=== PATIENT | male | born 1930 | race Caucasian/White ===

== ENCOUNTER 2016-03-13 02:52 | Inpatient (IN) | payer MEDICARE, OTHER ==
[~2016-03-13] VITALS: Ht 165.1 cm; Wt 54.0 kg
[2016-03-13] VITALS (7 sets, daily range): BP systolic 111–129; BP diastolic 59–76
[~2016-03-13 02:52] MED LIST: /CELE20CA; /LANS30GR; /PANT40TA PO; /TAMS4CA; /TAMS4CA PO; /THIA10TA; ACET500T2 OR; ACET65TA; AGGRCAP; ASPI1TAB PO; ASPI81TA83 OR; ATEN25TA; ATEN25TA PO; BABY81CH; BACT800T OR; CALCCHW12; CALCIUM/VITAMIN D PO; CLOP75TA2 PO; FEROUS SULFATE PO; FERR325T; FLOM5CAP PO; GLUC500T PO; LANS30CA PO; LIPI10TA; LIPI10TA PO; LISI10TA4 OR; LISI2.5T3 PO; MAGN400T5 PO; METAPKT PO; METF1000 PO; METF750T; MULTIVIT PO; PLAV75TA38 PO; PREV15CA PO; PRIN10TA; THERGRAN; TYLE325T5 PO; VITA500C24 PO; VITAMIN B COMPLEX WI; [UNRECOGNIZED DRUG - REMARK]; [UNRECOGNIZED DRUG - REMARK]
[2016-03-13 04:29] LABS: BASO % 0.2 % (0.0-1.0); EOS # 0.3 K/mm3 (0.0-0.50); EOS % 5.9 % (0.0-3.0); LARGE UNSTAINED CELL # 0.1 K/mm3 (0.0-0.4); LARGE UNSTAINED CELL % 1.4 % (0.0-4.0); LYMPH # 0.7 K/mm3 (1.5-4.5); LYMPH % 11.5 % (24.0-44.0); MEAN CORPUSCULAR HGB CONC 31.6 g/dl (32.0-36.5); MEAN CORPUSCULAR VOLUME 82.6 fl (80.0-96.0); MONO # 0.3 K/mm3 (0.0-0.8); MONO % 5.2 % (0.0-5.0); NEUTROPHILS # 4.4 K/mm3 (1.8-7.7); NEUTROPHILS % 75.9 % (36.0-66.0); PLATELET COUNT, AUTOMATED 224 k/mm3 (150-450); RED CELL DISTRIBUTION WIDTH 18.2 % (11.5-14.5); WHITE BLOOD COUNT 5.8 K/mm3 (4.0-10.0)
[2016-03-13 04:30] LABS: INR 0.99
[2016-03-13 04:41] LABS: ALBUMIN 3.8 GM/DL (3.2-5.2); ALBUMIN/GLOBULIN RATIO 1.31 (1.00-1.93); ALKALINE PHOSPHATASE 62 U/L (45-117); ALT/SGPT 15 U/L (12-78); AMYLASE 21 U/L (25-115); ANION GAP 8 MEQ/L (8-16); AST/SGOT 11 U/L (15-37); BILIRUBIN,DIRECT 0.2 MG/DL (0.0-0.2); BILIRUBIN,TOTAL 0.5 MG/DL (0.2-1.0); BLOOD UREA NITROGEN 13 MG/DL (7-18); CALCIUM LEVEL 8.7 MG/DL (8.8-10.2); CARBON DIOXIDE LEVEL 29 MEQ/L (21-32); CHLORIDE LEVEL 103 MEQ/L (98-107); CREATININE FOR GFR 0.62 MG/DL (0.70-1.30); GLOMERULAR FILTRATION RATE > 60.0 (>35); GLUCOSE, FASTING 127 MG/DL (83-110); POTASSIUM SERUM 4.2 MEQ/L (3.5-5.1); SODIUM LEVEL 140 MEQ/L (136-145); TOTAL PROTEIN 6.7 GM/DL (6.4-8.2)
[2016-03-13] MEDS ORDERED: GASTROGRAFIN SOLUTION 30ML (Q9963) As Ordered ONE (04:44)
[2016-03-13] MEDS ORDERED: ASPI81TA85 PO (06:11)
[2016-03-13] MEDS ORDERED: LISI2.5T3 PO (06:12)
[2016-03-13] MEDS ORDERED: ATEN25TA PO (06:12)
[2016-03-13] MEDS ORDERED: METF500T4 PO (06:12)
[2016-03-13] MEDS ORDERED: ONDANSETRON 4MG/2ML VIAL (J2405) IV PRN (06:30)
[2016-03-13] MEDS ORDERED: DEXTROSE 50% 50 ML SYRINGE IV PRN (07:00)
[2016-03-13] MEDS ORDERED: GLUCOSE 4 GM CHEW TABLET PO PRN (07:00)
[2016-03-13] MEDS ORDERED: GLUCAGON FOR INJ 1 MG VIAL (J1610) SC PRN (07:00)
--- NOTE | 2016-03-13 07:30 | REPUSA ---
CLINICAL HISTORY: Abdominal pain. TECHNIQUE: Multiple axial, sagittal and coronal CT images were obtained through the abdomen and pelvi s without administration of oral or IV contrast material. COMMENTS: Comparison is made to prior exam performed on 09/24/2015. No change in diffuse colonic diverticulosis. Interval appearance of mild diffuse multifocal thickening of the sigmoid colon. Significantly distended bladder. The liver is of uniform attenuation without mass or defect. There is no intra or extrahepatic biliary ductal dilatation. The spleen is normal. The gallbladder contains a gallstone. The pancreas is of no rmal contour and attenuation characteristics. There is no evidence of adrenal mass. The kidneys are normal in size, shape and configuration. No renal or ureteral calculi are identified. There is no hydroureter or hydronephrosis. There is no evidence for appendicitis. No evidence for small or large bowel obstruction. There is no evidence of abdominal ascites or lymphadenopathy. There is no evidence of intrinsic or extrinsic bladder mass. There is no pelvic ascites or lymphadeno pavan. Images of the lung bases show no evidence of pleural or parenchymal mass. There are no pleural effusi ons. The bony structures are free of lytic or blastic lesions. Multilevel degenerative changes are seen in volving the thoracolumbar spine. Scattered calcifications are seen involving the aorta and major branches compatible with atherosclero sis. IMPRESSION: Multifocal thickening of the sigmoid colon. Under distention versus mild colitis. This was not presen t on prior exam. No change in diffuse colonic diverticulosis. Significantly distended bladder. No change in gallstone. Thank you for your kind referral of this patient.
[2016-03-13] MEDS: HumaLOG INSULIN (NovoLOG) PER UNIT SC SCH ×3 (09:40→17:19)
[2016-03-13] MEDS: NS 1,000 ML IV SCH ×2 (09:40→16:04)
[2016-03-13] MEDS ORDERED: TAMSULOSIN 0.4 MG CAP As Ordered ONE (09:43)
[2016-03-13] MEDS ORDERED: PANTOPRAZOLE 40MG TAB (PROTONIX) As Ordered ONE (09:44)
[2016-03-13] MEDS: PANTOPRAZOLE 40MG TAB (PROTONIX) PO SCH (09:45)
[2016-03-13] MEDS: TAMSULOSIN 0.4 MG CAP PO SCH (09:45)
--- NOTE | 2016-03-13 13:18 | IPNPDOC ---
Assessment/Plan Date Seen The patient was seen on 03/13/16. Problems Problems: (1) Acute blood loss anemia Status: Acute Problem Text: Check H/H Q6H - slightly decreased from 9.3 on admission to 8.6. Patient currently asymptomatic with no cardiac disease - will transfuse if < 8. Informed consent for blood transfusion obtained today. (2) GI bleeding Onset Date: 08/18/2013 Status: Acute Problem Text: Likely diverticulosis as patient has history of diverticulosis of entire colon seen on colonoscopy 06/2013. He has been admitted for diverticular bleeds in the past. He also had 1 adenomatous polyp removed during colonoscopy 06/2013. No anticoagulation at baseline. - D/w Gen Surgery - recommended repeat colonoscopy in the next 1-3 months as an outpatient; no need for intervention as inpatient unless he requires > 4U pRBCs. (3) Hypertension Status: Chronic Problem Text: BP currently controlled; continue to monitor. (4) Hypercholesteremia Status: Acute Problem Text: Hold lipitor (5) Diabetes Status: Acute Problem Text: Hold metformin; continue SSI. (6) Acid reflux Status: Acute Problem Text: Continue protonix (7) Benign prostatic hyperplasia Status: Acute Problem Text: Continue tamsulosin. Plan / VTE VTE Prophylaxis Ordered?: Yes Subjective Review of Systems CC/HPI The patient is a 85-year-old male admitted with a reason for visit of Lower Gastrointestinal Bleeding. Events since last encounter Patient states he has had multiple episodes of BRBPR since admission this morning; bleeding is not associated with any bowel movements. General: Denies: Chills, Fatigue, Malaise Constitutional: Denies: Fever, Weakness ENT: Denies: Head Aches Pulmonary: Denies: Dyspnea Cardiovascular: Denies: Chest Pain, Lt Headedness, Palpitations Gastrointestinal: Denies: Abdominal Pain, Diarrhea, Nausea, Vomiting Genitourinary: Denies: Dysuria Musculoskeletal: Denies: Back Pain, Neck Pain Neurological: Denies: Weakness Psych: Reports: Mood Normal Objective Physical Examination General Exam: Positive: Alert, Cooperative, No Acute Distress Eye Exam: Positive: PERRLA ENT Exam: Positive: Atraumatic, Mucous membr. moist/pink Neck Exam: Positive: Supple Chest Exam: Positive: Clear to auscultation, Normal air movement Heart Exam: Positive: Normal S1, Normal S2, Rate Normal, Regular Rhythm, Negative: Murmurs Abdomen Exam: Positive: BS Hyperactive, Soft, Negative: Hepatospenomegaly, Mass, Tenderness Extremity Exam: Negative: Edema Skin Exam: Positive: Nl turgor and temperature, Negative: Rash Neuro Exam: Positive: Cranial Nerves 3-12 NL, Normal Speech Psych Exam: Positive: Mental status NL, Mood NL, Oriented x 3 Laboratory Data Labs 24H Laboratory Tests 2 03/13/16 04:11: Aspartate Amino Transf (AST/SGOT) 11L, Alanine Aminotransferase (ALT/SGPT) 15, Alkaline Phosphatase 62, Total Bilirubin 0.5, Direct Bilirubin 0.2, Albumin 3.8 , Albumin/Globulin Ratio 1.31, Amylase Level 21L, Anion Gap 8, Calcium Level 8.7L, Glomerular Filtration Rate > 60.0, Lipase 69L, Prothromb Time International Ratio 0.99, Prothrombin Time 13.2, Total Protein 6.7 03/13/16 04:13: White Blood Count 5.8, Red Blood Count 3.59L, Hemoglobin 9.3L, Hematocrit 29.6L , Mean Corpuscular Volume 82.6, Mean Corpuscular Hemoglobin 26.0L, Mean Corpuscular Hemoglobin Concent 31.6L, Red Cell Distribution Width 18.2H, Platelet Count 224, Neutrophils (%) (Auto) 75.9H, Lymphocytes (%) (Auto) 11.5L, Monocytes (%) (Auto) 5.2H, Eosinophils (%) (Auto) 5.9H, Basophils (%) (Auto) 0.2 , Neutrophils # (Auto) 4.4, Lymphocytes # (Auto) 0.7L, Monocytes # (Auto) 0.3, Eosinophils # (Auto) 0.3, Basophils # (Auto) 0.0, Large Unclassified Cells # 0.1 , Large Unclassified Cells % 1.4 03/13/16 11:52: Bedside Glucose (Misc Panel) 122H CBC/BMP Laboratory Tests 03/13/16 04:11 03/13/16 04:13 Red Blood Count 3.59 L, Mean Corpuscular Volume 82.6, Mean Corpuscular Hemoglobin 26.0 L, Mean Corpuscular Hemoglobin Concent 31.6 L, Red Cell Distribution Width 18.2 H, Neutrophils (%) (Auto) 75.9 H, Lymphocytes (%) (Auto ) 11.5 L, Monocytes (%) (Auto) 5.2 H, Eosinophils (%) (Auto) 5.9 H, Basophils (% ) (Auto) 0.2, Neutrophils # (Auto) 4.4, Lymphocytes # (Auto) 0.7 L, Monocytes # (Auto) 0.3, Eosinophils # (Auto) 0.3, Basophils # (Auto) 0.0 03/13/16 09:58 FSBS Laboratory Tests Test 03/13/16 11:52 Range/Units Bedside Glucose (Misc Panel) 122 83-110 MG/DL KAMAR GABRIEL MD Mar 13, 2016 13:18
--- NOTE | 2016-03-13 15:56 | EDDOCDS ---
Physician Documentation [facility] Name: Mich Franklin Age: 85 yrs Sex: Male : 1930 Arrival Date: 03/13/2016 Time: 02:52 Bed Admit Hold Private MD: Nahun Emmanuel M.D. Disposition: 03/13/16 05:56 Hospitalization ordered by Jose Manuel Christensen for Inpatient Admission. Preliminary diagnosis are Gastrointestinal hemorrhage, unspecified, Anemia, unspecified. - Bed requested for Admit. - Status is Inpatient Admission. kc3 - Condition is Stable. - Problem is an ongoing problem. - Symptoms are unchanged. Historical: - Allergies: Codeine Sulfate; SULFA (SULFONAMIDES); - Home Meds: 1. aspirin 81 mg Oral TbEC once weekly (Last dose: 03/12/2016) 2. atenolol 25 mg Oral tab 1 tab once daily (Last dose: 03/12/2016) 3. Flomax 0.4 mg Oral cp24 1 cap once daily (Last dose: 03/12/2016) 4. lisinopril 2.5 mg Oral tab 1 tab once daily (Last dose: 03/12/2016) 5. lansoprazole 30 mg oral cpDR 1 cap once daily (Last dose: 03/12/2016) 6. magnesium oxide 250 mg Oral tab twice weekly 7. metformin 500 mg Oral tab 2 tabs 2 times per day (Last dose: 03/12/2016) - PMHx: BPH; CVA; Diabetes - NIDDM: controlled; Diverticulosis; High Cholesterol; Hypertension; Recurrent Lower GI Bleeds; TIA; - PSHx: Hernia repair; Knee surgery- Left; Knee surgery- Right; Hip Arthroplasty, Right; - Social history: Smoking status: Patient states was never smoker of tobacco. No barriers to communication noted, The patient speaks fluent Sami, Speaks appropriately for age. - Family history: Not pertinent. - : The pt / caregiver states he / she is not on anticoagulants. Home medication list is obtained from the patient. - Exposure Risk Screening:: None identified. Vital Signs: 03/13 03:10 BP 138 / 71; Pulse 70; Resp 18; Temp 98.7; Pulse Ox 93% on R/A; Weight 67.13 kg / 148 ko2 lbs; Height 65 in. (165.10 cm); Pain 0/10; 03:38 BP 151 / 69 (auto/); jp6 03:38 Pulse 68 MON; Pulse Ox 94% ; jp6 03:48 BP 148 / 70 (auto/); jp6 03:49 Pulse 68 MON; Pulse Ox 95% ; jp6 04:15 BP 151 / 73 (auto/); jp6 04:15 Pulse 62 MON; Pulse Ox 95% ; jp6 04:30 BP 140 / 64 (auto/); jp6 04:30 Pulse 66 MON; Pulse Ox 96% ; jp6 04:45 BP 141 / 73 (auto/); jp6 04:45 Pulse 64 MON; Pulse Ox 93% ; jp6 05:00 BP 151 / 78 (auto/); jp6 05:00 Pulse 64 MON; Pulse Ox 93% ; jp6 05:15 BP 147 / 68 (auto/); jp6 05:15 Pulse 70 MON; Pulse Ox 95% ; jp6 05:30 BP 150 / 78; Pulse 70; Resp 18; Pain 0/10; jp6 06:00 BP 148 / 76; Pulse 71; Resp 16; Pulse Ox 95% on R/A; Pain 0/10; jp6 06:15 BP 145 / 89 (auto/); js13 06:15 Pulse 70 MON; Resp 16; Pulse Ox 95% on R/A; js13 07:04 BP 129 / 74 (auto/); js13 07:04 Pulse 68 MON; Resp 16; Pulse Ox 96% on R/A; js13 08:00 BP 138 / 86 (auto/); js13 08:00 Pulse 72 MON; Resp 16; Pulse Ox 94% on R/A; js13 09:13 BP 128 / 76; Pulse 66; Resp 16; Pulse Ox 97% on R/A; js13 09:40 BP 145 / 65 (auto/); js13 09:40 Pulse 68 MON; Resp 16; Pulse Ox 96% on R/A; js13 12:40 BP 111 / 60 (auto/); js13 12:40 Pulse 74 MON; Resp 16; Pulse Ox 94% on R/A; js13 03:10 Body Mass Index 24.63 (67.13 kg, 165.10 cm) ko2 MDM: 03:24 Undress patient appropriately for examination ordered. feb 03:24 IV Saline Lock ordered. feb 03:25 Type & Screen Ordered. EDMS 03:25 NOTHING BY MOUTH+DIET ordered. EDMS 03:26 Amylase Ordered. EDMS 03:26 Basic Metabolic Profile Ordered. EDMS 03:26 CBC with Diff Ordered. EDMS 03:26 Lipase Ordered. EDMS 03:26 Liver Profile Ordered. EDMS 03:26 Prothrombin Time Profile\E\INR Ordered. EDMS 04:30 CT ABD & PELVIS: Oral Contrast Only Ordered. EDMS 04:38 Financial registration complete. [facility] 04:43 [facility] Payment Agreement was scanned into [email or web address] and attached to record. [facility] 04:49 Diatrizoate Meglumine & Sodium Liquid 10 ml PO once; mix in 290cc of water ordered. slm 05:26 Diatrizoate Meglumine & Sodium Liquid 10 ml PO once; mix in 290cc of water ordered. jp6 05:48 Amylase Reviewed. cs11 05:48 Basic Metabolic Profile Reviewed. cs11 05:48 CBC with Diff Reviewed. cs11 05:48 Lipase Reviewed. cs11 05:48 Liver Profile Reviewed. cs11 05:48 Prothrombin Time Profile\E\INR Reviewed. cs11 05:48 Type & Screen Reviewed. cs11 05:53 BED REQUEST+ADM ordered. EDMS 06:26 Admission / Observation Status ordered. EDMS 06:27 NPO DIET ordered. EDMS 06:27 HEMOGLOBIN & HEMATOCRIT Ordered. EDMS 06:27 HEMOGLOBIN & HEMATOCRIT Ordered. EDMS 06:27 HEMOGLOBIN & HEMATOCRIT Ordered. EDMS 09:09 NS 0.9% 1000 ml IV at 80 mL/hr continuous ordered. js13 12:18 Fingerstick Blood Sugar Ordered. EDMS 14:35 T-Sheet-- Draft Copy was scanned into [email or web address] and attached to record. gb Administered Medications: 04:54 Drug: Diatrizoate Meglumine & Sodium 10 ml [diatrizoate meglumine and diat.sodium 66 slm %-10 % oral solution (10 mL)] Route: PO; 05:26 Drug: Diatrizoate Meglumine & Sodium 10 ml [diatrizoate meglumine and diat.sodium 66 jp6 %-10 % oral solution (10 mL)] Route: PO; 08:55 Drug: NS 0.9% 1000 ml [sodium chloride 0.9 % intravenous solution] Route: IV; Rate: 80 js13 mL/hr; Site: left antecubital; Signatures: Dispatcher [employer] EDErica Davison RN RN Natasha Garcia, Reg Reg Katie Miller,RN RN [id number] Efrain Chacon DO DO cs11 Lazara Paredes,AERONAUTICAL RESEARCH ENGINEER AERONAUTICAL RESEARCH ENGINEER Gabrielle ClaytonRN RN [email or web address] Mary Mccormick [facility] Rachel Sosa RN RN kc3 Christy PatelRN RN jp6 The chart was reviewed and I authenticate all verbal orders and agree with the evaluation and treatment provided.Attachments: 04:43 [facility] Payment Agreement [facility] 14:35 T-Sheet-- Draft Copy gb MTDD
--- NOTE | 2016-03-13 15:57 | EDDOCDS ---
Nurse's Notes [facility] Name: Mich Franklin Age: 85 yrs Sex: Male : 1930 Arrival Date: 03/13/2016 Time: 02:52 Bed Admit Hold Private MD: Nahun Emmanuel M.D. Diagnosis: Gastrointestinal hemorrhage, unspecified;Anemia, unspecified Presentation: 03/13 03:07 Presenting complaint: states: lower GI bleed. He has had 3 bloody stools this ko2 evening. Pt has a history of lower GI bleed and was hospitalized in september. Suicide/Homicide risk assessment- the patient denies having any suicidal and/or homicidal ideations and does not present with any other emotional, behavioral or mental health complaints. 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 Transition of care: patient was not received from another setting of care. 03:07 Acuity: [place]AL[place] Level 3 ko2 03:07 Method Of Arrival: Walkin/Carried/Asstd ko2 04:19 Adult Sepsis Screening: The patient does not have new or worsening altered mentation. jp6 Patient's respiratory rate is less than 22. Systolic blood pressure is greater than 100. Patient has a qSOFA score of 0- Negative Sepsis Screen. Triage Assessment: 03:16 General: Appears in no apparent distress, Behavior is appropriate for age, cooperative. ko2 Pain: Denies pain. Neurological: Level of Consciousness is awake, alert, Oriented to person, place, time. GI: Reports bloody stools. Derm: Skin is normal. Historical: - Allergies: Codeine Sulfate; SULFA (SULFONAMIDES); - Home Meds: 1. aspirin 81 mg Oral TbEC once weekly (Last dose: 03/12/2016) 2. atenolol 25 mg Oral tab 1 tab once daily (Last dose: 03/12/2016) 3. Flomax 0.4 mg Oral cp24 1 cap once daily (Last dose: 03/12/2016) 4. lisinopril 2.5 mg Oral tab 1 tab once daily (Last dose: 03/12/2016) 5. lansoprazole 30 mg oral cpDR 1 cap once daily (Last dose: 03/12/2016) 6. magnesium oxide 250 mg Oral tab twice weekly 7. metformin 500 mg Oral tab 2 tabs 2 times per day (Last dose: 03/12/2016) - PMHx: BPH; CVA; Diabetes - NIDDM: controlled; Diverticulosis; High Cholesterol; Hypertension; Recurrent Lower GI Bleeds; TIA; - PSHx: Hernia repair; Knee surgery- Left; Knee surgery- Right; Hip Arthroplasty, Right; - Social history: Smoking status: Patient states was never smoker of tobacco. No barriers to communication noted, The patient speaks fluent [place], Speaks appropriately for age. - Family history: Not pertinent. - : The pt / caregiver states he / she is not on anticoagulants. Home medication list is obtained from the patient. - Exposure Risk Screening:: None identified. Screenin:17 Screening information is obtained from the patient. Fall risk: At risk due to age, ko2 prior history of falls. Assistance ADL's: requires no assistance with activities of daily living. Abuse/DV Screen: The patient / caregiver reports he/she is: not in a situation that causes fear, pain or injury. Nutritional screening: No deficits noted. Advance Directives: Currently, there is a health care proxy, Britta Franklin - . There is an active DNR order but there is no copy available at this time. There is a living will, but a copy is not available at this time. There is an active Power of Chair Pad Maker, Britta Franklin - . home support is adequate. Assessment: 04:20 General: Appears in no apparent distress, comfortable, slender, well developed, well jp6 nourished, Behavior is appropriate for age, cooperative, pleasant, quiet. Pain: Denies pain. Neurological: Level of Consciousness is awake, alert, Oriented to person, place, time. EENT: No deficits noted. Cardiovascular: Capillary refill < 3 seconds Heart tones S1 S2 present Rhythm is sinus rhythm No ectopy. Respiratory: Airway is patent Respiratory effort is even, unlabored, Respiratory pattern is regular, symmetrical, Breath sounds are clear bilaterally. GI: Abdomen is flat, non- distended Bowel sounds present X 4 quads. : No deficits noted. Derm: Skin is pink, warm & dry. Musculoskeletal: No deficits noted. 05:29 Reassessment: Patient appears in no apparent distress at this time. Pain: Denies pain. jp6 Cardiovascular: Rhythm is sinus rhythm No ectopy. Respiratory: Airway is patent Respiratory effort is even, unlabored, Respiratory pattern is regular, symmetrical. Derm: Skin is pink, warm & dry. 06:14 Reassessment: Patient appears in no apparent distress at this time. Pain: Denies pain. jp6 Cardiovascular: Rhythm is sinus rhythm No ectopy. Respiratory: Airway is patent Respiratory effort is even, unlabored, Respiratory pattern is regular, symmetrical. Derm: Skin is pink, warm & dry. 06:30 General: Two episodes of bloody stools each approx 700ml.. jp6 07:25 General: Appears in no apparent distress, comfortable, Behavior is appropriate for age, js13 cooperative. Pain: Denies pain. Neurological: Level of Consciousness is awake, alert. Cardiovascular: Rhythm is sinus rhythm Chest pain is denied. Respiratory: Airway is patent Respiratory effort is even, unlabored, Respiratory pattern is regular, symmetrical. GI: Abdomen is non- distended Bowel sounds present X 4 quads. Abd is soft and non tender. Derm: Skin is pink, warm & dry. 07:25 Adult Sepsis Screening: The patient does not have new or worsening altered mentation. js13 Patient's respiratory rate is less than 22. Systolic blood pressure is greater than 100. Patient has a qSOFA score of 0- Negative Sepsis Screen. 09:10 General: Appears in no apparent distress, comfortable, Behavior is appropriate for age, js13 cooperative. General: Patient had approx 800 cc of blood when he went to [facility]. . Pain: Denies pain. Neurological: Level of Consciousness is awake, alert. Cardiovascular: Rhythm is sinus rhythm Chest pain is denied. Respiratory: Airway is patent Respiratory effort is even, unlabored, Respiratory pattern is regular, symmetrical. GI: Abdomen is non- distended Bowel sounds present X 4 quads. Abd is soft and non tender. Derm: Skin is pink, warm & dry. 09:21 General: Report given to Lavonne Gordon RN. js13 Vital Signs: 03:10 BP 138 / 71; Pulse 70; Resp 18; Temp 98.7; Pulse Ox 93% on R/A; Weight 67.13 kg; Height ko2 65 in. (165.10 cm); Pain 0/10; 03:38 BP 151 / 69 (auto/); jp6 03:38 Pulse 68 MON; Pulse Ox 94% ; jp6 03:48 BP 148 / 70 (auto/); jp6 03:49 Pulse 68 MON; Pulse Ox 95% ; jp6 04:15 BP 151 / 73 (auto/); jp6 04:15 Pulse 62 MON; Pulse Ox 95% ; jp6 04:30 BP 140 / 64 (auto/); jp6 04:30 Pulse 66 MON; Pulse Ox 96% ; jp6 04:45 BP 141 / 73 (auto/); jp6 04:45 Pulse 64 MON; Pulse Ox 93% ; jp6 05:00 BP 151 / 78 (auto/); jp6 05:00 Pulse 64 MON; Pulse Ox 93% ; jp6 05:15 BP 147 / 68 (auto/); jp6 05:15 Pulse 70 MON; Pulse Ox 95% ; jp6 05:30 BP 150 / 78; Pulse 70; Resp 18; Pain 0/10; jp6 06:00 BP 148 / 76; Pulse 71; Resp 16; Pulse Ox 95% on R/A; Pain 0/10; jp6 06:15 BP 145 / 89 (auto/); js13 06:15 Pulse 70 MON; Resp 16; Pulse Ox 95% on R/A; js13 07:04 BP 129 / 74 (auto/); js13 07:04 Pulse 68 MON; Resp 16; Pulse Ox 96% on R/A; js13 08:00 BP 138 / 86 (auto/); js13 08:00 Pulse 72 MON; Resp 16; Pulse Ox 94% on R/A; js13 09:13 BP 128 / 76; Pulse 66; Resp 16; Pulse Ox 97% on R/A; js13 09:40 BP 145 / 65 (auto/); js13 09:40 Pulse 68 MON; Resp 16; Pulse Ox 96% on R/A; js13 12:40 BP 111 / 60 (auto/); js13 12:40 Pulse 74 MON; Resp 16; Pulse Ox 94% on R/A; js13 03:10 Body Mass Index 24.63 (67.13 kg, 165.10 cm) ko2 ED Course: 02:53 Patient visited by Derek Holly Reg. pm4 02:53 Nahun Emmanuel is Private Physician. pm4 02:53 Patient moved to Waiting pm4 03:07 Patient moved to Triage 1 ko2 03:10 Triage Initiated ko2 03:18 Patient moved to 15 ko2 03:49 cardiac monitor on. Pulse ox on. NIBP on. jp6 03:49 Inserted peripheral IV: 18gauge IV in left antecubital area and blood collected. jp6 Patient tolerated the procedure well. Labs drawn. (by ED staff). Sent per order to lab. 03:51 Efrain Chacon DO is Attending Physician. cs11 03:51 Patient visited by Efrain Chacon DO. cs11 03:57 Christy Patel,RN is Primary Nurse. jp6 04:43 [facility] Payment Agreement was scanned into [employer] and attached to record. [facility] 05:10 Patient visited by Christy Patel,ANDREW. jp6 05:15 The patient / caregiver is instructed regarding the plan of care and ED course. jp6 05:15 No procedures done that require assistance. jp6 05:55 Jose Manuel Christensen MD is Hospitalizing Provider. cs11 06:52 Patient moved to Admit Hold feb 07:26 Patient visited by Katie Roberson,ANDREW. js13 07:56 CT ABD & PELVIS: Oral Contrast Only Returned. EDMS 08:00 Assisted to bedside commode. jlf 08:36 Patient visited by Martha Simon PCA. jlf 09:02 Patient moved to I kcs 09:21 Patient visited by Katie Roberson,ANDREW. js13 14:14 Patient visited by Katie Roberson,ANDREW. js13 14:35 T-Sheet-- Draft Copy was scanned into [employer] and attached to record. gb 15:17 Patient moved to Admit Hold js13 Administered Medications: 04:54 Drug: Diatrizoate Meglumine & Sodium 10 ml [diatrizoate meglumine and diat.sodium 66 slm %-10 % oral solution (10 mL)] Route: PO; 05:26 Drug: Diatrizoate Meglumine & Sodium 10 ml [diatrizoate meglumine and diat.sodium 66 jp6 %-10 % oral solution (10 mL)] Route: PO; 08:55 Drug: NS 0.9% 1000 ml [sodium chloride 0.9 % intravenous solution] Route: IV; Rate: 80 js13 mL/hr; Site: left antecubital; Order Results: Lab Order: Amylase; SPEC'M 03/13/16 04:11 Test: AMYLASE; Value: 21; Range: 25-115; Abnormal: Below low normal; Units: U/L; Status: F Lab Order: Basic Metabolic Profile; SPEC'M 03/13/16 04:11 Test: GLUCOSE, FASTING; Value: 127; Range: 83-110; Abnormal: Above high normal; Units: MG/DL; Status: F Test: BLOOD UREA NITROGEN; Value: 13; Range: 7-18; Units: MG/DL; Status: F Test: CREATININE FOR GFR; Value: 0.62; Range: 0.70-1.30; Abnormal: Below low normal; Units: MG/DL; Status: F Test: GLOMERULAR FILTRATION RATE; Value: > 60.0; Range: >35; Status: F Test: SODIUM LEVEL; Value: 140; Range: 136-145; Units: MEQ/L; Status: F Test: POTASSIUM SERUM; Value: 4.2; Range: 3.5-5.1; Units: MEQ/L; Status: F Test: CHLORIDE LEVEL; Value: 103; Range: 98-107; Units: MEQ/L; Status: F Test: CARBON DIOXIDE LEVEL; Value: 29; Range: 21-32; Units: MEQ/L; Status: F Test: ANION GAP; Value: 8; Range: 8-16; Units: MEQ/L; Status: F Test: CALCIUM LEVEL; Value: 8.7; Range: 8.8-10.2; Abnormal: Below low normal; Units: MG/DL; Status: F Test Note: ; Units are mL/min/1.73 m2 Chronic Kidney Disease Staging per NKF: Stage I & II GFR >=60 Normal to Mildly Decreased Stage III GFR 30-59 Moderately Decreased Stage IV GFR 15-29 Severely Decreased Stage V GFR <15 Very Little GFR Left ESRD GFR <15 on [employer] Lab Order: CBC with Diff; SPEC'M 03/13/16 04:13 Test: WHITE BLOOD COUNT; Value: 5.8; Range: 4.0-10.0; Units: K/mm3; Status: F Test: RED BLOOD COUNT; Value: 3.59; Range: 4.30-6.10; Abnormal: Below low normal; Units: M/mm3; Status: F Test: HEMOGLOBIN; Value: 9.3; Range: 14.0-18.0; Abnormal: Below low normal; Units: g/dl; Status: F Test: HEMATOCRIT; Value: 29.6; Range: 42.0-52.0; Abnormal: Below low normal; Units: %; Status: F Test: MEAN CORPUSCULAR VOLUME; Value: 82.6; Range: 80.0-96.0; Units: fl; Status: F Test: MEAN CORPUSCULAR HEMOGLOBIN; Value: 26.0; Range: 27.0-33.0; Abnormal: Below low normal; Units: pg; Status: F Test: MEAN CORPUSCULAR HGB CONC; Value: 31.6; Range: 32.0-36.5; Abnormal: Below low normal; Units: g/dl; Status: F Test: RED CELL DISTRIBUTION WIDTH; Value: 18.2; Range: 11.5-14.5; Abnormal: Above high normal; Units: %; Status: F Test: PLATELET COUNT, AUTOMATED; Value: 224; Range: 150-450; Units: k/mm3; Status: F Test: NEUTROPHILS %; Value: 75.9; Range: 36.0-66.0; Abnormal: Above high normal; Units: %; Status: F Test: LYMPH %; Value: 11.5; Range: 24.0-44.0; Abnormal: Below low normal; Units: %; Status: F Test: MONO %; Value: 5.2; Range: 0.0-5.0; Abnormal: Above high normal; Units: %; Status: F Test: EOS %; Value: 5.9; Range: 0.0-3.0; Abnormal: Above high normal; Units: %; Status: F Test: BASO %; Value: 0.2; Range: 0.0-1.0; Units: %; Status: F Test: LARGE UNSTAINED CELL %; Value: 1.4; Range: 0.0-4.0; Units: %; Status: F Test: NEUTROPHILS #; Value: 4.4; Range: 1.8-7.7; Units: K/mm3; Status: F Test: LYMPH #; Value: 0.7; Range: 1.5-4.5; Abnormal: Below low normal; Units: K/mm3; Status: F Test: MONO #; Value: 0.3; Range: 0.0-0.8; Units: K/mm3; Status: F Test: EOS #; Value: 0.3; Range: 0.0-0.50; Units: K/mm3; Status: F Test: BASO #; Value: 0.0; Range: 0.0-0.2; Units: K/mm3; Status: F Test: LARGE UNSTAINED CELL #; Value: 0.1; Range: 0.0-0.4; Units: K/mm3; Status: F Lab Order: Lipase; SPEC' 03/13/16 04:11 Test: LIPASE; Value: 69; Range: 73-393; Abnormal: Below low normal; Units: U/L; Status: F Lab Order: Liver Profile; SPEC 03/13/16 04:11 Test: AST/SGOT; Value: 11; Range: 15-37; Abnormal: Below low normal; Units: U/L; Status: F Test: ALT/SGPT; Value: 15; Range: 12-78; Units: U/L; Status: F Test: ALKALINE PHOSPHATASE; Value: 62; Range: 45-117; Units: U/L; Status: F Test: BILIRUBIN,TOTAL; Value: 0.5; Range: 0.2-1.0; Units: MG/DL; Status: F Test: BILIRUBIN,DIRECT; Value: 0.2; Range: 0.0-0.2; Units: MG/DL; Status: F Test: TOTAL PROTEIN; Value: 6.7; Range: 6.4-8.2; Units: GM/DL; Status: F Test: ALBUMIN; Value: 3.8; Range: 3.2-5.2; Units: GM/DL; Status: F Test: ALBUMIN/GLOBULIN RATIO; Value: 1.31; Range: 1.00-1.93; Status: F Lab Order: Prothrombin Time Profile\E\INR; SPEC03/13/16 04:11 Test: PROTHROMBIN TIME; Value: 13.2; Range: 12.3-14.5; Units: SECONDS; Status: F Test: INR; Value: 0.99; Status: F Test Note: ; THERAPUTIC HUMAN INR VALUES INDICATIONS NORMAL RANGES PROPHYLAXIS/TREATMENT OF: VENOUS THROMBOSIS 2.0-3.0 PULMONARY EMBOLISM 2.0-3.0 PREVENTION OF SYSTEMIC EMBOLISM FROM: TISSUE HEART VALVES 2.0-3.0 ACUTE MYOCARDIAL INFARCTION 2.0-3.0 VALVULAR HEART DISEASE 2.0-3.0 ATRIAL FIBRILLATION 2.0-3.0 MECHANICAL VALVES(HIGH RISK) 2.5-3.5 RECURRENT MYOCARDIAL INFARCTION 2.5-3.5 Lab Order: Type & Screen; [facility] 03/13/16 04:13 Test: BLOOD TYPE; Value: A POS; Status: F Test: AB SCREEN (INDIRECT ORALIA)GEL; Value: NEGATIVE; Status: F Lab Order: HEMOGLOBIN & HEMATOCRIT; [facility] 03/13/16 09:58 Test: HEMOGLOBIN; Value: 8.6; Range: 14.0-18.0; Abnormal: Below low normal; Units: g/dl; Status: F Test: HEMATOCRIT; Value: 27.6; Range: 42.0-52.0; Abnormal: Below low normal; Units: %; Status: F Lab Order: Fingerstick Blood Sugar; [facility] 03/13/16 11:52 Test: BEDSIDE GLUCOSE; Value: 122; Range: 83-110; Abnormal: Above high normal; Units: MG/DL; Status: F Radiology Order: CT ABD & PELVIS: Oral Contrast Only Test: CT ABD & PELVIS: Oral Contrast Only REASON FOR EXAMINATION: Diverticulitis; ; CLINICAL HISTORY: Abdominal pain.; TECHNIQUE: Multiple axial, sagittal and coronal CT images were obtained through the abdomen and pelvi; s without administration of oral or IV contrast material.; COMMENTS:; Comparison is made to prior exam performed on 09/24/2015.; No change in diffuse colonic diverticulosis.; Interval appearance of mild diffuse multifocal thickening of the sigmoid colon.; Significantly distended bladder.; The liver is of uniform attenuation without mass or defect. There is no intra or extrahepatic biliary; ductal dilatation. The spleen is normal. The gallbladder contains a gallstone. The pancreas is of no; rmal contour and attenuation characteristics. There is no evidence of adrenal mass.; The kidneys are normal in size, shape and configuration. No renal or ureteral calculi are identified.; There is no hydroureter or hydronephrosis.; There is no evidence for appendicitis. No evidence for small or large bowel obstruction. There is no; evidence of abdominal ascites or lymphadenopathy.; There is no evidence of intrinsic or extrinsic bladder mass. There is no pelvic ascites or lymphadeno; pavan.; Images of the lung bases show no evidence of pleural or parenchymal mass. There are no pleural effusi; ons.; The bony structures are free of lytic or blastic lesions. Multilevel degenerative changes are seen in; volving the thoracolumbar spine.; Scattered calcifications are seen involving the aorta and major branches compatible with atherosclero; sis.; IMPRESSION:; Multifocal thickening of the sigmoid colon. Under distention versus mild colitis. This was not presen; t on prior exam.; No change in diffuse colonic diverticulosis.; Significantly distended bladder.; No change in gallstone.; Thank you for your kind referral of this patient.; ; Outcome: 05:56 Decision to Hospitalize by Provider. cs11 15:56 Patient left the ED. kc3 Signatures: Dispatcher [employer] EDMS Irene Paulino, RN RN Erica Dsouza, RN Natasha Quevedo, Reg Reg gb Katie RobersonRN RN js13 Efrain Chacon, DO DO cs11 Lazara Paredes,OPHTHALMIC PATHOLOGIST OPHTHALMIC PATHOLOGIST slm Martha Simon, TRAIN STARTER TRAIN STARTER jlf Gabrielle Powell,RN RN Mary Gómez KelsiRN RN kc3 Christy Patel,RN RN jp6 Derek Holly, Reg Reg pm4 MTDD
[2016-03-13] MEDS ORDERED: FUROSEMIDE 20 MG/2 ML VIAL (J1940) IV ONE (19:00)
--- NOTE | 2016-03-13 21:12 | HPE ---
DATE OF ADMISSION: 03/13/2016 This is a patient of Dr. Emmanuel. CHIEF COMPLAINT: Rectal bleeding. This gentleman is an 85-year-old with a past medical history of recurrent rectal bleeding who was awoken from sleep at 01:30 this morning about the time he usually gets up to urinate. He went to the bathroom and passed a liquid blood bowel movement that was bright red. He has had around five bright red bowel movement this morning. He is not experiencing any chest pain or lightheadedness with position changes. He previously had a colonoscopy done by Dr. Noriega that was in 2013. He was found to have diverticulosis in the entire colon, one small polyp in the descending colon, nonbleeding internal hemorrhoids. He did not have any abdominal pain and has been in his normal state of health. PAST MEDICAL HISTORY: 1. Type 2 diabetes. 2. History of a cerebral vascular accident (CVA) in 2005 for which he takes aspirin once weekly. 3. Transient ischemic attack (TIA). 4. Hyperlipidemia. 5. Hypertension. 6. Benign prostatic hypertrophy (BPH). 7. Diverticulosis. 8. Colonic polyp. 9. Cervical spondylosis. 10. Lower gastrointestinal (GI) bleeds previously for which he has received a total of 11 units of packed red blood cells. PAST SURGICAL HISTORY: 1. Colonoscopy 2013. 2. Right hip replacement. 3. Bilateral knee replacement. 4. Tonsillectomy. 5. Hernia repair. ALLERGIES: CODEINE, PROPOXYPHENE, BACTRIM and TRAMADOL. HOME MEDICATIONS: - aspirin 81 mg once weekly - atenolol 25 mg daily - Lisinopril 2.5 mg nightly - Metformin 500 mg twice a day - Prevacid daily - magnesium oxide - Flomax. He also has a past history of urinary retention. SOCIAL HISTORY: The patient is a nonsmoker. Lives with his , lives in [place]. He used to enjoy fishing for [employer] while his read the newspaper. FAMILY HISTORY: Father from heart attack, mother with congestive heart failure, asthma and kidney disease. REVIEW OF SYSTEMS: No headache, no visual changes, no runny nose, no sore throat, no neck pain, no cough, not shortness of breath, walks with a cane, no abdominal pain. He does have nocturia; otherwise unremarkable. PHYSICAL EXAMINATION: VITAL SIGNS: Blood pressure 147/68, pulse 70, respiratory rate 18, temperature 98.7, pulse oximetry 95% on room air. Body maximum index 24.6. GENERAL: He is awake, alert, pleasant, easily conversant. He is able to walk a few steps it takes from the toilet to the gurney without difficulty. HEENT/NECK: Normocephalic. Moist mucous membranes. Neck is supple. Pupils equal, round, reactive. Anicteric. Arcus senilis. LUNGS: Symmetrical. I:E ratio is 1:3. No wheezes, rales or rhonchi. No costophrenic angle (CVA) tenderness. No sacral edema. HEART: Regular rate and rhythm, not tachycardic. Normal S1, S2. ABDOMEN: Soft, doughy, nontender. Hypoactive bowel sounds. EXTREMITIES: No lower extremity edema. He is moving all four extremities. NEUROLOGY: Cranial nerves II-XII grossly intact. He has normal mood and affect and makes some jokes during the exam. LABORATORY DATA: White cell count 5.8, hemoglobin 9.3, platelets 224, INR 0.99, BUN 13, creatinine 0.62. CT of the abdomen and pelvis was done in the emergency department and is pending. ASSESSMENT: This is an 85-year-old with recurrent lower gastrointestinal (GI) bleed. The patient will require a two midnight hospital stay. 1. For hematochezia. The patient has a history of diverticular bleed in the past. This is most likely a recurrent diverticular bleed. He has received by mouth contrast in the emergency department. Angiography suite would be out of the question until he passes that contrast. He has been scoped by Dr. Noriega in the past. It is unclear to me that he needs a GI consult but will defer to the primary team. Will clearly hold his aspirin and keep him nothing by mouth (NPO) with intravenous (IV) fluids and repeat his hemoglobin and hematocrit, transfuse as needed. He has already consented for the transfusion. The paper work has yet to be filled out. 2. Patient has history of cerebral vascular accident (CVA). He is on aspirin for prophylaxis. It looks as though he was previously on a statin drug which does not appear to be on his list at this point. 3. The patient has diabetes. He is taking Metformin. We can check fingersticks and do a sliding scale as needed. 4. Gastroesophageal reflux disease (GERD). The patient is on a proton pump inhibitor (PPI). Will continue his PPI during this stay. 5. The patient has benign prostatic hypertrophy and known urinary retention. He has been seen by urology and thought not to need a Avina catheter. Continue his alpha manuel with hold parameters. 6. Deep venous thrombosis (DVT) prophylaxis. Mechanical.
[2016-03-14 04:00] VITALS: BP 129/66
[2016-03-14] MEDS: NS 1,000 ML IV SCH ×2 (06:42→18:43)
[2016-03-14 07:00] VITALS: BP_SYST 130; BP_SYST 133; BP_SYST 136; BP_DIAS 70; BP_DIAS 71; BP_DIAS 76
[2016-03-14 08:00] VITALS: BP 133/71
[2016-03-14] MEDS: PANTOPRAZOLE 40MG TAB (PROTONIX) PO SCH (08:29)
[2016-03-14] MEDS: TAMSULOSIN 0.4 MG CAP PO SCH (08:29)
--- NOTE | 2016-03-14 10:00 | IPNPDOC ---
Assessment/Plan Date Seen The patient was seen on 03/14/16. Problems Problems: (1) Acute blood loss anemia Status: Acute Problem Text: 03/13 CT AP mild sigmoid mural thickening-robin, WBC, afebrile, NT 03/13 - Check H/H Q6H - slightly decreased from 9.3 on admission to 8.6. Patient currently asymptomatic with no cardiac disease - will transfuse if <8. Informed consent for blood transfusion obtained today. 03/14- received 2 units PRBCs yesterday, cont to monitor hgb, if stable advance to clears in AM, dropped IVF to 40 cc given JVD 4 cm (2) GI bleeding Onset Date: 08/18/2013 Status: Acute Problem Text: 03/13 - Likely diverticulosis as patient has history of diverticulosis of entire colon seen on colonoscopy 06/2013. He has been admitted for diverticular bleeds in the past. He also had 1 adenomatous polyp removed during colonoscopy 06/2013. No anticoagulation at baseline. - D/w Gen Surgery - recommended repeat colonoscopy in the next 1-3 months as an outpatient; no need for intervention as inpatient unless he requires > 4U pRBCs. (3) Hypertension Status: Chronic Problem Text: BP currently controlled; continue to monitor. (4) Hypercholesteremia Status: Chronic Problem Text: Hold lipitor (5) Diabetes Status: Chronic Problem Text: Hold metformin; continue SSI. (6) Acid reflux Status: Chronic Problem Text: Continue protonix (7) Benign prostatic hyperplasia Status: Chronic Problem Text: Continue tamsulosin. Plan / VTE VTE Prophylaxis Ordered?: Yes Subjective Review of Systems CC/HPI Pt without new concerns. BM about 3 this morning, he isn't sure if this was bloody or not. Not documented in EMR that I can find. General: Denies: Fatigue Constitutional: Denies: Chills, Fever ENT: Denies: Head Aches Pulmonary: Denies: Cough, Dyspnea Cardiovascular: Denies: Chest Pain, Palpitations Gastrointestinal: Denies: Diarrhea, Nausea, Vomiting Musculoskeletal: Denies: Neck Pain Neurological: Denies: Weakness Psych: Reports: Mood Normal Objective Physical Examination General Exam: Positive: Alert, Cooperative, No Acute Distress Eye Exam: Positive: PERRLA ENT Exam: Positive: Atraumatic, Mucous membr. moist/pink Neck Exam: Positive: Supple Chest Exam: Positive: Clear to auscultation, Normal air movement Heart Exam: Positive: Normal S1, Normal S2, Rate Normal, Regular Rhythm, Negative: Murmurs Abdomen Exam: Positive: BS Hyperactive, Normal bowel sounds, Soft, Negative: Hepatospenomegaly, Mass, Tenderness Extremity Exam: Negative: Edema Skin Exam: Positive: Nl turgor and temperature, Negative: Rash Neuro Exam: Positive: Cranial Nerves 3-12 NL, Normal Speech Psych Exam: Positive: Mental status NL, Mood NL, Oriented x 3 Vital Signs/I&O Vital Signs Date Time Temp Pulse Resp B/P Pulse Ox O2 Delivery O2 Flow Rate FiO2 03/14/16 08:00 97.7 70 18 133/71 93 Room Air I&O- Last 24 Hours up to 6 AM 03/14/16 06:00 Intake Total 1120 ml Output Total 1525 ml Balance -405 ml Laboratory Data Labs 24H Laboratory Tests 2 03/13/16 11:52: Bedside Glucose (Misc Panel) 122H 03/13/16 16:59: Bedside Glucose (Misc Panel) 125H 03/13/16 23:29: Bedside Glucose (Misc Panel) 134H 03/14/16 06:41: Bedside Glucose (Misc Panel) 106 CBC/BMP Laboratory Tests 03/13/16 09:58 03/13/16 16:30 03/14/16 02:03 03/14/16 07:56 FSBS Laboratory Tests Test 03/13/16 11:52 03/13/16 16:59 03/13/16 23:29 03/14/16 06:41 Range/Units Bedside Glucose (Misc Panel) 122 125 134 106 83-110 MG/DL EVERETTE MONET PA-C Mar 14, 2016 10:00 Jude Sanderson M.D. Mar 14, 2016 11:28
[2016-03-14 16:00] VITALS: BP 130/70
[2016-03-14 17:49] VITALS: BP 168/92
[2016-03-14 22:00] VITALS: BP 152/80
[2016-03-15 06:00] VITALS: BP 134/79
[2016-03-15] MEDS: NS 1,000 ML IV SCH ×2 (06:15→18:56)
[2016-03-15 06:30] VITALS: BP_SYST 134; BP_SYST 139; BP_SYST 149; BP_DIAS 75; BP_DIAS 76; BP_DIAS 79
[2016-03-15 07:37] LABS: MEAN CORPUSCULAR HEMOGLOBIN 26.7 pg (27.0-33.0); MEAN CORPUSCULAR HGB CONC 32.6 g/dl (32.0-36.5); MEAN CORPUSCULAR VOLUME 81.8 fl (80.0-96.0); RED CELL DISTRIBUTION WIDTH 17.2 % (11.5-14.5); WHITE BLOOD COUNT 4.8 K/mm3 (4.0-10.0)
[2016-03-15 08:01] LABS: ALBUMIN 3.3 GM/DL (3.2-5.2); ALBUMIN/GLOBULIN RATIO 1.27 (1.00-1.93); ALKALINE PHOSPHATASE 58 U/L (45-117); ALT/SGPT 12 U/L (12-78); ANION GAP 12 MEQ/L (8-16); AST/SGOT 12 U/L (15-37); BILIRUBIN,TOTAL 0.7 MG/DL (0.2-1.0); BLOOD UREA NITROGEN 12 MG/DL (7-18); CALCIUM LEVEL 7.9 MG/DL (8.8-10.2); CARBON DIOXIDE LEVEL 23 MEQ/L (21-32); CHLORIDE LEVEL 108 MEQ/L (98-107); CREATININE FOR GFR 0.41 MG/DL (0.70-1.30); GLOMERULAR FILTRATION RATE > 60.0 (>35); GLUCOSE, FASTING 73 MG/DL (83-110); POTASSIUM SERUM 3.3 MEQ/L (3.5-5.1); SODIUM LEVEL 143 MEQ/L (136-145); TOTAL PROTEIN 5.9 GM/DL (6.4-8.2)
[2016-03-15] MEDS: PANTOPRAZOLE 40MG TAB (PROTONIX) PO SCH (09:42)
[2016-03-15] MEDS: TAMSULOSIN 0.4 MG CAP PO SCH (09:42)
[2016-03-15] MEDS: MAGNESIUM OXIDE 400 MG TAB (MAG-OX) PO SCH (09:43)
[2016-03-15] MEDS ORDERED: POTASSIUM CHLORIDE 10% LIQ 20 MEQ/15 ML UDC PO ONE (15:15)
--- NOTE | 2016-03-15 16:57 | EDDOCDS ---
Physician Documentation [facility] Name: Mich Franklin Age: 85 yrs Sex: Male : 1930 Arrival Date: 03/13/2016 Time: 02:52 Bed Admit Hold Private MD: Nahun Emmanuel M.D. Disposition: 03/13/16 05:56 Hospitalization ordered by Jose Manuel Christensen for Inpatient Admission. Preliminary diagnosis are Gastrointestinal hemorrhage, unspecified, Anemia, unspecified. - Bed requested for Admit. - Status is Inpatient Admission. kc3 - Condition is Stable. - Problem is an ongoing problem. - Symptoms are unchanged. Historical: - Allergies: Codeine Sulfate; SULFA (SULFONAMIDES); - Home Meds: 1. aspirin 81 mg Oral TbEC once weekly (Last dose: 03/12/2016) 2. atenolol 25 mg Oral tab 1 tab once daily (Last dose: 03/12/2016) 3. Flomax 0.4 mg Oral cp24 1 cap once daily (Last dose: 03/12/2016) 4. lisinopril 2.5 mg Oral tab 1 tab once daily (Last dose: 03/12/2016) 5. lansoprazole 30 mg oral cpDR 1 cap once daily (Last dose: 03/12/2016) 6. magnesium oxide 250 mg Oral tab twice weekly 7. metformin 500 mg Oral tab 2 tabs 2 times per day (Last dose: 03/12/2016) - PMHx: BPH; CVA; Diabetes - NIDDM: controlled; Diverticulosis; High Cholesterol; Hypertension; Recurrent Lower GI Bleeds; TIA; - PSHx: Hernia repair; Knee surgery- Left; Knee surgery- Right; Hip Arthroplasty, Right; - Social history: Smoking status: Patient states was never smoker of tobacco. No barriers to communication noted, The patient speaks fluent Bulgarian, Speaks appropriately for age. - Family history: Not pertinent. - : The pt / caregiver states he / she is not on anticoagulants. Home medication list is obtained from the patient. - Exposure Risk Screening:: None identified. Vital Signs: 03/13 03:10 BP 138 / 71; Pulse 70; Resp 18; Temp 98.7; Pulse Ox 93% on R/A; Weight 67.13 kg / 148 ko2 lbs; Height 65 in. (165.10 cm); Pain 0/10; 03:38 BP 151 / 69 (auto/); jp6 03:38 Pulse 68 MON; Pulse Ox 94% ; jp6 03:48 BP 148 / 70 (auto/); jp6 03:49 Pulse 68 MON; Pulse Ox 95% ; jp6 04:15 BP 151 / 73 (auto/); jp6 04:15 Pulse 62 MON; Pulse Ox 95% ; jp6 04:30 BP 140 / 64 (auto/); jp6 04:30 Pulse 66 MON; Pulse Ox 96% ; jp6 04:45 BP 141 / 73 (auto/); jp6 04:45 Pulse 64 MON; Pulse Ox 93% ; jp6 05:00 BP 151 / 78 (auto/); jp6 05:00 Pulse 64 MON; Pulse Ox 93% ; jp6 05:15 BP 147 / 68 (auto/); jp6 05:15 Pulse 70 MON; Pulse Ox 95% ; jp6 05:30 BP 150 / 78; Pulse 70; Resp 18; Pain 0/10; jp6 06:00 BP 148 / 76; Pulse 71; Resp 16; Pulse Ox 95% on R/A; Pain 0/10; jp6 06:15 BP 145 / 89 (auto/); js13 06:15 Pulse 70 MON; Resp 16; Pulse Ox 95% on R/A; js13 07:04 BP 129 / 74 (auto/); js13 07:04 Pulse 68 MON; Resp 16; Pulse Ox 96% on R/A; js13 08:00 BP 138 / 86 (auto/); js13 08:00 Pulse 72 MON; Resp 16; Pulse Ox 94% on R/A; js13 09:13 BP 128 / 76; Pulse 66; Resp 16; Pulse Ox 97% on R/A; js13 09:40 BP 145 / 65 (auto/); js13 09:40 Pulse 68 MON; Resp 16; Pulse Ox 96% on R/A; js13 12:40 BP 111 / 60 (auto/); js13 12:40 Pulse 74 MON; Resp 16; Pulse Ox 94% on R/A; js13 03:10 Body Mass Index 24.63 (67.13 kg, 165.10 cm) ko2 MDM: 03:24 Undress patient appropriately for examination ordered. feb 03:24 IV Saline Lock ordered. feb 03:25 Type & Screen Ordered. EDMS 03:25 NOTHING BY MOUTH+DIET ordered. EDMS 03:26 Amylase Ordered. EDMS 03:26 Basic Metabolic Profile Ordered. EDMS 03:26 CBC with Diff Ordered. EDMS 03:26 Lipase Ordered. EDMS 03:26 Liver Profile Ordered. EDMS 03:26 Prothrombin Time Profile\E\INR Ordered. EDMS 04:30 CT ABD & PELVIS: Oral Contrast Only Ordered. EDMS 04:38 Financial registration complete. [facility] 04:43 [facility] Payment Agreement was scanned into [employer] and attached to record. [facility] 04:49 Diatrizoate Meglumine & Sodium Liquid 10 ml PO once; mix in 290cc of water ordered. slm 05:26 Diatrizoate Meglumine & Sodium Liquid 10 ml PO once; mix in 290cc of water ordered. jp6 05:48 Amylase Reviewed. cs11 05:48 Basic Metabolic Profile Reviewed. cs11 05:48 CBC with Diff Reviewed. cs11 05:48 Lipase Reviewed. cs11 05:48 Liver Profile Reviewed. cs11 05:48 Prothrombin Time Profile\E\INR Reviewed. cs11 05:48 Type & Screen Reviewed. cs11 05:53 BED REQUEST+ADM ordered. EDMS 06:26 Admission / Observation Status ordered. EDMS 06:27 NPO DIET ordered. EDMS 06:27 HEMOGLOBIN & HEMATOCRIT Ordered. EDMS 06:27 HEMOGLOBIN & HEMATOCRIT Ordered. EDMS 06:27 HEMOGLOBIN & HEMATOCRIT Ordered. EDMS 09:09 NS 0.9% 1000 ml IV at 80 mL/hr continuous ordered. js13 12:18 Fingerstick Blood Sugar Ordered. EDMS 14:35 T-Sheet-- Draft Copy was scanned into [employer] and attached to record. gb Administered Medications: 04:54 Drug: Diatrizoate Meglumine & Sodium 10 ml [diatrizoate meglumine and diat.sodium 66 slm %-10 % oral solution (10 mL)] Route: PO; 05:26 Drug: Diatrizoate Meglumine & Sodium 10 ml [diatrizoate meglumine and diat.sodium 66 jp6 %-10 % oral solution (10 mL)] Route: PO; 08:55 Drug: NS 0.9% 1000 ml [sodium chloride 0.9 % intravenous solution] Route: IV; Rate: 80 js13 mL/hr; Site: left antecubital; Signatures: Dispatcher [employer] EDrEica Davison, RN RN Natasha Garcia, Reg Reg Katie Miller,RN RN js13 Efrain Chacon DO DO cs11 Lazara Paredes,TRAINING PROJECT MANAGER TRAINING PROJECT MANAGER Gabrielle ClaytonRN RN damian2 Mary Mccormick [facility] Rachel Sosa RN RN kc3 Christy Patel,RN RN jp6 The chart was reviewed and I authenticate all verbal orders and agree with the evaluation and treatment provided.Attachments: 04:43 [facility] Payment Agreement [facility] 14:35 T-Sheet-- Draft Copy gb Chart Complete MTDD
--- NOTE | 2016-03-15 16:57 | EDDOCDS ---
Physician Documentation [facility] Name: Mich Franklin Age: 85 yrs Sex: Male : 1930 Arrival Date: 03/13/2016 Time: 02:52 Bed Admit Hold Private MD: Nahun Emmanuel M.D. Disposition: 03/13/16 05:56 Hospitalization ordered by Jose Manuel Christensen for Inpatient Admission. Preliminary diagnosis are Gastrointestinal hemorrhage, unspecified, Anemia, unspecified. - Bed requested for Admit. - Status is Inpatient Admission. kc3 - Condition is Stable. - Problem is an ongoing problem. - Symptoms are unchanged. Historical: - Allergies: Codeine Sulfate; SULFA (SULFONAMIDES); - Home Meds: 1. aspirin 81 mg Oral TbEC once weekly (Last dose: 03/12/2016) 2. atenolol 25 mg Oral tab 1 tab once daily (Last dose: 03/12/2016) 3. Flomax 0.4 mg Oral cp24 1 cap once daily (Last dose: 03/12/2016) 4. lisinopril 2.5 mg Oral tab 1 tab once daily (Last dose: 03/12/2016) 5. lansoprazole 30 mg oral cpDR 1 cap once daily (Last dose: 03/12/2016) 6. magnesium oxide 250 mg Oral tab twice weekly 7. metformin 500 mg Oral tab 2 tabs 2 times per day (Last dose: 03/12/2016) - PMHx: BPH; CVA; Diabetes - NIDDM: controlled; Diverticulosis; High Cholesterol; Hypertension; Recurrent Lower GI Bleeds; TIA; - PSHx: Hernia repair; Knee surgery- Left; Knee surgery- Right; Hip Arthroplasty, Right; - Social history: Smoking status: Patient states was never smoker of tobacco. No barriers to communication noted, The patient speaks fluent Syriac, Speaks appropriately for age. - Family history: Not pertinent. - : The pt / caregiver states he / she is not on anticoagulants. Home medication list is obtained from the patient. - Exposure Risk Screening:: None identified. Vital Signs: 03/13 03:10 BP 138 / 71; Pulse 70; Resp 18; Temp 98.7; Pulse Ox 93% on R/A; Weight 67.13 kg / 148 ko2 lbs; Height 65 in. (165.10 cm); Pain 0/10; 03:38 BP 151 / 69 (auto/); jp6 03:38 Pulse 68 MON; Pulse Ox 94% ; jp6 03:48 BP 148 / 70 (auto/); jp6 03:49 Pulse 68 MON; Pulse Ox 95% ; jp6 04:15 BP 151 / 73 (auto/); jp6 04:15 Pulse 62 MON; Pulse Ox 95% ; jp6 04:30 BP 140 / 64 (auto/); jp6 04:30 Pulse 66 MON; Pulse Ox 96% ; jp6 04:45 BP 141 / 73 (auto/); jp6 04:45 Pulse 64 MON; Pulse Ox 93% ; jp6 05:00 BP 151 / 78 (auto/); jp6 05:00 Pulse 64 MON; Pulse Ox 93% ; jp6 05:15 BP 147 / 68 (auto/); jp6 05:15 Pulse 70 MON; Pulse Ox 95% ; jp6 05:30 BP 150 / 78; Pulse 70; Resp 18; Pain 0/10; jp6 06:00 BP 148 / 76; Pulse 71; Resp 16; Pulse Ox 95% on R/A; Pain 0/10; jp6 06:15 BP 145 / 89 (auto/); js13 06:15 Pulse 70 MON; Resp 16; Pulse Ox 95% on R/A; js13 07:04 BP 129 / 74 (auto/); js13 07:04 Pulse 68 MON; Resp 16; Pulse Ox 96% on R/A; js13 08:00 BP 138 / 86 (auto/); js13 08:00 Pulse 72 MON; Resp 16; Pulse Ox 94% on R/A; js13 09:13 BP 128 / 76; Pulse 66; Resp 16; Pulse Ox 97% on R/A; js13 09:40 BP 145 / 65 (auto/); js13 09:40 Pulse 68 MON; Resp 16; Pulse Ox 96% on R/A; js13 12:40 BP 111 / 60 (auto/); js13 12:40 Pulse 74 MON; Resp 16; Pulse Ox 94% on R/A; js13 03:10 Body Mass Index 24.63 (67.13 kg, 165.10 cm) ko2 MDM: 03:24 Undress patient appropriately for examination ordered. feb 03:24 IV Saline Lock ordered. feb 03:25 Type & Screen Ordered. EDMS 03:25 NOTHING BY MOUTH+DIET ordered. EDMS 03:26 Amylase Ordered. EDMS 03:26 Basic Metabolic Profile Ordered. EDMS 03:26 CBC with Diff Ordered. EDMS 03:26 Lipase Ordered. EDMS 03:26 Liver Profile Ordered. EDMS 03:26 Prothrombin Time Profile\E\INR Ordered. EDMS 04:30 CT ABD & PELVIS: Oral Contrast Only Ordered. EDMS 04:38 Financial registration complete. [facility] 04:43 [facility] Payment Agreement was scanned into [employer] and attached to record. [facility] 04:49 Diatrizoate Meglumine & Sodium Liquid 10 ml PO once; mix in 290cc of water ordered. slm 05:26 Diatrizoate Meglumine & Sodium Liquid 10 ml PO once; mix in 290cc of water ordered. jp6 05:48 Amylase Reviewed. cs11 05:48 Basic Metabolic Profile Reviewed. cs11 05:48 CBC with Diff Reviewed. cs11 05:48 Lipase Reviewed. cs11 05:48 Liver Profile Reviewed. cs11 05:48 Prothrombin Time Profile\E\INR Reviewed. cs11 05:48 Type & Screen Reviewed. cs11 05:53 BED REQUEST+ADM ordered. EDMS 06:26 Admission / Observation Status ordered. EDMS 06:27 NPO DIET ordered. EDMS 06:27 HEMOGLOBIN & HEMATOCRIT Ordered. EDMS 06:27 HEMOGLOBIN & HEMATOCRIT Ordered. EDMS 06:27 HEMOGLOBIN & HEMATOCRIT Ordered. EDMS 09:09 NS 0.9% 1000 ml IV at 80 mL/hr continuous ordered. js13 12:18 Fingerstick Blood Sugar Ordered. EDMS 14:35 T-Sheet-- Draft Copy was scanned into [employer] and attached to record. gb Administered Medications: 04:54 Drug: Diatrizoate Meglumine & Sodium 10 ml [diatrizoate meglumine and diat.sodium 66 slm %-10 % oral solution (10 mL)] Route: PO; 05:26 Drug: Diatrizoate Meglumine & Sodium 10 ml [diatrizoate meglumine and diat.sodium 66 jp6 %-10 % oral solution (10 mL)] Route: PO; 08:55 Drug: NS 0.9% 1000 ml [sodium chloride 0.9 % intravenous solution] Route: IV; Rate: 80 js13 mL/hr; Site: left antecubital; Signatures: Dispatcher [employer] EDErica Davison, RN RN Natasha Garcia, Reg Reg Katie Miller,RN RN js13 Efrain Chacon DO DO cs11 Lazara Paredes,LOG CUT OFF SAWYER LOG CUT OFF SAWYER Gabrielle ClaytonRN RN damian2 Mary Mccormick [facility] Rachel Sosa RN RN kc3 Christy Patel,RN RN jp6 The chart was reviewed and I authenticate all verbal orders and agree with the evaluation and treatment provided.Attachments: 04:43 [facility] Payment Agreement [facility] 14:35 T-Sheet-- Draft Copy gb Chart Complete MTDD
--- NOTE | 2016-03-15 16:57 | EDDOCDS ---
Nurse's Notes [facility] Name: Mich Franklin Age: 85 yrs Sex: Male : 1930 Arrival Date: 03/13/2016 Time: 02:52 Bed Admit Hold Private MD: Nahun Emmanuel M.D. Diagnosis: Gastrointestinal hemorrhage, unspecified;Anemia, unspecified Presentation: 03/13 03:07 Presenting complaint: states: lower GI bleed. He has had 3 bloody stools this ko2 evening. Pt has a history of lower GI bleed and was hospitalized in september. Suicide/Homicide risk assessment- the patient denies having any suicidal and/or homicidal ideations and does not present with any other emotional, behavioral or mental health complaints. Status: Patient is not a construction services technician or dependent. Transition of care: patient was not received from another setting of care. 03:07 Acuity: DALTON Level 3 ko2 03:07 Method Of Arrival: Walkin/Carried/Asstd ko2 04:19 Adult Sepsis Screening: The patient does not have new or worsening altered mentation. jp6 Patient's respiratory rate is less than 22. Systolic blood pressure is greater than 100. Patient has a qSOFA score of 0- Negative Sepsis Screen. Triage Assessment: 03:16 General: Appears in no apparent distress, Behavior is appropriate for age, cooperative. ko2 Pain: Denies pain. Neurological: Level of Consciousness is awake, alert, Oriented to person, place, time. GI: Reports bloody stools. Derm: Skin is normal. Historical: - Allergies: Codeine Sulfate; SULFA (SULFONAMIDES); - Home Meds: 1. aspirin 81 mg Oral TbEC once weekly (Last dose: 03/12/2016) 2. atenolol 25 mg Oral tab 1 tab once daily (Last dose: 03/12/2016) 3. Flomax 0.4 mg Oral cp24 1 cap once daily (Last dose: 03/12/2016) 4. lisinopril 2.5 mg Oral tab 1 tab once daily (Last dose: 03/12/2016) 5. lansoprazole 30 mg oral cpDR 1 cap once daily (Last dose: 03/12/2016) 6. magnesium oxide 250 mg Oral tab twice weekly 7. metformin 500 mg Oral tab 2 tabs 2 times per day (Last dose: 03/12/2016) - PMHx: BPH; CVA; Diabetes - NIDDM: controlled; Diverticulosis; High Cholesterol; Hypertension; Recurrent Lower GI Bleeds; TIA; - PSHx: Hernia repair; Knee surgery- Left; Knee surgery- Right; Hip Arthroplasty, Right; - Social history: Smoking status: Patient states was never smoker of tobacco. No barriers to communication noted, The patient speaks fluent Guatemalan, Speaks appropriately for age. - Family history: Not pertinent. - : The pt / caregiver states he / she is not on anticoagulants. Home medication list is obtained from the patient. - Exposure Risk Screening:: None identified. Screenin:17 Screening information is obtained from the patient. Fall risk: At risk due to age, ko2 prior history of falls. Assistance ADL's: requires no assistance with activities of daily living. Abuse/DV Screen: The patient / caregiver reports he/she is: not in a situation that causes fear, pain or injury. Nutritional screening: No deficits noted. Advance Directives: Currently, there is a health care proxy, Britta Franklin - . There is an active DNR order but there is no copy available at this time. There is a living will, but a copy is not available at this time. There is an active Power of Leak Detector, Britta Franklin - . home support is adequate. Assessment: 04:20 General: Appears in no apparent distress, comfortable, slender, well developed, well jp6 nourished, Behavior is appropriate for age, cooperative, pleasant, quiet. Pain: Denies pain. Neurological: Level of Consciousness is awake, alert, Oriented to person, place, time. EENT: No deficits noted. Cardiovascular: Capillary refill < 3 seconds Heart tones S1 S2 present Rhythm is sinus rhythm No ectopy. Respiratory: Airway is patent Respiratory effort is even, unlabored, Respiratory pattern is regular, symmetrical, Breath sounds are clear bilaterally. GI: Abdomen is flat, non- distended Bowel sounds present X 4 quads. : No deficits noted. Derm: Skin is pink, warm & dry. Musculoskeletal: No deficits noted. 05:29 Reassessment: Patient appears in no apparent distress at this time. Pain: Denies pain. jp6 Cardiovascular: Rhythm is sinus rhythm No ectopy. Respiratory: Airway is patent Respiratory effort is even, unlabored, Respiratory pattern is regular, symmetrical. Derm: Skin is pink, warm & dry. 06:14 Reassessment: Patient appears in no apparent distress at this time. Pain: Denies pain. jp6 Cardiovascular: Rhythm is sinus rhythm No ectopy. Respiratory: Airway is patent Respiratory effort is even, unlabored, Respiratory pattern is regular, symmetrical. Derm: Skin is pink, warm & dry. 06:30 General: Two episodes of bloody stools each approx 700ml.. jp6 07:25 General: Appears in no apparent distress, comfortable, Behavior is appropriate for age, js13 cooperative. Pain: Denies pain. Neurological: Level of Consciousness is awake, alert. Cardiovascular: Rhythm is sinus rhythm Chest pain is denied. Respiratory: Airway is patent Respiratory effort is even, unlabored, Respiratory pattern is regular, symmetrical. GI: Abdomen is non- distended Bowel sounds present X 4 quads. Abd is soft and non tender. Derm: Skin is pink, warm & dry. 07:25 Adult Sepsis Screening: The patient does not have new or worsening altered mentation. js13 Patient's respiratory rate is less than 22. Systolic blood pressure is greater than 100. Patient has a qSOFA score of 0- Negative Sepsis Screen. 09:10 General: Appears in no apparent distress, comfortable, Behavior is appropriate for age, js13 cooperative. General: Patient had approx 800 cc of blood when he went to [facility]. . Pain: Denies pain. Neurological: Level of Consciousness is awake, alert. Cardiovascular: Rhythm is sinus rhythm Chest pain is denied. Respiratory: Airway is patent Respiratory effort is even, unlabored, Respiratory pattern is regular, symmetrical. GI: Abdomen is non- distended Bowel sounds present X 4 quads. Abd is soft and non tender. Derm: Skin is pink, warm & dry. 09:21 General: Report given to Lavonne Gordon RN. js13 Vital Signs: 03:10 BP 138 / 71; Pulse 70; Resp 18; Temp 98.7; Pulse Ox 93% on R/A; Weight 67.13 kg; Height ko2 65 in. (165.10 cm); Pain 0/10; 03:38 BP 151 / 69 (auto/); jp6 03:38 Pulse 68 MON; Pulse Ox 94% ; jp6 03:48 BP 148 / 70 (auto/); jp6 03:49 Pulse 68 MON; Pulse Ox 95% ; jp6 04:15 BP 151 / 73 (auto/); jp6 04:15 Pulse 62 MON; Pulse Ox 95% ; jp6 04:30 BP 140 / 64 (auto/); jp6 04:30 Pulse 66 MON; Pulse Ox 96% ; jp6 04:45 BP 141 / 73 (auto/); jp6 04:45 Pulse 64 MON; Pulse Ox 93% ; jp6 05:00 BP 151 / 78 (auto/); jp6 05:00 Pulse 64 MON; Pulse Ox 93% ; jp6 05:15 BP 147 / 68 (auto/); jp6 05:15 Pulse 70 MON; Pulse Ox 95% ; jp6 05:30 BP 150 / 78; Pulse 70; Resp 18; Pain 0/10; jp6 06:00 BP 148 / 76; Pulse 71; Resp 16; Pulse Ox 95% on R/A; Pain 0/10; jp6 06:15 BP 145 / 89 (auto/); js13 06:15 Pulse 70 MON; Resp 16; Pulse Ox 95% on R/A; js13 07:04 BP 129 / 74 (auto/); js13 07:04 Pulse 68 MON; Resp 16; Pulse Ox 96% on R/A; js13 08:00 BP 138 / 86 (auto/); js13 08:00 Pulse 72 MON; Resp 16; Pulse Ox 94% on R/A; js13 09:13 BP 128 / 76; Pulse 66; Resp 16; Pulse Ox 97% on R/A; js13 09:40 BP 145 / 65 (auto/); js13 09:40 Pulse 68 MON; Resp 16; Pulse Ox 96% on R/A; js13 12:40 BP 111 / 60 (auto/); js13 12:40 Pulse 74 MON; Resp 16; Pulse Ox 94% on R/A; js13 03:10 Body Mass Index 24.63 (67.13 kg, 165.10 cm) ko2 ED Course: 02:53 Patient visited by Derek Holly Reg. pm4 02:53 Nahun Emmanuel is Private Physician. pm4 02:53 Patient moved to Waiting pm4 03:07 Patient moved to Triage 1 ko2 03:10 Triage Initiated ko2 03:18 Patient moved to 15 ko2 03:49 compliance monitor on. Pulse ox on. NIBP on. jp6 03:49 Inserted peripheral IV: 18gauge IV in left antecubital area and blood collected. jp6 Patient tolerated the procedure well. Labs drawn. (by ED staff). Sent per order to lab. 03:51 Efrain Chacon DO is Attending Physician. cs11 03:51 Patient visited by Efrain Chacon DO. cs11 03:57 Christy Patel,RN is Primary Nurse. jp6 04:43 [facility] Payment Agreement was scanned into DataProm and attached to record. [facility] 05:10 Patient visited by Christy Patel,ANDREW. jp6 05:15 The patient / caregiver is instructed regarding the plan of care and ED course. jp6 05:15 No procedures done that require assistance. jp6 05:55 Jose Manuel Christensen MD is Hospitalizing Provider. cs11 06:52 Patient moved to Admit Hold feb 07:26 Patient visited by Katie Roberson,ANDREW. js13 07:56 CT ABD & PELVIS: Oral Contrast Only Returned. EDMS 08:00 Assisted to bedside commode. jlf 08:36 Patient visited by Martha Simon PCA. jlf 09:02 Patient moved to I kcs 09:21 Patient visited by Katie Roberson,ANDREW. js13 14:14 Patient visited by Katie Roberson,ANDREW. js13 14:35 T-Sheet-- Draft Copy was scanned into DataProm and attached to record. gb 15:17 Patient moved to Admit Hold js13 Administered Medications: 04:54 Drug: Diatrizoate Meglumine & Sodium 10 ml [diatrizoate meglumine and diat.sodium 66 slm %-10 % oral solution (10 mL)] Route: PO; 05:26 Drug: Diatrizoate Meglumine & Sodium 10 ml [diatrizoate meglumine and diat.sodium 66 jp6 %-10 % oral solution (10 mL)] Route: PO; 08:55 Drug: NS 0.9% 1000 ml [sodium chloride 0.9 % intravenous solution] Route: IV; Rate: 80 js13 mL/hr; Site: left antecubital; Order Results: Lab Order: Amylase; SPEC'M 03/13/16 04:11 Test: AMYLASE; Value: 21; Range: 25-115; Abnormal: Below low normal; Units: U/L; Status: F Lab Order: Basic Metabolic Profile; SPEC'M 03/13/16 04:11 Test: GLUCOSE, FASTING; Value: 127; Range: 83-110; Abnormal: Above high normal; Units: MG/DL; Status: F Test: BLOOD UREA NITROGEN; Value: 13; Range: 7-18; Units: MG/DL; Status: F Test: CREATININE FOR GFR; Value: 0.62; Range: 0.70-1.30; Abnormal: Below low normal; Units: MG/DL; Status: F Test: GLOMERULAR FILTRATION RATE; Value: > 60.0; Range: >35; Status: F Test: SODIUM LEVEL; Value: 140; Range: 136-145; Units: MEQ/L; Status: F Test: POTASSIUM SERUM; Value: 4.2; Range: 3.5-5.1; Units: MEQ/L; Status: F Test: CHLORIDE LEVEL; Value: 103; Range: 98-107; Units: MEQ/L; Status: F Test: CARBON DIOXIDE LEVEL; Value: 29; Range: 21-32; Units: MEQ/L; Status: F Test: ANION GAP; Value: 8; Range: 8-16; Units: MEQ/L; Status: F Test: CALCIUM LEVEL; Value: 8.7; Range: 8.8-10.2; Abnormal: Below low normal; Units: MG/DL; Status: F Test Note: ; Units are mL/min/1.73 m2 Chronic Kidney Disease Staging per NKF: Stage I & II GFR >=60 Normal to Mildly Decreased Stage III GFR 30-59 Moderately Decreased Stage IV GFR 15-29 Severely Decreased Stage V GFR <15 Very Little GFR Left ESRD GFR <15 on [place] [facility] Lab Order: CBC with Diff; SPEC'M 03/13/16 04:13 Test: WHITE BLOOD COUNT; Value: 5.8; Range: 4.0-10.0; Units: K/mm3; Status: F Test: RED BLOOD COUNT; Value: 3.59; Range: 4.30-6.10; Abnormal: Below low normal; Units: M/mm3; Status: F Test: HEMOGLOBIN; Value: 9.3; Range: 14.0-18.0; Abnormal: Below low normal; Units: g/dl; Status: F Test: HEMATOCRIT; Value: 29.6; Range: 42.0-52.0; Abnormal: Below low normal; Units: %; Status: F Test: MEAN CORPUSCULAR VOLUME; Value: 82.6; Range: 80.0-96.0; Units: fl; Status: F Test: MEAN CORPUSCULAR HEMOGLOBIN; Value: 26.0; Range: 27.0-33.0; Abnormal: Below low normal; Units: pg; Status: F Test: MEAN CORPUSCULAR HGB CONC; Value: 31.6; Range: 32.0-36.5; Abnormal: Below low normal; Units: g/dl; Status: F Test: RED CELL DISTRIBUTION WIDTH; Value: 18.2; Range: 11.5-14.5; Abnormal: Above high normal; Units: %; Status: F Test: PLATELET COUNT, AUTOMATED; Value: 224; Range: 150-450; Units: k/mm3; Status: F Test: NEUTROPHILS %; Value: 75.9; Range: 36.0-66.0; Abnormal: Above high normal; Units: %; Status: F Test: LYMPH %; Value: 11.5; Range: 24.0-44.0; Abnormal: Below low normal; Units: %; Status: F Test: MONO %; Value: 5.2; Range: 0.0-5.0; Abnormal: Above high normal; Units: %; Status: F Test: EOS %; Value: 5.9; Range: 0.0-3.0; Abnormal: Above high normal; Units: %; Status: F Test: BASO %; Value: 0.2; Range: 0.0-1.0; Units: %; Status: F Test: LARGE UNSTAINED CELL %; Value: 1.4; Range: 0.0-4.0; Units: %; Status: F Test: NEUTROPHILS #; Value: 4.4; Range: 1.8-7.7; Units: K/mm3; Status: F Test: LYMPH #; Value: 0.7; Range: 1.5-4.5; Abnormal: Below low normal; Units: K/mm3; Status: F Test: MONO #; Value: 0.3; Range: 0.0-0.8; Units: K/mm3; Status: F Test: EOS #; Value: 0.3; Range: 0.0-0.50; Units: K/mm3; Status: F Test: BASO #; Value: 0.0; Range: 0.0-0.2; Units: K/mm3; Status: F Test: LARGE UNSTAINED CELL #; Value: 0.1; Range: 0.0-0.4; Units: K/mm3; Status: F Lab Order: Lipase; SPEC' 03/13/16 04:11 Test: LIPASE; Value: 69; Range: 73-393; Abnormal: Below low normal; Units: U/L; Status: F Lab Order: Liver Profile; SPEC 03/13/16 04:11 Test: AST/SGOT; Value: 11; Range: 15-37; Abnormal: Below low normal; Units: U/L; Status: F Test: ALT/SGPT; Value: 15; Range: 12-78; Units: U/L; Status: F Test: ALKALINE PHOSPHATASE; Value: 62; Range: 45-117; Units: U/L; Status: F Test: BILIRUBIN,TOTAL; Value: 0.5; Range: 0.2-1.0; Units: MG/DL; Status: F Test: BILIRUBIN,DIRECT; Value: 0.2; Range: 0.0-0.2; Units: MG/DL; Status: F Test: TOTAL PROTEIN; Value: 6.7; Range: 6.4-8.2; Units: GM/DL; Status: F Test: ALBUMIN; Value: 3.8; Range: 3.2-5.2; Units: GM/DL; Status: F Test: ALBUMIN/GLOBULIN RATIO; Value: 1.31; Range: 1.00-1.93; Status: F Lab Order: Prothrombin Time Profile\E\INR; SPEC03/13/16 04:11 Test: PROTHROMBIN TIME; Value: 13.2; Range: 12.3-14.5; Units: SECONDS; Status: F Test: INR; Value: 0.99; Status: F Test Note: ; THERAPUTIC HUMAN INR VALUES INDICATIONS NORMAL RANGES PROPHYLAXIS/TREATMENT OF: VENOUS THROMBOSIS 2.0-3.0 PULMONARY EMBOLISM 2.0-3.0 PREVENTION OF SYSTEMIC EMBOLISM FROM: TISSUE HEART VALVES 2.0-3.0 ACUTE MYOCARDIAL INFARCTION 2.0-3.0 VALVULAR HEART DISEASE 2.0-3.0 ATRIAL FIBRILLATION 2.0-3.0 MECHANICAL VALVES(HIGH RISK) 2.5-3.5 RECURRENT MYOCARDIAL INFARCTION 2.5-3.5 Lab Order: Type & Screen; [facility] 03/13/16 04:13 Test: BLOOD TYPE; Value: A POS; Status: F Test: AB SCREEN (INDIRECT ORALIA)GEL; Value: NEGATIVE; Status: F Lab Order: HEMOGLOBIN & HEMATOCRIT; [facility] 03/13/16 09:58 Test: HEMOGLOBIN; Value: 8.6; Range: 14.0-18.0; Abnormal: Below low normal; Units: g/dl; Status: F Test: HEMATOCRIT; Value: 27.6; Range: 42.0-52.0; Abnormal: Below low normal; Units: %; Status: F Lab Order: Fingerstick Blood Sugar; [facility] 03/13/16 11:52 Test: BEDSIDE GLUCOSE; Value: 122; Range: 83-110; Abnormal: Above high normal; Units: MG/DL; Status: F Radiology Order: CT ABD & PELVIS: Oral Contrast Only Test: CT ABD & PELVIS: Oral Contrast Only REASON FOR EXAMINATION: Diverticulitis; ; CLINICAL HISTORY: Abdominal pain.; TECHNIQUE: Multiple axial, sagittal and coronal CT images were obtained through the abdomen and pelvi; s without administration of oral or IV contrast material.; COMMENTS:; Comparison is made to prior exam performed on 09/24/2015.; No change in diffuse colonic diverticulosis.; Interval appearance of mild diffuse multifocal thickening of the sigmoid colon.; Significantly distended bladder.; The liver is of uniform attenuation without mass or defect. There is no intra or extrahepatic biliary; ductal dilatation. The spleen is normal. The gallbladder contains a gallstone. The pancreas is of no; rmal contour and attenuation characteristics. There is no evidence of adrenal mass.; The kidneys are normal in size, shape and configuration. No renal or ureteral calculi are identified.; There is no hydroureter or hydronephrosis.; There is no evidence for appendicitis. No evidence for small or large bowel obstruction. There is no; evidence of abdominal ascites or lymphadenopathy.; There is no evidence of intrinsic or extrinsic bladder mass. There is no pelvic ascites or lymphadeno; pavan.; Images of the lung bases show no evidence of pleural or parenchymal mass. There are no pleural effusi; ons.; The bony structures are free of lytic or blastic lesions. Multilevel degenerative changes are seen in; volving the thoracolumbar spine.; Scattered calcifications are seen involving the aorta and major branches compatible with atherosclero; sis.; IMPRESSION:; Multifocal thickening of the sigmoid colon. Under distention versus mild colitis. This was not presen; t on prior exam.; No change in diffuse colonic diverticulosis.; Significantly distended bladder.; No change in gallstone.; Thank you for your kind referral of this patient.; ; Outcome: 05:56 Decision to Hospitalize by Provider. cs11 15:56 Patient left the ED. kc3 Signatures: Dispatcher [employer] EDMS Irene Paulino, RN RN Erica Dsouza, RN Natasha Quevedo, Reg Reg gb Katie RobersonRN RN js13 Efrain Chacon, DO DO cs11 Lazara Paredes,EMR IMPLEMENTATION SPECIALIST EMR IMPLEMENTATION SPECIALIST slm Martha Simon, CONICAL MIXER CONICAL MIXER jlf Gabrielle Powell,RN Mary Martinez KelsiRN RN kc3 Christy Patel,RN RN jp6 Derek Holly, Reg Reg pm4 Chart Complete MTDD
[2016-03-15 20:00] VITALS: BP 146/80
[2016-03-15] MEDS: ACETAMINOPHEN TAB 650MG DOSE (2X325MG) PO PRN (22:03)
--- NOTE | 2016-03-16 01:25 | IPNPDOC ---
Assessment/Plan Date Seen The patient was seen on 03/15/16. Problems Problems: (1) Acute blood loss anemia Status: Acute Problem Text: 03/13 CT AP mild sigmoid mural thickening-robin, WBC, afebrile, NT 03/13 - Check H/H Q6H - slightly decreased from 9.3 on admission to 8.6. Patient currently asymptomatic with no cardiac disease - will transfuse if <8. Informed consent for blood transfusion obtained today. 03/14- received 2 units PRBCs yesterday, cont to monitor hgb, if stable advance to clears in AM, dropped IVF to 40 cc given JVD 4 cm 03/15 -- diet advanced today, will continue to monitor hemoglobin (2) GI bleeding Onset Date: 08/18/2013 Status: Acute Response to Treatment: Improving Problem Text: 03/13 - Likely diverticulosis as patient has history of diverticulosis of entire colon seen on colonoscopy 06/2013. He has been admitted for diverticular bleeds in the past. He also had 1 adenomatous polyp removed during colonoscopy 06/2013. No anticoagulation at baseline. - D/w Gen Surgery - recommended repeat colonoscopy in the next 1-3 months as an outpatient; no need for intervention as inpatient unless he requires > 4U pRBCs. (3) Hypertension Status: Chronic Problem Text: BP currently controlled; continue to monitor. (4) Hypercholesteremia Status: Chronic Problem Text: Hold lipitor (5) Diabetes Status: Chronic Problem Text: Hold metformin; continue SSI. (6) Acid reflux Status: Chronic Problem Text: Continue protonix (7) Benign prostatic hyperplasia Status: Chronic Problem Text: Continue tamsulosin. Plan / VTE VTE Prophylaxis Ordered?: Yes Subjective Review of Systems CC/HPI The patient is a 85-year-old male admitted with a reason for visit of Lower Gastrointestinal Bleeding. Events since last encounter Patient states that he is feeling better, is interested in advancing his diet. Denies further GI bleeding. States he has continued to be free of belly pain, only rectal bleeding. It is frustrating to him that this bleeding seems to come out of the blue when he is otherwise feeling well. Constitutional: Denies: Chills, Fever Pulmonary: Denies: Cough, Dyspnea Cardiovascular: Denies: Chest Pain Gastrointestinal: Reports: Hematochezia, Denies: Abdominal Pain, Nausea, Vomiting Objective Physical Examination General Exam: Positive: Alert, Cooperative, No Acute Distress Eye Exam: Positive: PERRLA ENT Exam: Positive: Atraumatic, Mucous membr. moist/pink Neck Exam: Positive: Supple Chest Exam: Positive: Clear to auscultation, Normal air movement Heart Exam: Positive: Normal S1, Normal S2, Rate Normal, Regular Rhythm, Negative: Murmurs Abdomen Exam: Positive: BS Hyperactive, Normal bowel sounds, Soft, Negative: Hepatospenomegaly, Mass, Tenderness Extremity Exam: Negative: Edema Skin Exam: Positive: Nl turgor and temperature, Negative: Rash Neuro Exam: Positive: Cranial Nerves 3-12 NL, Normal Speech Psych Exam: Positive: Mental status NL, Mood NL, Oriented x 3 Vital Signs/I&O Vital Signs Date Time Temp Pulse Resp B/P Pulse Ox O2 Delivery O2 Flow Rate FiO2 03/15/16 20:00 97.8 85 18 146/80 97 Room Air I&O- Last 24 Hours up to 6 AM 03/16/16 05:59 Intake Total 3054 ml Output Total 1650 ml Balance 1404 ml Laboratory Data Labs 24H Laboratory Tests 2 03/15/16 06:17: Bedside Glucose (Misc Panel) 73L 03/15/16 07:09: Blood Urea Nitrogen 12, Creatinine 0.41L, Sodium Level 143, Potassium Level 3.3# L, Chloride Level 108H, Carbon Dioxide Level 23, Calcium Level 7.9L, Aspartate Amino Transf (AST/SGOT) 12L, Alanine Aminotransferase (ALT/SGPT) 12, Alkaline Phosphatase 58, Total Bilirubin 0.7, Total Protein 5.9L, Albumin 3.3, Albumin/ Globulin Ratio 1.27, Anion Gap 12, Glomerular Filtration Rate > 60.0 03/15/16 11:38: Bedside Glucose (Misc Panel) 73L 03/15/16 16:48: Bedside Glucose (Misc Panel) 153H 03/16/16 00:15: Bedside Glucose (Misc Panel) 126H CBC/BMP Laboratory Tests 03/15/16 07:09 Calcium Level 7.9 L, Aspartate Amino Transf (AST/SGOT) 12 L, Alanine Aminotransferase (ALT/SGPT) 12, Alkaline Phosphatase 58, Total Bilirubin 0.7, Total Protein 5.9 L, Albumin 3.3, Red Blood Count 3.43 L, Mean Corpuscular Volume 81.8, Mean Corpuscular Hemoglobin 26.7 L, Mean Corpuscular Hemoglobin Concent 32.6, Red Cell Distribution Width 17.2 H FSBS Laboratory Tests Test 03/15/16 06:17 03/15/16 11:38 03/15/16 16:48 03/16/16 00:15 Range/Units Bedside Glucose (Misc Panel) 73 73 153 126 83-110 MG/DL BARNEY JETER DO Mar 16, 2016 01:25
[2016-03-16 06:00] VITALS: BP 158/87
[2016-03-16] MEDS: NS 1,000 ML IV SCH (06:07)
[2016-03-16] MEDS: ACETAMINOPHEN TAB 650MG DOSE (2X325MG) PO PRN ×2 (06:08→15:12)
--- NOTE | 2016-03-16 08:22 | IPNPDOC ---
Assessment/Plan Date Seen The patient was seen on 03/16/16. Problems Problems: (1) Acute blood loss anemia Status: Acute Problem Text: 03/13 CT AP mild sigmoid mural thickening-robin, WBC, afebrile, NT 03/13 - Check H/H Q6H - slightly decreased from 9.3 on admission to 8.6. Patient currently asymptomatic with no cardiac disease - will transfuse if <8. Informed consent for blood transfusion obtained today. 03/14- received 2 units PRBCs yesterday, cont to monitor hgb, if stable advance to clears in AM, dropped IVF to 40 cc given JVD 4 cm 03/15 -- diet advanced today, will continue to monitor hemoglobin 03/16-hgb stable at 9.9, but small amount BRB c 2 soft BMs. He is tolerating a full liquid diet, will advance further. Monitor Hgb, PT ordered. Hope for home tomorrow, pt is aware. (2) GI bleeding Onset Date: 08/18/2013 Status: Acute Response to Treatment: Improving Problem Text: 03/13 - Likely diverticulosis as patient has history of diverticulosis of entire colon seen on colonoscopy 06/2013. He has been admitted for diverticular bleeds in the past. He also had 1 adenomatous polyp removed during colonoscopy 06/2013. No anticoagulation at baseline. - D/w Gen Surgery - recommended repeat colonoscopy in the next 1-3 months as an outpatient; no need for intervention as inpatient unless he requires > 4U pRBCs. (3) Hypertension Status: Chronic Problem Text: BP currently controlled; continue to monitor. (4) Hypercholesteremia Status: Chronic Problem Text: Hold lipitor (5) Diabetes Status: Chronic Problem Text: Hold metformin; continue SSI. (6) Acid reflux Status: Chronic Problem Text: Continue protonix (7) Benign prostatic hyperplasia Status: Chronic Problem Text: Continue tamsulosin. Plan / VTE VTE Prophylaxis Ordered?: Yes Subjective Review of Systems CC/HPI Pt is anxious to get home and is very concerned about the weather and his needing to drive to get him. He really would like to know exactly when he will be going home. He denies any blood in his stools in the last day. General: Denies: Fatigue Constitutional: Denies: Chills, Fever Pulmonary: Denies: Cough, Dyspnea Cardiovascular: Denies: Chest Pain, Palpitations Gastrointestinal: Denies: Diarrhea, Nausea, Vomiting Neurological: Denies: Weakness Psych: Reports: Mood Normal Objective Physical Examination General Exam: Positive: Alert, Cooperative, No Acute Distress Eye Exam: Positive: PERRLA Neck Exam: Positive: Supple Chest Exam: Positive: Clear to auscultation, Normal air movement Heart Exam: Positive: Normal S1, Normal S2, Rate Normal, Regular Rhythm, Negative: Murmurs Abdomen Exam: Positive: BS Hyperactive, Normal bowel sounds, Soft, Negative: Hepatospenomegaly, Mass, Tenderness Extremity Exam: Negative: Edema Skin Exam: Positive: Nl turgor and temperature, Negative: Rash Neuro Exam: Positive: Cranial Nerves 3-12 NL, Normal Speech Psych Exam: Positive: Mental status NL, Mood NL, Oriented x 3 Vital Signs/I&O Vital Signs Date Time Temp Pulse Resp B/P Pulse Ox O2 Delivery O2 Flow Rate FiO2 03/16/16 06:00 98.2 67 18 158/87 98 Room Air I&O- Last 24 Hours up to 6 AM 03/16/16 06:00 Intake Total 3294 ml Output Total 2050 ml Balance 1244 ml Laboratory Data Labs 24H Laboratory Tests 2 03/15/16 11:38: Bedside Glucose (Misc Panel) 73L 03/15/16 16:48: Bedside Glucose (Misc Panel) 153H 03/16/16 00:15: Bedside Glucose (Misc Panel) 126H 03/16/16 06:02: Bedside Glucose (Misc Panel) 117H FSBS Laboratory Tests Test 03/15/16 11:38 03/15/16 16:48 03/16/16 00:15 03/16/16 06:02 Range/Units Bedside Glucose (Misc Panel) 73 153 126 117 83-110 MG/DL EVERETTE MONET PA-C Mar 16, 2016 08:21 Jude Sanderson M.D. Mar 16, 2016 16:39
[2016-03-16] MEDS: TAMSULOSIN 0.4 MG CAP PO SCH (08:35)
[2016-03-16] MEDS: PANTOPRAZOLE 40MG TAB (PROTONIX) PO SCH (08:35)
[2016-03-16 08:44] LABS: MEAN CORPUSCULAR HEMOGLOBIN 25.8 pg (27.0-33.0); MEAN CORPUSCULAR VOLUME 83.2 fl (80.0-96.0); RED CELL DISTRIBUTION WIDTH 18.5 % (11.5-14.5); WHITE BLOOD COUNT 4.7 K/mm3 (4.0-10.0)
[2016-03-16 09:02] LABS: ANION GAP 9 MEQ/L (8-16); BLOOD UREA NITROGEN 5 MG/DL (7-18); CALCIUM LEVEL 8.5 MG/DL (8.8-10.2); CARBON DIOXIDE LEVEL 23 MEQ/L (21-32); CHLORIDE LEVEL 111 MEQ/L (98-107); CREATININE FOR GFR 0.53 MG/DL (0.70-1.30); GLOMERULAR FILTRATION RATE > 60.0 (>35); GLUCOSE, FASTING 145 MG/DL (83-110); POTASSIUM SERUM 3.7 MEQ/L (3.5-5.1); SODIUM LEVEL 143 MEQ/L (136-145)
[2016-03-16 14:00] VITALS: BP 148/83
[2016-03-16 22:00] VITALS: BP_SYST 162; BP_SYST 165; BP_SYST 181; BP_DIAS 107; BP_DIAS 81; BP_DIAS 86
[2016-03-17 02:19] VITALS: BP 161/77
[2016-03-17 02:30] VITALS: BP 158/64
[2016-03-17 06:00] VITALS: BP_SYST 156; BP_SYST 164; BP_SYST 170; BP_DIAS 78; BP_DIAS 82; BP_DIAS 84
[2016-03-17 07:05] LABS: MEAN CORPUSCULAR HEMOGLOBIN 26.3 pg (27.0-33.0); MEAN CORPUSCULAR HGB CONC 32.5 g/dl (32.0-36.5); MEAN CORPUSCULAR VOLUME 80.9 fl (80.0-96.0); RED CELL DISTRIBUTION WIDTH 18.6 % (11.5-14.5); WHITE BLOOD COUNT 4.5 K/mm3 (4.0-10.0)
[2016-03-17 07:24] LABS: ANION GAP 9 MEQ/L (8-16); BLOOD UREA NITROGEN 7 MG/DL (7-18); CALCIUM LEVEL 8.6 MG/DL (8.8-10.2); CARBON DIOXIDE LEVEL 28 MEQ/L (21-32); CHLORIDE LEVEL 106 MEQ/L (98-107); CREATININE FOR GFR 0.57 MG/DL (0.70-1.30); GLOMERULAR FILTRATION RATE > 60.0 (>35); GLUCOSE, FASTING 145 MG/DL (83-110); SODIUM LEVEL 143 MEQ/L (136-145)
--- NOTE | 2016-03-17 08:48 | IPNPDOC ---
Assessment/Plan Date Seen The patient was seen on 03/17/16. Problems Problems: (1) Acute blood loss anemia Status: Acute Problem Text: 03/13 CT AP mild sigmoid mural thickening-robin, WBC, afebrile, NT 03/13 - Check H/H Q6H - slightly decreased from 9.3 on admission to 8.6. Patient currently asymptomatic with no cardiac disease - will transfuse if <8. Informed consent for blood transfusion obtained today. 03/14- received 2 units PRBCs yesterday, cont to monitor hgb, if stable advance to clears in AM, dropped IVF to 40 cc given JVD 4 cm 03/15 -- diet advanced today, will continue to monitor hemoglobin 03/16-hgb stable at 9.9, but small amount BRB c 2 soft BMs. He is tolerating a full liquid diet, will advance further. Monitor Hgb, PT ordered. Hope for home tomorrow, pt is aware. 03/17 - Hgb down from 9.9 to 9.1, He had three stools yesterday, two with obvious BRB. Safe per PT. Will d/c when Hgb remains stable. (2) GI bleeding Onset Date: 08/18/2013 Status: Acute Response to Treatment: Improving Problem Text: 03/13 - Likely diverticulosis as patient has history of diverticulosis of entire colon seen on colonoscopy 06/2013. He has been admitted for diverticular bleeds in the past. He also had 1 adenomatous polyp removed during colonoscopy 06/2013. No anticoagulation at baseline. - D/w Gen Surgery - recommended repeat colonoscopy in the next 1-3 months as an outpatient; no need for intervention as inpatient unless he requires > 4U pRBCs. (3) Hypertension Status: Chronic Problem Text: BP currently controlled; continue to monitor. (4) Hypercholesteremia Status: Chronic Problem Text: Hold lipitor (5) Diabetes Status: Chronic Problem Text: Hold metformin; continue SSI. (6) Acid reflux Status: Chronic Problem Text: Continue protonix (7) Benign prostatic hyperplasia Status: Chronic Problem Text: Continue tamsulosin. Plan / VTE VTE Prophylaxis Ordered?: Yes Subjective Review of Systems CC/HPI Pt this morning tells me that the nurses don't know what they are looking at, they don't know what blood looks like in the stool. He tells me his stools yesterday looked like chicken liver. General: Denies: Fatigue Constitutional: Denies: Chills, Fever Pulmonary: Denies: Cough, Dyspnea Cardiovascular: Denies: Chest Pain, Palpitations Gastrointestinal: Denies: Abdominal Pain, Nausea, Vomiting Psych: Denies: Mood Normal Objective Physical Examination General Exam: Positive: Alert, Cooperative, No Acute Distress Eye Exam: Positive: PERRLA Neck Exam: Positive: Supple Chest Exam: Positive: Clear to auscultation, Normal air movement Heart Exam: Positive: Normal S1, Normal S2, Rate Normal, Regular Rhythm, Negative: Murmurs Abdomen Exam: Positive: Normal bowel sounds, Soft, Negative: Hepatospenomegaly, Mass, Tenderness Extremity Exam: Negative: Edema Skin Exam: Positive: Nl turgor and temperature, Negative: Rash Neuro Exam: Positive: Cranial Nerves 3-12 NL, Normal Speech Psych Exam: Positive: Mental status NL, Mood NL, Oriented x 3 Vital Signs/I&O Vital Signs Date Time Temp Pulse Resp B/P Pulse Ox O2 Delivery O2 Flow Rate FiO2 03/17/16 06:00 72 156/78 88 164/82 90 170/84 03/17/16 06:00 98.3 18 96 Room Air I&O- Last 24 Hours up to 6 AM 03/17/16 06:00 Intake Total 2160 ml Output Total 2750 ml Balance -590 ml Laboratory Data Labs 24H Laboratory Tests 2 03/17/16 06:38: Anion Gap 9, Blood Urea Nitrogen 7, Creatinine 0.57L, Sodium Level 143, Potassium Level 4.0, Chloride Level 106, Carbon Dioxide Level 28, Calcium Level 8.6L, Glomerular Filtration Rate > 60.0 CBC/BMP Laboratory Tests 03/17/16 06:38 Calcium Level 8.6 L, Red Blood Count 3.46 L, Mean Corpuscular Volume 80.9, Mean Corpuscular Hemoglobin 26.3 L, Mean Corpuscular Hemoglobin Concent 32.5, Red Cell Distribution Width 18.6 H EVERETTE MONET PA-C Mar 17, 2016 08:48
[2016-03-17] MEDS: PANTOPRAZOLE 40MG TAB (PROTONIX) PO SCH (08:59)
[2016-03-17] MEDS: TAMSULOSIN 0.4 MG CAP PO SCH (08:59)
[2016-03-17] MEDS: ACETAMINOPHEN TAB 650MG DOSE (2X325MG) PO PRN ×2 (12:24→20:07)
[2016-03-17 14:00] VITALS: BP 124/71
[2016-03-17 15:50] VITALS: BP 128/67
[2016-03-17 22:00] VITALS: BP 162/80
[2016-03-18] MEDS: ACETAMINOPHEN TAB 650MG DOSE (2X325MG) PO PRN ×4 (02:53→21:52)
[2016-03-18 05:52] LABS: MEAN CORPUSCULAR HGB CONC 31.7 g/dl (32.0-36.5); RED CELL DISTRIBUTION WIDTH 18.8 % (11.5-14.5); WHITE BLOOD COUNT 4.1 K/mm3 (4.0-10.0)
[2016-03-18 06:00] VITALS: BP_SYST 145; BP_SYST 147; BP_SYST 154; BP_DIAS 75; BP_DIAS 84; BP_DIAS 90
[2016-03-18] MEDS: MAGNESIUM OXIDE 400 MG TAB (MAG-OX) PO SCH (08:12)
[2016-03-18] MEDS: TAMSULOSIN 0.4 MG CAP PO SCH (08:12)
[2016-03-18] MEDS: PANTOPRAZOLE 40MG TAB (PROTONIX) PO SCH (08:12)
--- NOTE | 2016-03-18 10:31 | IPNPDOC ---
Assessment/Plan Date Seen The patient was seen on 03/18/16. Family Medicine Attending Note: I saw and examined Mr. Franklin, discussed with ABBY Al. Agree with their note as documented. Mr. Franklin reports to me that he has not had significantly bloody stools since this morning. We are waiting to see if we can stabilize him from his presumed diverticular bleed. His hip x-ray is still pending at this point in time. 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 Patient currently asymptomatic with no cardiac disease - will transfuse if <8. Informed consent for blood transfusion obtained today. 03/14- received 2 units PRBCs yesterday, cont to monitor hgb, if stable advance to clears in AM, dropped IVF to 40 cc given JVD 4 cm 03/15 -- diet advanced today, will continue to monitor hemoglobin 03/16-hgb stable at 9.9, but small amount BRB c 2 soft BMs. He is tolerating a full liquid diet, will advance further. Monitor Hgb, PT ordered. Hope for home tomorrow, pt is aware. 03/17 - Hgb down from 9.9 to 9.1, He had three stools yesterday, two with obvious BRB. Safe per PT. Will d/c when Hgb remains stable. 03/18 Hgb continues to trend down although less significantly. He has gone from 9.1 to 8.9, cont to have blood in his stools. (2) GI bleeding Onset Date: 08/18/2013 Status: Acute Response to Treatment: Improving Problem Text: 03/13 - Likely diverticulosis as patient has history of diverticulosis of entire colon seen on colonoscopy 06/2013. He has been admitted for diverticular bleeds in the past. He also had 1 adenomatous polyp removed during colonoscopy 06/2013. No anticoagulation at baseline. - D/w Gen Surgery - recommended repeat colonoscopy in the next 1-3 months as an outpatient; no need for intervention as inpatient unless he requires > 4U pRBCs. (3) Left hip pain Status: Chronic Problem Text: Will obtain L hip films, he was supposed to see Ortho in the office this week, but due to his hospitalization missed this appt. Will obtain L hip films to be sure there is not acute issue, he states pain progressively worsening since 11/04. (4) Hypertension Status: Chronic Problem Text: BP currently controlled; continue to monitor. (5) Hypercholesteremia Status: Chronic Problem Text: Hold lipitor (6) Diabetes Status: Chronic Problem Text: Hold metformin; continue SSI. (7) Acid reflux Status: Chronic Problem Text: Continue protonix (8) Benign prostatic hyperplasia Status: Chronic Problem Text: Continue tamsulosin. Plan / VTE VTE Prophylaxis Ordered?: Yes Subjective Review of Systems CC/HPI Pt's at bedside. She is upset this morning that Ortho has not come to see him for his L hip pain. I advised her that the pt never made me aware of any pain in his L hip. He had 3 stools yesterday, two were noted to have obvious blood although in small amounts. General: Denies: Fatigue Constitutional: Denies: Fever Pulmonary: Denies: Cough, Dyspnea Cardiovascular: Denies: Chest Pain, Palpitations Gastrointestinal: Denies: Diarrhea, Nausea, Vomiting Neurological: Denies: Weakness Psych: Reports: Mood Normal Objective Physical Examination General Exam: Positive: Alert, Cooperative, No Acute Distress Eye Exam: Positive: PERRLA Neck Exam: Positive: Supple Chest Exam: Positive: Clear to auscultation, Normal air movement Heart Exam: Positive: Normal S1, Normal S2, Rate Normal, Regular Rhythm, Negative: Murmurs Abdomen Exam: Positive: Normal bowel sounds, Soft, Negative: Hepatospenomegaly, Mass, Tenderness Extremity Exam: Negative: Edema Skin Exam: Positive: Nl turgor and temperature, Negative: Rash Neuro Exam: Positive: Cranial Nerves 3-12 NL, Normal Speech Psych Exam: Positive: Mental status NL, Mood NL, Oriented x 3 Vital Signs/I&O Vital Signs Date Time Temp Pulse Resp B/P Pulse Ox O2 Delivery O2 Flow Rate FiO2 03/18/16 06:00 84 154/90 83 145/75 94 147/84 03/18/16 06:00 98.2 03/17/16 22:00 18 95 Room Air I&O- Last 24 Hours up to 6 AM 03/18/16 06:00 Intake Total 1700 ml Output Total 400 ml Balance 1300 ml Laboratory Data CBC/BMP Laboratory Tests 03/18/16 05:29 Red Blood Count 3.43 L, Mean Corpuscular Volume 82.0, Mean Corpuscular Hemoglobin 26.0 L, Mean Corpuscular Hemoglobin Concent 31.7 L, Red Cell Distribution Width 18.8 H EVERETTE MONET PA-C Mar 18, 2016 10:31 Gabino Patel MD Mar 18, 2016 22:47
[2016-03-18 14:00] VITALS: BP 147/73
[2016-03-18 22:00] VITALS: BP 130/73
[2016-03-19 06:00] VITALS: BP_SYST 128; BP_SYST 150; BP_SYST 159; BP_SYST 177; BP_DIAS 71; BP_DIAS 82; BP_DIAS 85; BP_DIAS 88
[2016-03-19 06:16] LABS: MEAN CORPUSCULAR HEMOGLOBIN 26.2 pg (27.0-33.0); MEAN CORPUSCULAR HGB CONC 32.1 g/dl (32.0-36.5); MEAN CORPUSCULAR VOLUME 81.6 fl (80.0-96.0); WHITE BLOOD COUNT 4.7 K/mm3 (4.0-10.0)
[2016-03-19] MEDS: TAMSULOSIN 0.4 MG CAP PO SCH (09:00)
[2016-03-19] MEDS: PANTOPRAZOLE 40MG TAB (PROTONIX) PO SCH (09:00)
[2016-03-19] MEDS: ACETAMINOPHEN TAB 650MG DOSE (2X325MG) PO PRN (11:37)
[2016-03-19 14:00] VITALS: BP 135/79
--- NOTE | 2016-03-20 08:30 | REP ---
Left hip two views: Comparison 07/21/2013. Mineralization is normal. There is no fracture or dislocation. Joint space narrowing and cortical eburnation compatible with early osteoarthritic change. There are is calcified vascular atheroma in the femoral arteries and within the scrotum. Impression: Osteoarthritis. No fracture or dislocation. Signed by Mich Little MD 03/18/2016 11:08 A
--- NOTE | 2016-03-20 08:32 | DSES ---
DATE OF ADMISSION: 03/13/2016 DATE OF DISCHARGE: PRIMARY CARE PHYSICIAN: Dr. Nahun Emmanuel. ATTENDING TODAY: Dr. Gabino Patel. HISTORY OF PRESENT ILLNESS: This is an 85-year-old male patient with past medical history of recurrent gastrointestinal (GI) bleeding who awoke the morning of presentation to urinate and also passed a liquid blood bowel movement. He subsequently had about five additional bowel movements that were similar and therefore presented to the emergency room. He has a history of diverticulosis as confirmed by his last colonoscopy done in [address] Noriega. Denied any shortness of breath, chest pain, abdominal pain. He has been in his normal state of health up until this event. During his hospitalization, he did remain medically stable. He did require packed red blood cell transfusion as his hemoglobin dropped to 8.2. Day of discharge, he is 9.3. He has not had any bloody bowel movements in the last 24 hours. He has complained of some left hip pain that is chronic in nature during his hospitalization. I did obtain an x-ray. There is no report available although there does not appear to be any fractures. He was supposed to have an appointment with the orthopedic group although was hospitalized at the time of the appointment, and therefore his will be rescheduling this. DISCHARGE DIAGNOSES: Acute anemia secondary to gastroesophageal (GI) bleed. Left hip pain. Hypertension. Hypercholesterolemia. Diabetes. Benign prostatic hypertrophy (BPH). DISCHARGE MEDICATIONS: - aspirin 81 mg once weekly - atenolol 25 mg daily - Prevacid 30 mg daily - lisinopril 2.5 mg daily - magnesium oxide 400 mg by mouth twice weekly - metformin 1000 mg by mouth twice daily - Flomax 0.4 mg by mouth daily Diet should be no added salt, consistent carbohydrate. Activity should be as tolerated. He should followup with Dr. Emmanuel in 1 week. He should have followup CBC at that time.
== END 2016-03-19 16:40 | disposition home or self-care (01) | DRG 811 ==
LOC: M ED 02:52 → M ED INP 06:21 → M PCU 15:58 → M ALC 03-14 17:50 → M MSPAV 03-17 16:12
PROVIDERS: ADMIT Internal Medicine; ATTEND Family Medicine
PROC: 30253N1 (ICD-10-PCS; principal; 2016-03-13)
DX: D62 Acute posthemorrhagic anemia (principal); K57.91 Diverticulosis of intestine, part unspecified, without perforation or abscess with bleeding; E11.9 Type 2 diabetes mellitus without complications; E78.5 Hyperlipidemia, unspecified; I10 Essential (primary) hypertension; K21.9 Gastro-esophageal reflux disease without esophagitis; N40.1 Benign prostatic hyperplasia with lower urinary tract symptoms; R33.9 Retention of urine, unspecified; M43.12 Spondylolisthesis, cervical region; Z96.641 Presence of right artificial hip joint; Z86.73 Personal history of transient ischemic attack (TIA), and cerebral infarction without residual deficits; Z96.653 Presence of artificial knee joint, bilateral; Z79.82 Long term (current) use of aspirin; Z79.84 Long term (current) use of oral hypoglycemic drugs; Z79.899 Other long term (current) drug therapy; M25.552 Pain in left hip

== ENCOUNTER → 2016-03-22 | Outpatient (REF) | payer MEDICARE, OTHER ==
[~2016-03-22] MED LIST changes: +ASPI81TA85 PO; +METF500T4 PO
[2016-03-22 17:58] LABS: MEAN CORPUSCULAR HEMOGLOBIN 26.3 pg (27.0-33.0); MEAN CORPUSCULAR HGB CONC 31.2 g/dl (32.0-36.5); MEAN CORPUSCULAR VOLUME 84.3 fl (80.0-96.0); RED CELL DISTRIBUTION WIDTH 17.4 % (11.5-14.5); WHITE BLOOD COUNT 5.2 K/mm3 (4.0-10.0)
== END ==
LOC: M SFHCCLAY 11:23
PROVIDERS: ATTEND Family Medicine
DX: D62 Acute posthemorrhagic anemia (principal)
CPT/HCPCS: 36415; 85027; G0463

== ENCOUNTER → 2016-08-11 | Outpatient (REF) | payer MEDICARE, OTHER ==
[2016-08-11 11:35] LABS: MEAN CORPUSCULAR HEMOGLOBIN 24.2 pg (27.0-33.0); MEAN CORPUSCULAR HGB CONC 30.8 g/dl (32.0-36.5); MEAN CORPUSCULAR VOLUME 78.7 fl (80.0-96.0); RED CELL DISTRIBUTION WIDTH 19.2 % (11.5-14.5); WHITE BLOOD COUNT 4.4 K/mm3 (4.0-10.0)
[2016-08-11 11:59] LABS: ANION GAP 6 MEQ/L (8-16); BLOOD UREA NITROGEN 9 MG/DL (7-18); CALCIUM LEVEL 8.9 MG/DL (8.8-10.2); CARBON DIOXIDE LEVEL 29 MEQ/L (21-32); CHLORIDE LEVEL 102 MEQ/L (98-107); CREATININE FOR GFR 0.57 MG/DL (0.70-1.30); GLOMERULAR FILTRATION RATE > 60.0 (>35); GLUCOSE, FASTING 131 MG/DL (83-110); POTASSIUM SERUM 4.4 MEQ/L (3.5-5.1); SODIUM LEVEL 137 MEQ/L (136-145)
== END ==
LOC: M SFHCCLAY 08:42
PROVIDERS: ATTEND Nurse Practitioner Women's Health
DX: N40.3 Nodular prostate with lower urinary tract symptoms (principal); E11.9 Type 2 diabetes mellitus without complications

== ENCOUNTER → 2016-11-29 | Outpatient (REF) | payer MEDICARE, OTHER ==
[~2016-11-29] MED LIST changes: -METF1000 PO; +METF10004 PO; +PLAV1TAB2 PO; -PLAV75TA38 PO
[2016-11-29 13:13] LABS: BASO % 0.5 % (0.0-1.0); EOS # 0.3 10^3/uL (0.0-0.50); EOS % 6.5 % (0.0-3.0); IMMATURE GRANULOCYTE % 0.2 % (0-0); LYMPH # 0.9 10^3/uL (1.5-4.5); LYMPH % 19.9 % (24.0-44.0); MEAN CORPUSCULAR HEMOGLOBIN 25.7 pg (27.0-33.0); MEAN CORPUSCULAR HGB CONC 31.3 g/dl (32.0-36.5); MEAN CORPUSCULAR VOLUME 82.2 fl (80.0-96.0); MONO # 0.4 10^3/uL (0.0-0.8); MONO % 8.6 % (0.0-5.0); NEUTROPHILS # 2.8 10^3/uL (1.8-7.7); NEUTROPHILS % 64.3 % (36.0-66.0); PLATELET COUNT, AUTOMATED 231 10^3/uL (150-450); WHITE BLOOD COUNT 4.3 10^3/uL (4.0-10.0)
[2016-11-29 13:18] LABS: RED CELL DISTRIBUTION WIDTH 21.1 % (11.5-14.5)
[2016-11-29 13:24] LABS: ADD MORPHOLOGY? YES
[2016-11-29 13:29] LABS: ALBUMIN 4.1 GM/DL (3.2-5.2); ALBUMIN/GLOBULIN RATIO 1.37 (1.00-1.93); ALKALINE PHOSPHATASE 69 U/L (45-117); ALT/SGPT 19 U/L (12-78); ANION GAP 8 MEQ/L (8-16); AST/SGOT 13 U/L (15-37); BILIRUBIN,TOTAL 0.6 MG/DL (0.2-1.0); BLOOD UREA NITROGEN 10 MG/DL (7-18); CALCIUM LEVEL 9.6 MG/DL (8.8-10.2); CARBON DIOXIDE LEVEL 29 MEQ/L (21-32); CHLORIDE LEVEL 101 MEQ/L (98-107); CREATININE FOR GFR 0.48 MG/DL (0.70-1.30); GLOMERULAR FILTRATION RATE > 60.0 (>35); GLUCOSE, FASTING 120 MG/DL (83-110); POTASSIUM SERUM 4.6 MEQ/L (3.5-5.1); SODIUM LEVEL 138 MEQ/L (136-145); TOTAL PROTEIN 7.1 GM/DL (6.4-8.2)
[2016-11-29 13:56] LABS: ANISOCYTOSIS 1+; HYPOCHROMASIA 1+; MICROCYTOSIS 1+
== END ==
LOC: M SFHCCLAY 09:08
PROVIDERS: ATTEND Family Medicine
DX: I10 Essential (primary) hypertension (principal); E11.9 Type 2 diabetes mellitus without complications

== ENCOUNTER → 2017-01-31 | Outpatient (REF) | payer MEDICARE, OTHER ==
[2017-02-01 11:54] LABS: BASO % 0.4 % (0.0-1.0); EOS # 0.2 10^3/uL (0.0-0.50); EOS % 3.1 % (0.0-3.0); IMMATURE GRANULOCYTE % 0.4 % (0-0); LYMPH # 0.8 10^3/uL (1.5-4.5); LYMPH % 15.9 % (24.0-44.0); MEAN CORPUSCULAR HEMOGLOBIN 27.2 pg (27.0-33.0); MEAN CORPUSCULAR HGB CONC 32.2 g/dl (32.0-36.5); MEAN CORPUSCULAR VOLUME 84.5 fl (80.0-96.0); MONO # 0.4 10^3/uL (0.0-0.8); NEUTROPHILS # 3.8 10^3/uL (1.8-7.7); NEUTROPHILS % 72.2 % (36.0-66.0); PLATELET COUNT, AUTOMATED 306 10^3/uL (150-450); RED CELL DISTRIBUTION WIDTH 18.3 % (11.5-14.5); WHITE BLOOD COUNT 5.2 10^3/uL (4.0-10.0)
[2017-02-01 12:17] LABS: ANION GAP 5 MEQ/L (8-16); BLOOD UREA NITROGEN 10 MG/DL (7-18); CALCIUM LEVEL 8.9 MG/DL (8.8-10.2); CARBON DIOXIDE LEVEL 32 MEQ/L (21-32); CHLORIDE LEVEL 98 MEQ/L (98-107); CREATININE FOR GFR 0.57 MG/DL (0.70-1.30); GLOMERULAR FILTRATION RATE > 60.0 (>35); GLUCOSE, FASTING 132 MG/DL (83-110); POTASSIUM SERUM 4.9 MEQ/L (3.5-5.1); SODIUM LEVEL 135 MEQ/L (136-145)
== END ==
LOC: M SFHCCLAY 15:58
PROVIDERS: ATTEND Family Medicine
DX: E83.42 Hypomagnesemia (principal); D64.9 Anemia, unspecified; E11.9 Type 2 diabetes mellitus without complications

== ENCOUNTER → 2017-03-06 | Outpatient (REF) | payer MEDICARE, OTHER ==
[2017-03-06 17:13] LABS: ANION GAP 8 MEQ/L (8-16); BLOOD UREA NITROGEN 9 MG/DL (7-18); CALCIUM LEVEL 8.8 MG/DL (8.8-10.2); CARBON DIOXIDE LEVEL 28 MEQ/L (21-32); CHLORIDE LEVEL 98 MEQ/L (98-107); CREATININE FOR GFR 0.69 MG/DL (0.70-1.30); GLOMERULAR FILTRATION RATE > 60.0 (>35); GLUCOSE, FASTING 181 MG/DL (83-110); IRON (FE) 43 UG/DL (65-175); PERCENT SATURATION 10.3 % (19.7-50.0); POTASSIUM SERUM 4.6 MEQ/L (3.5-5.1); SODIUM LEVEL 134 MEQ/L (136-145); TOTAL IRON BINDING CAPACITY 419 UG/DL (250-450)
[2017-03-06 17:36] LABS: ESTIMATED AVERAGE GLUCOSE 140 MG/DL (60-110); HEMOGLOBIN A1c 6.5 %
[2017-03-06 18:59] LABS: APPEARANCE, URINE CLEAR (CLEAR); BACTERIA, URINE AUTO NEGATIVE (NEGATIVE); BILIRUBIN, URINE AUTO NEGATIVE (NEGATIVE); BLOOD, URINE BLOOD NEGATIVE (NEGATIVE); COLOR, URINE YELLOW (YELLOW); GLUCOSE, URINE (UA) AUTO NEGATIVE (NEGATIVE); KETONE, URINE AUTO NEGATIVE (NEGATIVE); LEUKOCYTE ESTERASE, URINE AUTO NEGATIVE (NEGATIVE); NITRITE, URINE AUTO NEGATIVE (NEGATIVE); PROTEIN, URINE AUTO NEGATIVE (NEGATIVE); RBC, URINE AUTO 1 /HPF (0-3); SPECIFIC GRAVITY URINE AUTO 1.009 (1.002-1.035); SQUAMOUS EPITHELIAL CELL UR AU 0 /HPF (0-6); UROBILINOGEN, URINE AUTO 0.2 mg/dL (0.0-2.0); WBC, URINE AUTO 0 /HPF (0-3)
[2017-03-06 19:03] LABS: BASO % 0.5 % (0.0-1.0); EOS # 0.2 10^3/uL (0.0-0.50); EOS % 3.9 % (0.0-3.0); HEMOGLOBIN 10.6 g/dl (14.0-18.0); IMMATURE GRANULOCYTE % 0.2 % (0-0); LYMPH # 0.7 10^3/uL (1.5-4.5); MEAN CORPUSCULAR HEMOGLOBIN 26.9 pg (27.0-33.0); MEAN CORPUSCULAR HGB CONC 32.1 g/dl (32.0-36.5); MEAN CORPUSCULAR VOLUME 83.8 fl (80.0-96.0); MONO # 0.4 10^3/uL (0.0-0.8); MONO % 8.5 % (0.0-5.0); NEUTROPHILS # 2.9 10^3/uL (1.8-7.7); NEUTROPHILS % 69.9 % (36.0-66.0); PLATELET COUNT, AUTOMATED 296 10^3/uL (150-450); RED BLOOD COUNT 3.94 10^6/uL (4.30-6.10); RED CELL DISTRIBUTION WIDTH 18.1 % (11.5-14.5); WHITE BLOOD COUNT 4.1 10^3/uL (4.0-10.0)
== END ==
LOC: M SFHCCLAY 10:00
DX: D62 Acute posthemorrhagic anemia (principal); E11.9 Type 2 diabetes mellitus without complications; N40.3 Nodular prostate with lower urinary tract symptoms
CPT/HCPCS: 83550

== ENCOUNTER 2017-09-12 15:00 | Inpatient (IN) | payer MEDICARE, OTHER ==
[~2017-09-12 15:00] MED LIST changes: -/CELE20CA; -/LANS30GR; -/PANT40TA PO; -/TAMS4CA; -/TAMS4CA PO; -/THIA10TA; -ACET500T2 OR; -ACET65TA; -AGGRCAP; -ASPI1TAB PO; -ASPI81TA83 OR; -ASPI81TA85 PO; -ATEN25TA; -ATEN25TA PO; -BABY81CH; -BACT800T OR; +BISACODYL 10 MG SUPP PR; +BISACODYL 5 MG TAB PO; -CALCCHW12; -CALCIUM/VITAMIN D PO; -CLOP75TA2 PO; +DEXTROSE 50% 50 ML SYRINGE IV; -FEROUS SULFATE PO; -FERR325T; +FLEET ENEMA PR; -FLOM5CAP PO; -GLUC500T PO; +GLUCAGON FOR INJ 1 MG VIAL (J1610) SC; +GLUCOSE 4 GM CHEW TABLET PO; +IPRATROPIUM 0.5MG/ALBUTEROL 2.5MG INH SOL UD 3ML (DUONEB)(J7620) NEB; -LANS30CA PO; -LIPI10TA; -LIPI10TA PO; -LISI10TA4 OR; -LISI2.5T3 PO; -MAGN400T5 PO; -METAPKT PO; -METF10004 PO; -METF500T4 PO; -METF750T; +MIRALAX *UNIT DOSE* 17GM PACKET PO; +MOM 30ML SUSPENSION UDC PO; -MULTIVIT PO; +ONDANSETRON 4 MG TAB (S0181) PO; +ONDANSETRON 4MG/2ML VIAL (J2405) IM; -PLAV1TAB2 PO; -PREV15CA PO; -PRIN10TA; -THERGRAN; -TYLE325T5 PO; -VITA500C24 PO; -VITAMIN B COMPLEX WI; -[UNRECOGNIZED DRUG - REMARK]; -[UNRECOGNIZED DRUG - REMARK]
[2017-09-12 17:00] LABS: BEDSIDE GLUCOSE 162 MG/DL (83-110)
[2017-09-12] MEDS: HumaLOG INSULIN (NovoLOG) PER UNIT SC ×2 (17:18→21:00)
[2017-09-12 20:27] LABS: BEDSIDE GLUCOSE 125 MG/DL (83-110)
[2017-09-12] MEDS: ATORVASTATIN 10 MG TAB PO (21:09)
[2017-09-12] MEDS: FAMOTIDINE 20 MG TAB PO (21:09)
[2017-09-12] MEDS: metFORMIN XR 500MG TAB *GLUCOPHAGE XR PO (21:09)
[2017-09-12] MEDS: SENNA 8.6 MG TAB (SENOKOT) PO (21:10)
[2017-09-13 06:36] LABS: BEDSIDE GLUCOSE 104 MG/DL (83-110)
[2017-09-13 07:10] LABS: BASO % 0.2 % (0.0-1.0); EOS # 0.2 10^3/uL (0.0-0.50); EOS % 3.2 % (0.0-3.0); HEMATOCRIT 28.4 % (42.0-52.0); HEMOGLOBIN 9.3 g/dl (13.5-17.5); IMMATURE GRANULOCYTE % 0.6 % (0-3.0); LYMPH # 0.7 10^3/uL (1.5-4.5); LYMPH % 12.3 % (24.0-44.0); MEAN CORPUSCULAR HEMOGLOBIN 26.6 pg (27.0-33.0); MEAN CORPUSCULAR HGB CONC 32.7 g/dl (32.0-36.5); MEAN CORPUSCULAR VOLUME 81.4 fl (80.0-96.0); MONO # 0.4 10^3/uL (0.0-0.8); MONO % 7.6 % (0.0-5.0); NEUTROPHILS # 4.1 10^3/uL (1.8-7.7); NEUTROPHILS % 76.1 % (36.0-66.0); PLATELET COUNT, AUTOMATED 203 10^3/uL (150-450); RED BLOOD COUNT 3.49 10^6/uL (4.30-6.10); RED CELL DISTRIBUTION WIDTH 18.5 % (11.5-14.5); WHITE BLOOD COUNT 5.4 10^3/uL (4.0-10.0)
[2017-09-13 07:28] LABS: ALBUMIN 3.1 GM/DL (3.2-5.2); ALBUMIN/GLOBULIN RATIO 1.07 (1.00-1.93); ALKALINE PHOSPHATASE 61 U/L (45-117); ALT/SGPT 23 U/L (12-78); ANION GAP 6 MEQ/L (8-16); AST/SGOT 16 U/L (7-37); BILIRUBIN,TOTAL 0.4 MG/DL (0.2-1.0); BLOOD UREA NITROGEN 7 MG/DL (7-18); CALCIUM LEVEL 8.3 MG/DL (8.8-10.2); CARBON DIOXIDE LEVEL 32 MEQ/L (21-32); CHLORIDE LEVEL 103 MEQ/L (98-107); CREATININE FOR GFR 0.51 MG/DL (0.70-1.30); GLOMERULAR FILTRATION RATE > 60.0 (>35); GLUCOSE, FASTING 107 MG/DL (70-100); POTASSIUM SERUM 3.4 MEQ/L (3.5-5.1); SODIUM LEVEL 141 MEQ/L (136-145)
[2017-09-13] MEDS: ENOXAPARIN 40 MG/0.4 ML SYRINGE (J1650) SC (09:32)
[2017-09-13] MEDS: FAMOTIDINE 20 MG TAB PO ×2 (09:32→20:28)
[2017-09-13] MEDS: HumaLOG INSULIN (NovoLOG) PER UNIT SC ×4 (09:32→21:00)
[2017-09-13] MEDS: METAMUCIL (PSYLLIUM) PACKET PO (09:32)
[2017-09-13] MEDS: MULTIVITAMINS/MINERALS THERAP 1 TAB PO (09:33)
[2017-09-13] MEDS: MAGNESIUM OXIDE 400 MG TAB (MAG-OX) PO (09:33)
[2017-09-13] MEDS: FERROUS SULFATE 325MG TAB PO (09:33)
[2017-09-13] MEDS: TAMSULOSIN 0.4 MG CAP PO (09:33)
[2017-09-13] MEDS: CYANOCOBALAMIN 500 MCG TAB PO (09:34)
[2017-09-13] MEDS: metFORMIN XR 500MG TAB *GLUCOPHAGE XR PO (09:34)
[2017-09-13] MEDS: LISINOPRIL *2.5 MG* TAB PO ×2 (09:37→09:59)
[2017-09-13 11:56] LABS: BEDSIDE GLUCOSE 139 MG/DL (83-110)
[2017-09-13] MEDS: DOCUSATE SODIUM 100 MG CAP PO (12:55)
[2017-09-13 17:14] LABS: BEDSIDE GLUCOSE 124 MG/DL (83-110)
[2017-09-13] MEDS: metFORMIN (GLUCOPHAGE) 1000 MG TABLET PO (17:35)
[2017-09-13 20:28] LABS: BEDSIDE GLUCOSE 137 MG/DL (83-110)
[2017-09-13] MEDS: SENNA 8.6 MG TAB (SENOKOT) PO (20:28)
[2017-09-13] MEDS: ATORVASTATIN 10 MG TAB PO (20:28)
[2017-09-13] MEDS: ACETAMINOPHEN TAB 650MG DOSE (2X325MG) PO (20:29)
[2017-09-14 06:42] LABS: BEDSIDE GLUCOSE 117 MG/DL (83-110)
[2017-09-14] MEDS: MIRALAX *UNIT DOSE* 17GM PACKET PO (09:00)
[2017-09-14] MEDS: TAMSULOSIN 0.4 MG CAP PO (09:49)
[2017-09-14] MEDS: DOCUSATE SODIUM 100 MG CAP PO (09:49)
[2017-09-14] MEDS: FAMOTIDINE 20 MG TAB PO ×2 (09:49→20:58)
[2017-09-14] MEDS: metFORMIN (GLUCOPHAGE) 1000 MG TABLET PO ×2 (09:49→17:01)
[2017-09-14] MEDS: METAMUCIL (PSYLLIUM) PACKET PO (09:50)
[2017-09-14] MEDS: FERROUS SULFATE 325MG TAB PO (09:50)
[2017-09-14] MEDS: MAGNESIUM OXIDE 400 MG TAB (MAG-OX) PO (09:50)
[2017-09-14] MEDS: CYANOCOBALAMIN 500 MCG TAB PO (09:50)
[2017-09-14] MEDS: MULTIVITAMINS/MINERALS THERAP 1 TAB PO (09:50)
[2017-09-14] MEDS: ENOXAPARIN 40 MG/0.4 ML SYRINGE (J1650) SC (09:50)
[2017-09-14] MEDS: LISINOPRIL *2.5 MG* TAB PO (09:50)
[2017-09-14] MEDS: HumaLOG INSULIN (NovoLOG) PER UNIT SC ×4 (09:51→21:00)
[2017-09-14 12:01] LABS: BEDSIDE GLUCOSE 102 MG/DL (83-110)
[2017-09-14 16:24] LABS: BEDSIDE GLUCOSE 112 MG/DL (83-110)
[2017-09-14 19:47] LABS: BEDSIDE GLUCOSE 186 MG/DL (83-110)
[2017-09-14] MEDS: ATORVASTATIN 10 MG TAB PO (20:58)
[2017-09-14] MEDS: SENNA 8.6 MG TAB (SENOKOT) PO (20:58)
[2017-09-15 05:39] LABS: BEDSIDE GLUCOSE 119 MG/DL (83-110)
[2017-09-15 06:43] LABS: HEMATOCRIT 29.5 % (42.0-52.0); HEMOGLOBIN 9.8 g/dl (13.5-17.5); MEAN CORPUSCULAR HEMOGLOBIN 27.4 pg (27.0-33.0); MEAN CORPUSCULAR HGB CONC 33.2 g/dl (32.0-36.5); MEAN CORPUSCULAR VOLUME 82.4 fl (80.0-96.0); PLATELET COUNT, AUTOMATED 238 10^3/uL (150-450); RED BLOOD COUNT 3.58 10^6/uL (4.30-6.10); RED CELL DISTRIBUTION WIDTH 18.4 % (11.5-14.5); WHITE BLOOD COUNT 7.4 10^3/uL (4.0-10.0)
[2017-09-15] MEDS: HumaLOG INSULIN (NovoLOG) PER UNIT SC ×4 (08:37→21:00)
[2017-09-15] MEDS: CYANOCOBALAMIN 500 MCG TAB PO (08:38)
[2017-09-15] MEDS: MULTIVITAMINS/MINERALS THERAP 1 TAB PO (08:38)
[2017-09-15] MEDS: FAMOTIDINE 20 MG TAB PO ×2 (08:38→21:10)
[2017-09-15] MEDS: ASPIRIN 81 MG ENTERIC TAB PO (08:38)
[2017-09-15] MEDS: ENOXAPARIN 40 MG/0.4 ML SYRINGE (J1650) SC (08:38)
[2017-09-15] MEDS: TAMSULOSIN 0.4 MG CAP PO (08:38)
[2017-09-15] MEDS: metFORMIN (GLUCOPHAGE) 1000 MG TABLET PO ×2 (08:38→17:45)
[2017-09-15] MEDS: FERROUS SULFATE 325MG TAB PO (08:38)
[2017-09-15] MEDS: DOCUSATE SODIUM 100 MG CAP PO (08:39)
[2017-09-15] MEDS: MAGNESIUM OXIDE 400 MG TAB (MAG-OX) PO (08:40)
[2017-09-15] MEDS: MIRALAX *UNIT DOSE* 17GM PACKET PO (08:40)
[2017-09-15] MEDS: LISINOPRIL *2.5 MG* TAB PO (09:56)
[2017-09-15 11:32] LABS: BEDSIDE GLUCOSE 165 MG/DL (83-110)
[2017-09-15 16:59] LABS: BEDSIDE GLUCOSE 121 MG/DL (83-110)
[2017-09-15 20:50] LABS: BEDSIDE GLUCOSE 169 MG/DL (83-110)
[2017-09-15] MEDS ORDERED: MIRALAX *UNIT DOSE* 17GM PACKET PO (21:00)
[2017-09-15] MEDS: SENNA 8.6 MG TAB (SENOKOT) PO (21:10)
[2017-09-15] MEDS: METAMUCIL (PSYLLIUM) PACKET PO (21:10)
[2017-09-15] MEDS: ATORVASTATIN 10 MG TAB PO (21:10)
[2017-09-16 06:13] LABS: BEDSIDE GLUCOSE 124 MG/DL (83-110)
[2017-09-16] MEDS: HumaLOG INSULIN (NovoLOG) PER UNIT SC ×4 (07:56→21:00)
[2017-09-16] MEDS: FERROUS SULFATE 325MG TAB PO (07:57)
[2017-09-16] MEDS: TAMSULOSIN 0.4 MG CAP PO (07:57)
[2017-09-16] MEDS: metFORMIN (GLUCOPHAGE) 1000 MG TABLET PO ×2 (07:57→17:43)
[2017-09-16] MEDS: LISINOPRIL *2.5 MG* TAB PO (07:57)
[2017-09-16] MEDS: MULTIVITAMINS/MINERALS THERAP 1 TAB PO (07:58)
[2017-09-16] MEDS: ENOXAPARIN 40 MG/0.4 ML SYRINGE (J1650) SC (07:58)
[2017-09-16] MEDS: CYANOCOBALAMIN 500 MCG TAB PO (07:58)
[2017-09-16] MEDS: MAGNESIUM OXIDE 400 MG TAB (MAG-OX) PO (07:58)
[2017-09-16] MEDS: FAMOTIDINE 20 MG TAB PO ×2 (07:58→22:01)
[2017-09-16] MEDS: MIRALAX *UNIT DOSE* 17GM PACKET PO (07:59)
[2017-09-16] MEDS: DOCUSATE SODIUM 100 MG CAP PO (07:59)
[2017-09-16 11:58] LABS: BEDSIDE GLUCOSE 108 MG/DL (83-110)
[2017-09-16 16:56] LABS: BEDSIDE GLUCOSE 195 MG/DL (83-110)
[2017-09-16 20:04] LABS: BEDSIDE GLUCOSE 119 MG/DL (83-110)
[2017-09-16] MEDS: SENNA 8.6 MG TAB (SENOKOT) PO (21:00)
[2017-09-16] MEDS: METAMUCIL (PSYLLIUM) PACKET PO (21:00)
[2017-09-16] MEDS: ATORVASTATIN 10 MG TAB PO (22:01)
[2017-09-17 06:20] LABS: BEDSIDE GLUCOSE 115 MG/DL (83-110)
[2017-09-17] MEDS: DOCUSATE SODIUM 100 MG CAP PO (09:00)
[2017-09-17] MEDS: HumaLOG INSULIN (NovoLOG) PER UNIT SC (09:00)
[2017-09-17] MEDS: FERROUS SULFATE 325MG TAB PO (09:00)
[2017-09-17] MEDS: ENOXAPARIN 40 MG/0.4 ML SYRINGE (J1650) SC (09:00)
[2017-09-17] MEDS: FAMOTIDINE 20 MG TAB PO ×2 (09:00→20:48)
[2017-09-17] MEDS: MIRALAX *UNIT DOSE* 17GM PACKET PO (09:00)
[2017-09-17] MEDS: TAMSULOSIN 0.4 MG CAP PO (09:01)
[2017-09-17] MEDS: MAGNESIUM OXIDE 400 MG TAB (MAG-OX) PO (09:01)
[2017-09-17] MEDS: CYANOCOBALAMIN 500 MCG TAB PO (09:01)
[2017-09-17] MEDS: metFORMIN (GLUCOPHAGE) 1000 MG TABLET PO ×2 (09:01→17:38)
[2017-09-17] MEDS: LISINOPRIL *2.5 MG* TAB PO (09:01)
[2017-09-17] MEDS: MULTIVITAMINS/MINERALS THERAP 1 TAB PO (09:01)
[2017-09-17 11:38] LABS: BEDSIDE GLUCOSE 144 MG/DL (83-110)
[2017-09-17] MEDS: glipiZIDE *2.5MG* 1/2 TABLET PO (13:00)
[2017-09-17 16:44] LABS: BEDSIDE GLUCOSE 158 MG/DL (83-110)
[2017-09-17 20:21] LABS: BEDSIDE GLUCOSE 60 MG/DL (83-110)
[2017-09-17] MEDS: SENNA 8.6 MG TAB (SENOKOT) PO (20:48)
[2017-09-17] MEDS: METAMUCIL (PSYLLIUM) PACKET PO (20:48)
[2017-09-17] MEDS: ATORVASTATIN 10 MG TAB PO (20:48)
[2017-09-17 23:04] LABS: BEDSIDE GLUCOSE 104 MG/DL (83-110)
[2017-09-18 06:47] LABS: BASO % 0.3 % (0.0-1.0); EOS # 0.3 10^3/uL (0.0-0.50); EOS % 3.2 % (0.0-3.0); HEMATOCRIT 29.4 % (42.0-52.0); HEMOGLOBIN 9.7 g/dl (13.5-17.5); IMMATURE GRANULOCYTE % 2.1 % (0-3.0); LYMPH # 0.8 10^3/uL (1.5-4.5); LYMPH % 8.9 % (24.0-44.0); MEAN CORPUSCULAR HEMOGLOBIN 27.2 pg (27.0-33.0); MEAN CORPUSCULAR VOLUME 82.6 fl (80.0-96.0); MONO # 0.8 10^3/uL (0.0-0.8); MONO % 9.2 % (0.0-5.0); NEUTROPHILS # 6.6 10^3/uL (1.8-7.7); NEUTROPHILS % 76.3 % (36.0-66.0); PLATELET COUNT, AUTOMATED 262 10^3/uL (150-450); RED BLOOD COUNT 3.56 10^6/uL (4.30-6.10); RED CELL DISTRIBUTION WIDTH 18.6 % (11.5-14.5); WHITE BLOOD COUNT 8.7 10^3/uL (4.0-10.0)
[2017-09-18 07:12] LABS: ANION GAP 7 MEQ/L (8-16); BLOOD UREA NITROGEN 6 MG/DL (7-18); CALCIUM LEVEL 8.6 MG/DL (8.8-10.2); CARBON DIOXIDE LEVEL 28 MEQ/L (21-32); CHLORIDE LEVEL 103 MEQ/L (98-107); CREATININE FOR GFR 0.49 MG/DL (0.70-1.30); GLOMERULAR FILTRATION RATE > 60.0 (>35); GLUCOSE, FASTING 120 MG/DL (70-100); POTASSIUM SERUM 4.3 MEQ/L (3.5-5.1); SODIUM LEVEL 138 MEQ/L (136-145)
[2017-09-18] MEDS: DOCUSATE SODIUM 100 MG CAP PO (08:39)
[2017-09-18] MEDS: MIRALAX *UNIT DOSE* 17GM PACKET PO (08:39)
[2017-09-18] MEDS: FERROUS SULFATE 325MG TAB PO (09:19)
[2017-09-18] MEDS: metFORMIN (GLUCOPHAGE) 1000 MG TABLET PO ×2 (09:19→17:32)
[2017-09-18] MEDS: FAMOTIDINE 20 MG TAB PO ×2 (09:19→20:48)
[2017-09-18] MEDS: MULTIVITAMINS/MINERALS THERAP 1 TAB PO (09:19)
[2017-09-18] MEDS: glipiZIDE *2.5MG* 1/2 TABLET PO (09:20)
[2017-09-18] MEDS: MAGNESIUM OXIDE 400 MG TAB (MAG-OX) PO (09:20)
[2017-09-18] MEDS: TAMSULOSIN 0.4 MG CAP PO (09:20)
[2017-09-18] MEDS: LISINOPRIL *2.5 MG* TAB PO (09:20)
[2017-09-18] MEDS: CYANOCOBALAMIN 500 MCG TAB PO (09:20)
[2017-09-18] MEDS: ENOXAPARIN 40 MG/0.4 ML SYRINGE (J1650) SC (09:21)
[2017-09-18 11:59] LABS: BEDSIDE GLUCOSE 67 MG/DL (83-110)
[2017-09-18 16:49] LABS: BEDSIDE GLUCOSE 91 MG/DL (83-110)
[2017-09-18 20:30] LABS: BEDSIDE GLUCOSE 152 MG/DL (83-110)
[2017-09-18] MEDS: ATORVASTATIN 10 MG TAB PO (20:48)
[2017-09-18] MEDS: METAMUCIL (PSYLLIUM) PACKET PO (20:48)
[2017-09-18] MEDS ORDERED: SENNA 8.6 MG TAB (SENOKOT) PO (21:00)
[2017-09-19 05:56] LABS: BEDSIDE GLUCOSE 126 MG/DL (83-110)
[2017-09-19] MEDS: TAMSULOSIN 0.4 MG CAP PO (10:15)
[2017-09-19] MEDS: metFORMIN (GLUCOPHAGE) 1000 MG TABLET PO ×2 (10:15→18:00)
[2017-09-19] MEDS: MAGNESIUM OXIDE 400 MG TAB (MAG-OX) PO (10:15)
[2017-09-19] MEDS: FERROUS SULFATE 325MG TAB PO (10:15)
[2017-09-19] MEDS: LISINOPRIL *2.5 MG* TAB PO (10:16)
[2017-09-19] MEDS: CYANOCOBALAMIN 500 MCG TAB PO (10:16)
[2017-09-19] MEDS: ASPIRIN 81 MG ENTERIC TAB PO (10:16)
[2017-09-19] MEDS: MULTIVITAMINS/MINERALS THERAP 1 TAB PO (10:16)
[2017-09-19] MEDS: ENOXAPARIN 40 MG/0.4 ML SYRINGE (J1650) SC (10:17)
[2017-09-19] MEDS: FAMOTIDINE 20 MG TAB PO ×2 (10:17→20:17)
[2017-09-19 11:53] LABS: BEDSIDE GLUCOSE 186 MG/DL (83-110)
[2017-09-19] MEDS: ACETAMINOPHEN TAB 650MG DOSE (2X325MG) PO (15:20)
[2017-09-19 16:55] LABS: BEDSIDE GLUCOSE 103 MG/DL (83-110)
[2017-09-19 19:54] LABS: BEDSIDE GLUCOSE 158 MG/DL (83-110)
[2017-09-19] MEDS: ATORVASTATIN 10 MG TAB PO (20:16)
[2017-09-19] MEDS: METAMUCIL (PSYLLIUM) PACKET PO ×2 (20:17→21:00)
[2017-09-20 05:31] LABS: BEDSIDE GLUCOSE 140 MG/DL (83-110)
[2017-09-20] MEDS: MAGNESIUM OXIDE 400 MG TAB (MAG-OX) PO (08:30)
[2017-09-20] MEDS: MULTIVITAMINS/MINERALS THERAP 1 TAB PO (08:30)
[2017-09-20] MEDS: FERROUS SULFATE 325MG TAB PO (08:30)
[2017-09-20] MEDS: CYANOCOBALAMIN 500 MCG TAB PO (08:30)
[2017-09-20] MEDS: TAMSULOSIN 0.4 MG CAP PO (08:30)
[2017-09-20] MEDS: FAMOTIDINE 20 MG TAB PO ×2 (08:30→20:19)
[2017-09-20] MEDS: metFORMIN (GLUCOPHAGE) 1000 MG TABLET PO ×2 (08:30→17:32)
[2017-09-20] MEDS: LISINOPRIL *2.5 MG* TAB PO (08:31)
[2017-09-20] MEDS: ENOXAPARIN 40 MG/0.4 ML SYRINGE (J1650) SC (08:31)
[2017-09-20 11:25] LABS: KETONE, URINE AUTO RFX NEGATIVE (NEGATIVE); NITRITE, URINE AUTO RFX NEGATIVE (NEGATIVE); RBC, URINE AUTO RFX 2 /HPF (0-3); SPECIFIC GRAVITY UR AUTO RFX 1.005 (1.002-1.035); SQUAM EPITHELIAL CELL UR AURFX 0 /HPF (0-6)
[2017-09-20 11:27] LABS: LEUKOCYTE ESTERASE UR AUTO RFX 3+ (NEGATIVE); WBC, URINE AUTO RFX 58 /HPF (0-3)
[2017-09-20 11:30] LABS: BEDSIDE GLUCOSE 108 MG/DL (83-110)
[2017-09-20 16:46] LABS: BEDSIDE GLUCOSE 114 MG/DL (83-110)
[2017-09-20 20:06] LABS: BEDSIDE GLUCOSE 163 MG/DL (83-110)
[2017-09-20] MEDS: ATORVASTATIN 10 MG TAB PO (20:19)
[2017-09-20] MEDS: METAMUCIL (PSYLLIUM) PACKET PO (20:20)
[2017-09-21 06:38] LABS: HEMATOCRIT 29.8 % (42.0-52.0); HEMOGLOBIN 9.7 g/dl (13.5-17.5); MEAN CORPUSCULAR HEMOGLOBIN 26.9 pg (27.0-33.0); MEAN CORPUSCULAR HGB CONC 32.6 g/dl (32.0-36.5); MEAN CORPUSCULAR VOLUME 82.8 fl (80.0-96.0); PLATELET COUNT, AUTOMATED 305 10^3/uL (150-450); RED CELL DISTRIBUTION WIDTH 18.4 % (11.5-14.5)
[2017-09-21 06:49] LABS: BEDSIDE GLUCOSE 106 MG/DL (83-110)
[2017-09-21] MEDS: CYANOCOBALAMIN 500 MCG TAB PO (08:03)
[2017-09-21] MEDS: MAGNESIUM OXIDE 400 MG TAB (MAG-OX) PO (08:04)
[2017-09-21] MEDS: TAMSULOSIN 0.4 MG CAP PO (08:04)
[2017-09-21] MEDS: LISINOPRIL *2.5 MG* TAB PO (08:04)
[2017-09-21] MEDS: FAMOTIDINE 20 MG TAB PO (08:04)
[2017-09-21] MEDS: metFORMIN (GLUCOPHAGE) 1000 MG TABLET PO (08:04)
[2017-09-21] MEDS: MULTIVITAMINS/MINERALS THERAP 1 TAB PO (08:04)
[2017-09-21] MEDS: FERROUS SULFATE 325MG TAB PO (08:04)
[2017-09-21] MEDS: ENOXAPARIN 40 MG/0.4 ML SYRINGE (J1650) SC (08:05)
[2017-09-21 11:48] LABS: BEDSIDE GLUCOSE 128 MG/DL (83-110)
== END 2017-09-21 14:33 | disposition home or self-care (01) | DRG 57 ==
LOC: M PM&R 15:00
PROVIDERS: Physical Medicine & Rehabilitation
DX: I69.354 Hemiplegia and hemiparesis following cerebral infarction affecting left non-dominant side (principal); N39.0 Urinary tract infection, site not specified; I10 Essential (primary) hypertension; E78.5 Hyperlipidemia, unspecified; E11.9 Type 2 diabetes mellitus without complications; N40.1 Benign prostatic hyperplasia with lower urinary tract symptoms; I48.0 Paroxysmal atrial fibrillation; M19.90 Unspecified osteoarthritis, unspecified site; E53.8 Deficiency of other specified B group vitamins; Z66 Do not resuscitate; D41.00 Neoplasm of uncertain behavior of unspecified kidney; I69.391 Dysphagia following cerebral infarction; K59.00 Constipation, unspecified; R13.13 Dysphagia, pharyngeal phase; B95.2 Enterococcus as the cause of diseases classified elsewhere; I69.320 Aphasia following cerebral infarction; E83.42 Hypomagnesemia; N28.89 Other specified disorders of kidney and ureter; R11.2 Nausea with vomiting, unspecified; R33.9 Retention of urine, unspecified; Z79.82 Long term (current) use of aspirin; Z96.653 Presence of artificial knee joint, bilateral; Z96.641 Presence of right artificial hip joint; Z79.01 Long term (current) use of anticoagulants; Z79.84 Long term (current) use of oral hypoglycemic drugs; Z79.899 Other long term (current) drug therapy; Z88.2 Allergy status to sulfonamides; Z88.5 Allergy status to narcotic agent

== ENCOUNTER 2017-10-01 09:56 | Inpatient (IN) | payer MEDICARE, OTHER ==
[2017-10-01 11:35] LABS: BASO % 0.2 % (0.0-1.0); EOS # 0.1 10^3/uL (0.0-0.50); EOS % 0.6 % (0.0-3.0); HEMATOCRIT 29.6 % (42.0-52.0); HEMOGLOBIN 9.7 g/dl (13.5-17.5); IMMATURE GRANULOCYTE % 0.5 % (0-3.0); LYMPH # 0.6 10^3/uL (1.5-4.5); LYMPH % 4.7 % (24.0-44.0); MEAN CORPUSCULAR HEMOGLOBIN 27.5 pg (27.0-33.0); MEAN CORPUSCULAR HGB CONC 32.8 g/dl (32.0-36.5); MEAN CORPUSCULAR VOLUME 83.9 fl (80.0-96.0); MONO # 0.7 10^3/uL (0.0-0.8); MONO % 5.6 % (0.0-5.0); NEUTROPHILS # 11.2 10^3/uL (1.8-7.7); NEUTROPHILS % 88.4 % (36.0-66.0); PLATELET COUNT, AUTOMATED 237 10^3/uL (150-450); RED BLOOD COUNT 3.53 10^6/uL (4.30-6.10); RED CELL DISTRIBUTION WIDTH 18.7 % (11.5-14.5); WHITE BLOOD COUNT 12.7 10^3/uL (4.0-10.0)
[2017-10-01 11:52] LABS: KETONE, URINE AUTO RFX 1+ mg/dL (NEGATIVE); MUCUS, URINE RFX SMALL (NEGATIVE); RBC, URINE AUTO RFX 40 /HPF (0-3); SPECIFIC GRAVITY UR AUTO RFX 1.016 (1.002-1.035); SQUAM EPITHELIAL CELL UR AURFX 0 /HPF (0-6)
[2017-10-01 11:53] LABS: LEUKOCYTE ESTERASE UR AUTO RFX 3+ (NEGATIVE); NITRITE, URINE AUTO RFX POSITIVE (NEGATIVE); WBC, URINE AUTO RFX TNTC /HPF (0-3)
[2017-10-01 11:55] LABS: ANION GAP 7 MEQ/L (8-16); BLOOD UREA NITROGEN 8 MG/DL (7-18); CALCIUM LEVEL 8.4 MG/DL (8.8-10.2); CARBON DIOXIDE LEVEL 28 MEQ/L (21-32); CHLORIDE LEVEL 96 MEQ/L (98-107); CK-MB VALUE MASS 1.5 NG/ML (<3.6); CPK CREATINE PHOSPHOKINASE 124 U/L (39-308); CREATININE FOR GFR 0.53 MG/DL (0.70-1.30); GLOMERULAR FILTRATION RATE > 60.0 (>35); GLUCOSE, FASTING 123 MG/DL (70-100); SODIUM LEVEL 131 MEQ/L (136-145); TROPONIN I < 0.02 NG/ML (< 0.10)
[2017-10-01 12:01] LABS: POTASSIUM SERUM 5.3 MEQ/L (3.5-5.1)
[2017-10-01 17:05] LABS: VITAMIN B12 LEVEL 648 PG/ML (247-911)
[2017-10-01 17:06] LABS: FOLATE > 24.0 NG/ML (>5.4)
[2017-10-01 17:11] LABS: FERRITIN 43 NG/ML (26-388); IRON (FE) 24 UG/DL (65-175); PERCENT SATURATION 7.7 % (19.7-50.0); TOTAL IRON BINDING CAPACITY 312 UG/DL (250-450)
[2017-10-01] MEDS: CYANOCOBALAMIN 500 MCG TAB PO (17:48)
[2017-10-01] MEDS: MULTIVITAMINS/MINERALS THERAP 1 TAB PO (17:50)
[2017-10-01] MEDS: FAMOTIDINE 20 MG TAB PO (17:51)
[2017-10-01] MEDS: ENOXAPARIN 40 MG/0.4 ML SYRINGE (J1650) SC (17:52)
[2017-10-01 18:29] LABS: REASON FOR REVIEW RBC MORPHOLOGY; SLIDE REVIEW Report; SOURCE PERIPHERAL SMEAR
[2017-10-01 18:31] LABS: RETICULOCYTE # 35.2 10^9/L (17-77); RETICULOCYTE % 1.1 % (0.5-1.5)
[2017-10-01 18:34] LABS: CHOLESTEROL LEVEL 108 MG/DL (<200); CHOLESTEROL RISK RATIO 1.894 (<5); HDL CHOLESTEROL 57 MG/DL (>40); NON-HDL-C 51 MG/DL; TRIGLYCERIDES LEVEL 65 MG/DL (<150)
[2017-10-01] MEDS: ASPIRIN 325 MG TAB PO (18:51)
[2017-10-01 20:15] LABS: OSMOLALITY SERUM 270 MOSM/KG (280-301)
[2017-10-01] MEDS: TAMSULOSIN 0.4 MG CAP PO (20:56)
[2017-10-01] MEDS: LISINOPRIL *2.5 MG* TAB PO (20:57)
[2017-10-01] MEDS: ASPIRIN 81 MG ENTERIC TAB PO (20:57)
[2017-10-01] MEDS: METAMUCIL (PSYLLIUM) PACKET PO (20:57)
[2017-10-01] MEDS: MAGNESIUM OXIDE 400 MG TAB (MAG-OX) PO (20:58)
[2017-10-01] MEDS: FERROUS SULFATE 325MG TAB PO (20:58)
[2017-10-01] MEDS: ATORVASTATIN 20 MG TAB PO (20:58)
[2017-10-01] MEDS ORDERED: ATORVASTATIN 10 MG TAB PO (21:00)
[2017-10-01 22:34] LABS: OSMOLALITY URINE 79 MOSM/KG (500-800)
[2017-10-01 22:52] LABS: SODIUM,RANDOM URINE 16 MEQ/L
[2017-10-02 06:19] LABS: HEMATOCRIT 29.1 % (42.0-52.0); HEMOGLOBIN 9.6 g/dl (13.5-17.5); MEAN CORPUSCULAR HEMOGLOBIN 26.7 pg (27.0-33.0); MEAN CORPUSCULAR VOLUME 80.8 fl (80.0-96.0); PLATELET COUNT, AUTOMATED 238 10^3/uL (150-450); RED CELL DISTRIBUTION WIDTH 18.7 % (11.5-14.5)
[2017-10-02 06:33] LABS: ANION GAP 7 MEQ/L (8-16); BLOOD UREA NITROGEN 6 MG/DL (7-18); CALCIUM LEVEL 8.3 MG/DL (8.8-10.2); CARBON DIOXIDE LEVEL 25 MEQ/L (21-32); CHLORIDE LEVEL 98 MEQ/L (98-107); CREATININE FOR GFR 0.45 MG/DL (0.70-1.30); GLOMERULAR FILTRATION RATE > 60.0 (>35); GLUCOSE, FASTING 114 MG/DL (70-100); POTASSIUM SERUM 4.1 MEQ/L (3.5-5.1); SODIUM LEVEL 130 MEQ/L (136-145)
[2017-10-02] MEDS: CYANOCOBALAMIN 500 MCG TAB PO (09:42)
[2017-10-02] MEDS: ENOXAPARIN 40 MG/0.4 ML SYRINGE (J1650) SC (09:42)
[2017-10-02] MEDS: MULTIVITAMINS/MINERALS THERAP 1 TAB PO (09:42)
[2017-10-02] MEDS: FAMOTIDINE 20 MG TAB PO (09:42)
[2017-10-02] MEDS: METAMUCIL (PSYLLIUM) PACKET PO (21:01)
[2017-10-02] MEDS: FERROUS SULFATE 325MG TAB PO (21:02)
[2017-10-02] MEDS: LISINOPRIL *2.5 MG* TAB PO (21:02)
[2017-10-02] MEDS: ASPIRIN 81 MG ENTERIC TAB PO (21:02)
[2017-10-02] MEDS: TAMSULOSIN 0.4 MG CAP PO (21:02)
[2017-10-02] MEDS: ATORVASTATIN 20 MG TAB PO (21:02)
[2017-10-02] MEDS: MAGNESIUM OXIDE 400 MG TAB (MAG-OX) PO (21:02)
[2017-10-03 06:00] LABS: HEMATOCRIT 28.6 % (42.0-52.0); HEMOGLOBIN 9.8 g/dl (13.5-17.5); MEAN CORPUSCULAR HEMOGLOBIN 27.6 pg (27.0-33.0); MEAN CORPUSCULAR HGB CONC 34.3 g/dl (32.0-36.5); MEAN CORPUSCULAR VOLUME 80.6 fl (80.0-96.0); PLATELET COUNT, AUTOMATED 227 10^3/uL (150-450); RED BLOOD COUNT 3.55 10^6/uL (4.30-6.10); RED CELL DISTRIBUTION WIDTH 18.9 % (11.5-14.5); WHITE BLOOD COUNT 5.9 10^3/uL (4.0-10.0)
[2017-10-03 06:20] LABS: ANION GAP 6 MEQ/L (8-16); BLOOD UREA NITROGEN 8 MG/DL (7-18); CALCIUM LEVEL 8.5 MG/DL (8.8-10.2); CARBON DIOXIDE LEVEL 28 MEQ/L (21-32); CHLORIDE LEVEL 99 MEQ/L (98-107); CREATININE FOR GFR 0.49 MG/DL (0.70-1.30); GLOMERULAR FILTRATION RATE > 60.0 (>35); GLUCOSE, FASTING 140 MG/DL (70-100); SODIUM LEVEL 133 MEQ/L (136-145)
[2017-10-03] MEDS: CEPHALEXIN 500 MG CAP PO ×2 (09:00→20:53)
[2017-10-03] MEDS: FAMOTIDINE 20 MG TAB PO (10:00)
[2017-10-03] MEDS: CYANOCOBALAMIN 500 MCG TAB PO (10:01)
[2017-10-03] MEDS: ENOXAPARIN 40 MG/0.4 ML SYRINGE (J1650) SC (10:01)
[2017-10-03] MEDS: MULTIVITAMINS/MINERALS THERAP 1 TAB PO (10:01)
[2017-10-03] MEDS: METAMUCIL (PSYLLIUM) PACKET PO (20:52)
[2017-10-03] MEDS: TAMSULOSIN 0.4 MG CAP PO (20:53)
[2017-10-03] MEDS: ATORVASTATIN 20 MG TAB PO (20:53)
[2017-10-03] MEDS: MAGNESIUM OXIDE 400 MG TAB (MAG-OX) PO (20:53)
[2017-10-03] MEDS: FERROUS SULFATE 325MG TAB PO (20:53)
[2017-10-03] MEDS: ASPIRIN 81 MG ENTERIC TAB PO (20:53)
[2017-10-03] MEDS: LISINOPRIL *2.5 MG* TAB PO (20:53)
[2017-10-04 06:25] LABS: HEMATOCRIT 30.1 % (42.0-52.0); HEMOGLOBIN 9.8 g/dl (13.5-17.5); MEAN CORPUSCULAR HEMOGLOBIN 26.5 pg (27.0-33.0); MEAN CORPUSCULAR HGB CONC 32.6 g/dl (32.0-36.5); MEAN CORPUSCULAR VOLUME 81.4 fl (80.0-96.0); PLATELET COUNT, AUTOMATED 256 10^3/uL (150-450); RED CELL DISTRIBUTION WIDTH 19.1 % (11.5-14.5); WHITE BLOOD COUNT 4.1 10^3/uL (4.0-10.0)
[2017-10-04 06:36] LABS: ANION GAP 6 MEQ/L (8-16); BLOOD UREA NITROGEN 8 MG/DL (7-18); CALCIUM LEVEL 8.7 MG/DL (8.8-10.2); CARBON DIOXIDE LEVEL 29 MEQ/L (21-32); CHLORIDE LEVEL 101 MEQ/L (98-107); CREATININE FOR GFR 0.48 MG/DL (0.70-1.30); GLOMERULAR FILTRATION RATE > 60.0 (>35); GLUCOSE, FASTING 148 MG/DL (70-100); POTASSIUM SERUM 4.4 MEQ/L (3.5-5.1); SODIUM LEVEL 136 MEQ/L (136-145)
[2017-10-04] MEDS: CEPHALEXIN 500 MG CAP PO ×2 (08:27→20:07)
[2017-10-04] MEDS: CYANOCOBALAMIN 500 MCG TAB PO (08:27)
[2017-10-04] MEDS: MULTIVITAMINS/MINERALS THERAP 1 TAB PO (08:27)
[2017-10-04] MEDS: ENOXAPARIN 40 MG/0.4 ML SYRINGE (J1650) SC (08:27)
[2017-10-04] MEDS: FAMOTIDINE 20 MG TAB PO (08:27)
[2017-10-04] MEDS: ASPIRIN 81 MG ENTERIC TAB PO (20:07)
[2017-10-04] MEDS: TAMSULOSIN 0.4 MG CAP PO (20:07)
[2017-10-04] MEDS: LISINOPRIL *2.5 MG* TAB PO (20:08)
[2017-10-04] MEDS: ATORVASTATIN 20 MG TAB PO (20:08)
[2017-10-04] MEDS: FERROUS SULFATE 325MG TAB PO (20:08)
[2017-10-04] MEDS: METAMUCIL (PSYLLIUM) PACKET PO (20:08)
[2017-10-04] MEDS: MAGNESIUM OXIDE 400 MG TAB (MAG-OX) PO (20:08)
[2017-10-05 06:39] LABS: HEMATOCRIT 28.7 % (42.0-52.0); HEMOGLOBIN 9.5 g/dl (13.5-17.5); MEAN CORPUSCULAR HEMOGLOBIN 27.5 pg (27.0-33.0); MEAN CORPUSCULAR HGB CONC 33.1 g/dl (32.0-36.5); MEAN CORPUSCULAR VOLUME 82.9 fl (80.0-96.0); PLATELET COUNT, AUTOMATED 275 10^3/uL (150-450); RED BLOOD COUNT 3.46 10^6/uL (4.30-6.10); RED CELL DISTRIBUTION WIDTH 19.4 % (11.5-14.5); WHITE BLOOD COUNT 4.4 10^3/uL (4.0-10.0)
[2017-10-05 07:04] LABS: ANION GAP 7 MEQ/L (8-16); BLOOD UREA NITROGEN 12 MG/DL (7-18); CALCIUM LEVEL 8.6 MG/DL (8.8-10.2); CARBON DIOXIDE LEVEL 29 MEQ/L (21-32); CHLORIDE LEVEL 102 MEQ/L (98-107); CREATININE FOR GFR 0.46 MG/DL (0.70-1.30); GLOMERULAR FILTRATION RATE > 60.0 (>35); GLUCOSE, FASTING 119 MG/DL (70-100); POTASSIUM SERUM 4.1 MEQ/L (3.5-5.1); SODIUM LEVEL 138 MEQ/L (136-145)
[2017-10-05] MEDS: FAMOTIDINE 20 MG TAB PO (07:53)
[2017-10-05] MEDS: CYANOCOBALAMIN 500 MCG TAB PO (07:53)
[2017-10-05] MEDS: MULTIVITAMINS/MINERALS THERAP 1 TAB PO (07:53)
[2017-10-05] MEDS: ENOXAPARIN 40 MG/0.4 ML SYRINGE (J1650) SC (07:54)
[2017-10-05] MEDS: CEPHALEXIN 500 MG CAP PO (07:54)
== END 2017-10-05 15:13 | disposition home health service (06) | DRG 69 ==
LOC: M ED 09:56 → M ED INP 16:17 → M MSPAV 17:07
DX: G45.9 Transient cerebral ischemic attack, unspecified (principal); N39.0 Urinary tract infection, site not specified; I50.30 Unspecified diastolic (congestive) heart failure; E87.1 Hypo-osmolality and hyponatremia; I11.0 Hypertensive heart disease with heart failure; E78.5 Hyperlipidemia, unspecified; D50.9 Iron deficiency anemia, unspecified; E87.5 Hyperkalemia; B96.1 Klebsiella pneumoniae [K. pneumoniae] as the cause of diseases classified elsewhere; R53.1 Weakness; E11.9 Type 2 diabetes mellitus without complications; I48.0 Paroxysmal atrial fibrillation; K21.9 Gastro-esophageal reflux disease without esophagitis; I25.10 Atherosclerotic heart disease of native coronary artery without angina pectoris; M19.90 Unspecified osteoarthritis, unspecified site; N40.0 Benign prostatic hyperplasia without lower urinary tract symptoms; Z79.82 Long term (current) use of aspirin; Z79.84 Long term (current) use of oral hypoglycemic drugs; Z79.899 Other long term (current) drug therapy; Z88.2 Allergy status to sulfonamides; Z88.5 Allergy status to narcotic agent; Z86.73 Personal history of transient ischemic attack (TIA), and cerebral infarction without residual deficits; Z98.49 Cataract extraction status, unspecified eye; Z85.828 Personal history of other malignant neoplasm of skin; Z96.0 Presence of urogenital implants

== ENCOUNTER → 2017-11-09 | Outpatient (REF) | payer MEDICARE, OTHER ==
[2017-11-09 17:13] LABS: BASO % 0.3 % (0.0-1.0); EOS # 0.3 10^3/uL (0.0-0.50); EOS % 3.8 % (0.0-3.0); HEMATOCRIT 33.8 % (42.0-52.0); HEMOGLOBIN 11.1 g/dl (13.5-17.5); IMMATURE GRANULOCYTE % 0.6 % (0-3.0); LYMPH # 0.4 10^3/uL (1.5-4.5); LYMPH % 6.2 % (24.0-44.0); MEAN CORPUSCULAR HEMOGLOBIN 27.8 pg (27.0-33.0); MEAN CORPUSCULAR HGB CONC 32.8 g/dl (32.0-36.5); MEAN CORPUSCULAR VOLUME 84.5 fl (80.0-96.0); MONO # 0.6 10^3/uL (0.0-0.8); MONO % 7.8 % (0.0-5.0); NEUTROPHILS # 5.7 10^3/uL (1.8-7.7); NEUTROPHILS % 81.3 % (36.0-66.0); PLATELET COUNT, AUTOMATED 298 10^3/uL (150-450); RED CELL DISTRIBUTION WIDTH 19.8 % (11.5-14.5); WHITE BLOOD COUNT 7.1 10^3/uL (4.0-10.0)
[2017-11-09 17:14] LABS: FERRITIN 22 NG/ML (26-388); IRON (FE) 40 UG/DL (65-175); PERCENT SATURATION 11.8 % (19.7-50.0); TOTAL IRON BINDING CAPACITY 338 UG/DL (250-450)
== END ==
LOC: M SFHCCLAY 11:43
DX: D64.9 Anemia, unspecified (principal); E11.9 Type 2 diabetes mellitus without complications
CPT/HCPCS: 83550

== ENCOUNTER 2018-01-22 16:03 | Inpatient (IN) | payer MEDICARE, OTHER ==
[2018-01-22 17:06] LABS: KETONE, URINE AUTO RFX NEGATIVE (NEGATIVE); MUCUS, URINE RFX SMALL (NEGATIVE); RBC, URINE AUTO RFX 40 /HPF (0-3); SPECIFIC GRAVITY UR AUTO RFX 1.015 (1.002-1.035); SQUAM EPITHELIAL CELL UR AURFX 0 /HPF (0-6)
[2018-01-22 17:07] LABS: LEUKOCYTE ESTERASE UR AUTO RFX 3+ (NEGATIVE); NITRITE, URINE AUTO RFX POSITIVE (NEGATIVE); WBC, URINE AUTO RFX TNTC /HPF (0-3)
[2018-01-22 17:32] LABS: ALBUMIN 3.6 GM/DL (3.2-5.2); ALBUMIN/GLOBULIN RATIO 1.24 (1.00-1.93); ALKALINE PHOSPHATASE 80 U/L (45-117); ALT/SGPT 17 U/L (12-78); AMYLASE 28 U/L (25-115); ANION GAP 9 MEQ/L (8-16); AST/SGOT 10 U/L (7-37); BASO % 0.3 % (0.0-1.0); BILIRUBIN,DIRECT 0.1 MG/DL (0.0-0.2); BILIRUBIN,TOTAL 0.3 MG/DL (0.2-1.0); BLOOD UREA NITROGEN 17 MG/DL (7-18); CALCIUM LEVEL 8.4 MG/DL (8.8-10.2); CARBON DIOXIDE LEVEL 27 MEQ/L (21-32); CHLORIDE LEVEL 97 MEQ/L (98-107); CPK CREATINE PHOSPHOKINASE 56 U/L (39-308); CREATININE FOR GFR 0.56 MG/DL (0.70-1.30); EOS # 0.2 10^3/uL (0.0-0.50); EOS % 2.3 % (0.0-3.0); GLOMERULAR FILTRATION RATE > 60.0 (>35); GLUCOSE, FASTING 99 MG/DL (70-100); HEMATOCRIT 31.8 % (42.0-52.0); HEMOGLOBIN 10.2 g/dl (13.5-17.5); IMMATURE GRANULOCYTE % 0.7 % (0-3.0); LIPASE 90 U/L (73-393); LYMPH # 0.7 10^3/uL (1.5-4.5); LYMPH % 9.8 % (24.0-44.0); MB/CK RELATIVE INDEX 3.21 (< OR =4); MEAN CORPUSCULAR HEMOGLOBIN 28.7 pg (27.0-33.0); MEAN CORPUSCULAR HGB CONC 32.1 g/dl (32.0-36.5); MEAN CORPUSCULAR VOLUME 89.3 fl (80.0-96.0); MONO # 0.5 10^3/uL (0.0-0.8); MONO % 6.8 % (0.0-5.0); NEUTROPHILS # 5.8 10^3/uL (1.8-7.7); NEUTROPHILS % 80.1 % (36.0-66.0); PLATELET COUNT, AUTOMATED 247 10^3/uL (150-450); POTASSIUM SERUM 4.7 MEQ/L (3.5-5.1); RED BLOOD COUNT 3.56 10^6/uL (4.30-6.10); RED CELL DISTRIBUTION WIDTH 18.4 % (11.5-14.5); SODIUM LEVEL 133 MEQ/L (136-145); TOTAL PROTEIN 6.5 GM/DL (6.4-8.2); TROPONIN I < 0.02 NG/ML (< 0.10); WHITE BLOOD COUNT 7.2 10^3/uL (4.0-10.0)
[2018-01-22 17:33] LABS: LACTIC ACID SEPSIS PROTOCOL 3.7 MMOL/L (0.4-2.0)
[2018-01-22] MEDS: NS 500 ML IV ×2 (17:41)
[2018-01-22 17:50] LABS: INR 1.02; PROTHROMBIN TIME 13.5 SECONDS (12.1-14.4)
[2018-01-22 17:51] LABS: PARTIAL THROMBOPLASTIN TIME 32.5 SECONDS (25.4-37.6)
[2018-01-22] MEDS: CIPROFLOXACIN 400 MG in APPROPRIATE DILUENT 1 EA IV (18:29)
[2018-01-22] MEDS: NS 1,000 ML IV (18:29)
[2018-01-22] MEDS ORDERED: GLUCOSE 4 GM CHEW TABLET PO (21:15)
[2018-01-22] MEDS ORDERED: GLUCAGON FOR INJ 1 MG VIAL (J1610) SC (21:15)
[2018-01-22] MEDS ORDERED: DEXTROSE 50% 50 ML SYRINGE IV (21:15)
[2018-01-22 21:46] LABS: APPEARANCE, URINE HAZY (CLEAR); BACTERIA, URINE AUTO 1+ (NEGATIVE); BILIRUBIN, URINE AUTO NEGATIVE (NEGATIVE); BLOOD, URINE BLOOD 1+ (NEGATIVE); COLOR, URINE YELLOW (YELLOW); GLUCOSE, URINE (UA) AUTO NEGATIVE (NEGATIVE); KETONE, URINE AUTO NEGATIVE (NEGATIVE); LEUKOCYTE ESTERASE, URINE AUTO 3+ (NEGATIVE); MUCUS, URINE SMALL (NEGATIVE); NITRITE, URINE AUTO POSITIVE (NEGATIVE); PROTEIN, URINE AUTO NEGATIVE (NEGATIVE); RBC, URINE AUTO 8 /HPF (0-3); SQUAMOUS EPITHELIAL CELL UR AU 0 /HPF (0-6); UROBILINOGEN, URINE AUTO 0.2 mg/dL (0.0-2.0); WBC, URINE AUTO 96 /HPF (0-3)
[2018-01-22] MEDS: FERROUS SULFATE 325MG TAB PO (22:48)
[2018-01-22] MEDS: D5W/0.45% SODIUM CHLORIDE 1,000 ML IV (22:49)
[2018-01-22] MEDS: ATORVASTATIN 10 MG TAB PO (22:49)
[2018-01-22] MEDS: cefTRIAXone SOD 1 GM in D5W MINI-BAG PLUS 50 ML IV (22:49)
[2018-01-22 23:57] LABS: BEDSIDE GLUCOSE 121 MG/DL (83-110)
[2018-01-23 05:49] LABS: HEMOGLOBIN 9.3 g/dl (13.5-17.5); MEAN CORPUSCULAR HEMOGLOBIN 28.9 pg (27.0-33.0); MEAN CORPUSCULAR HGB CONC 33.2 g/dl (32.0-36.5); PLATELET COUNT, AUTOMATED 222 10^3/uL (150-450); RED BLOOD COUNT 3.22 10^6/uL (4.30-6.10); RED CELL DISTRIBUTION WIDTH 18.1 % (11.5-14.5); WHITE BLOOD COUNT 6.8 10^3/uL (4.0-10.0)
[2018-01-23 06:17] LABS: ANION GAP 7 MEQ/L (8-16); BLOOD UREA NITROGEN 14 MG/DL (7-18); CALCIUM LEVEL 8.2 MG/DL (8.8-10.2); CARBON DIOXIDE LEVEL 28 MEQ/L (21-32); CHLORIDE LEVEL 101 MEQ/L (98-107); CREATININE FOR GFR 0.45 MG/DL (0.70-1.30); GLOMERULAR FILTRATION RATE > 60.0 (>35); GLUCOSE, FASTING 119 MG/DL (70-100); SODIUM LEVEL 136 MEQ/L (136-145)
[2018-01-23] MEDS: HumaLOG INSULIN (NovoLOG) PER UNIT SC ×3 (07:24→16:44)
[2018-01-23] MEDS: MULTIVITAMINS/MINERALS THERAP 1 TAB PO (08:27)
[2018-01-23] MEDS: PANTOPRAZOLE 40MG INJ (PROTONIX) (C9113) IV ×2 (08:27→21:20)
[2018-01-23 12:37] LABS: BEDSIDE GLUCOSE 131 MG/DL (83-110)
[2018-01-23] MEDS: MIRALAX *UNIT DOSE* 17GM PACKET PO (14:47)
[2018-01-23 15:04] LABS: HEMOGLOBIN 9.5 g/dl (13.5-17.5)
[2018-01-23 16:42] LABS: BEDSIDE GLUCOSE 216 MG/DL (83-110)
[2018-01-23] MEDS: D5W/0.45% SODIUM CHLORIDE 1,000 ML IV (16:44)
[2018-01-23] MEDS: ATORVASTATIN 10 MG TAB PO (21:20)
[2018-01-23] MEDS: FERROUS SULFATE 325MG TAB PO (21:20)
[2018-01-23] MEDS: cefTRIAXone SOD 1 GM in D5W MINI-BAG PLUS 50 ML IV (21:20)
[2018-01-23 23:11] LABS: BEDSIDE GLUCOSE 113 MG/DL (83-110)
[2018-01-24] MEDS: MIRALAX *UNIT DOSE* 17GM PACKET PO (05:24)
[2018-01-24 05:44] LABS: HEMATOCRIT 27.9 % (42.0-52.0); HEMOGLOBIN 9.3 g/dl (13.5-17.5); MEAN CORPUSCULAR HEMOGLOBIN 29.2 pg (27.0-33.0); MEAN CORPUSCULAR HGB CONC 33.3 g/dl (32.0-36.5); MEAN CORPUSCULAR VOLUME 87.5 fl (80.0-96.0); PLATELET COUNT, AUTOMATED 229 10^3/uL (150-450); RED BLOOD COUNT 3.19 10^6/uL (4.30-6.10); RED CELL DISTRIBUTION WIDTH 18.1 % (11.5-14.5); WHITE BLOOD COUNT 5.7 10^3/uL (4.0-10.0)
[2018-01-24 06:22] LABS: ANION GAP 7 MEQ/L (8-16); BLOOD UREA NITROGEN 6 MG/DL (7-18); CALCIUM LEVEL 8.4 MG/DL (8.8-10.2); CARBON DIOXIDE LEVEL 28 MEQ/L (21-32); CHLORIDE LEVEL 100 MEQ/L (98-107); CREATININE FOR GFR 0.44 MG/DL (0.70-1.30); GLOMERULAR FILTRATION RATE > 60.0 (>35); GLUCOSE, FASTING 158 MG/DL (70-100); POTASSIUM SERUM 3.8 MEQ/L (3.5-5.1); SODIUM LEVEL 135 MEQ/L (136-145)
[2018-01-24] MEDS: HumaLOG INSULIN (NovoLOG) PER UNIT SC ×3 (07:30→17:23)
[2018-01-24] MEDS: MULTIVITAMINS/MINERALS THERAP 1 TAB PO (08:32)
[2018-01-24] MEDS: PANTOPRAZOLE 40MG INJ (PROTONIX) (C9113) IV ×2 (08:32→21:27)
[2018-01-24] MEDS: D5W/0.45% SODIUM CHLORIDE 1,000 ML IV (08:32)
[2018-01-24 12:06] LABS: BEDSIDE GLUCOSE 133 MG/DL (83-110)
[2018-01-24] MEDS ORDERED: PROPOFOL 200 MG/20 ML VIAL As Ordered ×2 (13:30→13:57)
[2018-01-24] MEDS ORDERED: PHENYLephrine HCL 500 MCG/5 ML (100MCG/ML) SYRINGE (J2370) As Ordered (13:40)
[2018-01-24 17:05] LABS: BEDSIDE GLUCOSE 107 MG/DL (83-110)
[2018-01-24] MEDS: ATORVASTATIN 10 MG TAB PO (21:27)
[2018-01-24] MEDS: FERROUS SULFATE 325MG TAB PO (21:28)
[2018-01-24] MEDS: cefTRIAXone SOD 1 GM in D5W MINI-BAG PLUS 50 ML IV (21:28)
[2018-01-25 01:24] LABS: BEDSIDE GLUCOSE 159 MG/DL (83-110)
[2018-01-25 06:43] LABS: HEMATOCRIT 26.1 % (42.0-52.0); HEMOGLOBIN 8.7 g/dl (13.5-17.5); MEAN CORPUSCULAR HEMOGLOBIN 28.9 pg (27.0-33.0); MEAN CORPUSCULAR HGB CONC 33.3 g/dl (32.0-36.5); MEAN CORPUSCULAR VOLUME 86.7 fl (80.0-96.0); PLATELET COUNT, AUTOMATED 240 10^3/uL (150-450); RED BLOOD COUNT 3.01 10^6/uL (4.30-6.10); RED CELL DISTRIBUTION WIDTH 18.2 % (11.5-14.5); WHITE BLOOD COUNT 6.1 10^3/uL (4.0-10.0)
[2018-01-25 07:01] LABS: ANION GAP 6 MEQ/L (8-16); BLOOD UREA NITROGEN 3 MG/DL (7-18); CALCIUM LEVEL 8.4 MG/DL (8.8-10.2); CARBON DIOXIDE LEVEL 28 MEQ/L (21-32); CHLORIDE LEVEL 101 MEQ/L (98-107); CREATININE FOR GFR 0.52 MG/DL (0.70-1.30); GLOMERULAR FILTRATION RATE > 60.0 (>35); GLUCOSE, FASTING 157 MG/DL (70-100); POTASSIUM SERUM 3.8 MEQ/L (3.5-5.1); SODIUM LEVEL 135 MEQ/L (136-145)
[2018-01-25] MEDS: MULTIVITAMINS/MINERALS THERAP 1 TAB PO (07:31)
[2018-01-25] MEDS: HumaLOG INSULIN (NovoLOG) PER UNIT SC ×3 (07:32→17:08)
[2018-01-25] MEDS: PANTOPRAZOLE 40MG TAB (PROTONIX) PO (07:34)
[2018-01-25 11:38] LABS: BEDSIDE GLUCOSE 180 MG/DL (83-110)
[2018-01-25 16:46] LABS: BEDSIDE GLUCOSE 151 MG/DL (83-110)
[2018-01-25] MEDS: ASPIRIN 81 MG ENTERIC TAB PO (17:07)
[2018-01-25] MEDS: ATORVASTATIN 10 MG TAB PO (20:19)
[2018-01-25] MEDS: FERROUS SULFATE 325MG TAB PO (20:19)
[2018-01-25 20:26] LABS: BEDSIDE GLUCOSE 146 MG/DL (83-110)
[2018-01-26 06:46] LABS: HEMOGLOBIN 9.1 g/dl (13.5-17.5); MEAN CORPUSCULAR HEMOGLOBIN 29.4 pg (27.0-33.0); MEAN CORPUSCULAR HGB CONC 33.7 g/dl (32.0-36.5); MEAN CORPUSCULAR VOLUME 87.4 fl (80.0-96.0); PLATELET COUNT, AUTOMATED 226 10^3/uL (150-450); RED BLOOD COUNT 3.09 10^6/uL (4.30-6.10); RED CELL DISTRIBUTION WIDTH 18.1 % (11.5-14.5); WHITE BLOOD COUNT 6.2 10^3/uL (4.0-10.0)
[2018-01-26 07:15] LABS: ANION GAP 9 MEQ/L (8-16); BLOOD UREA NITROGEN 7 MG/DL (7-18); CARBON DIOXIDE LEVEL 28 MEQ/L (21-32); CHLORIDE LEVEL 99 MEQ/L (98-107); CREATININE FOR GFR 0.45 MG/DL (0.70-1.30); GLOMERULAR FILTRATION RATE > 60.0 (>35); GLUCOSE, FASTING 129 MG/DL (70-100); POTASSIUM SERUM 3.9 MEQ/L (3.5-5.1); SODIUM LEVEL 136 MEQ/L (136-145)
[2018-01-26] MEDS: PANTOPRAZOLE 40MG TAB (PROTONIX) PO (08:16)
[2018-01-26] MEDS: HumaLOG INSULIN (NovoLOG) PER UNIT SC ×2 (08:16→12:23)
[2018-01-26] MEDS: MULTIVITAMINS/MINERALS THERAP 1 TAB PO (08:16)
[2018-01-26 11:37] LABS: BEDSIDE GLUCOSE 224 MG/DL (83-110)
== END 2018-01-26 14:11 | disposition home or self-care (01) | DRG 378 ==
LOC: M MS4PR 01-23 11:30 → M ED 16:03 → M ED INP 21:12
PROC: 0DJD8ZZ Inspection of Lower Intestinal Tract, Via Natural or Artificial Opening Endoscopic (ICD-10-PCS; principal; 2018-01-24 13:15)
DX: K92.2 Gastrointestinal hemorrhage, unspecified (principal); D62 Acute posthemorrhagic anemia; N39.0 Urinary tract infection, site not specified; I10 Essential (primary) hypertension; E78.5 Hyperlipidemia, unspecified; E11.9 Type 2 diabetes mellitus without complications; N40.0 Benign prostatic hyperplasia without lower urinary tract symptoms; I48.91 Unspecified atrial fibrillation; M19.90 Unspecified osteoarthritis, unspecified site; K57.30 Diverticulosis of large intestine without perforation or abscess without bleeding; I25.10 Atherosclerotic heart disease of native coronary artery without angina pectoris; B96.1 Klebsiella pneumoniae [K. pneumoniae] as the cause of diseases classified elsewhere; Z79.82 Long term (current) use of aspirin; Z79.84 Long term (current) use of oral hypoglycemic drugs; Z79.899 Other long term (current) drug therapy; Z88.5 Allergy status to narcotic agent; Z88.8 Allergy status to other drugs, medicaments and biological substances; Z88.2 Allergy status to sulfonamides; Z86.74 Personal history of sudden cardiac arrest

== ENCOUNTER 2018-04-18 09:40 | Inpatient (IN) | payer MEDICARE, OTHER ==
[~2018-04-18] VITALS: Ht 162.6 cm; Wt 62.7 kg
[~2018-04-18 09:40] MED LIST changes: +/CELE20CA; +/LANS30GR; +/PANT40TA PO; +/TAMS4CA; +/TAMS4CA PO; +/THIA10TA; +ACET500T2 OR; +ACET65TA; +AGGRCAP; +ASPI1TAB PO; +ASPI81TA83 OR; +ASPI81TA85 PO; +ASPI81TAEC PO; +ATEN25TA; +ATEN25TA PO; +ATOR1TAB19 PO; +Acetaminophen Tab PO; +BABY81CH; +BACT800T OR; -BISACODYL 10 MG SUPP PR; -BISACODYL 5 MG TAB PO; +CALCCHW12; +CALCIUM/VITAMIN D PO; +CEPH500C PO; +CLOP75TA2 PO; -DEXTROSE 50% 50 ML SYRINGE IV; +FAMO1TAB11 PO; +FAMO20TA PO; +FAMO40TA3 PO; +FEROUS SULFATE PO; +FERR1TAB8 PO; +FERR240T PO; +FERR325T; -FLEET ENEMA PR; +FLOM0.4C39 PO; +GLUC500T PO; -GLUCAGON FOR INJ 1 MG VIAL (J1610) SC; -GLUCOSE 4 GM CHEW TABLET PO; -IPRATROPIUM 0.5MG/ALBUTEROL 2.5MG INH SOL UD 3ML (DUONEB)(J7620) NEB; +LANS30CA PO; +LIPI10TA; +LIPI10TA PO; +LISI10TA4 OR; +LISI2.5T5 PO; +LOVE1INJ SC; +MAGN400T2 PO; +MAGN400T5 PO; +META48.54 PO; +META58.612 PO; +METAPKT PO; +METF10004 PO; +METF500T4 PO; +METF750T; -MIRALAX *UNIT DOSE* 17GM PACKET PO; -MOM 30ML SUSPENSION UDC PO; +MULTIVIT PO; +NITR100C2 PO; -ONDANSETRON 4 MG TAB (S0181) PO; -ONDANSETRON 4MG/2ML VIAL (J2405) IM; +PLAV1TAB2 PO; +PREV15CA PO; +PRIN10TA; +THERGRAN; +TYLE325T5 PO; +VITA-193 PO; +VITA500C24 PO; +VITA500T3 PO; +VITAMIN B COMPLEX WI; +VITMTA PO; +[UNRECOGNIZED DRUG - REMARK]; +[UNRECOGNIZED DRUG - REMARK]
[2018-04-18 10:37] LABS: BASO % 0.1 % (0.0-1.0); HEMATOCRIT 31.6 % (42.0-52.0); HEMOGLOBIN 10.3 g/dl (13.5-17.5); LYMPH # 0.5 10^3/uL (1.5-4.5); LYMPH % 4.2 % (24.0-44.0); MEAN CORPUSCULAR HEMOGLOBIN 27.1 pg (27.0-33.0); MEAN CORPUSCULAR HGB CONC 32.6 g/dl (32.0-36.5); MEAN CORPUSCULAR VOLUME 83.2 fl (80.0-96.0); MONO # 0.9 10^3/uL (0.0-0.8); MONO % 8.4 % (0.0-5.0); NEUTROPHILS # 9.7 10^3/uL (1.8-7.7); NEUTROPHILS % 86.9 % (36.0-66.0); PLATELET COUNT, AUTOMATED 223 10^3/uL (150-450); WHITE BLOOD COUNT 11.2 10^3/uL (4.0-10.0)
[2018-04-18 10:57] LABS: ALBUMIN 3.9 GM/DL (3.2-5.2); ALT/SGPT 19 U/L (12-78); BILIRUBIN,DIRECT 0.2 MG/DL (0.0-0.2); BILIRUBIN,TOTAL 0.8 MG/DL (0.2-1.0); BLOOD UREA NITROGEN 11 MG/DL (7-18); CALCIUM LEVEL 8.4 MG/DL (8.8-10.2); CARBON DIOXIDE LEVEL 22 MEQ/L (21-32); CHLORIDE LEVEL 92 MEQ/L (98-107); CPK CREATINE PHOSPHOKINASE 266 U/L (39-308); CREATININE FOR GFR 0.53 MG/DL (0.70-1.30); GLOMERULAR FILTRATION RATE > 60.0 (>35); GLUCOSE, FASTING 138 MG/DL (70-100); MB/CK RELATIVE INDEX 0.94 (< OR =4); POTASSIUM SERUM 5.1 MEQ/L (3.5-5.1); SODIUM LEVEL 125 MEQ/L (136-145); TOTAL PROTEIN 7.3 GM/DL (6.4-8.2); TROPONIN I < 0.02 NG/ML (< 0.10)
--- NOTE | 2018-04-18 11:22 | REP ---
Clinical: Transient ischemic attack. Comparison: 10/01/2017 . Findings: Age-related atrophy with periventricular leukomalacia and microvascular ischemic changes are appreciated. 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 The ventricles are relatively symmetric. Briceño-white differentiation is maintained. There is no evidence for acute intracranial hemorrhage, mass/mass effect, pathology or infarction. No extra-axial fluid collection. Calvarium is intact. Paranasal sinuses and mastoid air cells are clear. Extensive atherosclerotic changes to the visualized intracranial vasculature noted. Impression: Age related atrophy and microvascular ischemic changes. Chronic changes. No acute intracranial hemorrhage, infarction, or mass/mass effect. Electronically Signed by Haile Son MD 04/18/2018 11:14 A
[2018-04-18] MEDS ORDERED: LIDOCAINE 2% 5ML JELLY UROJET TOP ONE (11:30)
[2018-04-18] MEDS ORDERED: META58.612 PO (12:27)
--- NOTE | 2018-04-18 12:35 | REP ---
Clinical: Weakness . Comparison: 01/22/2018 . Findings: The mediastinum and cardiac silhouette are stable and within normal limits for portable technique. The lung germain demonstrate chronic COPD/emphysematous changes and left basilar scarring without acute consolidation, effusion, or pneumothorax. Skeletal structures are intact. Impression: No definite acute cardiopulmonary process appreciated. Electronically Signed by Haile Son MD 04/18/2018 12:26 P
[2018-04-18] MEDS: FAMOTIDINE 20 MG TAB PO SCH (13:09)
[2018-04-18] MEDS: MULTIVITAMINS/MINERALS THERAP 1 TAB PO SCH (14:41)
--- NOTE | 2018-04-18 15:32 | REP ---
MR BRAIN WITHOUT CONTRAST: HISTORY: TIAs. COMPARISON: MR 01/07/[address] 04/18/2018. An area of increased signal intensity on T2-weighted images is present in the right temporal and parietal lobes. There is dilatation of the overlying cortical sulci. This represents and old infarction. Areas of increased signal intensity on T2-weighted images are present in the basal ganglia and thalami. These represent old lacunar infarctions. Areas of increased signal intensity on T2-weighted images are present in the periventricular and subcortical white matter and gage. This represents small vessel ischemic disease. There is no intraparenchymal hemorrhage, acute infarct, mass or midline shift. The ventricular system and cortical sulci as well as subarachnoid space in the posterior fossa are dilated consistent with moderate volume loss. There is no extracerebral collection. The visualized sinuses are clear. IMPRESSION: 1. 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 2. 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 3. Small vessel ischemic disease. 4. Moderate volume loss. Electronically Signed by Juventino Chapa MD 04/18/2018 03:58 P
[2018-04-18 17:00] VITALS: BP 102/58
[2018-04-18] MEDS: LISINOPRIL *2.5 MG* TAB PO SCH (18:31)
[2018-04-18] MEDS: metFORMIN XR 500MG TAB *GLUCOPHAGE XR PO SCH (18:31)
[2018-04-18] MEDS: ATORVASTATIN 10 MG TAB PO SCH (18:31)
[2018-04-18] MEDS: MAGNESIUM OXIDE 400 MG TAB (MAG-OX) PO SCH (18:31)
[2018-04-18 20:00] VITALS: BP 130/60
[2018-04-18] MEDS: HEPARIN SOD (PORCINE) 5000 UNITS/ML VIAL SQ SCH (21:42)
[2018-04-18 23:59] VITALS: BP 141/71
[2018-04-19 04:00] VITALS: BP 107/56
[2018-04-19 04:44] LABS: HEMATOCRIT 29.2 % (42.0-52.0); HEMOGLOBIN 9.8 g/dl (13.5-17.5); MEAN CORPUSCULAR HEMOGLOBIN 27.1 pg (27.0-33.0); MEAN CORPUSCULAR HGB CONC 33.6 g/dl (32.0-36.5); MEAN CORPUSCULAR VOLUME 80.9 fl (80.0-96.0); PLATELET COUNT, AUTOMATED 236 10^3/uL (150-450); RED BLOOD COUNT 3.61 10^6/uL (4.30-6.10); WHITE BLOOD COUNT 7.9 10^3/uL (4.0-10.0)
[2018-04-19 05:02] LABS: BLOOD UREA NITROGEN 10 MG/DL (7-18); CALCIUM LEVEL 8.7 MG/DL (8.8-10.2); CARBON DIOXIDE LEVEL 26 MEQ/L (21-32); CHLORIDE LEVEL 97 MEQ/L (98-107); CREATININE FOR GFR 0.54 MG/DL (0.70-1.30); GLOMERULAR FILTRATION RATE > 60.0 (>35); GLUCOSE, FASTING 117 MG/DL (70-100); POTASSIUM SERUM 4.1 MEQ/L (3.5-5.1); SODIUM LEVEL 131 MEQ/L (136-145)
[2018-04-19 08:00] VITALS: BP 119/64
[2018-04-19] MEDS: metFORMIN XR 500MG TAB *GLUCOPHAGE XR PO SCH ×2 (08:08→17:59)
[2018-04-19] MEDS: MULTIVITAMINS/MINERALS THERAP 1 TAB PO SCH (08:08)
[2018-04-19] MEDS: FAMOTIDINE 20 MG TAB PO SCH (08:08)
[2018-04-19] MEDS: HEPARIN SOD (PORCINE) 5000 UNITS/ML VIAL SQ SCH ×2 (08:08→20:40)
--- NOTE | 2018-04-19 11:42 | DSES ---
DATE OF ADMISSION: 04/18/2018 DATE OF DISCHARGE: PRINCIPAL DIAGNOSIS: Transient ischemic attack (TIA). SECONDARY DIAGNOSIS: Hyponatremia probably secondary to TIA. HISTORY: Mich Franklin was admitted after he was confused and not verbalizing. The day before admission, his left side was transiently weak. The next day, because he was still confused and not verbalizing well. He was brought to the emergency room. He was admitted for presumptive TIA and he was mildly hyponatremic on admission. HOSPITAL COURSE: Patient was admitted to [facility]. He had no arrhythmias during the course of hospitalization. MRI scans shows no acute infarct, just previous strokes but nothing acute. His hyponatremia was worked up and proved to be secondary to syndrome of inappropriate antidiuretic hormone secretion (SIADH) with elevated urine osmolarity and reduced serum osmolarity. Etiology is probably related to central nervous system disease. His paroxysmal atrial fibrillation showed good rate control. He is not anticoagulated for reasons documented as an outpatient. On the day of discharge, he is alert, conversant. He is much more bright than he was yesterday. We had a good conversation. He is following commands. His blood pressure is 119/64, pulse 70, respiratory rate 19, 95% oxygen saturation. Lungs are clear. Heart regular rate and rhythm. Abdomen soft. Nontender. No peripheral edema. Moves arms and legs with equal strength. LABS: CBC and BMP was unremarkable today. Sodium went from 125 to 131 on a modest fluid restriction. Serum osmolarity low at 260. Urine osmolarity elevated at 595. DISPOSITION: Patient is discharged home improved and in stable condition. He will followup with Dr. Emmanuel in a week. His activity is as tolerated. He is on a regular diet. No concentration sweets with fluid restriction of 1800 mL per day for the SIADH. His medications on discharge are unchanged from admission. - aspirin 81 mg daily - atorvastatin 10 mg daily - famotidine 40 mg daily - ferrous gluconate 240 mg at dinnertime - lisinopril 2.5 mg daily - MagOx 400 mg daily - metformin ER 1000 mg twice a day - multivitamin He will need followup lab work at his office appointment.
[2018-04-19 12:00] VITALS: BP 109/62
[2018-04-19 16:00] VITALS: BP 127/64
[2018-04-19] MEDS: LISINOPRIL *2.5 MG* TAB PO SCH (17:58)
[2018-04-19] MEDS: MAGNESIUM OXIDE 400 MG TAB (MAG-OX) PO SCH (17:58)
[2018-04-19] MEDS: ATORVASTATIN 10 MG TAB PO SCH (17:58)
[2018-04-19 20:34] VITALS: BP 133/63
[2018-04-19] MEDS: ASPIRIN 81 MG ENTERIC TAB PO SCH (20:40)
[2018-04-19 23:59] VITALS: BP 121/69
[2018-04-20 04:45] VITALS: BP 120/66
[2018-04-20 05:50] LABS: HEMATOCRIT 28.8 % (42.0-52.0); HEMOGLOBIN 9.5 g/dl (13.5-17.5); MEAN CORPUSCULAR HEMOGLOBIN 26.8 pg (27.0-33.0); MEAN CORPUSCULAR VOLUME 81.1 fl (80.0-96.0); PLATELET COUNT, AUTOMATED 239 10^3/uL (150-450); RED BLOOD COUNT 3.55 10^6/uL (4.30-6.10); WHITE BLOOD COUNT 4.2 10^3/uL (4.0-10.0)
[2018-04-20 06:23] LABS: BLOOD UREA NITROGEN 13 MG/DL (7-18); CALCIUM LEVEL 8.2 MG/DL (8.8-10.2); CARBON DIOXIDE LEVEL 24 MEQ/L (21-32); CHLORIDE LEVEL 98 MEQ/L (98-107); CREATININE FOR GFR 0.46 MG/DL (0.70-1.30); GLOMERULAR FILTRATION RATE > 60.0 (>35); GLUCOSE, FASTING 111 MG/DL (70-100); POTASSIUM SERUM 4.4 MEQ/L (3.5-5.1); SODIUM LEVEL 130 MEQ/L (136-145)
--- NOTE | 2018-04-20 06:42 | ECGEPIP ---
Stationary ECG Study [facility] - ED Test Date: 2018-04-18 Pat Name: KENIA MONDRAGON Department: Room: [place] [address] Gender: M Frame Bander: PITA : [id number] Requested By: Chris Coleman Order Number: [id number] Reading MD: Elma Cerrato Measurements Intervals [place] Rate: 83 P: 78 [place]: 226 QRS: 61 QRSD: 94 T: 30 QT: 358 QTc: 421 Interpretive Statements SINUS RHYTHM WITH FIRST DEGREE AV BLOCK PROBABLE INFERIOR MYOCARDIAL INFARCTION, PROBABLY OLD NONSPECIFIC ST T WAVE CHANGES DELAYED R WAVE PROGRESSION CW 01/19/[address] T WAVE CHANGES Electronically Signed On 04-20-2018 6:42:34 EST by Elma Cerrato
[2018-04-20 08:04] VITALS: BP 125/68
[2018-04-20] MEDS: MULTIVITAMINS/MINERALS THERAP 1 TAB PO SCH (08:50)
[2018-04-20] MEDS: FAMOTIDINE 20 MG TAB PO SCH (08:51)
[2018-04-20] MEDS: metFORMIN XR 500MG TAB *GLUCOPHAGE XR PO SCH ×2 (08:51→18:30)
[2018-04-20] MEDS: HEPARIN SOD (PORCINE) 5000 UNITS/ML VIAL SQ SCH ×2 (08:51→19:38)
[2018-04-20 12:00] VITALS: BP 124/74
[2018-04-20 16:00] VITALS: BP 111/59
[2018-04-20] MEDS: MAGNESIUM OXIDE 400 MG TAB (MAG-OX) PO SCH (18:29)
[2018-04-20] MEDS: LISINOPRIL *2.5 MG* TAB PO SCH (18:30)
[2018-04-20] MEDS: ATORVASTATIN 10 MG TAB PO SCH (18:31)
[2018-04-20 20:00] VITALS: BP 126/66
[2018-04-21 04:00] VITALS: BP 135/81
[2018-04-21 05:51] LABS: HEMATOCRIT 29.7 % (42.0-52.0); HEMOGLOBIN 9.7 g/dl (13.5-17.5); MEAN CORPUSCULAR HEMOGLOBIN 26.9 pg (27.0-33.0); MEAN CORPUSCULAR HGB CONC 32.7 g/dl (32.0-36.5); MEAN CORPUSCULAR VOLUME 82.3 fl (80.0-96.0); PLATELET COUNT, AUTOMATED 273 10^3/uL (150-450); RED BLOOD COUNT 3.61 10^6/uL (4.30-6.10); WHITE BLOOD COUNT 4.9 10^3/uL (4.0-10.0)
[2018-04-21 06:15] LABS: BLOOD UREA NITROGEN 10 MG/DL (7-18); CALCIUM LEVEL 8.2 MG/DL (8.8-10.2); CARBON DIOXIDE LEVEL 27 MEQ/L (21-32); CHLORIDE LEVEL 98 MEQ/L (98-107); CREATININE FOR GFR 0.47 MG/DL (0.70-1.30); GLOMERULAR FILTRATION RATE > 60.0 (>35); GLUCOSE, FASTING 109 MG/DL (70-100); POTASSIUM SERUM 4.4 MEQ/L (3.5-5.1); SODIUM LEVEL 132 MEQ/L (136-145)
[2018-04-21 08:00] VITALS: BP 105/59
[2018-04-21] MEDS: FAMOTIDINE 20 MG TAB PO SCH (08:16)
[2018-04-21] MEDS: metFORMIN XR 500MG TAB *GLUCOPHAGE XR PO SCH ×2 (08:16→18:24)
[2018-04-21] MEDS: HEPARIN SOD (PORCINE) 5000 UNITS/ML VIAL SQ SCH ×2 (08:16→20:57)
[2018-04-21] MEDS: MULTIVITAMINS/MINERALS THERAP 1 TAB PO SCH (08:16)
[2018-04-21 16:00] VITALS: BP 109/58
[2018-04-21 16:42] VITALS: BP 132/73
[2018-04-21] MEDS: LISINOPRIL *2.5 MG* TAB PO SCH (18:24)
[2018-04-21] MEDS: ATORVASTATIN 10 MG TAB PO SCH (18:24)
[2018-04-21] MEDS: MAGNESIUM OXIDE 400 MG TAB (MAG-OX) PO SCH (18:24)
[2018-04-21] MEDS: ASPIRIN 81 MG ENTERIC TAB PO SCH (20:57)
[2018-04-21 22:00] VITALS: BP 128/78
[2018-04-22 06:00] VITALS: BP 139/77
[2018-04-22 06:46] LABS: HEMATOCRIT 32.6 % (42.0-52.0); HEMOGLOBIN 10.5 g/dl (13.5-17.5); MEAN CORPUSCULAR HEMOGLOBIN 26.9 pg (27.0-33.0); MEAN CORPUSCULAR HGB CONC 32.2 g/dl (32.0-36.5); MEAN CORPUSCULAR VOLUME 83.4 fl (80.0-96.0); PLATELET COUNT, AUTOMATED 331 10^3/uL (150-450); RED BLOOD COUNT 3.91 10^6/uL (4.30-6.10); WHITE BLOOD COUNT 4.8 10^3/uL (4.0-10.0)
[2018-04-22 07:03] LABS: BLOOD UREA NITROGEN 12 MG/DL (7-18); CALCIUM LEVEL 8.5 MG/DL (8.8-10.2); CARBON DIOXIDE LEVEL 28 MEQ/L (21-32); CHLORIDE LEVEL 97 MEQ/L (98-107); CREATININE FOR GFR 0.48 MG/DL (0.70-1.30); GLOMERULAR FILTRATION RATE > 60.0 (>35); GLUCOSE, FASTING 95 MG/DL (70-100); POTASSIUM SERUM 4.1 MEQ/L (3.5-5.1); SODIUM LEVEL 132 MEQ/L (136-145)
[2018-04-22] MEDS: MULTIVITAMINS/MINERALS THERAP 1 TAB PO SCH (09:07)
[2018-04-22] MEDS: FAMOTIDINE 20 MG TAB PO SCH (09:07)
[2018-04-22] MEDS: metFORMIN XR 500MG TAB *GLUCOPHAGE XR PO SCH ×2 (09:07→17:27)
[2018-04-22] MEDS: HEPARIN SOD (PORCINE) 5000 UNITS/ML VIAL SQ SCH ×2 (09:08→21:34)
[2018-04-22 14:00] VITALS: BP 153/87
[2018-04-22] MEDS: LISINOPRIL *2.5 MG* TAB PO SCH (17:27)
[2018-04-22] MEDS: ATORVASTATIN 10 MG TAB PO SCH (17:28)
[2018-04-22] MEDS: MAGNESIUM OXIDE 400 MG TAB (MAG-OX) PO SCH (17:28)
[2018-04-22 22:00] VITALS: BP 124/68
[2018-04-23 06:00] VITALS: BP 118/58
[2018-04-23] MEDS: metFORMIN XR 500MG TAB *GLUCOPHAGE XR PO SCH ×2 (09:51→17:28)
[2018-04-23] MEDS: FAMOTIDINE 20 MG TAB PO SCH (09:52)
[2018-04-23] MEDS: HEPARIN SOD (PORCINE) 5000 UNITS/ML VIAL SQ SCH ×2 (09:52→21:18)
[2018-04-23] MEDS: MULTIVITAMINS/MINERALS THERAP 1 TAB PO SCH (09:52)
[2018-04-23 14:00] VITALS: BP 117/56
[2018-04-23 17:29] VITALS: BP 120/60
[2018-04-23] MEDS: ATORVASTATIN 10 MG TAB PO SCH (17:29)
[2018-04-23] MEDS: MAGNESIUM OXIDE 400 MG TAB (MAG-OX) PO SCH (17:29)
[2018-04-23] MEDS: LISINOPRIL *2.5 MG* TAB PO SCH (17:29)
[2018-04-23] MEDS: ASPIRIN 81 MG ENTERIC TAB PO SCH (21:18)
[2018-04-23 22:00] VITALS: BP 130/63
[2018-04-24 06:00] VITALS: BP 123/70
[2018-04-24] MEDS: HEPARIN SOD (PORCINE) 5000 UNITS/ML VIAL SQ SCH (08:18)
[2018-04-24] MEDS: metFORMIN XR 500MG TAB *GLUCOPHAGE XR PO SCH (08:19)
[2018-04-24] MEDS: MULTIVITAMINS/MINERALS THERAP 1 TAB PO SCH (08:20)
[2018-04-24] MEDS: FAMOTIDINE 20 MG TAB PO SCH (08:20)
== END 2018-04-24 13:25 | disposition home health service (06) | DRG 69 ==
LOC: EDBD 09:40 → M ED 09:40 → M MSPAV 12:55 → M ED INP 12:55 → M PCU 17:06 → M MSPAV 04-21 16:40
PROVIDERS: ADMIT Family Medicine; ATTEND Family Medicine
DX: G45.9 Transient cerebral ischemic attack, unspecified (principal); E22.2 Syndrome of inappropriate secretion of antidiuretic hormone; I48.0 Paroxysmal atrial fibrillation; I11.9 Hypertensive heart disease without heart failure; E11.9 Type 2 diabetes mellitus without complications; R33.9 Retention of urine, unspecified; E78.00 Pure hypercholesterolemia, unspecified; M47.892 Other spondylosis, cervical region; K21.9 Gastro-esophageal reflux disease without esophagitis; Z98.49 Cataract extraction status, unspecified eye; Z79.82 Long term (current) use of aspirin; Z79.899 Other long term (current) drug therapy; Z79.84 Long term (current) use of oral hypoglycemic drugs; Z88.5 Allergy status to narcotic agent; Z88.2 Allergy status to sulfonamides

== ENCOUNTER → 2018-04-29 | Outpatient (REF) | payer MEDICARE, OTHER ==
[~2018-04-29] MED LIST changes: -/CELE20CA; -/PANT40TA PO; -/TAMS4CA; -/TAMS4CA PO; +AGGR1CAP; -AGGRCAP; +CELE1CAP4; +FLOM0.4C39; +KONS100P4 PO; +LISI-1046 PO; -LISI2.5T5 PO; -METAPKT PO; +PROT1TAB2 PO
[2018-04-29 16:32] LABS: BLOOD UREA NITROGEN 9 MG/DL (7-18); CARBON DIOXIDE LEVEL 30 MEQ/L (21-32); CHLORIDE LEVEL 96 MEQ/L (98-107); CREATININE FOR GFR 0.57 MG/DL (0.70-1.30); GLOMERULAR FILTRATION RATE > 60.0 (>35); GLUCOSE, FASTING 126 MG/DL (70-100); POTASSIUM SERUM 4.9 MEQ/L (3.5-5.1); SODIUM LEVEL 133 MEQ/L (136-145)
== END ==
LOC: M SFHCCLAY 10:41
PROVIDERS: ATTEND Family Medicine
DX: E87.1 Hypo-osmolality and hyponatremia (principal)

== ENCOUNTER → 2018-05-31 | Outpatient (REF) | payer MEDICARE, OTHER ==
[~2018-05-31] MED LIST changes: -ASPI1TAB PO; +ASPI81TA26 PO
[2018-05-31 18:15] LABS: BASO % 0.3 % (0.0-1.0); EOS # 0.1 10^3/uL (0.0-0.50); EOS % 2.2 % (0.0-3.0); HEMATOCRIT 32.9 % (42.0-52.0); HEMOGLOBIN 10.4 g/dl (13.5-17.5); LYMPH # 0.7 10^3/uL (1.5-4.5); LYMPH % 11.8 % (24.0-44.0); MEAN CORPUSCULAR HEMOGLOBIN 27.4 pg (27.0-33.0); MEAN CORPUSCULAR HGB CONC 31.6 g/dl (32.0-36.5); MEAN CORPUSCULAR VOLUME 86.6 fl (80.0-96.0); MONO # 0.5 10^3/uL (0.0-0.8); MONO % 8.6 % (0.0-5.0); NEUTROPHILS # 4.5 10^3/uL (1.8-7.7); NEUTROPHILS % 76.6 % (36.0-66.0); PLATELET COUNT, AUTOMATED 248 10^3/uL (150-450); WHITE BLOOD COUNT 5.9 10^3/uL (4.0-10.0)
[2018-05-31 18:27] LABS: BLOOD UREA NITROGEN 11 MG/DL (7-18); CALCIUM LEVEL 8.8 MG/DL (8.8-10.2); CARBON DIOXIDE LEVEL 29 MEQ/L (21-32); CHLORIDE LEVEL 100 MEQ/L (98-107); CREATININE FOR GFR 0.53 MG/DL (0.70-1.30); GLOMERULAR FILTRATION RATE > 60.0 (>35); GLUCOSE, FASTING 99 MG/DL (70-100); POTASSIUM SERUM 4.6 MEQ/L (3.5-5.1); SODIUM LEVEL 136 MEQ/L (136-145)
== END ==
LOC: M SFHCCLAY 11:15
PROVIDERS: ATTEND Family Medicine
DX: E87.1 Hypo-osmolality and hyponatremia (principal); D64.9 Anemia, unspecified
CPT/HCPCS: 36415; 80048; 85025; G0463

== ENCOUNTER 2019-02-22 08:58 | Inpatient (IN) | payer MEDICARE, OTHER ==
[~2019-02-22] VITALS: Ht 172.7 cm; Wt 60.0 kg
[~2019-02-22 08:58] MED LIST changes: +CYAN500T8 PO; +CYAN500T9 PO; +METF-791 PO; -METF500T4 PO; -VITA-193 PO; -VITA500T3 PO
[2019-02-22] MEDS ORDERED: RANI1TAB38 PO (09:26)
[2019-02-22 09:49] LABS: BASO % 0.4 % (0.0-1.0); EOS # 0.2 10^3/uL (0.0-0.5); EOS % 3.8 % (0.0-3.0); HEMATOCRIT 35.7 % (42.0-52.0); HEMOGLOBIN 11.8 g/dl (13.5-17.5); LYMPH # 0.6 10^3/uL (1.5-5.0); LYMPH % 13.2 % (24.0-44.0); MEAN CORPUSCULAR HEMOGLOBIN 33.1 pg (27.0-33.0); MEAN CORPUSCULAR HGB CONC 33.1 g/dl (32.0-36.5); MEAN CORPUSCULAR VOLUME 100.3 fl (80.0-96.0); MONO # 0.3 10^3/uL (0.0-0.8); MONO % 7.1 % (0.0-5.0); NEUTROPHILS # 3.6 10^3/uL (1.5-8.5); NEUTROPHILS % 75.1 % (36.0-66.0); PLATELET COUNT, AUTOMATED 204 10^3/uL (150-450); RED BLOOD COUNT 3.56 10^6/uL (4.30-6.10); WHITE BLOOD COUNT 4.8 10^3/uL (4.0-10.0)
[2019-02-22 09:59] LABS: INR 1.1
[2019-02-22 10:00] LABS: PARTIAL THROMBOPLASTIN TIME 31.1 SECONDS (25.0-38.4)
--- NOTE | 2019-02-22 10:01 | REP ---
Portable chest x-ray: Single view. History: CVA. Comparison study: April 18, 2018. Findings: EKG electrodes are seen. The lungs are clear. There is some linear fibrosis in the left base unchanged. Pleural angles are sharp. Heart is not enlarged. The aorta somewhat tortuous. Impression: No acute disease. Electronically Signed by Roscoe Mcdonald MD 02/22/2019 09:53 A
[2019-02-22 10:07] LABS: ALBUMIN 3.9 GM/DL (3.2-5.2); ALT/SGPT 23 U/L (12-78); BILIRUBIN,DIRECT 0.2 MG/DL (0.0-0.2); BILIRUBIN,TOTAL 0.7 MG/DL (0.2-1.0); BLOOD UREA NITROGEN 10 MG/DL (7-18); CALCIUM LEVEL 8.9 MG/DL (8.8-10.2); CARBON DIOXIDE LEVEL 27 MEQ/L (21-32); CHLORIDE LEVEL 103 MEQ/L (98-107); CK-MB VALUE MASS 2.9 NG/ML (<3.6); CPK CREATINE PHOSPHOKINASE 65 U/L (39-308); GLOMERULAR FILTRATION RATE > 60.0 (>35); GLUCOSE, FASTING 100 MG/DL (70-100); MB/CK RELATIVE INDEX 4.46 (< OR =4); POTASSIUM SERUM 4.5 MEQ/L (3.5-5.1); SODIUM LEVEL 138 MEQ/L (136-145); TROPONIN I < 0.02 NG/ML (< 0.10)
--- NOTE | 2019-02-22 10:12 | REP ---
CT BRAIN WITHOUT CONTRAST: HISTORY: Rule out CVA. Right-sided weakness. Aphasia. Comparison CT study April 18, 2018. Comparison MRI study April 18, 2018. FINDINGS: Bony calvarium remains intact. Marked vascular calcification is again noted. Visualized paranasal sinuses are clear. No intraorbital abnormality is seen. There is moderate degree of generalized volume loss again noted. An old right temporoparietal infarct is again noted. There is no evidence of intracranial hemorrhage. There is an old subdural hygroma on the right unchanged. No new infarction is appreciated. No mass or midline shift is observed. IMPRESSION: Diffuse atrophy and vascular calcification and old right temporoparietal infarct. There is an old lacunar infarct in the right basal ganglia as well. 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 No acute intracranial abnormality. Electronically Signed by Roscoe Mcdonald MD 02/22/2019 11:02 A
[2019-02-22] MEDS ORDERED: FERR325T18 PO (12:05)
[2019-02-22] MEDS ORDERED: DEXTROSE 50% 50 ML SYRINGE IV PRN (12:45)
[2019-02-22] MEDS ORDERED: GLUCAGON FOR INJ 1 MG VIAL (J1610) SC PRN (12:45)
[2019-02-22] MEDS ORDERED: GLUCOSE 4 GM CHEW TABLET PO PRN (12:45)
[2019-02-22] MEDS: MULTIVITAMINS/MINERALS THERAP 1 TAB PO SCH (13:53)
[2019-02-22] MEDS: FAMOTIDINE 20 MG TAB PO SCH (13:54)
--- NOTE | 2019-02-22 13:54 | HPEPDOC ---
General Date of Admission Feb 22, 2019 at 12:34 Date of Service: Feb 22, 2019 Chief Complaint The patient is a 88-year-old male admitted with a reason for visit of TIA. Source: Family Exam Limitations: Clinical conditions Timing/Duration: 4-6 hours Severity: Mild History of Present Illness Patient is a 88 years old male with past medical history of CVA, history of gastrointestinal (GI) bleed, diverticulosis, hypertension, hyperlipidemia, diabetes, BPH with chronic indwelling Avina catheter, atrial fibrillation - not on anticoagulation due to history of GI bleed, osteoarthritis (OA), gastroesophageal reflux disease (GERD) presented to the hospital with right arm weakness and confusion. Patient's stated that 8:00 in the morning patient developed right upper extremity weakness associated with difficulties in speech, patient couldn't find the right words and seemed to be confused. For past 2 days patient developed painless bloody bowel movement, stool was covered with bright red blood. Of note patient has diverticulosis. In emergency room NIH score was 3 due to the right arm weakness. CT head was done and it was negative for acute bleeding. I talked with neurologist Dr Charles, he recommended brain MRI /MRA and carotid ultrasound. When I saw patient in ER, right arm weakness resolved. P atient was mildly confused, not oriented in time Home Medications Scheduled Aspirin (Aspirin EC) 81 Mg Tabec, 81 MG PO 3XW, (Reported) MON, WED, FRI; TAKES AT DINNER Atorvastatin Calcium (Atorvastatin Calcium) 10 Mg Tab, 10 MG PO QPM, (Reported) TAKES AT DINNER Famotidine (Famotidine) 40 Mg Tab, 40 MG PO DAILY, (Reported) Ferrous Sulfate (Ferrous Sulfate) 325 Mg Tablet, 325 MG PO QPM, (Reported) TAKES AT DINNER Lisinopril (Lisinopril) 2.5 Mg Tab, 2.5 MG PO QPM, (Reported) TAKES AT DINNERTIME Magnesium Oxide (Magnesium Oxide) 400 Mg Tab, 400 MG PO QPM, (Reported) TAKES AT DINNERTIME Metformin HCl (Metformin HCl ER) 500 Mg Tab, 1,000 MG PO BID, (Reported) TAKES AM/DINNERTIME Multivitamins (Thera M Plus Tablet) 1 Tab Tab, 1 TAB PO DAILY, (Reported) Allergies Coded Allergies: codeine (Verified Allergy, Unknown, 02/22/19) propoxyphene (Verified Allergy, Unknown, 02/22/19) sulfamethoxazole (Verified Allergy, Unknown, 02/22/19) tramadol (Verified Allergy, Unknown, 02/22/19) trimethoprim (Verified Allergy, Unknown, 02/22/19) Past Medical History Medical History CVA, history of gastrointestinal (GI) bleed, believed to be diverticular in origin, hypertension, hyperlipidemia, diabetes, BPH with chronic indwelling Avina catheter, atrial fibrillation - not on anticoagulation due to history of GI bleed, osteoarthritis (OA), gastroesophageal reflux disease (GERD), questionable coronary artery disease Surgical History hernia repair and hemorrhoidectomy Family History I personally reviewed his family history and found not pertinent Social History * Smoker: Denies Alcohol: Denies Drugs: denies A-FIB/CHADSVASC A-FIB History Current/History of A-Fib/PAF?: Yes Current PO Anticoag Therapy: No Treatment Reason Anticoagulant not given: Current bleeding Review of Systems Constitutional: Denies: Chills, Fever Eyes: Denies: Pain ENT: Denies: Head Aches Skin: Denies: Rash, Lesions Pulmonary: Denies: Dyspnea, Cough Cardiovascular: Denies: Chest Pain, Palpitations Gastrointestinal: Denies: Nausea, Vomiting Genitourinary: Denies: Dysuria, Frequency Hematologic: Denies: Bleeding Excessively Endocrine: Denies: Polydipsia, Polyphagia Musculoskeletal: Denies: Neck Pain, Back Pain Neurological: Reports: Weakness (right arm), Change in speech (difficulties in finding right words) Psych: Reports: Mood Normal Physical Examination General Exam: Positive: Alert, Cooperative Eye Exam: Positive: PERRLA ENT Exam: Positive: Atraumatic Neck Exam: Positive: Supple; Negative: JVD Chest Exam: Positive: Clear to auscultation Heart Exam: Positive: Irregular Rhythm; Negative: Rate Normal Telemetry: Positive: Atrial fibrillation; Negative: No significant arrhythmia Abdomen Exam: Positive: Normal bowel sounds Extremity Exam: Negative: Clubbing, Cyanosis Skin Exam: Positive: Nl turgor and temperature Neuro Exam: Positive: Strength at 5/5 X4 ext, Cranial Nerves 3-12 NL Psych Exam: Positive: Other (patient was not oriented in time) Vital Signs Vital Signs Date Time Temp Pulse Resp B/P (MAP) Pulse Ox O2 Delivery O2 Flow Rate FiO2 02/22/19 12:30 69 115/70 (85) 97 02/22/19 11:30 16 02/22/19 09:18 96.9 Room Air Laboratory Data Labs 24H Laboratory Tests 2 02/22/19 09:31: Immature Granulocyte % (Auto) 0.4, Neutrophils (%) (Auto) 75.1H, Lymphocytes (%) (Auto) 13.2L, Monocytes (%) (Auto) 7.1H, Eosinophils (%) (Auto) 3.8H, Basophils (%) (Auto) 0.4, Neutrophils # (Auto) 3.6, Lymphocytes # (Auto) 0.6L, Monocytes # (Auto) 0.3, Eosinophils # (Auto) 0.2, Basophils # (Auto) 0.0, Nucleated Red Blood Cells % (auto) 0.0, Prothrombin Time 14.0, Prothromb Time International Ratio 1.10, Activated Partial Thromboplast Time 31.1, Anion Gap 8, Glomerular Filtration Rate > 60.0, Calcium Level 8.9, Total Bilirubin 0.7, Direct Bilirubin 0.2, Aspartate Amino Transf (AST/SGOT) 23, Alanine Aminotransferase (ALT/SGPT) 23, Alkaline Phosphatase 96, Total Creatine Kinase 65, Creatine Kinase MB 2.9, Creatine Kinase MB Relative Index 4.46H, Troponin I < 0.02, Total Protein 7.0, Albumin 3.9, Albumin/Globulin Ratio 1.26 CBC/BMP Laboratory Tests 02/22/19 09:31 Assessment/Plan Patient is a 88 years old male with past medical history of CVA, history of gastrointestinal (GI) bleed, diverticulosis, hypertension, hyperlipidemia, diabetes, BPH with chronic indwelling Avina catheter, atrial fibrillation - not on anticoagulation due to history of GI bleed, osteoarthritis (OA), gastroesophageal reflux disease (GERD) presented to the hospital with right arm weakness and confusion. Patient's stated that 8:00 in the morning patient developed right upper extremity weakness associated with difficulties in speech, patient couldn't find the right words and seemed to be confused. Problems (1) Ischemic cerebrovascular accident (CVA) Status: Acute Problem Text: Speech evaluation MRI, MRA, carotid ultrasound Nothing by mouth until speech evaluation Aspirin is contraindicated due to ongoing GI bleed Appreciate/agree with neurologist consult Continue statin Echo PT/OT (2) Atrial fibrillation Status: Chronic Problem Text: Heart rate is under control Patient is not candidate for targeted oral anticoagulation due to chronic GI bleed secondary to diverticulosis (3) Lower gastrointestinal bleeding Status: Acute Problem Text: Most likely secondary to diverticulosis H&H every 6 IV fluid Appreciate/agree with GI consult (4) Diabetes Status: Chronic Problem Text: Diabetes diet Insulin sliding-scale Plan / VTE VTE Prophylaxis Ordered?: No VTE Exclusion Pharmacological: Active Bleeding JADYN ABREU DO Feb 22, 2019 13:53
[2019-02-22] MEDS: NS 1,000 ML IV SCH (14:15)
[2019-02-22 15:17] VITALS: BP 123/69
[2019-02-22] MEDS: HumaLOG INSULIN (NovoLOG) PER UNIT SC SCH ×2 (17:08→21:00)
[2019-02-22] MEDS: MAGNESIUM OXIDE 400 MG TAB (MAG-OX) PO SCH (18:19)
[2019-02-22] MEDS: LISINOPRIL *2.5 MG* TAB PO SCH (18:20)
[2019-02-22] MEDS: FERROUS SULFATE 325MG TAB PO SCH (18:20)
[2019-02-22] MEDS: ATORVASTATIN 10 MG TAB PO SCH (18:20)
[2019-02-22 22:00] VITALS: BP 127/74
[2019-02-23] MEDS: NS 1,000 ML IV SCH ×2 (00:02→08:01)
--- NOTE | 2019-02-23 05:47 | ECGEPIP ---
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
[2019-02-23 06:00] VITALS: BP 101/53
[2019-02-23 06:25] LABS: HEMATOCRIT 29.7 % (42.0-52.0); HEMOGLOBIN 10.2 g/dl (13.5-17.5); MEAN CORPUSCULAR HEMOGLOBIN 33.7 pg (27.0-33.0); MEAN CORPUSCULAR HGB CONC 34.3 g/dl (32.0-36.5); PLATELET COUNT, AUTOMATED 194 10^3/uL (150-450); RED BLOOD COUNT 3.03 10^6/uL (4.30-6.10); WHITE BLOOD COUNT 4.5 10^3/uL (4.0-10.0)
[2019-02-23 06:44] LABS: BLOOD UREA NITROGEN 10 MG/DL (7-18); CALCIUM LEVEL 8.6 MG/DL (8.8-10.2); CARBON DIOXIDE LEVEL 25 MEQ/L (21-32); CHLORIDE LEVEL 105 MEQ/L (98-107); CREATININE FOR GFR 0.42 MG/DL (0.70-1.30); GLOMERULAR FILTRATION RATE > 60.0 (>35); GLUCOSE, FASTING 112 MG/DL (70-100); MAGNESIUM LEVEL 1.9 MG/DL (1.8-2.4); POTASSIUM SERUM 3.9 MEQ/L (3.5-5.1); SODIUM LEVEL 137 MEQ/L (136-145)
--- NOTE | 2019-02-23 07:23 | REP ---
DUPLEX CAROTID SONOGRAPHY: HISTORY: CVA. FINDINGS: Antegrade flow is seen in both vertebral arteries. RIGHT CAROTID: There is diffuse intimal thickening in the right CCA. There is moderate mixed plaquing in the bulb proximal ICA and proximal ECA on two-dimensional scanning. Color flow and spectral Doppler interrogation are unremarkable. Velocity Chart Right Carotid: PSV EDV Right CCA 73 cm/s Right ICA 83 cm/s 22 cm/s Right ECA 99 cm/s Right ICA/CCA ratio normal 1.1. IMPRESSION: Less than 50% category narrowing in the right ICA. Moderate mixed plaquing. LEFT CAROTID: There is diffuse intimal thickening in the left CCA on two-dimensional scanning. Moderate mixed plaquing is seen in the bulb and proximal ICA and proximal ECA on two-dimensional scanning. Color flow and spectral Doppler interrogation are unremarkable on the left. Velocity Chart Left Carotid: PSV EDV Left CCA 97 cm/s Left ICA 72 cm/s 18 cm/s Left ECA 52 cm/s Left ICA/CCA ratio normal 0.7. IMPRESSION: Less than 50% category narrowing in the left ICA. Electronically Signed by Roscoe Mcdonald MD 02/23/2019 09:11 A
[2019-02-23] MEDS: HumaLOG INSULIN (NovoLOG) PER UNIT SC SCH ×4 (07:30→20:31)
[2019-02-23] MEDS ORDERED: BISACODYL 5 MG TAB PO PRN (08:00)
[2019-02-23] MEDS: MULTIVITAMINS/MINERALS THERAP 1 TAB PO SCH (08:00)
[2019-02-23] MEDS: FAMOTIDINE 20 MG TAB PO SCH (08:00)
--- NOTE | 2019-02-23 11:18 | IPNPDOC ---
Text Note Date of Service The patient was seen on 02/23/19. NOTE Subjective: No any acute events overnight, patient had 2 bowel movements with red blood per rectum. Patient denies fever, chills, nausea, vomiting, or dysuria Objective: VITAL SIGNS: Please see below. GENERAL APPEARANCE: not in apparent distress HEENT: Normocephalic, atraumatic. Mucous members moist and pink CARDIOVASCULAR: No murmurs, rubs or gallops. Radial pulses are intact. There is no lower extremity edema LUNGS: Diminished lung sounds, ABDOMEN: Abdomen is soft and nontender. MUSCULOSKELETAL: Range of motion is intact in all 4 extremities NEUROLOGICAL: Cranial nerves II-12 are grossly intact. Speech is not dysarthric. Patient alert, awake. Upper and lower extremity strength 5 out of 10 DUPLEX CAROTID SONOGRAPHY: HISTORY: CVA. FINDINGS: Antegrade flow is seen in both vertebral arteries. RIGHT CAROTID: There is diffuse intimal thickening in the right CCA. There is moderate mixed plaquing in the bulb proximal ICA and proximal ECA on two-dimensional scanning. Color flow and spectral Doppler interrogation are unremarkable. Velocity Chart Right Carotid: PSV EDV Right CCA 73 cm/s Right ICA 83 cm/s 22 cm/s Right ECA 99 cm/s Right ICA/CCA ratio normal 1.1. IMPRESSION: Less than 50% category narrowing in the right ICA. Moderate mixed plaquing. LEFT CAROTID: There is diffuse intimal thickening in the left CCA on two-dimensional scanning. Moderate mixed plaquing is seen in the bulb and proximal ICA and proximal ECA on two-dimensional scanning. Color flow and spectral Doppler interrogation are unremarkable on the left. Velocity Chart Left Carotid: PSV EDV Left CCA 97 cm/s Left ICA 72 cm/s 18 cm/s Left ECA 52 cm/s Left ICA/CCA ratio normal 0.7. IMPRESSION: Less than 50% category narrowing in the left ICA. Assessment/Plan Patient is a 88 years old male with past medical history of CVA, history of gastrointestinal (GI) bleed, diverticulosis, hypertension, hyperlipidemia, diabetes, BPH with chronic indwelling Avina catheter, atrial fibrillation - not on anticoagulation due to history of GI bleed, osteoarthritis (OA), gastro esophageal reflux disease (GERD) presented to the hospital with right arm weakness and confusion. Patient's stated that 8:00 in the morning patient developed right upper extremity weakness associated with difficulties in speech, patient couldn't find the right words and seemed to be confused. Problems (1) Ischemic cerebrovascular accident (CVA) Speech evaluation MRI, MRA pending Carotid ultrasound showed Less than 50% category narrowing in the right ICA. Moderate mixed plaquing. Less than 50% category narrowing in the left ICA Nothing by mouth until speech evaluation Aspirin is contraindicated due to ongoing GI bleed Appreciate/agree with neurologist consult Continue statin Echo PT/OT (2) Atrial fibrillation Heart rate is under control Patient is not candidate for targeted oral anticoagulation due to chronic GI bleed secondary to diverticulosis (3) Lower gastrointestinal bleeding Most likely secondary to diverticulosis H&H every 6 IV fluid Appreciate/agree with GI consult (4) Diabetes Diabetes diet Insulin sliding scale VS,Fishbone, I+O VS, Fishbone, I+O Laboratory Tests 02/23/19 05:48 Vital Signs Date Time Temp Pulse Resp B/P (MAP) Pulse Ox O2 Delivery O2 Flow Rate FiO2 02/23/19 06:00 96.9 68 16 101/53 (69) 95 Room Air I&O- Last 24 Hours up to 6 AM 02/23/19 06:00 Intake Total 1816 ml Output Total 1700 ml Balance 116 ml JADYN ABREU DO Feb 23, 2019 11:18
--- NOTE | 2019-02-23 11:51 | REP ---
MRI BRAIN WITHOUT CONTRAST: HISTORY: Rule out CVA. Right-sided weakness. Aphasia. Comparison is made with head -CT brain study from February 22, 2019. Comparison MRI study April 18, 2018. TECHNIQUE: Axial and sagittal imaging planes are utilized for T1- and T2-weighted scans. Sequences include spin-echo, fast spin echo, FLAIR, and diffusion weighted sequences. 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 This is unchanged from CT study dating back to 2012. No other bony calvarial lesion is seen. Craniocervical junction and upper cervical cord are normal in appearance. There is moderate generalized atrophy. A small to moderate right-sided subdural hygroma is appreciated as on CT study. There is old cortical infarct in the right temporoparietal lobe. There is no evidence of intracranial hemorrhage. No mass or midline shift is seen. Diffusion weighted scans show multiple foci of restricted diffusion in a multifocal gyral pattern involving the left parietal and posterior frontal lobes. These foci are consistent with acute ischemia. There are extensive small vessel changes. No other acute ischemia is seen. IMPRESSION: There are multiple punctate foci of restricted diffusion consistent with acute ischemia in a gyral pattern in the left parietal and posterior frontal lobes. Chronic changes otherwise stable. Right subdural hygroma slightly increased from the April 18, 2018 prior study. Electronically Signed by Roscoe Mcdonald MD 02/23/2019 12:17 P
--- NOTE | 2019-02-23 11:53 | REP ---
MR ANGIOGRAPHY OF THE BRAIN WITHOUT CONTRAST: HISTORY: Rule out CVA. Comparison MR angiography is from January 07, 2013. TECHNIQUE: 3D [id number] MR angiography of the brain is acquired and maximal intensity projection images are generated and reviewed in addition to source images. MR ANGIOGRAPHIC FINDINGS: Diffuse ectasia of the distal vertebral and distal internal carotid arteries is again seen unchanged. Basilar artery is somewhat ectatic as well as before. Posterior cerebral and superior cerebellar arteries are present. There is no evidence of distal internal carotid artery stenosis. The left A1 segment is a little smaller than the right similar to the prior study. No aneurysm or arteriovenous malformation is seen. No vessel cutoff is identified. IMPRESSION: No acute abnormality. 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 Electronically Signed by Roscoe Mcdonald MD 02/23/2019 12:17 P
[2019-02-23 14:00] VITALS: BP 108/54
[2019-02-23] MEDS: MAGNESIUM OXIDE 400 MG TAB (MAG-OX) PO SCH (17:34)
[2019-02-23] MEDS: ATORVASTATIN 10 MG TAB PO SCH (17:34)
[2019-02-23] MEDS: FERROUS SULFATE 325MG TAB PO SCH (17:34)
[2019-02-23] MEDS: LISINOPRIL *2.5 MG* TAB PO SCH (17:34)
[2019-02-23 22:00] VITALS: BP 110/58
[2019-02-24] MEDS: RAMELTEON 8 MG TAB (ROZEREM) PO SCH ×2 (02:40→21:34)
[2019-02-24 06:00] VITALS: BP 130/61
[2019-02-24] MEDS: FAMOTIDINE 20 MG TAB PO SCH (08:21)
[2019-02-24] MEDS: MULTIVITAMINS/MINERALS THERAP 1 TAB PO SCH (08:21)
[2019-02-24] MEDS: HumaLOG INSULIN (NovoLOG) PER UNIT SC SCH ×4 (08:22→20:35)
[2019-02-24 08:40] LABS: HEMATOCRIT 36.2 % (42.0-52.0); MEAN CORPUSCULAR HEMOGLOBIN 32.9 pg (27.0-33.0); MEAN CORPUSCULAR HGB CONC 33.1 g/dl (32.0-36.5); MEAN CORPUSCULAR VOLUME 99.2 fl (80.0-96.0); PLATELET COUNT, AUTOMATED 220 10^3/uL (150-450); RED BLOOD COUNT 3.65 10^6/uL (4.30-6.10); WHITE BLOOD COUNT 6.9 10^3/uL (4.0-10.0)
[2019-02-24 09:06] LABS: BLOOD UREA NITROGEN 7 MG/DL (7-18); CARBON DIOXIDE LEVEL 25 MEQ/L (21-32); CHLORIDE LEVEL 100 MEQ/L (98-107); CREATININE FOR GFR 0.68 MG/DL (0.70-1.30); GLOMERULAR FILTRATION RATE > 60.0 (>35); GLUCOSE, FASTING 211 MG/DL (70-100); SODIUM LEVEL 136 MEQ/L (136-145)
--- NOTE | 2019-02-24 12:34 | IPNPDOC ---
Text Note Date of Service The patient was seen on 02/24/19. NOTE Subjective: No any acute events overnight. Patient denies fever, chills, nausea, vomiting, or dysuria Objective: VITAL SIGNS: Please see below. GENERAL APPEARANCE: not in apparent distress HEENT: Normocephalic, atraumatic. Mucous members moist and pink CARDIOVASCULAR: No murmurs, rubs or gallops. Radial pulses are intact. There is no lower extremity edema LUNGS: Diminished lung sounds, ABDOMEN: Abdomen is soft and nontender. MUSCULOSKELETAL: Range of motion is intact in all 4 extremities NEUROLOGICAL: Cranial nerves II-12 are grossly intact. Speech is not dysarthric. Patient alert, awake. Upper and lower extremity strength 5 out of 10 MRI BRAIN WITHOUT CONTRAST: HISTORY: Rule out CVA. Right-sided weakness. Aphasia. Comparison is made with head -CT brain study from February 22, 2019. Comparison MRI study April 18, 2018. TECHNIQUE: Axial and sagittal imaging planes are utilized for T1- and T2-weighted scans. Sequences include spin-echo, fast spin echo, FLAIR, and diffusion weighted sequences. 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 This is unchanged from CT study dating back to 2013. No other bony calvarial lesion is seen. Craniocervical junction and upper cervical cord are normal in appearance. There is moderate generalized atrophy. A small to moderate right-sided subdural hygroma is appreciated as on CT study. There is old cortical infarct in the right temporoparietal lobe. There is no evidence of intracranial hemorrhage. No mass or midline shift is seen. Diffusion weighted scans show multiple foci of restricted diffusion in a multifocal gyral pattern involving the left parietal and posterior frontal lobes. These foci are consistent with acute ischemia. There are extensive small vessel changes. No other acute ischemia is seen. IMPRESSION: There are multiple punctate foci of restricted diffusion consistent with acute ischemia in a gyral pattern in the left parietal and posterior frontal lobes. Chronic changes otherwise stable. Right subdural hygroma slightly increased from the April 18, 2018 prior study. Assessment/Plan Patient is a 88 years old male with past medical history of CVA, history of gastrointestinal (GI) bleed, diverticulosis, hypertension, hyperlipidemia, diabetes, BPH with chronic indwelling Avina catheter, atrial fibrillation - not on anticoagulation due to history of GI bleed, osteoarthritis (OA), gastroesophageal reflux disease (GERD) presented to the hospital with right arm weakness and confusion. Patient's stated that 8:00 in the morning patient developed right upper extremity weakness associated with difficulties in speech, patient couldn't find the right words and seemed to be confused. Problems (1) Ischemic cerebrovascular accident (CVA) Speech evaluation rec regular diabetes diet MRI showed multiple punctate foci of restricted diffusion consistent with acute ischemia in a gyral pattern in the left parietal and posterior frontal lobes Carotid ultrasound showed Less than 50% category narrowing in the right ICA. Moderate mixed plaquing. Less than 50% category narrowing in the left ICA Aspirin is contraindicated due to ongoing GI bleed Appreciate/agree with neurologist consult Continue statin Echo PT/OT (2) Atrial fibrillation Heart rate is under control Patient is not candidate for targeted oral anticoagulation due to chronic GI bleed secondary to diverticulosis (3) Lower gastrointestinal bleeding Most likely secondary to diverticulosis Hemoglobin has been stable H&H every 6 IV fluid Appreciate/agree with GI consult (4) Diabetes Glucose levels under control Diabetes diet Insulin sliding scale VS,Camp[place], I+O VS, Fishbone, I+O Laboratory Tests 02/24/19 08:11 Vital Signs Date Time Temp Pulse Resp B/P (MAP) Pulse Ox O2 Delivery O2 Flow Rate FiO2 02/24/19 06:00 97.8 76 17 130/61 (84) 98 Room Air I&O- Last 24 Hours up to 6 AM 02/24/19 06:00 Intake Total 1692 ml Output Total 3400 ml Balance -1708 ml JADYN ABREU DO Feb 24, 2019 12:34
[2019-02-24 14:00] VITALS: BP 130/70
[2019-02-24] MEDS: MAGNESIUM OXIDE 400 MG TAB (MAG-OX) PO SCH (18:10)
[2019-02-24] MEDS: ATORVASTATIN 20 MG TAB PO SCH (18:10)
[2019-02-24] MEDS: LISINOPRIL *2.5 MG* TAB PO SCH (18:11)
[2019-02-24] MEDS: FERROUS SULFATE 325MG TAB PO SCH (18:11)
--- NOTE | 2019-02-24 18:32 | CR ---
DATE OF CONSULTATION: 02/22/2019 HISTORY OF PRESENT ILLNESS: Mich Franklin is an 88-year-old male with history of past stroke and history of gastrointestinal (GI) bleed in the past with most recent GI bleed occurring within the last two weeks as reported by emergency room (ER) staff. The patient is currently on aspirin 81 mg every other day as a result and cannot be anticoagulated for his atrial fibrillation due to the history of GI bleeding. He presented at around 08:00 in the morning with symptoms of right upper extremity weakness associated with difficulties with speech. The patient could not figure out which words to use. The patient's National Institutes of Health (NIH) Stroke Scale was 3. Head CT was negative for any acute bleed. The patient was scheduled for a carotid ultrasound which showed less than 50% narrowing of the left internal carotid artery (ICA) artery and showed moderate plaquing of the right ICA and less than 50% narrowing. The patient did have an MRI of the brain completed as well as MR angiography of the brain. The MR angiography showed diffuse ectatic vertebral vascular and distal internal carotid arteries. MRI of the brain, however, was abnormal showing multiple foci of punctate restricted diffusion consistent with acute ischemia in a gyral pattern in the left parietal and posterior frontal lobes along with other chronic changes including right subdural hygroma which was slightly increased in size compared to 04/10/2018. The patient at the present time states his language is back to normal. His right arm function is back to normal. He denies any headache. He denies any dysarthria or dysphagia. He is having his evening meal. REVIEW OF SYSTEMS: 14-point review of systems obtained and is negative except as per history of present illness (HPI). HOME MEDICATIONS: - aspirin 81 mg three days a week - atorvastatin 10 mg by mouth at bedtime - famotidine 40 mg by mouth daily - ferrous sulfate 325 mg by mouth at bedtime - lisinopril 2.5 mg by mouth at bedtime - magnesium oxide 400 mg by mouth at bedtime - metformin HCl ER 500 mg two tablets by mouth twice a day - multivitamin by mouth daily ALLERGIES: CODEINE, PROPOXYPHENE, SULFAMETHOXAZOLE, TRAMADOL, TRIMETHOPRIM. PAST MEDICAL HISTORY: 1. Prior history of stroke. 2. History of gastrointestinal bleed. 3. Hypertension. 4. Hyperlipidemia. 5. Diabetes. 6. History of diverticulosis. 7. Benign prostatic hypertrophy (BPH). 8. Chronic indwelling Avina catheter. 9. Atrial fibrillation, on aspirin therapy due to history of gastrointestinal (GI) bleed, not on anticoagulation. 10. Osteoarthritis. 11. Gastroesophageal reflux disease. 12. Possible coronary artery disease. PAST SURGICAL HISTORY: 1. Hernia repair. 2. Hemorrhoidectomy. FAMILY HISTORY: Noncontributory. SOCIAL HISTORY: The patient denies use of alcohol, tobacco or illicit drugs. PHYSICAL EXAMINATION: Blood pressure is 115/70, pulse rate is 69, respiratory rate is 16, oxygenation 97% on room air, temperature is 96.9 degrees Fahrenheit. The patient is awake, alert, oriented to person, place and time. Speech, language, comprehension and repetition are intact. Pupils are 1-1/2 mm both postsurgical. Extraocular movements are intact in all directions without nystagmus. Sensation of V1, V2 an V3 is intact to light touch. No facial asymmetry to activation. Palate elevates symmetrically. Tongue is midline. No weakness of sternocleidomastoids bilaterally. Hearing is subjectively equal to finger rub. There is no pronator drift. The patient has significant osteoarthritis. Strength testing reveals reasonable 5/5 strength in bilateral upper extremities in the deltoids, biceps, handgrips are both 4+. The patient has bilateral iliopsoas weakness of grade 4+, quadriceps are 5/5, tibialis anterior 5/5. Sensory is intact to light touch in all four extremities without any tactile sensory loss. Deep tendon reflexes are decreased distally, 2s in the upper extremities. [id number] does not reveal any gross ataxia or dysmetria. Gait deferred. ASSESSMENT: An 88-year-old male with sudden onset right upper extremity weakness with aphasia with MRI findings of bilateral frontal lobe and left parietal lobe ischemic stroke, likely secondary to cardioembolic source from atrial fibrillation. Due to gastrointestinal (GI) bleed, the patient is not a candidate for full anticoagulation. The patient is currently on aspirin 81 mg three days a week due to recent GI bleed. The patient is in agreement to continue with aspirin. He understands the risks of increased chances of having ischemic strokes with severe disability. Continue statin therapy. Optimize hypertension. Physical therapy (PT)/occupational therapy (OT) evaluation recommended. Continue telemetry monitoring.
[2019-02-24 22:00] VITALS: BP 141/72
[2019-02-25 06:00] VITALS: BP 109/65
[2019-02-25 06:02] LABS: HEMATOCRIT 33.1 % (42.0-52.0); MEAN CORPUSCULAR HEMOGLOBIN 32.6 pg (27.0-33.0); MEAN CORPUSCULAR HGB CONC 33.2 g/dl (32.0-36.5); MEAN CORPUSCULAR VOLUME 98.2 fl (80.0-96.0); PLATELET COUNT, AUTOMATED 206 10^3/uL (150-450); RED BLOOD COUNT 3.37 10^6/uL (4.30-6.10); WHITE BLOOD COUNT 4.7 10^3/uL (4.0-10.0)
[2019-02-25 06:23] LABS: BLOOD UREA NITROGEN 8 MG/DL (7-18); CALCIUM LEVEL 8.9 MG/DL (8.8-10.2); CARBON DIOXIDE LEVEL 28 MEQ/L (21-32); CHLORIDE LEVEL 100 MEQ/L (98-107); CREATININE FOR GFR 0.49 MG/DL (0.70-1.30); GLOMERULAR FILTRATION RATE > 60.0 (>35); GLUCOSE, FASTING 119 MG/DL (70-100); MAGNESIUM LEVEL 2.2 MG/DL (1.8-2.4); SODIUM LEVEL 135 MEQ/L (136-145)
[2019-02-25] MEDS: HumaLOG INSULIN (NovoLOG) PER UNIT SC SCH ×4 (07:39→21:00)
[2019-02-25] MEDS: MULTIVITAMINS/MINERALS THERAP 1 TAB PO SCH (08:13)
[2019-02-25] MEDS: FAMOTIDINE 20 MG TAB PO SCH (08:13)
--- NOTE | 2019-02-25 12:03 | IPNPDOC ---
Text Note Date of Service The patient was seen on 02/25/19. NOTE Subjective: No any acute events overnight. Patient does not have any chest pain or palpitation. Patient denies fever, chills, nausea, vomiting, diarrhea or dysuria Objective: VITAL SIGNS: Please see below. GENERAL APPEARANCE: not in apparent distress HEENT: Normocephalic, atraumatic. Mucous members moist and pink CARDIOVASCULAR: No murmurs, rubs or gallops. Radial pulses are intact. There is no lower extremity edema LUNGS: Diminished lung sounds, ABDOMEN: Abdomen is soft and nontender. MUSCULOSKELETAL: Range of motion is intact in all 4 extremities NEUROLOGICAL: Cranial nerves II-12 are grossly intact. Speech is not dysarthric. Patient alert, awake. Upper and lower extremity strength 5 out of 10 Assessment/Plan Patient is a 88 years old male with past medical history of CVA, history of gastrointestinal (GI) bleed, diverticulosis, hypertension, hyperlipidemia, diabetes, BPH with chronic indwelling Avina catheter, atrial fibrillation - not on anticoagulation due to history of GI bleed, osteoarthritis (OA), gastroesophageal reflux disease (GERD) presented to the hospital with right arm weakness and confusion. Patient's stated that 8:00 in the morning patient developed right upper extremity weakness associated with difficulties in speech, patient couldn't find the right words and seemed to be confused. Problems (1) Ischemic cerebrovascular accident (CVA) Speech evaluation rec regular diabetes diet MRI showed multiple punctate foci of restricted diffusion consistent with acute ischemia in a gyral pattern in the left parietal and posterior frontal lobes Carotid ultrasound showed Less than 50% category narrowing in the right ICA. Moderate mixed plaquing. Less than 50% category narrowing in the left ICA Most likely patient developed ischemic stroke secondary to atrial fibrillation, cardioembolic etiology Dr. EVANS follows him The patient is currently on aspirin 81 mg three days a week due to recent GI bleed. The patient is in agreement to continue with aspirin. He understands the risks of increased chances of having ischemic strokes with severe disability Continue statin PT/OT (2) Atrial fibrillation Heart rate is under control Patient is not candidate for targeted oral anticoagulation due to chronic GI bleed secondary to diverticulosis (3) Lower gastrointestinal bleeding Most likely secondary to diverticulosis Hemoglobin has been stable Dr. Noriega recommended conservative treatment (4) Diabetes Glucose levels under control Diabetes diet Insulin sliding scale VS,Fishbone, I+O VS, Fishbone, I+O Laboratory Tests 02/25/19 05:42 Vital Signs Date Time Temp Pulse Resp B/P (MAP) Pulse Ox O2 Delivery O2 Flow Rate FiO2 02/25/19 06:00 96.7 71 20 109/65 (80) 95 02/24/19 22:00 Room Air I&O- Last 24 Hours up to 6 AM 02/25/19 06:00 Intake Total 1560 ml Output Total 2350 ml Balance -790 ml JADYN ABREU DO Feb 25, 2019 12:03
[2019-02-25 14:00] VITALS: BP 119/65
[2019-02-25] MEDS: ATORVASTATIN 20 MG TAB PO SCH (17:36)
[2019-02-25] MEDS: MAGNESIUM OXIDE 400 MG TAB (MAG-OX) PO SCH (17:36)
[2019-02-25] MEDS: FERROUS SULFATE 325MG TAB PO SCH (17:37)
[2019-02-25] MEDS: CIPROFLOXACIN 250 MG TAB PO SCH (17:37)
[2019-02-25 17:41] VITALS: BP 114/63
[2019-02-25] MEDS: LISINOPRIL *2.5 MG* TAB PO SCH (17:41)
--- NOTE | 2019-02-25 21:27 | CR ---
DATE OF CONSULTATION: 02/24/2019 This is an 88-year-old white male who was being seen by GI for evaluation of anemia and apparent rectal bleeding. The patient has a past medical history of multiple problems including CVA, history of a lower gastrointestinal (GI) bleed, diverticulosis, hypertension, hyperlipidemia, diabetes, BPH with chronic Avina catheter, atrial fibrillation - not on anticoagulation due to a history of bleeding, osteoarthritis and reflux disease. The patient again presented to the hospital with right arm weakness and confusion. The patient had some difficulty in speech. The patient had apparently complained of painless bloody bowel movements intermittently for 2 weeks. Apparently his stool was covered with bright red blood. He has had a previous colonoscopy in 2018, by Dr. Downing, which did not show anything except for hemorrhoids and diverticulosis. The CT of the head in the emergency room was negative for any acute bleed. MEDICATIONS AT HOME: Include baby aspirin, atorvastatin, famotidine, ferrous sulfate, lisinopril, mag oxide, metformin and multivitamins. ALLERGIES: The patient is allergic to CODEINE, BACTRIM, TRAMADOL, and TRIMETHOPRIM. PAST MEDICAL HISTORY: As above. SURGICAL HISTORY: Status post hernia repair and hemorrhoidectomy. SOCIAL HISTORY: The patient denies cigarettes or alcohol. 12-point review of systems is noncontributory except significant for history of present illness. PHYSICAL EXAMINATION: General: He is a thin 88-year-old white male in no acute distress, but does have some difficulty in hearing. Chest was clear. Abdomen: Soft, nontender. No masses, guarding, or rebound. No hepatosplenomegaly. Bowel sounds positive. Extremities: No cyanosis, 1+ edema. Laboratory studies on admission shows a hemoglobin of 11.0 and 33.1, down from 11.8 and 35.7 on admission. The patient has not required any blood during this hospitalization. Imaging studies on admission: There were no apparent GI studies performed. ANALYSIS: 1. Anemia and intermittent lower GI bleeding. At the present time, plan will be to treat this patient conservatively in light of his history of his advanced age and multiple medical problems. In addition, he has had a colonoscopy in 2018, which only showed some hemorrhoids and diverticulosis. PLAN: 1. Plan will be to recommend the patient to be maintained on a high-fiber diet. 2. Canasa suppositories could be used at bedtime every other day in an attempt to control hemorrhoidal bleeding. 3. Supportive care would be recommended at this time due to the patient's advanced age.
[2019-02-25 22:00] VITALS: BP 113/63
[2019-02-25] MEDS: RAMELTEON 8 MG TAB (ROZEREM) PO SCH (22:09)
[2019-02-26] MEDS: CIPROFLOXACIN 250 MG TAB PO SCH (05:25)
[2019-02-26 06:00] VITALS: BP 112/63
[2019-02-26 06:04] LABS: HEMATOCRIT 33.1 % (42.0-52.0); HEMOGLOBIN 11.4 g/dl (13.5-17.5); MEAN CORPUSCULAR HEMOGLOBIN 33.6 pg (27.0-33.0); MEAN CORPUSCULAR HGB CONC 34.4 g/dl (32.0-36.5); MEAN CORPUSCULAR VOLUME 97.6 fl (80.0-96.0); PLATELET COUNT, AUTOMATED 216 10^3/uL (150-450); RED BLOOD COUNT 3.39 10^6/uL (4.30-6.10)
[2019-02-26 06:28] LABS: BLOOD UREA NITROGEN 11 MG/DL (7-18); CALCIUM LEVEL 8.7 MG/DL (8.8-10.2); CARBON DIOXIDE LEVEL 25 MEQ/L (21-32); CHLORIDE LEVEL 101 MEQ/L (98-107); CREATININE FOR GFR 0.55 MG/DL (0.70-1.30); GLOMERULAR FILTRATION RATE > 60.0 (>35); GLUCOSE, FASTING 119 MG/DL (70-100); POTASSIUM SERUM 4.3 MEQ/L (3.5-5.1); SODIUM LEVEL 133 MEQ/L (136-145)
[2019-02-26] MEDS: FAMOTIDINE 20 MG TAB PO SCH (07:51)
[2019-02-26] MEDS: HumaLOG INSULIN (NovoLOG) PER UNIT SC SCH ×2 (07:51→12:00)
[2019-02-26] MEDS: MULTIVITAMINS/MINERALS THERAP 1 TAB PO SCH (07:51)
[2019-02-26] MEDS ORDERED: ASPIRIN 81 MG ENTERIC TAB PO SCH (09:00)
[2019-02-26] MEDS ORDERED: CIPR-250 PO (12:07)
[2019-02-26] MEDS ORDERED: RAME8TAB2 PO (12:07)
[2019-02-26] MEDS ORDERED: ATOR1TAB21 PO (12:07)
--- NOTE | 2019-02-26 14:03 | DS.PDOC ---
Discharge Summary General Date of Admission Feb 22, 2019 at 12:34 Date of Discharge 02/26/19 Discharge Summary PROCEDURES PERFORMED DURING STAY: None ADMITTING DIAGNOSES: Ischemic cerebrovascular accident (CVA) Atrial fibrillation Lower gastrointestinal bleeding Diabetes DISCHARGE DIAGNOSES: Ischemic cerebrovascular accident (CVA) Atrial fibrillation Lower gastrointestinal bleeding Diabetes COMPLICATIONS/CHIEF COMPLAINT: TIA. HISTORY OF PRESENT ILLNESS: Patient is a 88 years old male with past medical history of CVA, history of gastrointestinal (GI) bleed, diverticulosis, hypertension, hyperlipidemia, diabetes, BPH with chronic indwelling Avina catheter, atrial fibrillation - not on anticoagulation due to history of GI bleed, osteoarthritis (OA), gastroesophageal reflux disease (GERD) presented to the hospital with right arm weakness and confusion. Patient's stated that 8:00 in the morning patient developed right upper extremity weakness associated with difficulties in speech, patient couldn't find the right words and seemed to be confused. For past 2 days patient developed painless bloody bowel movement, stool was covered with bright red blood. Of note patient has diverticulosis. In emergency room NIH score was 3 due to the right arm weakness. CT head was done and it was negative for acute bleeding. I talked with neurologist Dr Charles, he recommended brain MRI /MRA and carotid ultrasound. When I saw patient in ER, right arm weakness resolved. Patient was mildly confused, not oriented in time HOSPITAL COURSE: During hospital stay following issue addressed Ischemic cerebrovascular accident (CVA) Speech evaluation rec regular diabetes diet, no oropharyngeal dysfunction MRI showed multiple punctate foci of restricted diffusion consistent with acute ischemia in a gyral pattern in the left parietal and posterior frontal lobes Carotid ultrasound showed Less than 50% category narrowing in the right ICA. Moderate mixed plaquing. Less than 50% category narrowing in the left ICA Most likely patient developed ischemic stroke secondary to atrial fibrillation, cardioembolic etiology Neurologist Dr. EVANS follows him The patient is currently on aspirin 81 mg three days a week due to recent GI bleed. The patient is in agreement to continue with aspirin. He understands the risks of increased chances of having ischemic strokes with severe disability Continue statin PT/OT (2) Atrial fibrillation Heart rate is under control Patient is not candidate for targeted oral anticoagulation due to chronic GI bleed secondary to diverticulosis (3) Lower gastrointestinal bleeding Most likely secondary to diverticulosis Hemoglobin has been stable Dr. Noriega recommended conservative treatment (4) Diabetes Glucose levels under control Diabetes diet Insulin sliding scale DISCHARGE MEDICATIONS: Please see below. ALLERGIES: Please see below. PHYSICAL EXAMINATION ON DISCHARGE: VITAL SIGNS: Please see below. GENERAL APPEARANCE: not in apparent distress HEENT: Normocephalic, atraumatic. Mucous members moist and pink CARDIOVASCULAR: No murmurs, rubs or gallops. Radial pulses are intact. There is no lower extremity edema LUNGS: Diminished lung sounds, ABDOMEN: Abdomen is soft and nontender. MUSCULOSKELETAL: Range of motion is intact in all 4 extremities NEUROLOGICAL: Cranial nerves II-12 are grossly intact. Speech is not dysarthric. Patient alert, awake. Upper and lower extremity strength 5 out of 10 LABORATORY DATA: Please see below. IMAGING: MRI BRAIN WITHOUT CONTRAST: HISTORY: Rule out CVA. Right-sided weakness. Aphasia. Comparison is made with head -CT brain study from February 22, 2019. Comparison MRI study April 18, 2018. TECHNIQUE: Axial and sagittal imaging planes are utilized for T1- and T2-weighted scans. Sequences include spin-echo, fast spin echo, FLAIR, and diffusion weighted sequences. 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 This is unchanged from CT study dating back to 2012. No other bony calvarial lesion is seen. Craniocervical junction and upper cervical cord are normal in appearance. There is moderate generalized atrophy. A small to moderate right-sided subdural hygroma is appreciated as on CT study. There is old cortical infarct in the right temporoparietal lobe. There is no evidence of intracranial hemorrhage. No mass or midline shift is seen. Diffusion weighted scans show multiple foci of restricted diffusion in a multifocal gyral pattern involving the left parietal and posterior frontal lobes. These foci are consistent with acute ischemia. There are extensive small vessel changes. No other acute ischemia is seen. IMPRESSION: There are multiple punctate foci of restricted diffusion consistent with acute ischemia in a gyral pattern in the left parietal and posterior frontal lobes. Chronic changes otherwise stable. Right subdural hygroma slightly increased from the April 18, 2018 prior study. PROGNOSIS: Guarded ACTIVITY: As tolerated DIET: Diabetes DISCHARGE PLAN: ARU DISPOSITION: ARU ITEMS TO FOLLOWUP ON ON OUTPATIENT: Neurologist, hand slitter, PCP DISCHARGE CONDITION: Stable TIME SPENT ON DISCHARGE: Greater than 15 minutes. Vital Signs/I&Os Vital Signs Date Time Temp Pulse Resp B/P (MAP) Pulse Ox O2 Delivery O2 Flow Rate FiO2 1/8/20 06:00 98.0 69 20 112/63 (79) 96 02/25/19 22:00 Room Air I&O- Last 24 Hours up to 6 AM 02/26/19 06:00 Intake Total 1050 ml Output Total 1100 ml Balance -50 ml Laboratory Data Labs 24H Laboratory Tests 2 02/25/19 16:32: Bedside Glucose (Misc Panel) 127H 02/25/19 20:02: Bedside Glucose (Misc Panel) 145H 02/26/19 05:51: Nucleated Red Blood Cells % (auto) 0.0, Anion Gap 7L, Glomerular Filtration Rate > 60.0, Calcium Level 8.7L, Magnesium Level 2.0 02/26/19 11:18: Bedside Glucose (Misc Panel) 86 02/26/19 13:32: CBC/BMP Laboratory Tests 02/26/19 05:51 FSBS Laboratory Tests Test 02/25/19 16:32 02/25/19 20:02 02/26/19 11:18 Range/Units Bedside Glucose (Misc Panel) 127 145 86 83-110 MG/DL Discharge Medications Scheduled Aspirin (Aspirin EC) 81 Mg Tabec, 81 MG PO 3XW, (Reported) MON, WED, FRI; TAKES AT DINNER Atorvastatin Calcium (Atorvastatin Calcium) 20 Mg Tablet, 40 MG PO DAILY@1800 Ciprofloxacin HCl (Cipro) 250 Mg Tablet, 250 MG PO BID@06,18 Famotidine (Famotidine) 40 Mg Tab, 40 MG PO DAILY, (Reported) Ferrous Sulfate (Ferrous Sulfate) 325 Mg Tablet, 325 MG PO QPM, (Reported) TAKES AT DINNER Lisinopril (Lisinopril) 2.5 Mg Tab, 2.5 MG PO QPM, (Reported) TAKES AT DINNERTIME Magnesium Oxide (Magnesium Oxide) 400 Mg Tab, 400 MG PO QPM, (Reported) TAKES AT DINNERTIME Metformin HCl (Metformin HCl ER) 500 Mg Tab, 1,000 MG PO BID, (Reported) TAKES AM/DINNERTIME Multivitamins (Thera M Plus Tablet) 1 Tab Tab, 1 TAB PO DAILY, (Reported) Ramelteon (Ramelteon) 8 Mg Tablet, 8 MG PO QHS Allergies Coded Allergies: codeine (Verified Allergy, Unknown, 02/22/19) propoxyphene (Verified Allergy, Unknown, 02/22/19) sulfamethoxazole (Verified Allergy, Unknown, 02/22/19) tramadol (Verified Allergy, Unknown, 02/22/19) trimethoprim (Verified Allergy, Unknown, 02/22/19) JADYN ABREU DO Feb 26, 2019 14:03
== END 2019-02-26 15:25 | DRG 64 ==
LOC: EDBD 08:58 → M ED 08:58 → ENRESERV 12:00 → M ED INP 12:34 → ENRESERV 13:07 → ENRESERVTM 14:30 → M MSPAV 15:17
PROVIDERS: ADMIT Internal Medicine; ATTEND Internal Medicine
DX: I63.59 Cerebral infarction due to unspecified occlusion or stenosis of other cerebral artery (principal); K57.91 Diverticulosis of intestine, part unspecified, without perforation or abscess with bleeding; I48.20 Chronic atrial fibrillation, unspecified; I10 Essential (primary) hypertension; E78.5 Hyperlipidemia, unspecified; E11.9 Type 2 diabetes mellitus without complications; N40.0 Benign prostatic hyperplasia without lower urinary tract symptoms; M19.90 Unspecified osteoarthritis, unspecified site; K21.9 Gastro-esophageal reflux disease without esophagitis; Z79.82 Long term (current) use of aspirin; Z79.84 Long term (current) use of oral hypoglycemic drugs; Z79.899 Other long term (current) drug therapy; Z88.2 Allergy status to sulfonamides; Z88.5 Allergy status to narcotic agent; Z88.8 Allergy status to other drugs, medicaments and biological substances

== ENCOUNTER → 2019-06-19 | Outpatient (REF) | payer MEDICARE, OTHER ==
[~2019-06-19] MED LIST changes: +ATOR1TAB21 PO; +CIPR-250 PO; +FERR325T18 PO; +MESA50SU PR; +RAME8TAB2 PO; +RANI1TAB38 PO; +RISATAB3 PO; +SODI1TAB6 PO
[2019-06-19 16:33] LABS: BASO % 0.4 % (0.0-1.0); EOS # 0.2 10^3/uL (0.0-0.5); EOS % 3.6 % (0.0-3.0); HEMATOCRIT 36.6 % (42.0-52.0); HEMOGLOBIN 12.6 g/dl (13.5-17.5); LYMPH # 0.7 10^3/uL (1.5-5.0); LYMPH % 13.6 % (24.0-44.0); MEAN CORPUSCULAR HGB CONC 34.4 g/dl (32.0-36.5); MEAN CORPUSCULAR VOLUME 101.7 fl (80.0-96.0); MONO # 0.4 10^3/uL (0.0-0.8); MONO % 6.6 % (0.0-5.0); NEUTROPHILS % 75.4 % (36.0-66.0); PLATELET COUNT, AUTOMATED 193 10^3/uL (150-450); WHITE BLOOD COUNT 5.3 10^3/uL (4.0-10.0)
[2019-06-19 16:46] LABS: BLOOD UREA NITROGEN 16 MG/DL (7-18); CALCIUM LEVEL 9.1 MG/DL (8.8-10.2); CARBON DIOXIDE LEVEL 27 MEQ/L (21-32); CHLORIDE LEVEL 102 MEQ/L (98-107); CREATININE FOR GFR 0.66 MG/DL (0.70-1.30); GLOMERULAR FILTRATION RATE > 60.0 (>35); GLUCOSE, FASTING 170 MG/DL (70-100); MAGNESIUM LEVEL 1.5 MG/DL (1.8-2.4); POTASSIUM SERUM 4.8 MEQ/L (3.5-5.1); SODIUM LEVEL 135 MEQ/L (136-145)
[2019-06-19 17:08] LABS: HEMOGLOBIN A1c 6.6 %
[2019-06-20 12:07] LABS: AMORPHOUS SEDIMENT SMALL (NEGATIVE); APPEARANCE, URINE CLOUDY (CLEAR); BACTERIA, URINE AUTO 2+ (NEGATIVE); BILIRUBIN, URINE AUTO NEGATIVE (NEGATIVE); BLOOD, URINE BLOOD 1+ (NEGATIVE); COLOR, URINE YELLOW (YELLOW); GLUCOSE, URINE (UA) AUTO NEGATIVE (NEGATIVE); KETONE, URINE AUTO NEGATIVE (NEGATIVE); LEUKOCYTE ESTERASE, URINE AUTO 1+ (NEGATIVE); MUCUS, URINE MODERATE (NEGATIVE); NITRITE, URINE AUTO NEGATIVE (NEGATIVE); PROTEIN, URINE AUTO NEGATIVE (NEGATIVE); RBC, URINE AUTO 4 /HPF (0-3); SPECIFIC GRAVITY URINE AUTO 1.013 (1.002-1.035); SQUAMOUS EPITHELIAL CELL UR AU 0 /HPF (0-6); UROBILINOGEN, URINE AUTO 0.2 mg/dL (0.0-2.0); WBC, URINE AUTO 36 /HPF (0-3)
== END ==
LOC: M LAB REF 16:03
PROVIDERS: ATTEND Family Medicine
DX: E11.9 Type 2 diabetes mellitus without complications (principal); K57.91 Diverticulosis of intestine, part unspecified, without perforation or abscess with bleeding; I10 Essential (primary) hypertension

== ENCOUNTER → 2019-10-24 | Outpatient (REF) | payer MEDICARE, OTHER ==
[~2019-10-24] MED LIST changes: -ASPI81TA85 PO; +ASPI81TA86 PO; +CYAN500T10 PO; -CYAN500T9 PO; -LISI-1046 PO; +LISI2.5T2 PO; -METF-791 PO; +METF-838 PO
[2019-10-24 16:09] LABS: APPEARANCE, URINE CLOUDY (CLEAR); BACTERIA, URINE AUTO 2+ (NEGATIVE); BILIRUBIN, URINE AUTO NEGATIVE (NEGATIVE); BLOOD, URINE BLOOD NEGATIVE (NEGATIVE); COLOR, URINE YELLOW (YELLOW); GLUCOSE, URINE (UA) AUTO NEGATIVE (NEGATIVE); KETONE, URINE AUTO NEGATIVE (NEGATIVE); LEUKOCYTE ESTERASE, URINE AUTO 3+ (NEGATIVE); MUCUS, URINE SMALL (NEGATIVE); NITRITE, URINE AUTO POSITIVE (NEGATIVE); PROTEIN, URINE AUTO NEGATIVE (NEGATIVE); RBC, URINE AUTO 12 /HPF (0-3); SPECIFIC GRAVITY URINE AUTO 1.018 (1.002-1.035); SQUAMOUS EPITHELIAL CELL UR AU 0 /HPF (0-6); UROBILINOGEN, URINE AUTO 0.2 mg/dL (0.0-2.0); WBC, URINE AUTO TNTC /HPF (0-3)
== END ==
LOC: M SFHCCLAY 15:48
PROVIDERS: ATTEND Family Medicine
DX: N39.0 Urinary tract infection, site not specified (principal)

== ENCOUNTER → 2020-01-27 | Outpatient (REF) | payer MEDICARE, OTHER ==
[~2020-01-27] MED LIST changes: +CYAN500T14 PO; -CYAN500T8 PO
[2020-01-28 12:18] LABS: APPEARANCE, URINE HAZY (CLEAR); BACTERIA, URINE AUTO NEGATIVE (NEGATIVE); BILIRUBIN, URINE AUTO NEGATIVE (NEGATIVE); BLOOD, URINE BLOOD 1+ (NEGATIVE); COLOR, URINE STRAW (YELLOW); GLUCOSE, URINE (UA) AUTO NEGATIVE (NEGATIVE); KETONE, URINE AUTO NEGATIVE (NEGATIVE); LEUKOCYTE ESTERASE, URINE AUTO 3+ (NEGATIVE); MUCUS, URINE SMALL (NEGATIVE); NITRITE, URINE AUTO NEGATIVE (NEGATIVE); PROTEIN, URINE AUTO NEGATIVE (NEGATIVE); RBC, URINE AUTO 2 /HPF (0-3); SPECIFIC GRAVITY URINE AUTO 1.006 (1.002-1.035); SQUAMOUS EPITHELIAL CELL UR AU 0 /HPF (0-6); UROBILINOGEN, URINE AUTO 0.2 mg/dL (0.0-2.0); WBC, URINE AUTO 80 /HPF (0-3)
[2020-01-28 12:44] LABS: BLOOD UREA NITROGEN 13 MG/DL (7-18); CALCIUM LEVEL 8.6 MG/DL (8.8-10.2); CARBON DIOXIDE LEVEL 30 MEQ/L (21-32); CHLORIDE LEVEL 102 MEQ/L (98-107); CHOLESTEROL LEVEL 111 MG/DL (<200); CHOLESTEROL RISK RATIO 1.913 (<5); CREATININE FOR GFR 0.54 MG/DL (0.70-1.30); GLOMERULAR FILTRATION RATE > 60.0 (>35); GLUCOSE, FASTING 142 MG/DL (70-100); HDL CHOLESTEROL 58 MG/DL (>40); LDL CHOLESTEROL 40 MG/DL (<100); NON-HDL-C 53 MG/DL; POTASSIUM SERUM 5.2 MEQ/L (3.5-5.1); SODIUM LEVEL 136 MEQ/L (136-145); TRIGLYCERIDES LEVEL 67 MG/DL (<150)
[2020-01-28 12:53] LABS: CREATININE, URINE 16.4 MG/DL; MALB URINE SIEMENS 14.2 MG/L; MAU/CREAT RATIO 86.5 MCG/MG (0.0-30.0)
[2020-01-28 13:29] LABS: HEMOGLOBIN A1c 6.6 %
== END ==
LOC: M SFHCCLAY 16:25
PROVIDERS: ATTEND Family Medicine
DX: N40.1 Benign prostatic hyperplasia with lower urinary tract symptoms (principal); R33.9 Retention of urine, unspecified; N39.0 Urinary tract infection, site not specified; E11.9 Type 2 diabetes mellitus without complications; I11.9 Hypertensive heart disease without heart failure; E78.00 Pure hypercholesterolemia, unspecified

== ENCOUNTER → 2020-03-02 | Outpatient (REF) | payer MEDICARE, OTHER ==
[~2020-03-02] MED LIST changes: -CYAN500T10 PO; +VITA500T37 PO
[2020-03-02 16:51] LABS: BLOOD UREA NITROGEN 12 MG/DL (7-18); CALCIUM LEVEL 8.8 MG/DL (8.8-10.2); CARBON DIOXIDE LEVEL 33 MEQ/L (21-32); CHLORIDE LEVEL 91 MEQ/L (98-107); CREATININE FOR GFR 0.51 MG/DL (0.70-1.30); GLOMERULAR FILTRATION RATE > 60.0 (>35); GLUCOSE, FASTING 126 MG/DL (70-100); POTASSIUM SERUM 4.9 MEQ/L (3.5-5.1); SODIUM LEVEL 126 MEQ/L (136-145)
== END ==
LOC: M SFHCCLAY 11:53
PROVIDERS: ATTEND Family Medicine
DX: E87.1 Hypo-osmolality and hyponatremia (principal)
CPT/HCPCS: 80048; G0463

== ENCOUNTER → 2020-04-08 | Outpatient (REF) | payer MEDICARE, OTHER ==
[2020-04-08 18:35] LABS: FREE T4 0.81 NG/DL (0.76-1.46); THYROID STIMULATING HORMONE 1.96 uIU/ML (0.358-3.740)
== END ==
LOC: M LAB REF 17:07
PROVIDERS: ATTEND Internal Medicine Nephrology
DX: E87.1 Hypo-osmolality and hyponatremia (principal)

== ENCOUNTER → 2020-07-29 | Outpatient (REF) | payer MEDICARE, OTHER ==
[~2020-07-29] MED LIST changes: +ASPI-569 PO; -ASPI81TAEC PO
[2020-07-29 16:54] LABS: BLOOD UREA NITROGEN 11 MG/DL (7-18); CALCIUM LEVEL 8.9 MG/DL (8.8-10.2); CARBON DIOXIDE LEVEL 32 MEQ/L (21-32); CHLORIDE LEVEL 103 MEQ/L (98-107); CREATININE FOR GFR 0.48 MG/DL (0.70-1.30); GLOMERULAR FILTRATION RATE > 60.0 (>35); GLUCOSE, FASTING 114 MG/DL (70-100); SODIUM LEVEL 139 MEQ/L (136-145)
[2020-07-29 17:00] LABS: HEMOGLOBIN A1c 6.6 %
== END ==
LOC: M SFHCCLAY 12:06
PROVIDERS: ATTEND Family Medicine
DX: I11.9 Hypertensive heart disease without heart failure (principal); E11.9 Type 2 diabetes mellitus without complications

== ENCOUNTER 2020-10-20 23:31 | Inpatient (IN) | payer MEDICARE, OTHER ==
[~2020-10-20] VITALS: Ht 172.7 cm; Wt 58.3 kg
[~2020-10-20 23:31] MED LIST changes: -LISI2.5T2 PO; +LISI2.5T9 PO
[2020-10-20] MEDS ORDERED: METF500T13 PO (23:51)
[2020-10-20] MEDS ORDERED: MIRA3350 PO (23:52)
[2020-10-21 00:29] LABS: BASO % 0.5 % (0.0-1.0); EOS # 0.2 10^3/uL (0.0-0.5); EOS % 4.5 % (0.0-3.0); HEMATOCRIT 33.4 % (42.0-52.0); HEMOGLOBIN 11.3 g/dl (13.5-17.5); LYMPH # 0.7 10^3/uL (1.5-5.0); LYMPH % 15.8 % (24.0-44.0); MEAN CORPUSCULAR HEMOGLOBIN 34.2 pg (27.0-33.0); MEAN CORPUSCULAR HGB CONC 33.8 g/dl (32.0-36.5); MEAN CORPUSCULAR VOLUME 101.2 fl (80.0-96.0); MONO # 0.4 10^3/uL (0.0-0.8); MONO % 7.9 % (2.0-8.0); NEUTROPHILS # 3.1 10^3/uL (1.5-8.5); NEUTROPHILS % 71.1 % (36.0-66.0); PLATELET COUNT, AUTOMATED 156 10^3/uL (150-450); WHITE BLOOD COUNT 4.4 10^3/uL (4.0-10.0)
[2020-10-21 01:06] LABS: ALBUMIN 3.6 GM/DL (3.2-5.2); ALT/SGPT 22 U/L (12-78); BILIRUBIN,DIRECT 0.2 MG/DL (0.0-0.2); BILIRUBIN,TOTAL 0.7 MG/DL (0.2-1.0); BLOOD UREA NITROGEN 12 MG/DL (7-18); CALCIUM LEVEL 8.7 MG/DL (8.8-10.2); CARBON DIOXIDE LEVEL 31 MEQ/L (21-32); CHLORIDE LEVEL 104 MEQ/L (98-107); GLOMERULAR FILTRATION RATE > 60.0 (>35); GLUCOSE, FASTING 105 MG/DL (70-100); LIPASE 42 U/L (73-393); POTASSIUM SERUM 4.5 MEQ/L (3.5-5.1); SODIUM LEVEL 137 MEQ/L (136-145); TOTAL PROTEIN 6.3 GM/DL (6.4-8.2)
[2020-10-21] MEDS ORDERED: ISOVUE-370 76% 100ML VIAL As Ordered ONE (01:22)
--- NOTE | 2020-10-21 02:15 | REPVR ---
PROCEDURE INFORMATION: Exam: CT Abdomen And Pelvis With Contrast Exam date and time: 10/21/2020 1:13 AM Age: 89 years old Clinical indication: Other: Rectal bleed; Additional info: Llq pain/rectal bleeding HX diverticulitis TECHNIQUE: Imaging protocol: Computed tomography of the abdomen and pelvis with contrast. Radiation optimization: All CT scans at this facility use at least one of these dose optimization techniques: automated exposure control; mA and/or kV adjustment per patient size (includes targeted exams where dose is matched to clinical indication); or iterative reconstruction. Contrast material: ISO; Contrast volume: 100 ml; Contrast route: INTRAVENOUS (IV); COMPARISON: CT ABD PELVIS W/O CONTRAST 03/13/2016 6:46 AM FINDINGS: Lungs: Bibasilar bullous change with coarse interstitium and minimal fibro-atelectatic change. Liver: Normal. No mass. Gallbladder and bile ducts: There are some gallstones in the gallbladder measuring up to 10 mm. Pancreas: Normal. No ductal dilation. Spleen: Coarse calcification is noted in the spleen at the tip. Adrenal glands: Normal. No mass. Kidneys and ureters: There are bilateral renal cysts measuring up to 3.3 cm on the left with a Hounsfield measurement of 4. These appear to reflect simple cysts and are redemonstrated since the prior study with grossly little change. No follow-up imaging is recommended. Stomach and bowel: Moderate stool and gas throughout much of the colon. There is colonic diverticulosis without evidence of diverticulitis. Appendix: A normal appendix is seen. Intraperitoneal space: Unremarkable. No free air. No significant fluid collection. Vasculature: There is mild calcification of the abdominal aorta with extension into the iliac arteries. Lymph nodes: Unremarkable. No enlarged lymph nodes. Urinary bladder: There is a Avina catheter in the bladder. Reproductive: Unremarkable as visualized. Bones/joints: Right hip prosthesis in position. Facet arthropathy of the lower lumbar spine with anterolisthesis at L4-L5 and L5-S1. Soft tissues: Unremarkable. IMPRESSION: 1. There has been little change from 03/13/2016. No acute interval process is identified. 2. Colonic diverticulosis without diverticulitis. 3. Cholelithiasis. 4. Avina catheter in the bladder which is new with decompressed urinary bladder. COMMENTS: Consistent with the [employer]'s Incidental Findings Committee white paper (J Am Yamel Radiol 2018): Any incidental renal lesion less than 1 cm or classified as too small to characterize, or any incidental cystic renal lesion characterized as simple-appearing, is likely benign. No follow-up imaging is recommended for these lesions per consensus recommendations based on imaging criteria. Electronically signed by: Mat Collins On 10/21/2020 02:15:11 AM
[2020-10-21 03:09] LABS: RSV AMPLIFICATION NEGATIVE (NEGATIVE)
[2020-10-21] MEDS ORDERED: DEXTROSE 50% 50 ML SYRINGE IV PRN (04:30)
[2020-10-21] MEDS ORDERED: MIRALAX *UNIT DOSE* 17GM PACKET PO PRN (04:30)
[2020-10-21] MEDS ORDERED: FAMOTIDINE 20 MG TAB PO PRN (04:30)
[2020-10-21] MEDS ORDERED: GLUCAGON INJ 1MG VIAL SC PRN (04:30)
[2020-10-21] MEDS ORDERED: GLUCOSE 4GM CHEW TABLET PO PRN (04:30)
[2020-10-21] MEDS ORDERED: ATOR1TAB21 PO (04:31)
[2020-10-21] MEDS ORDERED: FAMO40TA3 PO (04:31)
[2020-10-21] MEDS ORDERED: METF-839 PO (04:31)
[2020-10-21] MEDS ORDERED: MIRA1POW3 PO (04:31)
[2020-10-21] MEDS ORDERED: FERR324T21 PO (04:31)
[2020-10-21] MEDS ORDERED: HOME MED LIST COMPLETE! XX SCH (04:35)
--- NOTE | 2020-10-21 04:41 | HPEPDOC ---
General Date of Admission Oct 20, 2020 Date of Service: Oct 21, 2020 Chief Complaint The patient is a 89-year-old male admitted with a reason for visit of Lowewr Gastointestinal Bleeding. Source: Patient History of Present Illness Mr. Franklin is an 89-year-old male history of NIDDM, arthritis, and severe diverticulosis in the sigmoid colon in 2018 who is here for bright red blood per rectum. Patient tells me that back in 1994, he had a severe lower GI bleed and he required 4 units of blood. Around 1 AM Sunday morning, he had a bowel movement that was mostly blood. He had about 3-4 bowel movements throughout the day and they were all bloody. The stool that was there was diarrhea soft. His was concerned and called for an ambulance. While here, vital signs have been stable and hemoglobin at baseline. Hemoglobin today is 11.3. Baseline around 11.5. When I spoke with the patient, he denied any lightheadedness or dizziness, shortness of breath, or chest pain. In addition he denies any fever or chills, sore throat, abdominal pain, or dysuria. Patient will be placed in observation for acute lower GI bleed Home Medications Scheduled Aspirin (Aspirin EC) 81 Mg Tabec, 81 MG PO 3XW MON, WED, SUN; TAKES AT DINNER Atorvastatin Calcium (Atorvastatin Calcium) 20 Mg Tablet, 40 MG PO DAILY@1800 Famotidine (Famotidine) 40 Mg Tab, 40 MG PO DAILY Ferrous Sulfate (Ferrous Sulfate) 325 Mg Tablet, 325 MG PO QPM, (Reported) TAKES AT DINNER L.acidoph/L.bulg/B.bif/S.therm (Edith-Bid Caplet) 1 Each Tablet, 1 EA PO WM Magnesium Oxide (Magnesium Oxide) 400 Mg Tab, 400 MG PO QPM, (Reported) TAKES AT DINNERTIME Metformin HCl (Metformin HCl) 500 Mg Tablet, 1 TAB PO DAILY, (Reported) Multivitamins (Thera M Plus Tablet) 1 Tab Tab, 1 TAB PO DAILY, (Reported) Polyethylene Glycol 3350 (Miralax) 119 Gm Powder, 17 GRAM PO DAILY for constipation, (Reported) dissolve in water Allergies Coded Allergies: codeine (Verified Allergy, Unknown, 10/20/20) propoxyphene (Verified Allergy, Unknown, 10/20/20) sulfamethoxazole (Verified Allergy, Unknown, 10/20/20) tramadol (Verified Allergy, Unknown, 10/20/20) trimethoprim (Verified Allergy, Unknown, 10/20/20) Past Medical History Medical History 1. Cervical spondylosis 2. DJD 3. Hypertension 4. Hypercholesterolemia 5. Esophageal reflux 6. TIA 7. Lower GI bleed 8. Diabetes 9. Cataracts 10. Arthritis of the left hip 11. A. fib 12. Low-sodium 13. COVID-March 2020 Surgical History 1. Right hip replacement 2. Knee replacement on the right 3. Knee replacement on the left 4. Debridement arthritic knee 5. Colonoscopy 6. Cataract surgery 7. Injection of the left hip 8. Hemorrhoid surgery 9. Cystoscopy Family History Father: History of [place] Mother: History of CHF, asthma, and kidney removal Social History * Smoker: non-smoker Alcohol: rarely (Drinks on holidays) Drugs: denies A-FIB/CHADSVASC A-FIB History Current/History of A-Fib/PAF?: Yes Current PO Anticoag Therapy: No Treatment Reason Anticoagulant not given: Current bleeding Review of Systems Constitutional: Denies: Chills, Fever Eyes: Denies: Vision change ENT: Denies: Sore Throat Skin: Denies: Rash Pulmonary: Denies: Dyspnea Cardiovascular: Denies: Chest Pain Gastrointestinal: Reports: Diarrhea (Soft), Hematochezia; Denies: Nausea, Abdominal Pain Genitourinary: Denies: Dysuria Hematologic: Denies: Bruising Neurological: Denies: Numbness Psych: Denies: Anxiety, Depression Physical Examination General Exam: Positive: Alert, Cooperative Eye Exam: Positive: EOMI; Negative: Sclera icteric ENT Exam: Positive: Atraumatic Neck Exam: Positive: Supple Chest Exam: Positive: Clear to auscultation Heart Exam: Positive: Rate Normal, Regular Rhythm Abdomen Exam: Positive: Normal bowel sounds, Soft; Negative: Tenderness Extremity Exam: Negative: Edema Neuro Exam: Positive: Normal Speech, Cranial Nerves 3-12 NL, Other (Hard of hearing) Psych Exam: Positive: Mental status NL, Mood NL Vital Signs Vital Signs Date Time Temp Pulse Resp B/P (MAP) Pulse Ox O2 Delivery O2 Flow Rate FiO2 10/21/20 01:46 97.9 70 18 97 Room Air 10/21/20 01:45 126/58 (80) Laboratory Data Labs 24H Laboratory Tests 2 10/21/20 00:15: Immature Granulocyte % (Auto) 0.2, Neutrophils (%) (Auto) 71.1H, Lymphocytes (%) (Auto) 15.8L, Monocytes (%) (Auto) 7.9, Eosinophils (%) (Auto) 4.5H, Basophils (%) (Auto) 0.5, Neutrophils # (Auto) 3.1, Lymphocytes # (Auto) 0.7L, Monocytes # (Auto) 0.4, Eosinophils # (Auto) 0.2, Basophils # (Auto) 0.0, Nucleated Red Blood Cells % (auto) 0.0, Anion Gap 2L, Glomerular Filtration Rate > 60.0, Calcium Level 8.7L, Total Bilirubin 0.7, Direct Bilirubin 0.2, Aspartate Amino Transf (AST/SGOT) 14, Alanine Aminotransferase (ALT/SGPT) 22, Alkaline Phosphatase 73, Total Protein 6.3L, Albumin 3.6, Albumin/Globulin Ratio 1.3, Lipase 42L 10/21/20 02:22: Coronavirus (COVID-19)(PCR) NEGATIVE, Influenza Type A (RT-PCR) NEGATIVE, Influenza Type B (RT-PCR) NEGATIVE, Respiratory Syncytial Virus (PCR) NEGATIVE CBC/BMP Laboratory Tests 10/21/20 00:15 Assessment/Plan Mr. Franklin is an 89-year-old male history of NIDDM, arthritis, and severe diverticulosis in the sigmoid colon in 2018 who is here for bright red blood per rectum. Patient is stable and is not showing signs of anemia. He has a history of diverticulosis in the past. He may be having another episode of diverticular bleeding. Although at this time, his hemoglobin is at baseline and he is not showing signs of anemia. Will monitor and trend CBCs. Patient be put on a clear liquid diet. Plan / VTE VTE Prophylaxis Ordered?: Yes Plan Plan 1. Acute lower GI bleed Patient has a history of diverticulosis seen in colonoscopy of 2018 No symptoms of anemia. Hemoglobin at baseline Hold aspirin Trend CBC Clear liquid diet 2. Diabetes mellitus Sliding scale insulin 3. Hyperlipidemia Continue atorvastatin 4. GERD Continue famotidine 5. Paroxysmal atrial fibrillation Patient not anticoagulation due to GI bleed Aspirin on hold due to GI bleed 6. DVT prophylaxis SCDs and teds Disposition: Pending hemoglobin results and clinical improvement PAYTON CARPENTER DO Oct 21, 2020 04:41
[2020-10-21 05:42] VITALS: BP 114/59
[2020-10-21 07:12] LABS: HEMATOCRIT 33.2 % (42.0-52.0); HEMOGLOBIN 11.3 g/dl (13.5-17.5); MEAN CORPUSCULAR HEMOGLOBIN 34.3 pg (27.0-33.0); MEAN CORPUSCULAR VOLUME 100.9 fl (80.0-96.0); PLATELET COUNT, AUTOMATED 168 10^3/uL (150-450); RED BLOOD COUNT 3.29 10^6/uL (4.30-6.10); WHITE BLOOD COUNT 4.1 10^3/uL (4.0-10.0)
[2020-10-21] MEDS: HumaLOG INSULIN (NovoLOG) PER UNIT SC SCH ×4 (07:30→20:01)
[2020-10-21 07:35] LABS: BLOOD UREA NITROGEN 12 MG/DL (7-18); CALCIUM LEVEL 8.7 MG/DL (8.8-10.2); CARBON DIOXIDE LEVEL 32 MEQ/L (21-32); CHLORIDE LEVEL 103 MEQ/L (98-107); CREATININE FOR GFR 0.42 MG/DL (0.70-1.30); GLOMERULAR FILTRATION RATE > 60.0 (>35); GLUCOSE, FASTING 101 MG/DL (70-100); POTASSIUM SERUM 4.2 MEQ/L (3.5-5.1); SODIUM LEVEL 137 MEQ/L (136-145)
[2020-10-21] MEDS: MULTIVITAMINS/MINERALS THERAP 1 TAB PO SCH (08:31)
[2020-10-21 12:27] LABS: HEMATOCRIT 32.2 % (42.0-52.0); HEMOGLOBIN 10.9 g/dl (13.5-17.5); MEAN CORPUSCULAR HEMOGLOBIN 34.5 pg (27.0-33.0); MEAN CORPUSCULAR HGB CONC 33.9 g/dl (32.0-36.5); MEAN CORPUSCULAR VOLUME 101.9 fl (80.0-96.0); PLATELET COUNT, AUTOMATED 172 10^3/uL (150-450); RED BLOOD COUNT 3.16 10^6/uL (4.30-6.10); WHITE BLOOD COUNT 4.6 10^3/uL (4.0-10.0)
--- NOTE | 2020-10-21 12:58 | IPNPDOC ---
Text Note Date of Service The patient was seen on 10/21/20. NOTE Subjective: Patient is an 89-year-old male who presented to the hospital with GI bleed. Patient has had red stools and did have a maroon-colored stool in the hospital that I was able to see as the patient was getting up off the commode as well as walking in the room. Patient is otherwise feeling well does not have any abdominal pain. Patient was found to have severe diverticulosis on colonoscopy found on 2018. Patient's hemoglobin was 11.3 on admission. Patient was admitted for GI bleeding. Patient is otherwise feeling well today. Review of systems: General: Patient denies fevers HEENT: Patient denies headaches Cardiovascular: Patient denies chest pain Respiratory: Patient denies shortness of breath, cough GI: Patient denies abdominal pain, nausea, vomiting, diarrhea : Patient denies increased frequency or pain with urination Extremities: Patient denies swelling or pain in extremities Neurological: Patient denies numbness or tingling in legs Physical exam: Vitals: See below General: Alert and oriented male patient who was sitting on the commode when I walked in. Patient needed assistance to get up onto the bed. Patient not appear to be in any acute distress. HEENT: Normocephalic, atraumatic, moist mucous membranes. Neck: No lymphadenopathy or thyromegaly Cardiac: Regular rate and rhythm, no murmurs, normal S1, normal S2 Pulm: Clear to auscultation bilaterally. No wheezes, rhonchi, rales Abd: Nondistended, nontender to palpation, normal bowel sounds Ext: No edema bilateral lower extremities Labs: See below Imaging: No new imaging has been performed. Assessment/plan: 89-year-old male with a history of severe diverticulosis in sigmoid colon from 2018 who is here for bright red blood per rectum was found to have a GI bleed. 1. Acute GI bleeding. Patient has a history of diverticulosis seen on colonoscopy in 2018. Patient hemoglobin is 11.3. We will trend H&H's every 6 hours and continue to monitor. Hold aspirin. I did speak with general surgery who states that observation and holding blood thinners is the best treatment and if he continues to bleed, reconsult surgery for possible colonoscopy. Clear liquid diet at this time. 2. Diabetes mellitus. Sliding scale insulin. 3. Hyperlipidemia. Continue atorvastatin. 4. GERD. Continue famotidine. 5. Paroxysmal atrial fibrillation. Patient is not on any anticoagulation due to GI bleed. Aspirin on hold due to GI bleed. DVT Prophylaxis: Teds and sequentials Disposition: Pending improvement in the patient's bloody bowel movements. VS,Fishbone, I+O VS, Fishbone, I+O Laboratory Tests 10/21/20 00:15 10/21/20 06:04 10/21/20 12:09 Vital Signs Date Time Temp Pulse Resp B/P (MAP) Pulse Ox O2 Delivery O2 Flow Rate FiO2 10/21/20 05:42 97.0 75 16 114/59 (77) 94 Room Air TAYLOR DANIEL DO Oct 21, 2020 12:58
[2020-10-21 14:00] VITALS: BP 120/61
[2020-10-21] MEDS: FERROUS GLUCONATE 324 MG TAB PO SCH (17:49)
[2020-10-21] MEDS: ATORVASTATIN 20 MG TAB PO SCH (17:49)
[2020-10-21] MEDS: MAGNESIUM OXIDE 400MG TAB (MAG-OX) PO SCH (17:49)
[2020-10-21 18:20] LABS: HEMATOCRIT 32.9 % (42.0-52.0); MEAN CORPUSCULAR HEMOGLOBIN 33.8 pg (27.0-33.0); MEAN CORPUSCULAR HGB CONC 33.4 g/dl (32.0-36.5); MEAN CORPUSCULAR VOLUME 101.2 fl (80.0-96.0); PLATELET COUNT, AUTOMATED 171 10^3/uL (150-450); RED BLOOD COUNT 3.25 10^6/uL (4.30-6.10); WHITE BLOOD COUNT 4.3 10^3/uL (4.0-10.0)
[2020-10-21 21:00] VITALS: BP 114/52
[2020-10-22 00:30] LABS: HEMATOCRIT 31.9 % (42.0-52.0); HEMOGLOBIN 11.1 g/dl (13.5-17.5); MEAN CORPUSCULAR HEMOGLOBIN 34.7 pg (27.0-33.0); MEAN CORPUSCULAR HGB CONC 34.8 g/dl (32.0-36.5); MEAN CORPUSCULAR VOLUME 99.7 fl (80.0-96.0); PLATELET COUNT, AUTOMATED 180 10^3/uL (150-450); WHITE BLOOD COUNT 5.5 10^3/uL (4.0-10.0)
[2020-10-22 05:00] VITALS: BP 103/64
[2020-10-22 07:42] LABS: HEMATOCRIT 30.7 % (42.0-52.0); HEMOGLOBIN 10.7 g/dl (13.5-17.5); MEAN CORPUSCULAR HEMOGLOBIN 34.6 pg (27.0-33.0); MEAN CORPUSCULAR HGB CONC 34.9 g/dl (32.0-36.5); MEAN CORPUSCULAR VOLUME 99.4 fl (80.0-96.0); PLATELET COUNT, AUTOMATED 165 10^3/uL (150-450); RED BLOOD COUNT 3.09 10^6/uL (4.30-6.10); WHITE BLOOD COUNT 7.5 10^3/uL (4.0-10.0)
[2020-10-22 08:04] LABS: BLOOD UREA NITROGEN 10 MG/DL (7-18); CALCIUM LEVEL 8.5 MG/DL (8.8-10.2); CARBON DIOXIDE LEVEL 30 MEQ/L (21-32); CHLORIDE LEVEL 105 MEQ/L (98-107); CREATININE FOR GFR 0.42 MG/DL (0.70-1.30); GLOMERULAR FILTRATION RATE > 60.0 (>35); GLUCOSE, FASTING 125 MG/DL (70-100); MAGNESIUM LEVEL 2.1 MG/DL (1.8-2.4); POTASSIUM SERUM 4.4 MEQ/L (3.5-5.1); SODIUM LEVEL 140 MEQ/L (136-145)
[2020-10-22] MEDS: HumaLOG INSULIN (NovoLOG) PER UNIT SC SCH ×4 (08:37→21:00)
[2020-10-22] MEDS: MULTIVITAMINS/MINERALS THERAP 1 TAB PO SCH (09:27)
--- NOTE | 2020-10-22 11:06 | IPNPDOC ---
Text Note Date of Service The patient was seen on 10/22/20. NOTE Subjective: Patient is an 89-year-old male presented to the hospital with GI b leed. Patient had multiple maroon-colored stools overnight. Patient has not had any stool this morning. Patient was found to have severe diverticulosis on colonoscopy in 2018. Patient's hemoglobin was 11.3 on admission and has been stable falling to 10.7 today. Patient does not have any complaints and is otherwise feeling well. Review of systems: General: Patient denies fevers HEENT: Patient denies headaches Cardiovascular: Patient denies chest pain Respiratory: Patient denies shortness of breath, cough GI: Patient denies abdominal pain, nausea, vomiting, diarrhea : Patient denies increased frequency or pain with urination Extremities: Patient denies swelling or pain in extremities Neurological: Patient denies numbness or tingling in legs Physical exam: Vitals: See below General: Alert and oriented male patient who was sitting in bed when I walked in the room. Patient not appear to be in any acute distress. HEENT: Normocephalic, atraumatic, moist mucous membranes. Neck: No lymphadenopathy or thyromegaly Cardiac: Regular rate and rhythm, no murmurs, normal S1, normal S2 Pulm: Clear to auscultation bilaterally. No wheezes, rhonchi, rales Abd: Nondistended, nontender to palpation, normal bowel sounds Ext: No edema bilateral lower extremities Labs: See below Imaging: No new imaging has been performed. Assessment/plan: 89-year-old male with a history of severe diverticulosis in the sigmoid colon from 2018 who is here for bright red blood per rectum was found to have a GI bleed. 1. Acute GI bleeding. Patient is a history of diverticulosis seen on colonoscopy in 2018. Patient's hemoglobin has remained relatively stable. We will trend the patient's CBC every 8 hours at this time. We will continue to hold aspirin. I did speak with general surgery who states that observation of the patient's hemoglobin and holding aspirin is the best treatment at this time and if he continues to bleed that we can reconsult surgery for possible colonoscopy. We will continue with a clear liquid diet at this time. 2. Type 2 diabetes. Continue sliding scale insulin. 3. Hyperlipidemia. Continue atorvastatin. 4. GERD. Continue famotidine. 5. Paroxysmal atrial fibrillation. Patient is not on anticoagulant due to GI bleeding at this time. DVT Prophylaxis: Teds and sequentials. Disposition: Pending improvement the patient's bloody bowel movements. VS,Clembone, I+O VS, Fishbone, I+O Laboratory Tests 10/21/20 12:09 10/21/20 17:21 10/22/20 00:03 10/22/20 07:28 Vital Signs Date Time Temp Pulse Resp B/P (MAP) Pulse Ox O2 Delivery O2 Flow Rate FiO2 10/22/20 05:00 98.6 70 17 103/64 (77) 95 Room Air I&O- Last 24 Hours up to 6 AM 10/22/20 06:00 Intake Total 1020 ml Output Total 2950 ml Balance -1930 ml TAYLOR DANIEL DO Oct 22, 2020 11:06
[2020-10-22 14:00] VITALS: BP 113/53
[2020-10-22 14:34] LABS: HEMATOCRIT 33.4 % (42.0-52.0); HEMOGLOBIN 11.4 g/dl (13.5-17.5); MEAN CORPUSCULAR HEMOGLOBIN 34.8 pg (27.0-33.0); MEAN CORPUSCULAR HGB CONC 34.1 g/dl (32.0-36.5); MEAN CORPUSCULAR VOLUME 101.8 fl (80.0-96.0); PLATELET COUNT, AUTOMATED 176 10^3/uL (150-450); RED BLOOD COUNT 3.28 10^6/uL (4.30-6.10); WHITE BLOOD COUNT 4.9 10^3/uL (4.0-10.0)
[2020-10-22] MEDS: ATORVASTATIN 20 MG TAB PO SCH (17:41)
[2020-10-22] MEDS: MAGNESIUM OXIDE 400MG TAB (MAG-OX) PO SCH (17:41)
[2020-10-22] MEDS: FERROUS GLUCONATE 324 MG TAB PO SCH (17:41)
[2020-10-22 22:00] VITALS: BP 111/53
[2020-10-22 22:27] LABS: HEMATOCRIT 29.7 % (42.0-52.0); HEMOGLOBIN 10.2 g/dl (13.5-17.5); MEAN CORPUSCULAR HEMOGLOBIN 34.2 pg (27.0-33.0); MEAN CORPUSCULAR HGB CONC 34.3 g/dl (32.0-36.5); MEAN CORPUSCULAR VOLUME 99.7 fl (80.0-96.0); PLATELET COUNT, AUTOMATED 165 10^3/uL (150-450); RED BLOOD COUNT 2.98 10^6/uL (4.30-6.10); WHITE BLOOD COUNT 5.2 10^3/uL (4.0-10.0)
[2020-10-23 06:00] VITALS: BP 109/57
[2020-10-23 06:04] LABS: HEMATOCRIT 29.8 % (42.0-52.0); HEMOGLOBIN 10.2 g/dl (13.5-17.5); MEAN CORPUSCULAR HEMOGLOBIN 34.2 pg (27.0-33.0); MEAN CORPUSCULAR HGB CONC 34.2 g/dl (32.0-36.5); PLATELET COUNT, AUTOMATED 173 10^3/uL (150-450); RED BLOOD COUNT 2.98 10^6/uL (4.30-6.10); WHITE BLOOD COUNT 4.5 10^3/uL (4.0-10.0)
[2020-10-23 06:33] LABS: BLOOD UREA NITROGEN 6 MG/DL (7-18); CALCIUM LEVEL 8.3 MG/DL (8.8-10.2); CARBON DIOXIDE LEVEL 31 MEQ/L (21-32); CHLORIDE LEVEL 106 MEQ/L (98-107); CREATININE FOR GFR 0.38 MG/DL (0.70-1.30); GLOMERULAR FILTRATION RATE > 60.0 (>35); GLUCOSE, FASTING 128 MG/DL (70-100); MAGNESIUM LEVEL 2.1 MG/DL (1.8-2.4); POTASSIUM SERUM 4.1 MEQ/L (3.5-5.1); SODIUM LEVEL 140 MEQ/L (136-145)
[2020-10-23] MEDS: HumaLOG INSULIN (NovoLOG) PER UNIT SC SCH ×4 (08:19→20:18)
[2020-10-23] MEDS: MULTIVITAMINS/MINERALS THERAP 1 TAB PO SCH (08:19)
--- NOTE | 2020-10-23 13:42 | IPNPDOC ---
Text Note Date of Service The patient was seen on 10/23/20. NOTE Subjective: Patient is an 82-year-old male presented to hospital with GI bleed. Patient appears to be having more firm stools which still has some blood in them. Patient's hemoglobin did drop from 11.4-10.2 overnight. Patient's hemoglobin again this morning was 10.2. Patient is feeling otherwise well does not have any complaints at this time. Review of systems: General: Patient denies fevers HEENT: Patient denies headaches Cardiovascular: Patient denies chest pain Respiratory: Patient denies shortness of breath, cough GI: Patient denies abdominal pain, nausea, vomiting, diarrhea : Patient denies increased frequency or pain with urination Extremities: Patient denies swelling or pain in extremities Neurological: Patient denies numbness or tingling in legs Physical exam: Vitals: See below General: Alert and oriented male patient who was sitting up in bed when I walked in the room. Patient not appear to be in any acute distress. HEENT: Normocephalic, atraumatic, moist mucous membranes. Neck: No lymphadenopathy or thyromegaly Cardiac: Regular rate and rhythm, no murmurs, normal S1, normal S2 Pulm: Clear to auscultation bilaterally. No wheezes, rhonchi, rales Abd: Nondistended, nontender to palpation, normal bowel sounds Ext: No edema bilateral lower extremities Labs: See below Imaging: No new imaging has been performed. Assessment/plan: 89-year-old male with a history of severe diverticulosis in the sigmoid colon from colonoscopy in 2018 and multiple gastrointestinal bleedings over the last decade who presented with bright red blood per rectum and was found to have a GI bleed. 1. Acute GI bleeding. With the patient's history of diverticulosis that was seen on colonoscopy in 2018, this most likely diverticular bleed. Because of the patient's age, and history of GI bleeding, patient has been monitored closely. I did speak with general surgery a few days ago who states observation and holding the patient's aspirin is the best treatment at this time. Patient had his hemoglobin dropped to 10.2 at 10 PM yesterday from 11.4 at 2 PM ye sterday. Patient's hemoglobin this morning was also 10.2. I have advanced the patient's diet to a full diet at this time. Patient did have another formed stool but it was miguel colored according to the practical nursing teacher and was still having some miguel colored smearing when I was seeing the patient. If the patient's hemoglobin remained stable, possible discharge for tomorrow. 2. Type 2 diabetes. Continue sliding scale insulin. 3. Hyperlipidemia. Continue atorvastatin. 4. GERD. Continue famotidine. 5. Paroxysmal atrial fibrillation. Not on anticoagulation due to history of GI bleeding. DVT Prophylaxis: Teds and sequentials Disposition: Pending improvement in patient's bloody bowel movements, hopeful discharge for tomorrow. VS,Fishbone, I+O VS, Fishbone, I+O Laboratory Tests 10/22/20 14:21 10/22/20 22:17 10/23/20 05:09 Vital Signs Date Time Temp Pulse Resp B/P (MAP) Pulse Ox O2 Delivery O2 Flow Rate FiO2 10/23/20 06:00 97.7 81 16 109/57 (74) 96 Room Air I&O- Last 24 Hours up to 6 AM 10/23/20 06:00 Intake Total 1740 ml Output Total 2025 ml Balance -285 ml TAYLOR DANIEL DO Oct 23, 2020 13:42
[2020-10-23 14:00] VITALS: BP 107/56
[2020-10-23 14:33] LABS: HEMATOCRIT 31.8 % (42.0-52.0); MEAN CORPUSCULAR HEMOGLOBIN 34.7 pg (27.0-33.0); MEAN CORPUSCULAR HGB CONC 34.6 g/dl (32.0-36.5); MEAN CORPUSCULAR VOLUME 100.3 fl (80.0-96.0); PLATELET COUNT, AUTOMATED 178 10^3/uL (150-450); RED BLOOD COUNT 3.17 10^6/uL (4.30-6.10); WHITE BLOOD COUNT 5.1 10^3/uL (4.0-10.0)
[2020-10-23] MEDS: MAGNESIUM OXIDE 400MG TAB (MAG-OX) PO SCH (18:06)
[2020-10-23] MEDS: ATORVASTATIN 20 MG TAB PO SCH (18:06)
[2020-10-23] MEDS: FERROUS GLUCONATE 324 MG TAB PO SCH (18:06)
[2020-10-23 22:00] VITALS: BP 123/63
[2020-10-23 22:43] LABS: HEMATOCRIT 28.5 % (42.0-52.0); HEMOGLOBIN 9.7 g/dl (13.5-17.5); PLATELET COUNT, AUTOMATED 168 10^3/uL (150-450); RED BLOOD COUNT 2.85 10^6/uL (4.30-6.10); WHITE BLOOD COUNT 5.1 10^3/uL (4.0-10.0)
[2020-10-24 06:00] VITALS: BP 158/87
[2020-10-24 06:28] LABS: HEMATOCRIT 28.8 % (42.0-52.0); HEMOGLOBIN 9.9 g/dl (13.5-17.5); MEAN CORPUSCULAR HEMOGLOBIN 34.4 pg (27.0-33.0); MEAN CORPUSCULAR HGB CONC 34.4 g/dl (32.0-36.5); PLATELET COUNT, AUTOMATED 157 10^3/uL (150-450); RED BLOOD COUNT 2.88 10^6/uL (4.30-6.10); WHITE BLOOD COUNT 4.6 10^3/uL (4.0-10.0)
[2020-10-24 06:51] LABS: BLOOD UREA NITROGEN 9 MG/DL (7-18); CALCIUM LEVEL 8.2 MG/DL (8.8-10.2); CARBON DIOXIDE LEVEL 28 MEQ/L (21-32); CHLORIDE LEVEL 105 MEQ/L (98-107); CREATININE FOR GFR 0.49 MG/DL (0.70-1.30); GLOMERULAR FILTRATION RATE > 60.0 (>35); GLUCOSE, FASTING 159 MG/DL (70-100); POTASSIUM SERUM 4.3 MEQ/L (3.5-5.1); SODIUM LEVEL 137 MEQ/L (136-145)
[2020-10-24] MEDS: HumaLOG INSULIN (NovoLOG) PER UNIT SC SCH (07:53)
[2020-10-24] MEDS: MULTIVITAMINS/MINERALS THERAP 1 TAB PO SCH (07:53)
[2020-10-24 11:53] LABS: HEMATOCRIT 30.5 % (42.0-52.0); HEMOGLOBIN 10.4 g/dl (13.5-17.5)
--- NOTE | 2020-10-24 14:17 | DS.PDOC ---
Discharge Summary General Date of Admission Oct 21, 2020 at 12:55 Date of Discharge 10/24/2020 Primary Care Physician: OSCAR HUANG DO Attending Physician: TAYLOR DANIEL DO Discharge Summary PROCEDURES PERFORMED DURING STAY: None. ADMITTING DIAGNOSES: 1. Acute lower GI bleeding. 2. Diabetes mellitus 3. Hyperlipidemia 4. GERD 5. Paroxysmal atrial fibrillation DISCHARGE DIAGNOSES: 1. Acute lower GI bleeding, resolved. 2. Diabetes mellitus 3. Hyperlipidemia 4. GERD 5. Paroxysmal atrial fibrillation COMPLICATIONS/CHIEF COMPLAINT: Lowewr Gastointestinal Bleeding. HISTORY OF PRESENT ILLNESS: Patient is an 89-year-old female with a history of severe diverticulosis found on colonoscopy in 2018 who presented to the emergency department for bright red blood per rectum. Patient says patient has a history of severe lower GI bleeding that has required transfusions in the past. Patient woke up 1 AM on 10/20/2020 he had a bowel movement that was mostly blood. He had about 3-4 bowel movements throughout the day that were all bloody. Patient says that there was diarrhea that was soft. Patient's was concerned and called for an ambulance. Patient's vital signs been stable and his hemoglobin is at baseline. Patient denied any lightheadedness or dizziness, shortness of breath, or chest pain. Patient was admitted in the hosp ital for further observation. HOSPITAL COURSE: Patient's hemoglobin did remain stable although he was having some bloody bowel movements over the first day of his admission. On hospital day 2, patient continued to have bloody bowel movements. I did speak with the patient's son who states that the patient has a history of these GI bleeds. After reviewing gastroenterology notes from 2018, it appeared that the patient had multiple GI bleeds over the past 10 years that have required hospitalization and monitoring. Patient's hemoglobin did drop from 11.4-10.2 on 10/22/2020. Patient's hemoglobin remained stable around this. On hospital day 3, patient had a more formed bowel movement that was still maroon in color. Patient was observed for 1 more day and the patient's hemoglobin remained stable and the patient had a brown bowel movement with a very scant amount of blood. Patient's hemoglobin continues to remain stable and on 10/24/2020, the patient was discharged home from the hospital. Patient was advised to follow-up with his mate fourth. DISCHARGE MEDICATIONS: Please see below. ALLERGIES: Please see below. PHYSICAL EXAMINATION ON DISCHARGE: VITAL SIGNS: Please see below. General: Alert and oriented male patient who was sitting up in bed when I walked into the room. Patient did not appear to be in any acute distress. HEENT: Normocephalic, atraumatic, moist mucous membranes. Neck: No lymphadenopathy or thyromegaly Cardiac: Regular rate and rhythm, no murmurs, normal S1, normal S2 Pulm: Clear to auscultation bilaterally. No wheezes, rhonchi, rales Abd: Nondistended, nontender to palpation, normal bowel sounds Ext: No edema bilateral lower extremities LABORATORY DATA: Please see below. IMAGING: CT of the abdomen pelvis performed on 10/21/2020 was reported to show there has been little change from 03/13/2016. No acute interval process identified. Colonic diverticulosis without diverticulitis. Cholelithiasis. Avina catheter in the bladder which is new with decompressed urinary bladder PROGNOSIS: Fair ACTIVITY: As tolerated. DIET: Consistent carbohydrate DISCHARGE PLAN: Discharge home with home health service DISPOSITION: 06 Home Health Service. DISCHARGE INSTRUCTIONS: 1. Follow-up with your primary care provider within 3 to 5 days of discharge. 2. Call your mate fourth and follow-up with them within 1 to 2 weeks of discharge 3. Return to the emergency department if your symptoms worsen ITEMS TO FOLLOWUP ON ON OUTPATIENT: 1. Continue to monitor patient's hemoglobin and hematocrit as it has dropped about 1 g since his hospitalization but is stable at this level. DISCHARGE CONDITION: Stable. TIME SPENT ON DISCHARGE: 35 minutes. Vital Signs/I&Os Vital Signs Date Time Temp Pulse Resp B/P (MAP) Pulse Ox O2 Delivery O2 Flow Rate FiO2 10/24/20 06:00 98.1 84 16 158/87 (110) 96 Room Air I&O- Last 24 Hours up to 6 AM 10/24/20 06:00 Intake Total 2160 ml Output Total 2100 ml Balance 60 ml Laboratory Data Labs 24H Laboratory Tests 2 10/23/20 14:16: Nucleated Red Blood Cells % (auto) 0.0 10/23/20 17:44: Bedside Glucose (Misc Panel) 192H 10/23/20 19:55: Bedside Glucose (Misc Panel) 136H 10/23/20 22:27: Nucleated Red Blood Cells % (auto) 0.0 10/24/20 05:22: Nucleated Red Blood Cells % (auto) 0.0, Anion Gap 4L, Glomerular Filtration Rate > 60.0, Calcium Level 8.2L, Magnesium Level 2.0 10/24/20 11:12: Bedside Glucose (Misc Panel) 123H CBC/BMP Laboratory Tests 10/23/20 14:16 10/23/20 22:27 10/24/20 05:22 10/24/20 11:39 FSBS Laboratory Tests Test 10/23/20 17:44 10/23/20 19:55 10/24/20 11:12 Range/Units Bedside Glucose (Misc Panel) 192 136 123 83-110 MG/DL Discharge Medications Scheduled Aspirin (Aspirin EC) 81 Mg Tabec, 81 MG PO 3XW MON, WED, FRI; TAKES AT DINNER Atorvastatin Calcium (Atorvastatin Calcium) 20 Mg Tablet, 20 MG PO QPM, (Reported) TAKES AT DINNERTIME Ferrous Gluconate (Ferrous Gluconate) 324 Mg Tablet, 324 MG PO QPM, (Reported) TAKES AT DINNERTIME Magnesium Oxide (Magnesium Oxide) 400 Mg Tab, 400 MG PO QPM, (Reported) TAKES AT DINNERTIME Metformin HCl (Metformin HCl) 500 Mg Tablet, 500 MG PO DAILY, (Reported) Multivitamins (Thera M Plus Tablet) 1 Tab Tab, 1 TAB PO DAILY, (Reported) Scheduled PRN Famotidine (Famotidine) 40 Mg Tablet, 40 MG PO DAILY PRN for HEARTBURN, (Reported) Polyethylene Glycol 3350 (Miralax) 17 Gm Powd.pack, 17 GM PO DAILY PRN for CONSTIPATION, (Reported) Allergies Coded Allergies: codeine (Verified Allergy, Unknown, 10/20/20) propoxyphene (Verified Allergy, Unknown, 10/20/20) sulfamethoxazole (Verified Allergy, Unknown, 10/20/20) tramadol (Verified Allergy, Unknown, 10/20/20) trimethoprim (Verified Allergy, Unknown, 10/20/20) TAYLOR DANIEL DO Oct 24, 2020 14:17
== END 2020-10-24 13:10 | disposition home health service (06) | DRG 379 ==
LOC: M ED 23:31 → M ED INP 23:32 → ENRESERV 10-21 04:08 → M MSPAV 10-21 05:42 → OBSVTOIN 10-21 12:55
PROVIDERS: ADMIT Internal Medicine; ATTEND Family Medicine
DX: K57.91 Diverticulosis of intestine, part unspecified, without perforation or abscess with bleeding (principal); E11.9 Type 2 diabetes mellitus without complications; Z79.82 Long term (current) use of aspirin; Z79.84 Long term (current) use of oral hypoglycemic drugs; Z79.899 Other long term (current) drug therapy; Z88.2 Allergy status to sulfonamides; Z88.5 Allergy status to narcotic agent; Z88.8 Allergy status to other drugs, medicaments and biological substances; Z96.641 Presence of right artificial hip joint; Z96.653 Presence of artificial knee joint, bilateral; Z98.49 Cataract extraction status, unspecified eye; Z86.16 Personal history of COVID-19; M17.12 Unilateral primary osteoarthritis, left knee; Z86.73 Personal history of transient ischemic attack (TIA), and cerebral infarction without residual deficits; K21.9 Gastro-esophageal reflux disease without esophagitis; I10 Essential (primary) hypertension; E78.00 Pure hypercholesterolemia, unspecified; M47.812 Spondylosis without myelopathy or radiculopathy, cervical region; Z20.822 Contact with and (suspected) exposure to COVID-19; I48.0 Paroxysmal atrial fibrillation; Z66 Do not resuscitate

== ENCOUNTER → 2020-10-27 | Outpatient (REF) | payer MEDICARE, OTHER ==
[~2020-10-27] MED LIST changes: +FERR324T21 PO; +METF-839 PO; +METF500T13 PO; +MIRA1POW3 PO; +MIRA3350 PO
[2020-10-27 16:10] LABS: HEMATOCRIT 31.6 % (42.0-52.0); HEMOGLOBIN 10.7 g/dl (13.5-17.5); MEAN CORPUSCULAR HEMOGLOBIN 34.9 pg (27.0-33.0); MEAN CORPUSCULAR HGB CONC 33.9 g/dl (32.0-36.5); MEAN CORPUSCULAR VOLUME 102.9 fl (80.0-96.0); PLATELET COUNT, AUTOMATED 222 10^3/uL (150-450); RED BLOOD COUNT 3.07 10^6/uL (4.30-6.10)
== END ==
LOC: M SFHCCLAY 11:35
PROVIDERS: ATTEND Family Medicine
DX: K92.2 Gastrointestinal hemorrhage, unspecified (principal)

== ENCOUNTER → 2020-11-03 | Outpatient (REF) | payer MEDICARE, OTHER ==
[2020-11-03 14:28] LABS: MAGNESIUM LEVEL 2.2 MG/DL (1.8-2.4); PERCENT SATURATION 37.4 % (19.7-50.0)
== END ==
LOC: M LAB REF 13:03
PROVIDERS: ATTEND Internal Medicine Nephrology
DX: E83.42 Hypomagnesemia (principal); D50.9 Iron deficiency anemia, unspecified

== ENCOUNTER → 2021-02-02 | Outpatient (REF) | payer MEDICARE, OTHER ==
[2021-02-02 16:35] LABS: HEMOGLOBIN 11.6 g/dl (13.5-17.5); MEAN CORPUSCULAR HEMOGLOBIN 33.4 pg (27.0-33.0); MEAN CORPUSCULAR HGB CONC 33.1 g/dl (32.0-36.5); MEAN CORPUSCULAR VOLUME 100.9 fl (80.0-96.0); PLATELET COUNT, AUTOMATED 215 10^3/uL (150-450); RED BLOOD COUNT 3.47 10^6/uL (4.30-6.10); WHITE BLOOD COUNT 6.2 10^3/uL (4.0-10.0)
[2021-02-02 17:06] LABS: HEMOGLOBIN A1c 6.2 %
[2021-02-02 17:08] LABS: BLOOD UREA NITROGEN 9 MG/DL (7-18); CARBON DIOXIDE LEVEL 32 MEQ/L (21-32); CHLORIDE LEVEL 97 MEQ/L (98-107); CREATININE FOR GFR 0.47 MG/DL (0.70-1.30); GLOMERULAR FILTRATION RATE > 60.0 (>35); GLUCOSE, FASTING 160 MG/DL (70-100); POTASSIUM SERUM 4.7 MEQ/L (3.5-5.1); SODIUM LEVEL 133 MEQ/L (136-145)
== END ==
LOC: M SFHCCLAY 11:11
PROVIDERS: ATTEND Family Medicine
DX: I11.9 Hypertensive heart disease without heart failure (principal); E11.9 Type 2 diabetes mellitus without complications; Z87.19 Personal history of other diseases of the digestive system; Z23 Encounter for immunization
CPT/HCPCS: 80048; 83036; 85027; 90682; G0008; G0463

== ENCOUNTER → 2021-06-07 | Outpatient (REF) | payer MEDICARE, OTHER | LOC: M SFHCCLAY 15:34 | PROVIDERS: ATTEND Family Medicine | DX: R41.0 Disorientation, unspecified (principal); N39.0 Urinary tract infection, site not specified ==

== ENCOUNTER 2021-06-09 06:10 | Emergency (ER) | payer MEDICARE, OTHER ==
[~2021-06-09] VITALS: Ht 172.7 cm; Wt 60.0 kg
[2021-06-09] MEDS ORDERED: LIDOCAINE 2% 5ML JELLY UROJET TOP ONE (06:30)
[2021-06-09 08:14] LABS: BASO % 0.2 % (0.0-1.0); EOS # 0.2 10^3/uL (0.0-0.5); EOS % 1.7 % (0.0-3.0); HEMATOCRIT 34.2 % (42.0-52.0); HEMOGLOBIN 11.7 g/dl (13.5-17.5); LYMPH # 0.6 10^3/uL (1.5-5.0); LYMPH % 5.7 % (24.0-44.0); MEAN CORPUSCULAR HEMOGLOBIN 32.5 pg (27.0-33.0); MEAN CORPUSCULAR HGB CONC 34.2 g/dl (32.0-36.5); MONO # 0.6 10^3/uL (0.0-0.8); MONO % 6.3 % (2.0-8.0); NEUTROPHILS # 8.4 10^3/uL (1.5-8.5); NEUTROPHILS % 85.6 % (36.0-66.0); PLATELET COUNT, AUTOMATED 215 10^3/uL (150-450); WHITE BLOOD COUNT 9.9 10^3/uL (4.0-10.0)
[2021-06-09] MEDS ORDERED: NS 500 ML IV ONE (08:15)
[2021-06-09 08:53] LABS: ALBUMIN 3.5 GM/DL (3.2-5.2); BILIRUBIN,DIRECT 0.2 MG/DL (0.0-0.2); BILIRUBIN,TOTAL 0.6 MG/DL (0.2-1.0); CK-MB VALUE MASS 3.4 NG/ML (<3.6); MB/CK RELATIVE INDEX 5.57 (< OR =4); TOTAL PROTEIN 6.6 GM/DL (6.4-8.2)
[2021-06-09 09:41] LABS: CK-MB VALUE MASS 3.7 NG/ML (<3.6); MB/CK RELATIVE INDEX 5.97 (< OR =4)
[2021-06-09 12:00] VITALS: BP 128/89
== END 2021-06-09 12:58 | disposition home or self-care (01) ==
LOC: M ED 06:10
DX: R33.9 Retention of urine, unspecified (principal); N39.0 Urinary tract infection, site not specified; D64.9 Anemia, unspecified; Z96.0 Presence of urogenital implants; E11.9 Type 2 diabetes mellitus without complications; I10 Essential (primary) hypertension; E78.5 Hyperlipidemia, unspecified; I48.91 Unspecified atrial fibrillation; M19.90 Unspecified osteoarthritis, unspecified site; Z79.899 Other long term (current) drug therapy; Z79.84 Long term (current) use of oral hypoglycemic drugs; Z79.82 Long term (current) use of aspirin; Z88.2 Allergy status to sulfonamides; Z88.5 Allergy status to narcotic agent; Z88.8 Allergy status to other drugs, medicaments and biological substances

== ENCOUNTER → 2021-07-29 | Outpatient (REF) | payer MEDICARE, OTHER | LOC: M SFHCCLAY 11:57 | PROVIDERS: ATTEND Nurse Practitioner Family | DX: N39.0 Urinary tract infection, site not specified (principal) ==

== ENCOUNTER → 2021-08-17 | Outpatient (CLI) | payer MEDICARE, OTHER | LOC: M CARPUL 09:55 | PROVIDERS: ATTEND Nurse Practitioner Family | DX: R00.1 Bradycardia, unspecified (principal); R01.2 Other cardiac sounds ==

== ENCOUNTER → 2021-11-07 | Outpatient (REF) | payer MEDICARE, OTHER ==
[2021-11-07 16:19] LABS: APPEARANCE, URINE MANUAL TURBID (CLEAR); BILIRUBIN, URINE MANUAL NEGATIVE (NEGATIVE); BLOOD URINE MANUAL POSITIVE (NEGATIVE); COLOR, URINE MANUAL YELLOW (YELLOW); GLUCOSE, URINE (UA) MANUAL NEGATIVE (NEGATIVE); KETONE, URINE MANUAL NEGATIVE (NEGATIVE); LEUKOCYTE ESTERASE, URINE MAN POSITIVE (NEGATIVE); NITRITE, URINE MANUAL POSITIVE (NEGATIVE); UROBILINOGEN, URINE MANUAL NORMAL (NORMAL)
[2021-11-07 16:20] LABS: PROTEIN, URINE MANUAL TRACE mg/dL (NEGATIVE)
[2021-11-07 17:17] LABS: AMORPHOUS SEDIMENT, URINE SMALL AMOUNT (NEGATIVE); BACTERIA, URINE LARGE AMOUNT; HYALINE CAST, URINE NONE SEEN /lpf (0-1); SQUAMOUS EPITHELIAL CELL URINE NONE SEEN /hpf (SMALL AMT); TRIPLE PHOSPHATE CRYSTAL,URINE LARGE AMOUNT /hpf
== END ==
LOC: M SMT 15:02
PROVIDERS: ATTEND Physician Assistant
DX: R82.90 Unspecified abnormal findings in urine (principal)

== ENCOUNTER → 2021-11-22 | Outpatient (REF) | payer MEDICARE, OTHER ==
[~2021-11-22] MED LIST changes: +LEVO1TAB38 PO; +PROTPAK PO
[2021-11-22 17:24] LABS: HEMATOCRIT 28.4 % (42.0-52.0); HEMOGLOBIN 9.5 g/dl (13.5-17.5); MEAN CORPUSCULAR HEMOGLOBIN 32.1 pg (27.0-33.0); MEAN CORPUSCULAR HGB CONC 33.5 g/dl (32.0-36.5); MEAN CORPUSCULAR VOLUME 95.9 fl (80.0-96.0); PLATELET COUNT, AUTOMATED 228 10^3/uL (150-450); RED BLOOD COUNT 2.96 10^6/uL (4.30-6.10); WHITE BLOOD COUNT 4.6 10^3/uL (4.0-10.0)
[2021-11-22 17:32] LABS: BLOOD UREA NITROGEN 14 MG/DL (7-18); CALCIUM LEVEL 8.1 MG/DL (8.8-10.2); CARBON DIOXIDE LEVEL 26 MEQ/L (21-32); CHLORIDE LEVEL 101 MEQ/L (98-107); CREATININE FOR GFR 0.55 MG/DL (0.70-1.30); GLOMERULAR FILTRATION RATE > 60.0 (>35); GLUCOSE, FASTING 216 MG/DL (70-100); POTASSIUM SERUM 4.6 MEQ/L (3.5-5.1); SODIUM LEVEL 133 MEQ/L (136-145)
[2021-11-22 18:43] LABS: C REACTIVE PROTEIN QUANTITATIV < 0.30 MG/DL (0.00-0.30)
[2021-11-22 20:40] LABS: APPEARANCE, URINE MANUAL HAZY (CLEAR); COLOR, URINE MANUAL YELLOW (YELLOW)
[2021-11-22 20:41] LABS: BILIRUBIN, URINE MANUAL NEGATIVE (NEGATIVE); BLOOD URINE MANUAL POSITIVE (NEGATIVE); GLUCOSE, URINE (UA) MANUAL NEGATIVE (NEGATIVE); KETONE, URINE MANUAL NEGATIVE (NEGATIVE); LEUKOCYTE ESTERASE, URINE MAN POSITIVE (NEGATIVE); NITRITE, URINE MANUAL POSITIVE (NEGATIVE); PROTEIN, URINE MANUAL NEGATIVE (NEGATIVE); SPECIFIC GRAVITY,URINE MANUAL 1.025 (1.002-1.035); UROBILINOGEN, URINE MANUAL NORMAL (NORMAL)
[2021-11-22 21:26] LABS: BACTERIA, URINE LARGE AMOUNT; HYALINE CAST, URINE NONE SEEN /lpf (0-1); MUCUS, URINE SMALL AMOUNT (NEGATIVE); SQUAMOUS EPITHELIAL CELL URINE SMALL AMOUNT /hpf (SMALL AMT); WBC, URINE TNTC /hpf (0-3)
== END ==
PROVIDERS: ATTEND Internal Medicine
DX: R68.89 Other general symptoms and signs (principal)

== ENCOUNTER → 2021-11-23 | Outpatient (REF) ==
[2021-11-23 12:05] LABS: HEMATOCRIT 30.5 % (42.0-52.0); HEMOGLOBIN 9.9 g/dl (13.5-17.5); MEAN CORPUSCULAR HEMOGLOBIN 32.2 pg (27.0-33.0); MEAN CORPUSCULAR HGB CONC 32.5 g/dl (32.0-36.5); MEAN CORPUSCULAR VOLUME 99.3 fl (80.0-96.0); PLATELET COUNT, AUTOMATED 228 10^3/uL (150-450); RED BLOOD COUNT 3.07 10^6/uL (4.30-6.10); WHITE BLOOD COUNT 4.4 10^3/uL (4.0-10.0)
[2021-11-23 12:47] LABS: BLOOD UREA NITROGEN 12 MG/DL (7-18); CALCIUM LEVEL 8.4 MG/DL (8.8-10.2); CARBON DIOXIDE LEVEL 30 MEQ/L (21-32); CHLORIDE LEVEL 101 MEQ/L (98-107); CREATININE FOR GFR 0.56 MG/DL (0.70-1.30); GLOMERULAR FILTRATION RATE > 60.0 (>35); GLUCOSE, FASTING 219 MG/DL (70-100); POTASSIUM SERUM 4.2 MEQ/L (3.5-5.1); SODIUM LEVEL 134 MEQ/L (136-145)
== END ==
PROVIDERS: ATTEND Internal Medicine
DX: K92.2 Gastrointestinal hemorrhage, unspecified (principal)

== ENCOUNTER → 2021-11-30 | Outpatient (REF) ==
[2021-11-30 11:53] LABS: HEMATOCRIT 29.8 % (42.0-52.0); MEAN CORPUSCULAR HEMOGLOBIN 31.6 pg (27.0-33.0); MEAN CORPUSCULAR HGB CONC 33.6 g/dl (32.0-36.5); MEAN CORPUSCULAR VOLUME 94.3 fl (80.0-96.0); PLATELET COUNT, AUTOMATED 268 10^3/uL (150-450); RED BLOOD COUNT 3.16 10^6/uL (4.30-6.10); WHITE BLOOD COUNT 4.3 10^3/uL (4.0-10.0)
[2021-11-30 12:35] LABS: BLOOD UREA NITROGEN 8 MG/DL (7-18); CREATININE FOR GFR 0.46 MG/DL (0.70-1.30); GLUCOSE, FASTING 113 MG/DL (70-100)
[2021-11-30 12:36] LABS: CALCIUM LEVEL 8.8 MG/DL (8.8-10.2); CARBON DIOXIDE LEVEL 28 MEQ/L (21-32); CHLORIDE LEVEL 94 MEQ/L (98-107); GLOMERULAR FILTRATION RATE > 60.0 (>35); POTASSIUM SERUM 4.4 MEQ/L (3.5-5.1); SODIUM LEVEL 126 MEQ/L (136-145)
== END ==
PROVIDERS: ATTEND Internal Medicine
DX: K92.2 Gastrointestinal hemorrhage, unspecified (principal)

== ENCOUNTER → 2021-12-05 | Outpatient (REF) | payer MEDICARE, OTHER ==
[2021-12-05 15:56] LABS: HEMOGLOBIN 9.8 g/dl (13.5-17.5); MEAN CORPUSCULAR HEMOGLOBIN 30.5 pg (27.0-33.0); MEAN CORPUSCULAR HGB CONC 32.7 g/dl (32.0-36.5); MEAN CORPUSCULAR VOLUME 93.5 fl (80.0-96.0); PLATELET COUNT, AUTOMATED 237 10^3/uL (150-450); RED BLOOD COUNT 3.21 10^6/uL (4.30-6.10); WHITE BLOOD COUNT 3.9 10^3/uL (4.0-10.0)
[2021-12-05 16:31] LABS: BLOOD UREA NITROGEN 10 MG/DL (7-18); CALCIUM LEVEL 8.3 MG/DL (8.8-10.2); CARBON DIOXIDE LEVEL 25 MEQ/L (21-32); CHLORIDE LEVEL 93 MEQ/L (98-107); CREATININE FOR GFR 0.47 MG/DL (0.70-1.30); GLOMERULAR FILTRATION RATE > 60.0 (>35); GLUCOSE, FASTING 175 MG/DL (70-100); SODIUM LEVEL 124 MEQ/L (136-145)
== END ==
PROVIDERS: ATTEND Physician Assistant
DX: R11.0 Nausea (principal)

== ENCOUNTER → 2021-12-06 | Outpatient (REF) | PROVIDERS: ATTEND Internal Medicine | DX: R11.0 Nausea (principal); M41.9 Scoliosis, unspecified ==

== ENCOUNTER → 2021-12-07 | Outpatient (REF) ==
[2021-12-07 11:42] LABS: HEMATOCRIT 31.6 % (42.0-52.0); HEMOGLOBIN 10.3 g/dl (13.5-17.5); MEAN CORPUSCULAR HEMOGLOBIN 30.7 pg (27.0-33.0); MEAN CORPUSCULAR HGB CONC 32.6 g/dl (32.0-36.5); MEAN CORPUSCULAR VOLUME 94.3 fl (80.0-96.0); PLATELET COUNT, AUTOMATED 252 10^3/uL (150-450); RED BLOOD COUNT 3.35 10^6/uL (4.30-6.10)
[2021-12-07 12:26] LABS: BLOOD UREA NITROGEN 13 MG/DL (7-18); CALCIUM LEVEL 8.7 MG/DL (8.8-10.2); CARBON DIOXIDE LEVEL 29 MEQ/L (21-32); CHLORIDE LEVEL 93 MEQ/L (98-107); CREATININE FOR GFR 0.54 MG/DL (0.70-1.30); GLOMERULAR FILTRATION RATE > 60.0 (>35); GLUCOSE, FASTING 193 MG/DL (70-100); POTASSIUM SERUM 4.5 MEQ/L (3.5-5.1); SODIUM LEVEL 128 MEQ/L (136-145)
== END ==
PROVIDERS: ATTEND Internal Medicine
DX: K92.2 Gastrointestinal hemorrhage, unspecified (principal)

== ENCOUNTER → 2021-12-28 | Outpatient (REF) | payer MEDICARE, OTHER ==
[~2021-12-28] MED LIST changes: +CLOP75TA99 PO; -PLAV1TAB2 PO
[2021-12-28 10:12] LABS: HEMOGLOBIN 11.6 g/dl (13.5-17.5); MEAN CORPUSCULAR HEMOGLOBIN 30.4 pg (27.0-33.0); MEAN CORPUSCULAR HGB CONC 33.1 g/dl (32.0-36.5); MEAN CORPUSCULAR VOLUME 91.9 fl (80.0-96.0); PLATELET COUNT, AUTOMATED 279 10^3/uL (150-450); RED BLOOD COUNT 3.81 10^6/uL (4.30-6.10)
[2021-12-28 11:28] LABS: BLOOD UREA NITROGEN 9 MG/DL (7-18); CARBON DIOXIDE LEVEL 25 MEQ/L (21-32); CHLORIDE LEVEL 93 MEQ/L (98-107); CREATININE FOR GFR 0.43 MG/DL (0.70-1.30); GLOMERULAR FILTRATION RATE > 60.0 (>35); GLUCOSE, FASTING 168 MG/DL (70-100); POTASSIUM SERUM 4.4 MEQ/L (3.5-5.1); SODIUM LEVEL 128 MEQ/L (136-145)
== END ==
PROVIDERS: ATTEND Internal Medicine
DX: K92.2 Gastrointestinal hemorrhage, unspecified (principal)

== ENCOUNTER 2022-01-04 12:16 | Inpatient (IN) | payer MEDICARE, OTHER ==
[~2022-01-04] VITALS: Ht 175.3 cm; Wt 69.9 kg
[2022-01-04 12:52] LABS: BASO % 0.4 % (0.0-1.0); EOS # 0.2 10^3/uL (0.0-0.5); EOS % 4.2 % (0.0-3.0); HEMATOCRIT 33.7 % (42.0-52.0); HEMOGLOBIN 11.5 g/dl (13.5-17.5); LYMPH # 0.5 10^3/uL (1.5-5.0); LYMPH % 9.4 % (24.0-44.0); MEAN CORPUSCULAR HEMOGLOBIN 30.3 pg (27.0-33.0); MEAN CORPUSCULAR HGB CONC 34.1 g/dl (32.0-36.5); MEAN CORPUSCULAR VOLUME 88.7 fl (80.0-96.0); MONO # 0.6 10^3/uL (0.0-0.8); MONO % 11.4 % (2.0-8.0); NEUTROPHILS # 3.7 10^3/uL (1.5-8.5); NEUTROPHILS % 73.8 % (36.0-66.0); PLATELET COUNT, AUTOMATED 260 10^3/uL (150-450)
[2022-01-04 13:28] LABS: ALBUMIN 3.8 G/DL (3.2-5.2); ALT/SGPT 20 U/L (7.0-40); BILIRUBIN,DIRECT 0.2 MG/DL (<0.4); BILIRUBIN,TOTAL 0.7 MG/DL (0.3-1.2); BLOOD UREA NITROGEN 9 MG/DL (9-23); CALCIUM LEVEL 8.5 MG/DL (8.3-10.6); CARBON DIOXIDE LEVEL 25 MMOL/L (20-31); CHLORIDE LEVEL 86 MMOL/L (98-107); CREATININE FOR GFR 0.37 MG/DL (0.70-1.30); GLOMERULAR FILTRATION RATE > 60.0 (>35); GLUCOSE, FASTING 132 MG/DL (74-106); POTASSIUM SERUM 5.4 MMOL/L (3.5-5.1); SODIUM LEVEL 119 MMOL/L (136-145); THYROID STIMULATING HORMONE 2.778 uIU/ML (0.55-4.78); TOTAL PROTEIN 6.6 G/DL (5.7-8.2)
[2022-01-04] MEDS ORDERED: ACETAMINOPHEN TAB 650MG DOSE (2X325MG) PO ONE (13:30)
[2022-01-04] MEDS ORDERED: NS 1,000 ML IV SCH ×2 (13:35→18:00)
[2022-01-04] MEDS ORDERED: cefTRIAXone SOD 1 GM in D5W MINI-BAG PLUS 50 ML IV ONE (13:40)
[2022-01-04] MEDS ORDERED: MILKSUS3 PO (14:32)
[2022-01-04] MEDS ORDERED: GLUC1KIT IM (14:32)
[2022-01-04] MEDS ORDERED: DULC10SU2 PR (14:32)
[2022-01-04] MEDS ORDERED: FLEEENE12 PR (14:32)
[2022-01-04] MEDS ORDERED: PANT40TA29 PO (14:32)
[2022-01-04] MEDS ORDERED: SENN-23 PO (14:32)
[2022-01-04] MEDS ORDERED: ACET1TAB55 PO (14:32)
[2022-01-04] MEDS ORDERED: HOME MED LIST COMPLETE! XX SCH (14:35)
[2022-01-04] MEDS ORDERED: MIRALAX *UNIT DOSE* 17GM PACKET PO PRN (14:55)
[2022-01-04] MEDS ORDERED: GLUCAGON INJ 1MG VIAL IM PRN (14:55)
[2022-01-04] MEDS ORDERED: BISACODYL 10 MG SUPP PR PRN (14:55)
[2022-01-04] MEDS ORDERED: GLUCOSE 4GM CHEW TABLET PO PRN (14:55)
[2022-01-04] MEDS ORDERED: DEXTROSE 50% 50 ML SYRINGE IV PRN (14:55)
[2022-01-04] MEDS ORDERED: GLUCAGON INJ 1MG VIAL SC PRN (14:55)
[2022-01-04] MEDS ORDERED: HumuLIN R (REGULAR) INSULIN (NovoLIN R) **100U/ML** PER UNIT IV STA (14:58)
[2022-01-04] MEDS ORDERED: DEXTROSE 50% 50 ML SYRINGE IV STA (14:58)
[2022-01-04] MEDS ORDERED: CALCIUM GLUCONATE 1,000 MG in D5W MINI-BAG PLUS 100 ML IV ONE (15:00)
[2022-01-04 17:45] LABS: BLOOD UREA NITROGEN 9 MG/DL (9-23); CALCIUM LEVEL 9.3 MG/DL (8.3-10.6); CARBON DIOXIDE LEVEL 26 MMOL/L (20-31); CHLORIDE LEVEL 87 MMOL/L (98-107); CREATININE FOR GFR 0.33 MG/DL (0.70-1.30); GLOMERULAR FILTRATION RATE > 60.0 (>35); GLUCOSE, FASTING 64 MG/DL (74-106); MAGNESIUM LEVEL 1.6 MG/DL (1.8-2.4); POTASSIUM SERUM 4.3 MMOL/L (3.5-5.1); SODIUM LEVEL 120 MMOL/L (136-145)
[2022-01-04] MEDS: MAG SULF 1GM/100ML (MAG RUN) 1 GM in IV 1 EA IV SCH ×2 (19:00→19:44)
[2022-01-04 19:02] LABS: CREATININE,RANDOM URINE 36.3 MG/DL
[2022-01-04] MEDS: INSULIN LISPRO (NovoLOG) PER UNIT SC SCH ×2 (19:43→19:45)
[2022-01-04] MEDS: D5W/0.9% SODIUM CHLORIDE 1,000 ML IV SCH (19:44)
[2022-01-04] MEDS: PIPERACILLIN/TAZOBACTAM SOD 3.375 GM in D5W MINI-BAG PLUS 50 ML IV SCH (19:44)
[2022-01-04] MEDS: SENOKOT S TAB PO SCH (19:45)
[2022-01-04] MEDS ORDERED: MAG SULF 1GM/100ML (MAG RUN) 1 GM in IV 1 EA IV ONE (23:00)
[2022-01-04 23:58] LABS: BLOOD UREA NITROGEN 7 MG/DL (9-23); CARBON DIOXIDE LEVEL 24 MMOL/L (20-31); CHLORIDE LEVEL 88 MMOL/L (98-107); CREATININE FOR GFR 0.35 MG/DL (0.70-1.30); GLOMERULAR FILTRATION RATE > 60.0 (>35); GLUCOSE, FASTING 123 MG/DL (74-106); POTASSIUM SERUM 4.2 MMOL/L (3.5-5.1); SODIUM LEVEL 119 MMOL/L (136-145)
[2022-01-05] MEDS: PIPERACILLIN/TAZOBACTAM SOD 3.375 GM in D5W MINI-BAG PLUS 50 ML IV SCH ×4 (01:02→18:03)
[2022-01-05 02:20] VITALS: BP 137/63
[2022-01-05 05:40] LABS: HEMATOCRIT 32.6 % (42.0-52.0); MEAN CORPUSCULAR HEMOGLOBIN 30.1 pg (27.0-33.0); MEAN CORPUSCULAR HGB CONC 33.7 g/dl (32.0-36.5); MEAN CORPUSCULAR VOLUME 89.1 fl (80.0-96.0); PLATELET COUNT, AUTOMATED 256 10^3/uL (150-450); RED BLOOD COUNT 3.66 10^6/uL (4.30-6.10); WHITE BLOOD COUNT 4.9 10^3/uL (4.0-10.0)
[2022-01-05 05:50] LABS: OSMOLALITY URINE 274 MOSM/KG (50-1400)
[2022-01-05 06:56] LABS: SODIUM,RANDOM URINE 57 MMOL/L
[2022-01-05 07:06] LABS: BLOOD UREA NITROGEN 7 MG/DL (9-23); CALCIUM LEVEL 8.9 MG/DL (8.3-10.6); CARBON DIOXIDE LEVEL 25 MMOL/L (20-31); CHLORIDE LEVEL 90 MMOL/L (98-107); CREATININE FOR GFR 0.39 MG/DL (0.70-1.30); GLOMERULAR FILTRATION RATE > 60.0 (>35); GLUCOSE, FASTING 139 MG/DL (74-106); PHOSPHORUS LEVEL 3.4 MG/DL (2.4-5.1); POTASSIUM SERUM 4.5 MMOL/L (3.5-5.1); SODIUM LEVEL 121 MMOL/L (136-145)
[2022-01-05] MEDS: INSULIN LISPRO (NovoLOG) PER UNIT SC SCH ×4 (07:30→20:26)
[2022-01-05 08:00] VITALS: BP 164/62
[2022-01-05] MEDS: D5W/0.9% SODIUM CHLORIDE 1,000 ML IV SCH (08:02)
[2022-01-05] MEDS: SENOKOT S TAB PO SCH ×2 (09:37→20:35)
[2022-01-05] MEDS: PANTOPRAZOLE 40MG TAB (PROTONIX) PO SCH (09:38)
[2022-01-05] MEDS: MULTIVITAMINS/MINERALS THERAP 1 TAB PO SCH (09:38)
[2022-01-05] MEDS: FERROUS GLUCONATE 324 MG TAB PO SCH (09:38)
[2022-01-05] MEDS: SODIUM CHLORIDE 3% 500 ML IV SCH (11:00)
[2022-01-05 11:42] LABS: BLOOD UREA NITROGEN 6 MG/DL (9-23); CALCIUM LEVEL 7.9 MG/DL (8.3-10.6); CARBON DIOXIDE LEVEL 25 MMOL/L (20-31); CHLORIDE LEVEL 88 MMOL/L (98-107); CREATININE FOR GFR 0.38 MG/DL (0.70-1.30); GLOMERULAR FILTRATION RATE > 60.0 (>35); GLUCOSE, FASTING 167 MG/DL (74-106); POTASSIUM SERUM 4.6 MMOL/L (3.5-5.1); SODIUM LEVEL 122 MMOL/L (136-145)
[2022-01-05 12:00] VITALS: BP 137/86
[2022-01-05 15:59] VITALS: BP 158/64
[2022-01-05] MEDS: HEPARIN SOD (PORCINE) 5000UNITS/ML 1ML VIAL/SYRINGE SQ SCH (16:53)
[2022-01-05 16:57] LABS: BLOOD UREA NITROGEN 8 MG/DL (9-23); CALCIUM LEVEL 8.1 MG/DL (8.3-10.6); CARBON DIOXIDE LEVEL 25 MMOL/L (20-31); CHLORIDE LEVEL 91 MMOL/L (98-107); CREATININE FOR GFR 0.45 MG/DL (0.70-1.30); GLOMERULAR FILTRATION RATE > 60.0 (>35); GLUCOSE, FASTING 164 MG/DL (74-106); POTASSIUM SERUM 4.4 MMOL/L (3.5-5.1); SODIUM LEVEL 125 MMOL/L (136-145)
[2022-01-05 20:00] VITALS: BP 131/88
[2022-01-05 22:42] LABS: BLOOD UREA NITROGEN 8 MG/DL (9-23); CARBON DIOXIDE LEVEL 26 MMOL/L (20-31); CHLORIDE LEVEL 95 MMOL/L (98-107); GLOMERULAR FILTRATION RATE > 60.0 (>35); GLUCOSE, FASTING 102 MG/DL (74-106); POTASSIUM SERUM 4.3 MMOL/L (3.5-5.1); SODIUM LEVEL 127 MMOL/L (136-145)
[2022-01-06] VITALS: BP 159/82
[2022-01-06] MEDS: HEPARIN SOD (PORCINE) 5000UNITS/ML 1ML VIAL/SYRINGE SQ SCH ×3 (01:12→17:25)
[2022-01-06] MEDS: PIPERACILLIN/TAZOBACTAM SOD 3.375 GM in D5W MINI-BAG PLUS 50 ML IV SCH ×4 (01:13→17:37)
[2022-01-06] MEDS ORDERED: OLANZapine 5 MG TAB PO ONE (03:00)
[2022-01-06 04:00] VITALS: BP 121/84
[2022-01-06 05:28] LABS: HEMATOCRIT 33.7 % (42.0-52.0); HEMOGLOBIN 11.5 g/dl (13.5-17.5); MEAN CORPUSCULAR HEMOGLOBIN 30.5 pg (27.0-33.0); MEAN CORPUSCULAR HGB CONC 34.1 g/dl (32.0-36.5); MEAN CORPUSCULAR VOLUME 89.4 fl (80.0-96.0); PLATELET COUNT, AUTOMATED 265 10^3/uL (150-450); RED BLOOD COUNT 3.77 10^6/uL (4.30-6.10); WHITE BLOOD COUNT 5.4 10^3/uL (4.0-10.0)
[2022-01-06] MEDS: SODIUM CHLORIDE 3% 500 ML IV SCH (05:47)
[2022-01-06 07:42] LABS: BLOOD UREA NITROGEN 6 MG/DL (9-23); CALCIUM LEVEL 8.3 MG/DL (8.3-10.6); CARBON DIOXIDE LEVEL 22 MMOL/L (20-31); CHLORIDE LEVEL 95 MMOL/L (98-107); CREATININE FOR GFR 0.35 MG/DL (0.70-1.30); GLOMERULAR FILTRATION RATE > 60.0 (>35); GLUCOSE, FASTING 132 MG/DL (74-106); POTASSIUM SERUM 4.5 MMOL/L (3.5-5.1); SODIUM LEVEL 128 MMOL/L (136-145)
[2022-01-06 08:05] VITALS: BP 136/65
[2022-01-06] MEDS: INSULIN LISPRO (NovoLOG) PER UNIT SC SCH ×4 (08:50→20:39)
[2022-01-06] MEDS: SENOKOT S TAB PO SCH ×2 (08:51→20:39)
[2022-01-06] MEDS: MULTIVITAMINS/MINERALS THERAP 1 TAB PO SCH (08:51)
[2022-01-06] MEDS: FERROUS GLUCONATE 324 MG TAB PO SCH (08:51)
[2022-01-06] MEDS: PANTOPRAZOLE 40MG TAB (PROTONIX) PO SCH (08:51)
[2022-01-06 08:54] LABS: BLOOD UREA NITROGEN 6 MG/DL (9-23); CALCIUM LEVEL 8.4 MG/DL (8.3-10.6); CARBON DIOXIDE LEVEL 24 MMOL/L (20-31); CHLORIDE LEVEL 97 MMOL/L (98-107); CREATININE FOR GFR 0.34 MG/DL (0.70-1.30); GLOMERULAR FILTRATION RATE > 60.0 (>35); GLUCOSE, FASTING 138 MG/DL (74-106); SODIUM LEVEL 131 MMOL/L (136-145)
[2022-01-06] MEDS ORDERED: D5W 1000ML IV ONE (09:20)
[2022-01-06 12:10] VITALS: BP 130/65
[2022-01-06 12:44] LABS: ALBUMIN 3.7 G/DL (3.2-5.2); BLOOD UREA NITROGEN 6 MG/DL (9-23); CALCIUM LEVEL 9.2 MG/DL (8.3-10.6); CARBON DIOXIDE LEVEL 28 MMOL/L (20-31); CHLORIDE LEVEL 95 MMOL/L (98-107); CREATININE FOR GFR 0.42 MG/DL (0.70-1.30); GLOMERULAR FILTRATION RATE > 60.0 (>35); GLUCOSE, FASTING 118 MG/DL (74-106); PHOSPHORUS LEVEL 2.8 MG/DL (2.4-5.1); SODIUM LEVEL 131 MMOL/L (136-145)
[2022-01-06 16:18] VITALS: BP 107/58
[2022-01-06 19:11] LABS: ALBUMIN 3.7 G/DL (3.2-5.2); BLOOD UREA NITROGEN 7 MG/DL (9-23); CALCIUM LEVEL 8.6 MG/DL (8.3-10.6); CARBON DIOXIDE LEVEL 25 MMOL/L (20-31); CHLORIDE LEVEL 95 MMOL/L (98-107); CREATININE FOR GFR 0.39 MG/DL (0.70-1.30); GLOMERULAR FILTRATION RATE > 60.0 (>35); GLUCOSE, FASTING 180 MG/DL (74-106); PHOSPHORUS LEVEL 3.3 MG/DL (2.4-5.1); SODIUM LEVEL 128 MMOL/L (136-145)
[2022-01-06 19:50] VITALS: BP 112/64
[2022-01-06] MEDS ORDERED: RAMELTEON 8 MG TAB (ROZEREM) PO ONE (20:55)
[2022-01-06] MEDS: ACETAMINOPHEN TAB 650MG DOSE (2X325MG) PO PRN (21:02)
[2022-01-07] VITALS: BP 109/57
[2022-01-07] MEDS: PIPERACILLIN/TAZOBACTAM SOD 3.375 GM in D5W MINI-BAG PLUS 50 ML IV SCH ×5 (00:46→23:51)
[2022-01-07] MEDS: HEPARIN SOD (PORCINE) 5000UNITS/ML 1ML VIAL/SYRINGE SQ SCH ×4 (00:47→23:52)
[2022-01-07 00:56] LABS: ALBUMIN 3.5 G/DL (3.2-5.2); BLOOD UREA NITROGEN 9 MG/DL (9-23); CALCIUM LEVEL 8.7 MG/DL (8.3-10.6); CARBON DIOXIDE LEVEL 26 MMOL/L (20-31); CHLORIDE LEVEL 95 MMOL/L (98-107); CREATININE FOR GFR 0.42 MG/DL (0.70-1.30); GLOMERULAR FILTRATION RATE > 60.0 (>35); GLUCOSE, FASTING 181 MG/DL (74-106); PHOSPHORUS LEVEL 4.1 MG/DL (2.4-5.1); POTASSIUM SERUM 4.3 MMOL/L (3.5-5.1); SODIUM LEVEL 128 MMOL/L (136-145)
[2022-01-07 04:00] VITALS: BP 126/60
[2022-01-07 06:20] LABS: ALBUMIN 3.4 G/DL (3.2-5.2); BLOOD UREA NITROGEN 10 MG/DL (9-23); CALCIUM LEVEL 8.9 MG/DL (8.3-10.6); CARBON DIOXIDE LEVEL 27 MMOL/L (20-31); CHLORIDE LEVEL 97 MMOL/L (98-107); CREATININE FOR GFR 0.41 MG/DL (0.70-1.30); GLOMERULAR FILTRATION RATE > 60.0 (>35); GLUCOSE, FASTING 133 MG/DL (74-106); MAGNESIUM LEVEL 1.8 MG/DL (1.8-2.4); PHOSPHORUS LEVEL 3.8 MG/DL (2.4-5.1); POTASSIUM SERUM 4.3 MMOL/L (3.5-5.1); SODIUM LEVEL 131 MMOL/L (136-145)
[2022-01-07 08:25] VITALS: BP 130/62
[2022-01-07] MEDS: MULTIVITAMINS/MINERALS THERAP 1 TAB PO SCH (09:41)
[2022-01-07] MEDS: FERROUS GLUCONATE 324 MG TAB PO SCH (09:41)
[2022-01-07] MEDS: PANTOPRAZOLE 40MG TAB (PROTONIX) PO SCH (09:41)
[2022-01-07] MEDS: SENOKOT S TAB PO SCH ×2 (09:41→20:26)
[2022-01-07] MEDS: INSULIN LISPRO (NovoLOG) PER UNIT SC SCH ×4 (09:41→20:26)
[2022-01-07 12:00] VITALS: BP 123/69
[2022-01-07] MEDS ORDERED: FOSFOMYCIN TROMETHAMINE 3 GM POWDER PACKET (MONUROL) PO ONE (12:00)
[2022-01-07 13:07] LABS: ALBUMIN 3.5 G/DL (3.2-5.2); BLOOD UREA NITROGEN 9 MG/DL (9-23); CALCIUM LEVEL 8.8 MG/DL (8.3-10.6); CARBON DIOXIDE LEVEL 27 MMOL/L (20-31); CHLORIDE LEVEL 96 MMOL/L (98-107); CREATININE FOR GFR 0.39 MG/DL (0.70-1.30); GLOMERULAR FILTRATION RATE > 60.0 (>35); GLUCOSE, FASTING 123 MG/DL (74-106); PHOSPHORUS LEVEL 3.9 MG/DL (2.4-5.1); POTASSIUM SERUM 4.5 MMOL/L (3.5-5.1); SODIUM LEVEL 132 MMOL/L (136-145)
[2022-01-07 15:28] VITALS: BP 98/56
[2022-01-07] MEDS: ASPIRIN 81MG ENTERIC TABLET PO SCH (16:48)
[2022-01-07 19:14] LABS: ALBUMIN 3.8 G/DL (3.2-5.2); BLOOD UREA NITROGEN 9 MG/DL (9-23); CALCIUM LEVEL 9.1 MG/DL (8.3-10.6); CARBON DIOXIDE LEVEL 26 MMOL/L (20-31); CHLORIDE LEVEL 96 MMOL/L (98-107); CHOLESTEROL RISK RATIO 2.47 (<5); CREATININE FOR GFR 0.41 MG/DL (0.70-1.30); GLOMERULAR FILTRATION RATE > 60.0 (>35); GLUCOSE, FASTING 154 MG/DL (74-106); HDL CHOLESTEROL 73.4 MG/DL (>40); LDL CHOLESTEROL 93.8 MG/DL (<100); PHOSPHORUS LEVEL 3.7 MG/DL (2.4-5.1); POTASSIUM SERUM 4.3 MMOL/L (3.5-5.1); SODIUM LEVEL 132 MMOL/L (136-145)
[2022-01-07 19:58] LABS: HEMOGLOBIN A1c 5.8 % (4.0-6.0)
[2022-01-07 20:00] VITALS: BP 136/78
[2022-01-07] MEDS: ROSUVASTATIN 10 MG TAB (CRESTOR) PO SCH (20:26)
[2022-01-08] VITALS: BP 148/75
[2022-01-08 04:00] VITALS: BP 134/73
[2022-01-08] MEDS: PIPERACILLIN/TAZOBACTAM SOD 3.375 GM in D5W MINI-BAG PLUS 50 ML IV SCH ×3 (05:49→17:56)
[2022-01-08 06:02] LABS: BASO % 0.5 % (0.0-1.0); EOS # 0.2 10^3/uL (0.0-0.5); EOS % 5.2 % (0.0-3.0); HEMATOCRIT 33.2 % (42.0-52.0); LYMPH # 0.7 10^3/uL (1.5-5.0); LYMPH % 15.3 % (24.0-44.0); MEAN CORPUSCULAR HEMOGLOBIN 30.6 pg (27.0-33.0); MEAN CORPUSCULAR HGB CONC 33.1 g/dl (32.0-36.5); MEAN CORPUSCULAR VOLUME 92.2 fl (80.0-96.0); MONO # 0.5 10^3/uL (0.0-0.8); MONO % 10.5 % (2.0-8.0); PLATELET COUNT, AUTOMATED 254 10^3/uL (150-450); WHITE BLOOD COUNT 4.4 10^3/uL (4.0-10.0)
[2022-01-08 07:00] LABS: BLOOD UREA NITROGEN 7 MG/DL (9-23); CALCIUM LEVEL 8.6 MG/DL (8.3-10.6); CARBON DIOXIDE LEVEL 26 MMOL/L (20-31); CHLORIDE LEVEL 97 MMOL/L (98-107); CREATININE FOR GFR 0.44 MG/DL (0.70-1.30); GLOMERULAR FILTRATION RATE > 60.0 (>35); GLUCOSE, FASTING 118 MG/DL (74-106); MAGNESIUM LEVEL 1.7 MG/DL (1.8-2.4); PHOSPHORUS LEVEL 3.7 MG/DL (2.4-5.1); POTASSIUM SERUM 4.1 MMOL/L (3.5-5.1); SODIUM LEVEL 132 MMOL/L (136-145)
[2022-01-08 07:25] VITALS: BP 128/70
[2022-01-08] MEDS ORDERED: MAGNESIUM OXIDE 400MG TAB (MAG-OX) PO ONE (07:40)
[2022-01-08] MEDS: HEPARIN SOD (PORCINE) 5000UNITS/ML 1ML VIAL/SYRINGE SQ SCH ×2 (08:46→17:54)
[2022-01-08] MEDS: FERROUS GLUCONATE 324 MG TAB PO SCH (08:46)
[2022-01-08] MEDS: ASPIRIN 81MG ENTERIC TABLET PO SCH (08:46)
[2022-01-08] MEDS: INSULIN LISPRO (NovoLOG) PER UNIT SC SCH ×4 (08:46→20:20)
[2022-01-08] MEDS: MULTIVITAMINS/MINERALS THERAP 1 TAB PO SCH (08:47)
[2022-01-08] MEDS: SENOKOT S TAB PO SCH ×2 (08:47→20:20)
[2022-01-08] MEDS: PANTOPRAZOLE 40MG TAB (PROTONIX) PO SCH (08:47)
[2022-01-08] MEDS: ROSUVASTATIN 10 MG TAB (CRESTOR) PO SCH (20:20)
[2022-01-09] MEDS: HEPARIN SOD (PORCINE) 5000UNITS/ML 1ML VIAL/SYRINGE SQ SCH ×2 (01:19→08:00)
[2022-01-09] MEDS: ACETAMINOPHEN TAB 650MG DOSE (2X325MG) PO PRN (02:38)
[2022-01-09 08:25] VITALS: BP 116/60
[2022-01-09] MEDS ORDERED: MONU5.636 PO (08:51)
[2022-01-09] MEDS ORDERED: CRES10TA PO (08:51)
[2022-01-09] MEDS ORDERED: ASPI81TAEC PO (08:51)
[2022-01-09] MEDS: INSULIN LISPRO (NovoLOG) PER UNIT SC SCH (09:21)
[2022-01-09] MEDS: MULTIVITAMINS/MINERALS THERAP 1 TAB PO SCH (09:22)
[2022-01-09] MEDS: FERROUS GLUCONATE 324 MG TAB PO SCH (09:22)
[2022-01-09] MEDS: SENOKOT S TAB PO SCH (09:22)
[2022-01-09] MEDS: ASPIRIN 81MG ENTERIC TABLET PO SCH (09:22)
[2022-01-09] MEDS: PANTOPRAZOLE 40MG TAB (PROTONIX) PO SCH (09:22)
[2022-01-09] MEDS ORDERED: FOSFOMYCIN TROMETHAMINE 3 GM POWDER PACKET (MONUROL) PO SCH (17:00)
== END 2022-01-09 09:38 | DRG 698 ==
LOC: M ED 12:16 → EDBD 12:16 → M ED INP 14:49 → ENRESERV 01-05 01:21 → M PCU 01-05 02:51
PROVIDERS: ADMIT Internal Medicine; ATTEND Internal Medicine
PROC: B246ZZZ Ultrasonography of Right and Left Heart (ICD-10-PCS; principal; 2022-01-07)
DX: T83.518A Infection and inflammatory reaction due to other urinary catheter, initial encounter (principal); G93.41 Metabolic encephalopathy; I63.81 Other cerebral infarction due to occlusion or stenosis of small artery; N39.0 Urinary tract infection, site not specified; E22.2 Syndrome of inappropriate secretion of antidiuretic hormone; Z66 Do not resuscitate; I48.0 Paroxysmal atrial fibrillation; H91.90 Unspecified hearing loss, unspecified ear; J45.909 Unspecified asthma, uncomplicated; E11.9 Type 2 diabetes mellitus without complications; K21.9 Gastro-esophageal reflux disease without esophagitis; M19.90 Unspecified osteoarthritis, unspecified site; E78.5 Hyperlipidemia, unspecified; M47.892 Other spondylosis, cervical region; E87.5 Hyperkalemia; D64.9 Anemia, unspecified; Z20.822 Contact with and (suspected) exposure to COVID-19; Z79.82 Long term (current) use of aspirin; Z79.84 Long term (current) use of oral hypoglycemic drugs; Z79.899 Other long term (current) drug therapy; Z88.2 Allergy status to sulfonamides; Z88.5 Allergy status to narcotic agent; Z88.8 Allergy status to other drugs, medicaments and biological substances; F03.90 Unspecified dementia, unspecified severity, without behavioral disturbance, psychotic disturbance, mood disturbance, and anxiety

== ENCOUNTER → 2022-01-11 | Outpatient (REF) ==
[~2022-01-11] MED LIST changes: +ACET1TAB55 PO; +ASPI81TAEC PO; +CRES10TA PO; +DULC10SU2 PR; +FLEEENE12 PR; +GLUC1KIT IM; +MILKSUS3 PO; +MONU5.636 PO; +PANT40TA29 PO; +SENN-23 PO
[2022-01-11 10:36] LABS: HEMATOCRIT 34.2 % (42.0-52.0); HEMOGLOBIN 11.2 g/dl (13.5-17.5); MEAN CORPUSCULAR HEMOGLOBIN 30.5 pg (27.0-33.0); MEAN CORPUSCULAR HGB CONC 32.7 g/dl (32.0-36.5); MEAN CORPUSCULAR VOLUME 93.2 fl (80.0-96.0); PLATELET COUNT, AUTOMATED 245 10^3/uL (150-450); RED BLOOD COUNT 3.67 10^6/uL (4.30-6.10); WHITE BLOOD COUNT 7.3 10^3/uL (4.0-10.0)
[2022-01-11 11:30] LABS: BLOOD UREA NITROGEN 10 MG/DL (9-23); CALCIUM LEVEL 8.5 MG/DL (8.3-10.6); CARBON DIOXIDE LEVEL 25 MMOL/L (20-31); CHLORIDE LEVEL 92 MMOL/L (98-107); CREATININE FOR GFR 0.36 MG/DL (0.70-1.30); GLOMERULAR FILTRATION RATE > 60.0 (>35); GLUCOSE, FASTING 253 MG/DL (74-106); POTASSIUM SERUM 4.4 MMOL/L (3.5-5.1); SODIUM LEVEL 128 MMOL/L (136-145)
== END ==
PROVIDERS: ATTEND Physician Assistant
DX: I10 Essential (primary) hypertension (principal)

== ENCOUNTER → 2022-01-16 | Outpatient (REF) ==
[2022-01-16 10:31] LABS: HEMATOCRIT 34.8 % (42.0-52.0); HEMOGLOBIN 11.3 g/dl (13.5-17.5); MEAN CORPUSCULAR HEMOGLOBIN 30.2 pg (27.0-33.0); MEAN CORPUSCULAR HGB CONC 32.5 g/dl (32.0-36.5); PLATELET COUNT, AUTOMATED 265 10^3/uL (150-450); RED BLOOD COUNT 3.74 10^6/uL (4.30-6.10)
[2022-01-16 11:09] LABS: CHLORIDE LEVEL 90 MMOL/L (98-107); POTASSIUM SERUM 4.5 MMOL/L (3.5-5.1); SODIUM LEVEL 126 MMOL/L (136-145)
[2022-01-16 11:10] LABS: CARBON DIOXIDE LEVEL 25 MMOL/L (20-31)
[2022-01-16 11:15] LABS: BLOOD UREA NITROGEN 10 MG/DL (9-23); CALCIUM LEVEL 8.6 MG/DL (8.3-10.6); GLUCOSE, FASTING 224 MG/DL (74-106)
[2022-01-16 11:17] LABS: CREATININE FOR GFR 0.42 MG/DL (0.70-1.30); GLOMERULAR FILTRATION RATE > 60.0 (>35)
== END ==
PROVIDERS: ATTEND Physician Assistant
DX: I10 Essential (primary) hypertension (principal)

== ENCOUNTER → 2022-01-30 | Outpatient (REF) ==
[2022-01-30 10:44] LABS: HEMATOCRIT 36.5 % (42.0-52.0); HEMOGLOBIN 12.2 g/dl (13.5-17.5); MEAN CORPUSCULAR HEMOGLOBIN 30.6 pg (27.0-33.0); MEAN CORPUSCULAR HGB CONC 33.4 g/dl (32.0-36.5); MEAN CORPUSCULAR VOLUME 91.5 fl (80.0-96.0); PLATELET COUNT, AUTOMATED 252 10^3/uL (150-450); RED BLOOD COUNT 3.99 10^6/uL (4.30-6.10); WHITE BLOOD COUNT 5.2 10^3/uL (4.0-10.0)
[2022-01-30 11:03] LABS: BLOOD UREA NITROGEN 11 MG/DL (9-23); CALCIUM LEVEL 8.7 MG/DL (8.3-10.6); CARBON DIOXIDE LEVEL 28 MMOL/L (20-31); CHLORIDE LEVEL 95 MMOL/L (98-107); CREATININE FOR GFR 0.39 MG/DL (0.70-1.30); GLOMERULAR FILTRATION RATE > 60.0 (>35); GLUCOSE, FASTING 145 MG/DL (74-106); POTASSIUM SERUM 4.6 MMOL/L (3.5-5.1); SODIUM LEVEL 131 MMOL/L (136-145)
== END ==
PROVIDERS: ATTEND Physician Assistant
DX: I10 Essential (primary) hypertension (principal)

== ENCOUNTER → 2022-02-01 | Outpatient (REF) ==
[2022-02-01 16:02] LABS: BLOOD UREA NITROGEN 11 MG/DL (9-23); CARBON DIOXIDE LEVEL 26 MMOL/L (20-31); CHLORIDE LEVEL 92 MMOL/L (98-107); CREATININE FOR GFR 0.38 MG/DL (0.70-1.30); GLOMERULAR FILTRATION RATE > 60.0 (>35); GLUCOSE, FASTING 184 MG/DL (74-106); POTASSIUM SERUM 4.7 MMOL/L (3.5-5.1); SODIUM LEVEL 127 MMOL/L (136-145)
== END ==
PROVIDERS: ATTEND Physician Assistant
DX: E87.1 Hypo-osmolality and hyponatremia (principal); R53.83 Other fatigue

== ENCOUNTER → 2022-02-07 | Outpatient (REF) | payer MEDICARE, OTHER ==
[2022-02-07 18:29] LABS: BLOOD UREA NITROGEN 11 MG/DL (9-23); CALCIUM LEVEL 8.3 MG/DL (8.3-10.6); CARBON DIOXIDE LEVEL 25 MMOL/L (20-31); CHLORIDE LEVEL 95 MMOL/L (98-107); GLOMERULAR FILTRATION RATE > 60.0 (>35); GLUCOSE, FASTING 154 MG/DL (74-106); POTASSIUM SERUM 4.8 MMOL/L (3.5-5.1); SODIUM LEVEL 129 MMOL/L (136-145)
== END ==
PROVIDERS: ATTEND Internal Medicine
DX: E87.1 Hypo-osmolality and hyponatremia (principal)

== ENCOUNTER → 2022-02-15 | Outpatient (REF) | payer MEDICARE, OTHER ==
[2022-02-15 10:07] LABS: HEMATOCRIT 37.3 % (42.0-52.0); HEMOGLOBIN 12.5 g/dl (13.5-17.5); MEAN CORPUSCULAR HEMOGLOBIN 30.6 pg (27.0-33.0); MEAN CORPUSCULAR HGB CONC 33.5 g/dl (32.0-36.5); MEAN CORPUSCULAR VOLUME 91.2 fl (80.0-96.0); PLATELET COUNT, AUTOMATED 252 10^3/uL (150-450); RED BLOOD COUNT 4.09 10^6/uL (4.30-6.10); WHITE BLOOD COUNT 6.7 10^3/uL (4.0-10.0)
[2022-02-15 10:28] LABS: BLOOD UREA NITROGEN 8 MG/DL (9-23); CALCIUM LEVEL 8.6 MG/DL (8.3-10.6); CARBON DIOXIDE LEVEL 28 MMOL/L (20-31); CHLORIDE LEVEL 92 MMOL/L (98-107); CREATININE FOR GFR 0.43 MG/DL (0.70-1.30); GLOMERULAR FILTRATION RATE > 60.0 (>35); GLUCOSE, FASTING 209 MG/DL (74-106); POTASSIUM SERUM 4.6 MMOL/L (3.5-5.1); SODIUM LEVEL 127 MMOL/L (136-145)
== END ==
PROVIDERS: ATTEND Physician Assistant
DX: I10 Essential (primary) hypertension (principal)

== ENCOUNTER → 2022-02-19 | Outpatient (REF) | payer MEDICARE, OTHER ==
[~2022-02-19] MED LIST changes: +LEVO1TAB40 PO; +MACR100C43 PO; +META28.32 PO; +OSEL75CA2 PO; +SODI1TAB12 PO; +[UNRECOGNIZED DRUG - CODE] TOP
== END ==
PROVIDERS: ATTEND Internal Medicine
DX: R41.0 Disorientation, unspecified (principal)

== ENCOUNTER 2022-02-21 16:09 | Inpatient (IN) | payer MEDICARE, OTHER ==
[~2022-02-21] VITALS: Ht 172.7 cm; Wt 56.5 kg
[~2022-02-21 16:09] MED LIST changes: -MACR100C43 PO; -META28.32 PO; -OSEL75CA2 PO; -SODI1TAB12 PO; -[UNRECOGNIZED DRUG - CODE] TOP
[2022-02-21] MEDS ORDERED: [UNRECOGNIZED DRUG - CODE] TOP (17:02)
[2022-02-21] MEDS ORDERED: META28.32 PO (17:02)
[2022-02-21] MEDS ORDERED: OSEL75CA2 PO (17:02)
[2022-02-21] MEDS ORDERED: MACR100C43 PO (17:04)
[2022-02-21] MEDS ORDERED: cefTRIAXone SOD 2 GM in D5W MINI-BAG PLUS 50 ML IV ONE (17:05)
[2022-02-21] MEDS ORDERED: NS 1,700 ML in IV 1 EA IV ONE (17:05)
[2022-02-21] MEDS ORDERED: SODI1TAB12 PO (17:06)
[2022-02-21] MEDS ORDERED: FLEEENE12 PR (17:08)
[2022-02-21] MEDS ORDERED: HOME MED LIST COMPLETE! XX SCH (17:10)
[2022-02-21 18:46] LABS: BASO % 0.2 % (0.0-1.0); EOS % 0.1 % (0.0-3.0); HEMATOCRIT 36.7 % (42.0-52.0); HEMOGLOBIN 12.4 g/dl (13.5-17.5); LYMPH # 0.4 10^3/uL (1.5-5.0); LYMPH % 2.8 % (24.0-44.0); MEAN CORPUSCULAR HEMOGLOBIN 30.5 pg (27.0-33.0); MEAN CORPUSCULAR HGB CONC 33.8 g/dl (32.0-36.5); MEAN CORPUSCULAR VOLUME 90.2 fl (80.0-96.0); MONO # 0.4 10^3/uL (0.0-0.8); MONO % 2.8 % (2.0-8.0); NEUTROPHILS # 13.6 10^3/uL (1.5-8.5); NEUTROPHILS % 93.7 % (36.0-66.0); PLATELET COUNT, AUTOMATED 242 10^3/uL (150-450); RED BLOOD COUNT 4.07 10^6/uL (4.30-6.10); WHITE BLOOD COUNT 14.5 10^3/uL (4.0-10.0)
[2022-02-21 19:20] LABS: BILIRUBIN,DIRECT 0.3 MG/DL (<0.4)
[2022-02-21 19:21] LABS: ALKALINE PHOSPHATASE 96 U/L (46-116); ALT/SGPT 31 U/L (7.0-40); AST/SGOT 48 U/L (<34); BILIRUBIN,TOTAL 0.6 MG/DL (0.3-1.2); BLOOD UREA NITROGEN 22 MG/DL (9-23); CALCIUM LEVEL 8.6 MG/DL (8.3-10.6); CARBON DIOXIDE LEVEL 23 MMOL/L (20-31); CHLORIDE LEVEL 95 MMOL/L (98-107); CREATININE FOR GFR 0.49 MG/DL (0.70-1.30); GLOMERULAR FILTRATION RATE > 60.0 (>35); GLUCOSE, FASTING 195 MG/DL (74-106); POTASSIUM SERUM 4.3 MMOL/L (3.5-5.1); SODIUM LEVEL 129 MMOL/L (136-145); TOTAL PROTEIN 6.5 G/DL (5.7-8.2)
[2022-02-21 19:23] LABS: THYROID STIMULATING HORMONE 1.664 uIU/ML (0.55-4.78)
[2022-02-21 19:25] LABS: OSMOLALITY SERUM 272 MOSM/KG (280-301)
[2022-02-21 19:27] LABS: OSMOLALITY URINE 620 MOSM/KG (50-1400)
[2022-02-21 19:28] LABS: RSV AMPLIFICATION NEGATIVE (NEGATIVE)
[2022-02-21 19:55] LABS: SODIUM,RANDOM URINE < 10 MMOL/L
[2022-02-21] MEDS ORDERED: ACETAMINOPHEN TAB 650MG DOSE (2X325MG) PO PRN (20:00)
[2022-02-21] MEDS ORDERED: GLUCOSE 4GM CHEW TABLET PO PRN (20:05)
[2022-02-21] MEDS ORDERED: GLUCAGON INJ 1MG VIAL SC PRN (20:05)
[2022-02-21] MEDS ORDERED: DEXTROSE 50% 50ML SYRINGE IV PRN (20:05)
[2022-02-21] MEDS: NS 1,000 ML IV SCH (20:30)
[2022-02-21] MEDS: SODIUM CHLORIDE 1 GM TAB PO SCH (20:53)
[2022-02-21] MEDS: INSULIN LISPRO (NovoLOG) PER UNIT SC SCH (20:53)
[2022-02-21] MEDS: ROSUVASTATIN 10 MG TAB (CRESTOR) PO SCH (20:53)
[2022-02-21] MEDS: DOCUSATE SODIUM 100MG CAPSULE PO SCH (20:53)
[2022-02-22] VITALS (7 sets, daily range): BP systolic 108–147; BP diastolic 56–78
[2022-02-22 00:27] LABS: BLOOD UREA NITROGEN 16 MG/DL (9-23); CALCIUM LEVEL 8.5 MG/DL (8.3-10.6); CARBON DIOXIDE LEVEL 20 MMOL/L (20-31); CHLORIDE LEVEL 99 MMOL/L (98-107); CREATININE FOR GFR 0.38 MG/DL (0.70-1.30); GLOMERULAR FILTRATION RATE > 60.0 (>35); GLUCOSE, FASTING 145 MG/DL (74-106); POTASSIUM SERUM 3.8 MMOL/L (3.5-5.1); SODIUM LEVEL 132 MMOL/L (136-145)
[2022-02-22 04:47] LABS: HEMATOCRIT 33.1 % (42.0-52.0); HEMOGLOBIN 11.2 g/dl (13.5-17.5); MEAN CORPUSCULAR HEMOGLOBIN 30.9 pg (27.0-33.0); MEAN CORPUSCULAR HGB CONC 33.8 g/dl (32.0-36.5); MEAN CORPUSCULAR VOLUME 91.2 fl (80.0-96.0); PLATELET COUNT, AUTOMATED 212 10^3/uL (150-450); RED BLOOD COUNT 3.63 10^6/uL (4.30-6.10); WHITE BLOOD COUNT 9.2 10^3/uL (4.0-10.0)
[2022-02-22 05:07] LABS: MAGNESIUM LEVEL 1.8 MG/DL (1.8-2.4)
[2022-02-22 05:09] LABS: BLOOD UREA NITROGEN 19 MG/DL (9-23); CALCIUM LEVEL 8.4 MG/DL (8.3-10.6); CARBON DIOXIDE LEVEL 25 MMOL/L (20-31); CHLORIDE LEVEL 100 MMOL/L (98-107); CREATININE FOR GFR 0.43 MG/DL (0.70-1.30); GLOMERULAR FILTRATION RATE > 60.0 (>35); GLUCOSE, FASTING 131 MG/DL (74-106); POTASSIUM SERUM 3.9 MMOL/L (3.5-5.1); SODIUM LEVEL 133 MMOL/L (136-145)
[2022-02-22] MEDS: INSULIN LISPRO (NovoLOG) PER UNIT SC SCH ×4 (07:30→20:15)
[2022-02-22] MEDS: ENOXAPARIN 40MG/0.4ML SYRINGE (J1650 PER 10MG) SC SCH (08:38)
[2022-02-22] MEDS: NS 1,000 ML IV SCH (08:42)
[2022-02-22] MEDS: MULTIVITAMINS/MINERALS THERAP 1 TAB PO SCH (09:00)
[2022-02-22] MEDS ORDERED: LevoFLOXacin IV 750 MG in IV 1 EA IV SCH (09:00)
[2022-02-22] MEDS: MAGNESIUM OXIDE 400MG TAB (MAG-OX) PO SCH (09:00)
[2022-02-22] MEDS ORDERED: ISOVUE-370 76% 100ML VIAL As Ordered ONE (09:23)
[2022-02-22] MEDS: FERROUS GLUCONATE 324 MG TAB PO SCH (10:54)
[2022-02-22] MEDS: PANTOPRAZOLE 40MG TAB (PROTONIX) PO SCH (10:54)
[2022-02-22] MEDS: ASPIRIN 81MG ENTERIC TABLET PO SCH (10:54)
[2022-02-22] MEDS: DOCUSATE SODIUM 100MG CAPSULE PO SCH ×2 (10:54→20:23)
[2022-02-22] MEDS: SODIUM CHLORIDE 1 GM TAB PO SCH ×2 (10:55→20:23)
[2022-02-22] MEDS ORDERED: cefTRIAXone SOD 2 GM in D5W MINI-BAG PLUS 50 ML IV SCH (18:00)
[2022-02-22] MEDS: ROSUVASTATIN 10 MG TAB (CRESTOR) PO SCH (20:22)
[2022-02-23] VITALS: BP 145/78
[2022-02-23] MEDS: MUPIROCIN 2% OINT 22 GM TUBE TOP SCH ×4 (02:33→21:00)
[2022-02-23 04:00] VITALS: BP 121/71
[2022-02-23 04:52] LABS: BASO % 0.2 % (0.0-1.0); EOS # 0.4 10^3/uL (0.0-0.5); EOS % 8.6 % (0.0-3.0); HEMOGLOBIN 10.4 g/dl (13.5-17.5); LYMPH # 0.4 10^3/uL (1.5-5.0); LYMPH % 7.6 % (24.0-44.0); MEAN CORPUSCULAR HEMOGLOBIN 30.5 pg (27.0-33.0); MEAN CORPUSCULAR HGB CONC 33.5 g/dl (32.0-36.5); MEAN CORPUSCULAR VOLUME 90.9 fl (80.0-96.0); MONO # 0.2 10^3/uL (0.0-0.8); MONO % 4.8 % (2.0-8.0); NEUTROPHILS # 3.9 10^3/uL (1.5-8.5); NEUTROPHILS % 78.4 % (36.0-66.0); PLATELET COUNT, AUTOMATED 217 10^3/uL (150-450); RED BLOOD COUNT 3.41 10^6/uL (4.30-6.10)
[2022-02-23 05:11] LABS: MAGNESIUM LEVEL 1.5 MG/DL (1.8-2.4)
[2022-02-23 05:13] LABS: ALBUMIN 2.6 G/DL (3.2-5.2); ALKALINE PHOSPHATASE 97 U/L (46-116); ALT/SGPT 114 U/L (7.0-40); AST/SGOT 163 U/L (<34); BILIRUBIN,TOTAL 0.5 MG/DL (0.3-1.2); BLOOD UREA NITROGEN 15 MG/DL (9-23); CALCIUM LEVEL 8.1 MG/DL (8.3-10.6); CARBON DIOXIDE LEVEL 24 MMOL/L (20-31); CHLORIDE LEVEL 101 MMOL/L (98-107); CREATININE FOR GFR 0.32 MG/DL (0.70-1.30); GLOMERULAR FILTRATION RATE > 60.0 (>35); GLUCOSE, FASTING 117 MG/DL (74-106); POTASSIUM SERUM 3.7 MMOL/L (3.5-5.1); SODIUM LEVEL 134 MMOL/L (136-145); TOTAL PROTEIN 5.4 G/DL (5.7-8.2)
[2022-02-23] MEDS: LevoFLOXacin 750 MG TABLET PO SCH (05:22)
[2022-02-23 08:00] VITALS: BP 126/95
[2022-02-23] MEDS: MULTIVITAMINS/MINERALS THERAP 1 TAB PO SCH (08:21)
[2022-02-23] MEDS: FERROUS GLUCONATE 324 MG TAB PO SCH (08:21)
[2022-02-23] MEDS: DOCUSATE SODIUM 100MG CAPSULE PO SCH ×2 (08:21→21:18)
[2022-02-23] MEDS: PANTOPRAZOLE 40MG TAB (PROTONIX) PO SCH (08:21)
[2022-02-23] MEDS: ASPIRIN 81MG ENTERIC TABLET PO SCH (08:21)
[2022-02-23] MEDS: SODIUM CHLORIDE 1 GM TAB PO SCH ×2 (08:21→21:18)
[2022-02-23] MEDS: ENOXAPARIN 40MG/0.4ML SYRINGE (J1650 PER 10MG) SC SCH (08:22)
[2022-02-23] MEDS: MAGNESIUM OXIDE 400MG TAB (MAG-OX) PO SCH (08:22)
[2022-02-23] MEDS: INSULIN LISPRO (NovoLOG) PER UNIT SC SCH ×4 (08:23→21:00)
[2022-02-23] MEDS ORDERED: NS 1,000 ML IV ONE (08:30)
[2022-02-23] MEDS: NS 1,000 ML IV SCH (09:21)
[2022-02-23 11:38] LABS: ALBUMIN 2.6 G/DL (3.2-5.2); ALKALINE PHOSPHATASE 103 U/L (46-116); ALT/SGPT 129 U/L (7.0-40); AST/SGOT 189 U/L (<34); BILIRUBIN,TOTAL 0.4 MG/DL (0.3-1.2); BLOOD UREA NITROGEN 10 MG/DL (9-23); CALCIUM LEVEL 7.6 MG/DL (8.3-10.6); CARBON DIOXIDE LEVEL 26 MMOL/L (20-31); CHLORIDE LEVEL 102 MMOL/L (98-107); CREATININE FOR GFR 0.31 MG/DL (0.70-1.30); GLOMERULAR FILTRATION RATE > 60.0 (>35); GLUCOSE, FASTING 161 MG/DL (74-106); POTASSIUM SERUM 3.7 MMOL/L (3.5-5.1); SODIUM LEVEL 135 MMOL/L (136-145); TOTAL PROTEIN 5.4 G/DL (5.7-8.2)
[2022-02-23 12:00] VITALS: BP 135/65
[2022-02-23] MEDS ORDERED: BETHANECHOL 10 MG TAB PO ONE (12:00)
[2022-02-23 20:37] VITALS: BP 132/80
[2022-02-23] MEDS ORDERED: ACETAMINOPHEN TAB 650MG DOSE (2X325MG) PO PRN (22:35)
[2022-02-23] MEDS ORDERED: RAMELTEON 8 MG TAB (ROZEREM) PO PRN (22:35)
[2022-02-24] MEDS ORDERED: LEVO1TAB40 PO (06:13)
[2022-02-24] MEDS: LevoFLOXacin 750 MG TABLET PO SCH (06:23)
[2022-02-24 06:27] VITALS: BP 142/76
[2022-02-24 06:55] LABS: ALBUMIN 2.7 G/DL (3.2-5.2); ALKALINE PHOSPHATASE 98 U/L (46-116); ALT/SGPT 104 U/L (7.0-40); AST/SGOT 100 U/L (<34); BILIRUBIN,TOTAL 0.6 MG/DL (0.3-1.2); BLOOD UREA NITROGEN 8 MG/DL (9-23); CALCIUM LEVEL 8.4 MG/DL (8.3-10.6); CARBON DIOXIDE LEVEL 27 MMOL/L (20-31); CHLORIDE LEVEL 100 MMOL/L (98-107); CREATININE FOR GFR 0.33 MG/DL (0.70-1.30); GLOMERULAR FILTRATION RATE > 60.0 (>35); GLUCOSE, FASTING 121 MG/DL (74-106); POTASSIUM SERUM 3.6 MMOL/L (3.5-5.1); SODIUM LEVEL 134 MMOL/L (136-145); TOTAL PROTEIN 5.5 G/DL (5.7-8.2)
[2022-02-24] MEDS: INSULIN LISPRO (NovoLOG) PER UNIT SC SCH (08:15)
[2022-02-24] MEDS: ENOXAPARIN 40MG/0.4ML SYRINGE (J1650 PER 10MG) SC SCH (08:15)
[2022-02-24] MEDS: DOCUSATE SODIUM 100MG CAPSULE PO SCH (08:16)
[2022-02-24] MEDS: MAGNESIUM OXIDE 400MG TAB (MAG-OX) PO SCH (08:16)
[2022-02-24] MEDS: SODIUM CHLORIDE 1 GM TAB PO SCH (08:16)
[2022-02-24] MEDS: MUPIROCIN 2% OINT 22 GM TUBE TOP SCH (08:16)
[2022-02-24] MEDS: ASPIRIN 81MG ENTERIC TABLET PO SCH (08:16)
[2022-02-24] MEDS: FERROUS GLUCONATE 324 MG TAB PO SCH (08:17)
[2022-02-24] MEDS: PANTOPRAZOLE 40MG TAB (PROTONIX) PO SCH (08:17)
[2022-02-24] MEDS: MULTIVITAMINS/MINERALS THERAP 1 TAB PO SCH (08:17)
[2022-02-24] MEDS: NS 1,000 ML IV SCH (08:39)
== END 2022-02-24 11:10 | DRG 698 ==
LOC: M ED 16:09 → EDBD 16:09 → M ED INP 20:00 → M ICU 02-22 00:16 → M MS5PR 02-23 14:53
PROVIDERS: ADMIT Family Medicine; ATTEND Family Medicine
DX: T83.511A Infection and inflammatory reaction due to indwelling urethral catheter, initial encounter (principal); A41.59 Other Gram-negative sepsis; G93.41 Metabolic encephalopathy; E87.1 Hypo-osmolality and hyponatremia; K21.9 Gastro-esophageal reflux disease without esophagitis; N39.0 Urinary tract infection, site not specified; I10 Essential (primary) hypertension; I48.91 Unspecified atrial fibrillation; N40.0 Benign prostatic hyperplasia without lower urinary tract symptoms; E11.9 Type 2 diabetes mellitus without complications; D50.9 Iron deficiency anemia, unspecified; E78.5 Hyperlipidemia, unspecified; R74.01 Elevation of levels of liver transaminase levels; E83.42 Hypomagnesemia; N47.6 Balanoposthitis; B96.89 Other specified bacterial agents as the cause of diseases classified elsewhere; Z86.73 Personal history of transient ischemic attack (TIA), and cerebral infarction without residual deficits; Z96.0 Presence of urogenital implants; Z98.41 Cataract extraction status, right eye; Z98.42 Cataract extraction status, left eye; Z96.653 Presence of artificial knee joint, bilateral; Z20.822 Contact with and (suspected) exposure to COVID-19; Z79.82 Long term (current) use of aspirin; Z79.84 Long term (current) use of oral hypoglycemic drugs; Z79.899 Other long term (current) drug therapy; Z88.2 Allergy status to sulfonamides; Z88.5 Allergy status to narcotic agent; Z88.8 Allergy status to other drugs, medicaments and biological substances; Z66 Do not resuscitate

== ENCOUNTER → 2022-02-21 | Outpatient (REF) | payer MEDICARE, OTHER ==
[~2022-02-21] MED LIST changes: -LEVO1TAB40 PO
[2022-02-21 14:38] LABS: HEMATOCRIT 36.9 % (42.0-52.0); HEMOGLOBIN 12.8 g/dl (13.5-17.5); MEAN CORPUSCULAR HEMOGLOBIN 30.8 pg (27.0-33.0); MEAN CORPUSCULAR HGB CONC 34.7 g/dl (32.0-36.5); MEAN CORPUSCULAR VOLUME 88.7 fl (80.0-96.0); PLATELET COUNT, AUTOMATED 270 10^3/uL (150-450); RED BLOOD COUNT 4.16 10^6/uL (4.30-6.10); WHITE BLOOD COUNT 17.1 10^3/uL (4.0-10.0)
[2022-02-21 14:58] LABS: BLOOD UREA NITROGEN 19 MG/DL (9-23); CALCIUM LEVEL 8.9 MG/DL (8.3-10.6); CARBON DIOXIDE LEVEL 22 MMOL/L (20-31); CHLORIDE LEVEL 92 MMOL/L (98-107); GLOMERULAR FILTRATION RATE > 60.0 (>35); GLUCOSE, FASTING 228 MG/DL (74-106); POTASSIUM SERUM 4.6 MMOL/L (3.5-5.1); SODIUM LEVEL 125 MMOL/L (136-145)
== END ==
PROVIDERS: ATTEND Physician Assistant
DX: R11.10 Vomiting, unspecified (principal)

== ENCOUNTER → 2022-02-27 | Outpatient (REF) | payer MEDICARE, OTHER ==
[~2022-02-27] MED LIST changes: +LEVO1TAB40 PO; +MACR100C43 PO; +META28.32 PO; +OSEL75CA2 PO; +SODI1TAB12 PO; +[UNRECOGNIZED DRUG - CODE] TOP
[2022-02-27 11:43] LABS: HEMATOCRIT 34.6 % (42.0-52.0); HEMOGLOBIN 11.8 g/dl (13.5-17.5); MEAN CORPUSCULAR HGB CONC 34.1 g/dl (32.0-36.5); MEAN CORPUSCULAR VOLUME 90.8 fl (80.0-96.0); PLATELET COUNT, AUTOMATED 289 10^3/uL (150-450); RED BLOOD COUNT 3.81 10^6/uL (4.30-6.10); WHITE BLOOD COUNT 7.6 10^3/uL (4.0-10.0)
[2022-02-27 11:58] LABS: BLOOD UREA NITROGEN 9 MG/DL (9-23); CARBON DIOXIDE LEVEL 27 MMOL/L (20-31); CHLORIDE LEVEL 98 MMOL/L (98-107); CREATININE FOR GFR 0.36 MG/DL (0.70-1.30); GLOMERULAR FILTRATION RATE > 60.0 (>35); GLUCOSE, FASTING 225 MG/DL (74-106); POTASSIUM SERUM 4.2 MMOL/L (3.5-5.1); SODIUM LEVEL 132 MMOL/L (136-145)
== END ==
PROVIDERS: ATTEND Physician Assistant
DX: I10 Essential (primary) hypertension (principal)

== ENCOUNTER → 2022-02-28 | Outpatient (REF) ==
[2022-02-28 12:29] LABS: HEMATOCRIT 31.7 % (42.0-52.0); HEMOGLOBIN 10.5 g/dl (13.5-17.5); MEAN CORPUSCULAR HEMOGLOBIN 30.3 pg (27.0-33.0); MEAN CORPUSCULAR HGB CONC 33.1 g/dl (32.0-36.5); MEAN CORPUSCULAR VOLUME 91.4 fl (80.0-96.0); PLATELET COUNT, AUTOMATED 287 10^3/uL (150-450); RED BLOOD COUNT 3.47 10^6/uL (4.30-6.10); WHITE BLOOD COUNT 7.8 10^3/uL (4.0-10.0)
[2022-02-28 12:52] LABS: BLOOD UREA NITROGEN 11 MG/DL (9-23); CALCIUM LEVEL 8.9 MG/DL (8.3-10.6); CARBON DIOXIDE LEVEL 31 MMOL/L (20-31); CHLORIDE LEVEL 96 MMOL/L (98-107); CREATININE FOR GFR 0.43 MG/DL (0.70-1.30); GLOMERULAR FILTRATION RATE > 60.0 (>35); GLUCOSE, FASTING 148 MG/DL (74-106); POTASSIUM SERUM 4.9 MMOL/L (3.5-5.1); SODIUM LEVEL 132 MMOL/L (136-145)
== END ==
PROVIDERS: ATTEND Internal Medicine
DX: K46.9 Unspecified abdominal hernia without obstruction or gangrene (principal)

== ENCOUNTER → 2022-03-01 | Outpatient (REF) | payer MEDICARE, OTHER | PROVIDERS: ATTEND Internal Medicine | DX: Z01.89 Encounter for other specified special examinations (principal); Z53.8 Procedure and treatment not carried out for other reasons ==

== ENCOUNTER → 2022-03-02 | Outpatient (REF) ==
[2022-03-02 15:56] LABS: HEMOGLOBIN 10.8 g/dl (13.5-17.5); MEAN CORPUSCULAR HEMOGLOBIN 30.6 pg (27.0-33.0); MEAN CORPUSCULAR HGB CONC 32.7 g/dl (32.0-36.5); MEAN CORPUSCULAR VOLUME 93.5 fl (80.0-96.0); PLATELET COUNT, AUTOMATED 293 10^3/uL (150-450); RED BLOOD COUNT 3.53 10^6/uL (4.30-6.10); WHITE BLOOD COUNT 6.6 10^3/uL (4.0-10.0)
[2022-03-02 16:07] LABS: BLOOD UREA NITROGEN 10 MG/DL (9-23); CALCIUM LEVEL 8.9 MG/DL (8.3-10.6); CARBON DIOXIDE LEVEL 27 MMOL/L (20-31); CHLORIDE LEVEL 96 MMOL/L (98-107); CREATININE FOR GFR 0.45 MG/DL (0.70-1.30); GLOMERULAR FILTRATION RATE > 60.0 (>35); GLUCOSE, FASTING 160 MG/DL (74-106); POTASSIUM SERUM 4.7 MMOL/L (3.5-5.1); SODIUM LEVEL 132 MMOL/L (136-145)
== END ==
PROVIDERS: ATTEND Internal Medicine
DX: R31.0 Gross hematuria (principal)

== ENCOUNTER → 2022-03-06 | Outpatient (REF) | PROVIDERS: ATTEND Internal Medicine | DX: R31.0 Gross hematuria (principal); Z53.8 Procedure and treatment not carried out for other reasons ==

== ENCOUNTER → 2022-03-06 | Outpatient (REF) ==
[2022-03-06 10:39] LABS: HEMATOCRIT 33.1 % (42.0-52.0); HEMOGLOBIN 10.8 g/dl (13.5-17.5); MEAN CORPUSCULAR HEMOGLOBIN 30.3 pg (27.0-33.0); MEAN CORPUSCULAR HGB CONC 32.6 g/dl (32.0-36.5); PLATELET COUNT, AUTOMATED 323 10^3/uL (150-450); RED BLOOD COUNT 3.56 10^6/uL (4.30-6.10); WHITE BLOOD COUNT 7.7 10^3/uL (4.0-10.0)
[2022-03-06 11:08] LABS: BLOOD UREA NITROGEN 11 MG/DL (9-23); CALCIUM LEVEL 8.3 MG/DL (8.3-10.6); CARBON DIOXIDE LEVEL 28 MMOL/L (20-31); CHLORIDE LEVEL 98 MMOL/L (98-107); CREATININE FOR GFR 0.41 MG/DL (0.70-1.30); GLOMERULAR FILTRATION RATE > 60.0 (>35); GLUCOSE, FASTING 119 MG/DL (74-106); POTASSIUM SERUM 4.2 MMOL/L (3.5-5.1); SODIUM LEVEL 133 MMOL/L (136-145)
== END ==
PROVIDERS: ATTEND Internal Medicine
DX: I10 Essential (primary) hypertension (principal)

== ENCOUNTER → 2022-03-08 | Outpatient (REF) | payer MEDICARE, OTHER | PROVIDERS: ATTEND Internal Medicine | DX: R31.9 Hematuria, unspecified (principal) ==

== ENCOUNTER → 2022-03-10 | Outpatient (REF) | payer MEDICARE, OTHER ==
[2022-03-10 16:28] LABS: BASO % 0.2 % (0.0-1.0); EOS # 0.3 10^3/uL (0.0-0.5); HEMATOCRIT 32.4 % (42.0-52.0); HEMOGLOBIN 10.8 g/dl (13.5-17.5); LYMPH # 0.6 10^3/uL (1.5-5.0); LYMPH % 9.7 % (24.0-44.0); MEAN CORPUSCULAR HEMOGLOBIN 30.5 pg (27.0-33.0); MEAN CORPUSCULAR HGB CONC 33.3 g/dl (32.0-36.5); MEAN CORPUSCULAR VOLUME 91.5 fl (80.0-96.0); MONO # 0.4 10^3/uL (0.0-0.8); MONO % 7.6 % (2.0-8.0); NEUTROPHILS # 4.5 10^3/uL (1.5-8.5); PLATELET COUNT, AUTOMATED 286 10^3/uL (150-450); RED BLOOD COUNT 3.54 10^6/uL (4.30-6.10); WHITE BLOOD COUNT 5.8 10^3/uL (4.0-10.0)
[2022-03-10 16:50] LABS: ALBUMIN 3.2 G/DL (3.2-5.2); ALKALINE PHOSPHATASE 87 U/L (46-116); ALT/SGPT 18 U/L (7.0-40); AST/SGOT 22 U/L (<34); BILIRUBIN,TOTAL 0.6 MG/DL (0.3-1.2); BLOOD UREA NITROGEN 10 MG/DL (9-23); CALCIUM LEVEL 8.7 MG/DL (8.3-10.6); CARBON DIOXIDE LEVEL 26 MMOL/L (20-31); CHLORIDE LEVEL 96 MMOL/L (98-107); CREATININE FOR GFR 0.36 MG/DL (0.70-1.30); GLOMERULAR FILTRATION RATE > 60.0 (>35); GLUCOSE, FASTING 150 MG/DL (74-106); POTASSIUM SERUM 4.7 MMOL/L (3.5-5.1); SODIUM LEVEL 130 MMOL/L (136-145); TOTAL PROTEIN 6.4 G/DL (5.7-8.2)
== END ==
PROVIDERS: ATTEND Physician Assistant
DX: R53.83 Other fatigue (principal)

== ENCOUNTER → 2022-03-13 | Outpatient (REF) ==
[2022-03-13 12:33] LABS: HEMATOCRIT 34.8 % (42.0-52.0); HEMOGLOBIN 11.6 g/dl (13.5-17.5); MEAN CORPUSCULAR HEMOGLOBIN 30.8 pg (27.0-33.0); MEAN CORPUSCULAR HGB CONC 33.3 g/dl (32.0-36.5); MEAN CORPUSCULAR VOLUME 92.3 fl (80.0-96.0); PLATELET COUNT, AUTOMATED 337 10^3/uL (150-450); RED BLOOD COUNT 3.77 10^6/uL (4.30-6.10); WHITE BLOOD COUNT 5.3 10^3/uL (4.0-10.0)
[2022-03-13 13:03] LABS: BLOOD UREA NITROGEN 15 MG/DL (9-23); CALCIUM LEVEL 9.4 MG/DL (8.3-10.6); CARBON DIOXIDE LEVEL 29 MMOL/L (20-31); CHLORIDE LEVEL 96 MMOL/L (98-107); CREATININE FOR GFR 0.41 MG/DL (0.70-1.30); GLOMERULAR FILTRATION RATE > 60.0 (>35); GLUCOSE, FASTING 195 MG/DL (74-106); POTASSIUM SERUM 4.4 MMOL/L (3.5-5.1); SODIUM LEVEL 133 MMOL/L (136-145)
== END ==
PROVIDERS: ATTEND Internal Medicine
DX: E87.1 Hypo-osmolality and hyponatremia (principal)

== ENCOUNTER → 2022-03-15 | Outpatient (REF) | payer MEDICARE, OTHER | PROVIDERS: ATTEND Internal Medicine | DX: R31.9 Hematuria, unspecified (principal) ==

== ENCOUNTER → 2022-03-20 | Outpatient (REF) | payer MEDICARE, OTHER ==
[2022-03-20 10:56] LABS: HEMOGLOBIN 11.6 g/dl (13.5-17.5); MEAN CORPUSCULAR HEMOGLOBIN 30.6 pg (27.0-33.0); MEAN CORPUSCULAR HGB CONC 33.1 g/dl (32.0-36.5); MEAN CORPUSCULAR VOLUME 92.3 fl (80.0-96.0); PLATELET COUNT, AUTOMATED 278 10^3/uL (150-450); RED BLOOD COUNT 3.79 10^6/uL (4.30-6.10)
[2022-03-20 11:19] LABS: BLOOD UREA NITROGEN 9 MG/DL (9-23); CARBON DIOXIDE LEVEL 26 MMOL/L (20-31); CHLORIDE LEVEL 91 MMOL/L (98-107); CREATININE FOR GFR 0.39 MG/DL (0.70-1.30); GLOMERULAR FILTRATION RATE > 60.0 (>35); GLUCOSE, FASTING 237 MG/DL (74-106); POTASSIUM SERUM 4.2 MMOL/L (3.5-5.1); SODIUM LEVEL 127 MMOL/L (136-145)
== END ==
PROVIDERS: ATTEND Internal Medicine
DX: E87.1 Hypo-osmolality and hyponatremia (principal)

== ENCOUNTER → 2022-03-27 | Outpatient (REF) | payer MEDICARE, OTHER ==
[2022-03-27 10:36] LABS: BASO % 0.4 % (0.0-1.0); EOS # 0.3 10^3/uL (0.0-0.5); EOS % 5.2 % (0.0-3.0); HEMATOCRIT 31.7 % (42.0-52.0); HEMOGLOBIN 10.6 g/dl (13.5-17.5); LYMPH # 0.7 10^3/uL (1.5-5.0); LYMPH % 12.6 % (24.0-44.0); MEAN CORPUSCULAR HEMOGLOBIN 30.7 pg (27.0-33.0); MEAN CORPUSCULAR HGB CONC 33.4 g/dl (32.0-36.5); MEAN CORPUSCULAR VOLUME 91.9 fl (80.0-96.0); MONO # 0.5 10^3/uL (0.0-0.8); NEUTROPHILS # 3.8 10^3/uL (1.5-8.5); PLATELET COUNT, AUTOMATED 310 10^3/uL (150-450); RED BLOOD COUNT 3.45 10^6/uL (4.30-6.10); WHITE BLOOD COUNT 5.2 10^3/uL (4.0-10.0)
[2022-03-27 10:57] LABS: ALKALINE PHOSPHATASE 89 U/L (46-116); ALT/SGPT 13 U/L (7.0-40); AST/SGOT 22 U/L (<34); BILIRUBIN,DIRECT 0.4 MG/DL (<0.4); BILIRUBIN,TOTAL 0.7 MG/DL (0.3-1.2); BLOOD UREA NITROGEN 9 MG/DL (9-23); CALCIUM LEVEL 8.7 MG/DL (8.3-10.6); CARBON DIOXIDE LEVEL 27 MMOL/L (20-31); CHLORIDE LEVEL 95 MMOL/L (98-107); CREATININE FOR GFR 0.44 MG/DL (0.70-1.30); GLOMERULAR FILTRATION RATE > 60.0 (>35); GLUCOSE, FASTING 206 MG/DL (74-106); POTASSIUM SERUM 4.1 MMOL/L (3.5-5.1); SODIUM LEVEL 129 MMOL/L (136-145); TOTAL PROTEIN 6.1 G/DL (5.7-8.2)
== END ==
PROVIDERS: ATTEND Internal Medicine
DX: K57.90 Diverticulosis of intestine, part unspecified, without perforation or abscess without bleeding (principal)

== ENCOUNTER → 2022-03-29 | Outpatient (REF) | payer MEDICARE, OTHER ==
[2022-03-29 11:24] LABS: HEMATOCRIT 34.9 % (42.0-52.0); HEMOGLOBIN 11.3 g/dl (13.5-17.5); MEAN CORPUSCULAR HEMOGLOBIN 30.1 pg (27.0-33.0); MEAN CORPUSCULAR HGB CONC 32.4 g/dl (32.0-36.5); MEAN CORPUSCULAR VOLUME 92.8 fl (80.0-96.0); PLATELET COUNT, AUTOMATED 340 10^3/uL (150-450); RED BLOOD COUNT 3.76 10^6/uL (4.30-6.10); WHITE BLOOD COUNT 4.7 10^3/uL (4.0-10.0)
[2022-03-29 11:49] LABS: BLOOD UREA NITROGEN 5 MG/DL (9-23); CALCIUM LEVEL 8.8 MG/DL (8.3-10.6); CARBON DIOXIDE LEVEL 28 MMOL/L (20-31); CHLORIDE LEVEL 96 MMOL/L (98-107); GLOMERULAR FILTRATION RATE > 60.0 (>35); GLUCOSE, FASTING 193 MG/DL (74-106); POTASSIUM SERUM 4.5 MMOL/L (3.5-5.1); SODIUM LEVEL 132 MMOL/L (136-145)
== END ==
PROVIDERS: ATTEND Internal Medicine
DX: R05.9 Cough, unspecified (principal); Z79.899 Other long term (current) drug therapy

== ENCOUNTER → 2022-04-10 | Outpatient (REF) | payer MEDICARE, OTHER ==
[2022-04-10 09:57] LABS: HEMATOCRIT 31.1 % (42.0-52.0); HEMOGLOBIN 10.4 g/dl (13.5-17.5); MEAN CORPUSCULAR HEMOGLOBIN 30.4 pg (27.0-33.0); MEAN CORPUSCULAR HGB CONC 33.4 g/dl (32.0-36.5); MEAN CORPUSCULAR VOLUME 90.9 fl (80.0-96.0); PLATELET COUNT, AUTOMATED 321 10^3/uL (150-450); RED BLOOD COUNT 3.42 10^6/uL (4.30-6.10); WHITE BLOOD COUNT 5.6 10^3/uL (4.0-10.0)
[2022-04-10 10:42] LABS: BLOOD UREA NITROGEN 11 MG/DL (9-23); CALCIUM LEVEL 8.7 MG/DL (8.3-10.6); CARBON DIOXIDE LEVEL 27 MMOL/L (20-31); CHLORIDE LEVEL 94 MMOL/L (98-107); CREATININE FOR GFR 0.33 MG/DL (0.70-1.30); GLOMERULAR FILTRATION RATE > 60.0 (>35); GLUCOSE, FASTING 122 MG/DL (74-106); POTASSIUM SERUM 4.3 MMOL/L (3.5-5.1); SODIUM LEVEL 128 MMOL/L (136-145)
== END ==
PROVIDERS: ATTEND Internal Medicine
DX: E87.1 Hypo-osmolality and hyponatremia (principal)

== ENCOUNTER → 2022-04-20 | Outpatient (REF) | payer MEDICARE, OTHER | PROVIDERS: ATTEND Internal Medicine | DX: N39.0 Urinary tract infection, site not specified (principal) ==